=== PATIENT | female | born 1965 | race Caucasian/White ===

== ENCOUNTER 2024-09-03 14:51 | Outpatient (CLI) | payer MEDICARE, SELFPAY ==
[2024-09-03 15:22] LABS: Alanine Aminotransferase 101 U/L (6-35); Albumin Level 4.3 g/dL (3.5-5.1); Alkaline Phosphatase 87 U/L (38-126); Anion Gap 9 mmol/L (4-12); Aspartate Amino Transferase 68 U/L (14-36); Bilirubin,Total 0.4 mg/dL (0.2-1.3); Blood Urea Nitrogen 15 mg/dL (7-17); Calcium 9.6 mg/dL (8.4-10.2); Carbon Dioxide 24 mmol/L (22-30); Chloride 107 mmol/L (98-107); Estimated Glomerular Filt Rate > 60; Glucose 100 mg/dL (65-110); Sodium 140 mmol/L (137-145)
== END 2024-09-03 14:52 | disposition home or self-care (01) ==
LOC: ANHLAB 14:57
PROVIDERS: PCP Family Medicine; Visit Provider Family Medicine
DX: R79.89 Other specified abnormal findings of blood chemistry (principal)
CPT/HCPCS: 36415; 80053

== ENCOUNTER 2024-11-09 10:37 | Outpatient (CLI) | payer MEDICARE, SELFPAY ==
[2024-11-09 11:19] LABS: Alanine Aminotransferase 33 U/L (6-35); Albumin Level 4.3 g/dL (3.5-5.1); Alkaline Phosphatase 75 U/L (38-126); Anion Gap 4 mmol/L (4-12); Aspartate Amino Transferase 26 U/L (14-36); Bilirubin,Total 0.5 mg/dL (0.2-1.3); Blood Urea Nitrogen 16 mg/dL (7-17); Calcium 9.3 mg/dL (8.4-10.2); Carbon Dioxide 29 mmol/L (22-30); Chloride 106 mmol/L (98-107); Estimated Glomerular Filt Rate > 60; Glucose 89 mg/dL (65-110); Sodium 139 mmol/L (137-145)
== END 2024-11-09 10:38 | disposition home or self-care (01) ==
PROVIDERS: PCP Family Medicine; Visit Provider Family Medicine
DX: R79.89 Other specified abnormal findings of blood chemistry (principal)
CPT/HCPCS: 36415; 80053

== ENCOUNTER 2024-12-23 14:25 | Outpatient (CLI) | payer MEDICARE, SELFPAY ==
--- NOTE | ~2024-12-23 | XR_ITS ---
EXAMINATION: XR knee LT min 4V DATE: 12/23/2024 14:57 INDICATION: Left knee pain. TECHNIQUE: 5 views of left knee including standing views were obtained. COMPARISON: None. FINDINGS: There is varus angulation at the knee. No fracture. There is moderate osteoarthritis of med ial compartment and mild osteoarthritis of the lateral and patellofemoral compartments. There is a sm all knee joint effusion. IMPRESSION: 1. Moderate left knee osteoarthritis. 2. Small left knee joint effusion. Reviewed, dictated and finalized at location B. [employer] MECH[employer]IC
[2024-12-23 16:23] LABS: Vitamin D 25 Hydroxy 36.3 ng/mL
[2024-12-23 17:13] LABS: Free T4 Free Thyroxine Reflex 0.95 ng/dL (0.78-2.19)
[2024-12-23 18:57] LABS: Total Triiodothyronine (T3) 1.29 NG/ML (0.97-1.69)
== END 2024-12-23 14:26 | disposition home or self-care (01) ==
PROVIDERS: PCP Family Medicine; Visit Provider Family Medicine
DX: E03.9 Hypothyroidism, unspecified (principal); F31.9 Bipolar disorder, unspecified; M17.12 Unilateral primary osteoarthritis, left knee; M25.462 Effusion, left knee; Z79.899 Other long term (current) drug therapy
CPT/HCPCS: 36415; 73564; 82306; 84439; 84443; 84480

== ENCOUNTER 2024-12-29 07:48 | Outpatient (CLI) | payer MEDICARE, SELFPAY ==
--- NOTE | ~2024-12-29 | MR_ITS ---
EXAMINATION: MR knee LT wo con DATE: 12/29/2024 08:23 INDICATION: Left knee pain TECHNIQUE: Magnetic resonance imaging (MRI) of the left knee was performed without intravenous contra st. Sequences included coronal PD-weighted FSE, coronal PD-weighted FS FSE, sagittal T2-weighted FSE , sagittal PD-weighted FS FSE and axial PD weighted fat saturated FSE. COMPARISON: None. FINDINGS: Medial compartment: Complex medial meniscal tear which includes a longitudinal vertical tear extending to the superior ar ticular surface of the posterior horn and a meniscal flap arising from the anterior horn and body whi ch is displaced cephalad along the medial side of the anterior weightbearing medial femoral condyle. There is mild partial-thickness cartilage loss with subtle scattered chondral surface regularity angelia g the medial tibial plateau and weightbearing medial femoral condyle. There is deep or chondral ulcer ation with mild subarticular cystlike changes along the medial rim of the medial femoral condyle both at the anterior and posterior weightbearing portions. Lateral compartment: Lateral meniscus is normal. Articular cartilage is normal. Patellofemoral compartment: Deep chondral ulceration and fissuring extending in a band across the patella from the medial margin of the medial patellar facet across the apical ridge the central aspect of the lateral facet. There i s underlying mild subarticular edema-like signal change centered at the apical ridge. Shallow chondra l surface irregularity at the medial trochlea. Ligaments and tendons: Anterior and posterior cruciate ligaments are normal. The medial collateral ligament and fibular juan ateral ligament complex are normal. There are enthesophytes at the osseous insertions of the otherwis e normal quadriceps and patellar tendons. The visualized medial and lateral hamstring tendons as well as the iliotibial band are normal. Fluid: Moderate-sized left knee joint effusion with suprapatellar plical band and mild synovitis. There is a 14 x 6 x 6 mm loose osteochondral body in the posterior recess along the lateral margin of the poste rior cruciate ligament. Osseous/other: Bone alignment is normal. No fracture or pathologic marrow replacing process. IMPRESSION: 1. Complex medial meniscal tear with displaced flap. 2. 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 Reviewed, dictated and finalized at location B. ENT SERVICES CLERK IMPRESSION: 1. Complex medial meniscal tear with displaced flap. 2. Mild osteoarthritis with regions of moderate and high-grade chondromalacia i n the medial and patellofemoral compartments.
--- OUTSIDE RECORDS SUMMARY | 2024-12-29 07:54 | XMS_ITS ---
Author Organization [facility] Address [address] [place] [address] Care Team Providers Care Trucker Hand Name Role Phone Sonya Billings Primary Care Provider REASON FOR VISIT labs Social History Sex Assigned At : Social History Observation Description Sex Assigned At Female Encounters Encounter Location Date Provider [facility] [address] [place] [id number] 12/27/2024 Sonya Billings Plan Of Treatment Next Appt Details Provider Name:Sonya lamar, 01/05/2025 09:00:00 AM, [address], [address], Progress Notes * Allen HEDRICKDOB:1965 ([age] yo F)Acc No.[id number]:12/27/2024 Patient:?Allen HEDRICK :1965???Age:59 Y???Sex:Female Address:[address] [place], [address] * true * Date:? 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
--- OUTSIDE RECORDS SUMMARY | 2024-12-29 07:55 | XMS_ITS | Encounter Summary ---
Author Organization [facility] Address 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 Gender Identity Not on file Sexual Orientation Not on file documented as of this encounter Plan of Treatment Not on file documented as of this encounter Visit Diagnoses Not on filedocumented in this encounter Additional Health Concerns Infection Onset Date Last Indicated Resolved Time R/O COVID-19 06/27/2024 06/27/2024 06/27/2024 12:2 2 PM CDT R/O COVID-19 07/06/2024 07/06/2024 07/06/2024 8:14 AM CDT documented as of this encounter Care Teams Assortment Planner Relationship Specialty Start Date End Date Evan Arroyo DO [address] [place] [address] PCP - General Family Practice 06/27/21 documented as of this encounter
--- OUTSIDE RECORDS SUMMARY | 2024-12-29 07:55 | XMS_ITS ---
Author Organization [facility] Address [address] [place] [address] Care Team Providers Care Artificial Flowers Dyer Name Role Phone Sonya Billings Primary Care Provider [phone] Results Component Value Reference Range Notes [place] (Eskalith(R)), Serum Reviewed date:12/28/2024 01:47:34 PM Interpretation: Performing Lab:[facility] [place], [address] [facility], [place], Phone - [phone], Director - Juanjo Notes/Report: [place] (Eskalith(R)), Serum 0.8 0.5-1.2 mmol /L A concentration of 0.5-0.8 mmol/L is advised for long-term use; concentrations of up to 1.2 mmol/L may be necessary during acute treatment. Detection Limit = 0.1 <0.1 indicates None Detected REASON FOR VISIT labs Medications Medication SIG (Take, Route, Frequency, Duration) Notes Start Date End Date Status traZODone HCl 50 MG 1 tablet at bedtime Orally Once a day for 30 days Active Prazosin HCl 2 MG 1 capsule at bedtime Orally Once a day for 30 days Active [place] Carbonate ER 300 MG 1 tablet wit h 450 mg (for 750 mg total) at bedtime Orally Once a day for 30 days 12/08/2024 Active OLANZapine 15 MG 1 tablet Orally in the evening for 30 days Active OLANZapine 5 MG 1 tablet Orally in the morning for 30 days Active lamoTRIgine 100 MG after completing 50 mg, take 1 tablet Orally Once a day for 30 days 09/06/2024 Not-Taking Synthroid 50 MCG 1 tablet in the morning on an empty stomach Orally Once a day Not-Taking [place] Carbonate ER 450 MG 1 tablet at bedtime Orally Once a day for 30 days Active B12 Not-Taking LORazepam 0.5 MG 1 tablet at bedtime as needed Orally Once a day Not-Taking hydroCHLOROthiazide 12.5 MG 1 capsule in the morning Orally Once a day Active Atorvastatin Calcium 40 MG 1 tablet Oral ly Once a day Active Colace 100 MG 1 capsule as needed Orally Once a day Active Meclizine HCl 25 MG 1 tablet as needed Orally every 12 hrs Active Zofran Active Biotin 800 MCG 1 tablet Orally Once a day Active Vitamin D3 Active Womens 50+ Multi Vitamin Active Vitamin B12 Active Vitamin C 500 MG 1 tablet Orally Once a day Active Tolterodine Tartrate 2 MG 1 tablet Orall y Twice a day Active Levothyroxine Sodium 50 MCG 1 capsule in the morning on an empty stomach Orally Once a day Active lamoTRIgine 25 MG 1 tablet x 14 days then 2 tablets for 50 mg x 14 days Orally every day for 28 days Active Flonase Active Allergy Relief Activ e Social History Sex Assigned At : Social History Observation Description Sex Assigned At Female Encounters Encounter Location Date Provider Diagnosis [facility] [address] [address] 12/27/2024 Sonya Billings Bipolar 1 disorder F31.9 Assessments Encounter Date Diagnosis (ICD Code) Assessment Notes Treatment Notes Treatment Clinical Notes Section Notes 12/27/2024 Bipolar 1 disorder (ICD-10 - F31.9) Plan Of Treatment Next Appt Details Provider Name:Sonya lamar, 01/05/2025 09:00:00 AM, [address] [place] [address], [id number], Progress Notes * Allen HEDRICKDOB:1965 ([age] yo F)Acc No.[id number]:12/27/2024 UNLOCKED PROGRESS NOTE Patient:?BERTAllen Provider:?JAY ChiuHNP :1965???Age:59 Y???Sex:Female D ate:12/27/2024 Address[address] [facility] Subjective: * Chief Complaints: * ???1. Labs. * Medical History:? * Medications:?Taking lamoTRIg ine 25 MG Tablet 1 tablet x 14 days then 2 tablets for 50 mg x 14 days Orally every day , Taking Tolterodine Tartrate 2 MG Tablet 1 tablet Orally Twice a day , Taking Levothyroxine Sodium 50 MCG Capsule 1 capsule in the morning on an empty stomach Orally Once a day , Taking Flonase , Taking Allergy Relief , Taking Biotin 800 MCG Tablet 1 tablet Orally Once a day , Taking Vitamin B12 , Taking Vitamin C 500 MG Tablet 1 tablet Orally Once a day , Taking Vitamin D3 , Taking Womens 50+ Multi Vitamin , Taking Colace 100 MG Capsule 1 capsule as needed Orally Once a day , Taking Meclizine HCl 25 MG Tablet 1 tablet as needed Orally every 12 hrs , Taking hydroCHLOROthiazide 12.5 MG Capsule 1 capsule in the morning Orally Once a day , Taking Atorvastatin Calcium 40 MG Tablet 1 tablet Orally Once a day , Taking Zofran , Taking [place] Carbonate ER 450 MG Tablet Extended Release 1 tablet at bedtime Orally Once a day , Taking traZODone HCl 50 MG Tablet 1 tablet at bedtime Orally Once a day , Taking OLANZapine 15 MG Tablet 1 tablet Orally in the evening , Taking OLANZapine 5 MG Tablet 1 tablet Orally in the morning , Taking Prazosin HCl 2 MG Capsule 1 capsule at bedtime Orally Once a day , Taking [place] Carbonate ER 300 MG Tablet Extended Release 1 tablet with 450 mg (for 750 mg total) at bedtime Orally Once a day , Not-Taking lamoTRIgine 100 MG Tablet after completing 50 mg, take 1 tablet Orally Once a day , Not-Taking Synthroid 50 MCG Tablet 1 tablet in the morning on an empty stomach Orally Once a day , Not-Taking B12 , Not-Taking LORazepam 0.5 MG Tablet 1 tablet at bedtime as needed Orally Once a day Objective: * Vitals:? Assessment: * Assessment: 1.?Bipolar 1 disorder - F31. 9??? Plan: * Treatment: * * Electronic signature of Mary Billings on 12/29/2024 at 07:54 AM [employer] Sign off status: Pending * Provider:?SILVINO Chiu Date:? 12/27/2024 Generated for Shantelle conrad/Chantel/Deanitting on:?12/29/2024 07:54 AM [employer]
--- OUTSIDE RECORDS SUMMARY | 2024-12-29 07:55 | XMS_ITS | Patient Health Record ---
Author Organization [facility] Address [address] [place] [address] Care Team Providers Care Cinema Or Theatre Manager Name Role Phone Sonya Billings Primary Care Provider Yahaira Prince Unavailable [phone] Jass Valdez Unavailable [phone] Allergies Allergen (clinical drug ingredient) Drug/Non Drug Allergy documented on EMR Reaction Allergy Type Onset Date Status lithium Y-O Ranch hives Drug Allergy Active Results Component Value Reference Range Notes Y-O Ranch (Eskalith(R)), Serum Reviewed date:12/28/2024 01:47:34 PM Interpretation: Performing Lab:[employer] [place], [address] [facility], Phone - [phone], Director - PhDVibra Hospital Of Southeastern Massachusettsjose Notes/Report: Y-O Ranch (Eskalith(R)), Serum 0.8 0.5-1.2 mmol /L A concentration of 0.5-0.8 mmol/L is advised for long-term use; concentrations of up to 1.2 mmol/L may be necessary during acute treatment. Detection Limit = 0.1 <0.1 indicates None Detected Thyroid Panel With TSH Reviewed date:07/29/2024 08:25:23 AM Interpretation: Performing Lab:[facility] [place], [address] [facility], Phone - [phone], Director - PhDVibra Hospital Of Southeastern Massachusettsjose Notes/Report: TSH 3.840 0.450-4.500 uIU/mL Thyroxine (T4) 7.8 4.5-12.0 ug/dL T3 Uptake 21 24-39 % Free Thyroxine Index 1.6 1.2-4.9 Y-O Ranch (Eskalith(R)), Serum Reviewed date:07/29/2024 08:25:23 AM Interpretation: Performing Lab:[place] [employer] [place], [address] [place] [address], Phone - [phone], Director - Juanjo Notes/Report: Y-O Ranch (Eskalith(R)), Serum 1.4 0.5-1.2 mmol /L A concentration of 0.5-0.8 mmol/L is advised for long-term use; concentrations of up to 1.2 mmol/L may be necessary during acute treatment. Detection Limit = 0.1 <0.1 indicates None Detected Patient drug level exceeds published reference range. Evaluate clinically for signs of potential toxicity. Lipid Panel w/ Chol/HDL Rati o Reviewed date:07/29/2024 08:25:23 AM Interpretation: Performing Lab:[place] [employer] [place], [address] [facility], Phone - [phone], Director - Peter[facility] horizons medical centerviktoriya Notes/Report: Cholesterol, Total 190 100-199 mg/dL Triglycerides 121 0-149 mg/dL HDL Cholesterol 78 >39 mg/dL VLDL Cholesterol [place] 21 5-40 mg/dL LDL Chol Calc ([facility]) 91 0-99 mg/dL T. Chol/HDL Ratio 2.4 0.0-4.4 ratio T. Chol/HDL Ratio Men Women 1/2 Avg.Risk 3.4 3.3 Avg.Risk 5.0 4.4 2X Avg.Risk 9.6 7.1 3X Avg.Risk 23.4 11.0 CMP 14 Comprehensive Metabol ic Panel* Reviewed date:07/29/2024 08:25:23 AM Interpretation: Performing Lab:[place] [employer] [place], [address] [facility], Phone - [phone], Director - Juanjo Notes/Report: Glucose 84 70-99 mg/dL BUN 24 8-27 mg/dL Creatinine 1.16 0.57-1.00 mg/dL eGFR 54 >59 mL/min/1.73 BUN/Creatinine Ratio 21 12-28 Sodium 142 134-144 mmol/L Potassium 4.3 3.5-5.2 mmol/L Chloride 104 96-106 mmol/L Carbon Dioxide, Total 23 20-29 mmol/L Calcium 9.8 8.7-10.3 mg/dL Protein, Total 6.6 6.0-8.5 g/dL Albumin 4.7 3.8-4.9 g/dL Globulin, Total 1.9 1.5-4.5 g/dL Bilirubin, Total 0.4 0.0-1.2 mg/dL Alkaline Phosphatase 116 44-121 IU/L AST (SGOT) 68 0-40 IU/L ALT (SGPT) 101 0-32 IU/L Hemoglobin A1c Reviewed date:07/29/2024 08:25:23 AM Interpretation: Performing Lab:[place] [employer], Phone - [phone], Director - [facility] Notes/Report: Hemoglobin A1c 5.1 Reference Range: [place] Diabetes Association (ADA) Guidelines: <5.7: Decreased risk for diabetes 5.7 - 6.4: Increased risk for diabetes >6.4: Ongoing Hyperglycemia of any cause <7.0: Glycemic control for adults with diabetes Estimated Average Glucose 100 Y-O Ranch (Eskalith(R)), Serum Reviewed date:11/16/2024 08:25:38 AM Interpretation: Performing Lab:[place] [employer] [facility], Phone - [phone], Director - [facility] Notes/Report: Y-O [place] (Eskalith(R)), Serum 0.6 0.5-1.2 mmol /L A concentration of 0.5-0.8 mmol/L is advised for long-term use; concentrations of up to 1.2 mmol/L may be necessary during acute treatment. Detection Limit = 0.1 <0.1 indicates None Detected Y-O Ranch (Eskalith(R)), Serum Reviewed date:08/10/2024 12:19:13 PM Interpretation: Performing Lab:[place] [employer] [employer] [facility] [employer], [place], Phone - [phone], Director - [facility] Notes/Report: Y-O [place] (Eskalith(R)), Serum 1.1 0.5-1.2 mmol /L A concentration of 0.5-0.8 mmol/L is advised for long-term use; concentrations of up to 1.2 mmol/L may be necessary during acute treatment. Detection Limit = 0.1 <0.1 indicates None Detected CBC With Differential/Platel et* Reviewed date:08/10/2024 12:19:13 PM Interpretation: Performing Lab:[facility] [place], [address] [facility], Phone - [phone], Director - Juanjo Notes/Report: WBC 8.8 3.4-10.8 x10E3/uL RBC 4.96 3.77-5.28 x10E6/uL Hemoglobin 14.8 11.1-15.9 g/dL Hematocrit 45.2 34.0-46.6 % MCV 91 79-97 fL MCH 29.8 26.6-33.0 pg MCHC 32.7 31.5-35.7 g/dL RDW 13.1 11.7-15.4 % Platelets 194 150-450 x10E3/uL Neutrophils 79 Not Estab. % Lymphs 13 Not Estab. % Monocytes 5 Not Estab. % Eos 2 Not Estab. % Basos 1 Not Estab. % Neutrophils (Absolute) 6.9 1.4-7.0 x10E3/uL Lymphs (Absolute) 1.1 0.7-3.1 x10E3/uL Monocytes(Absolute) 0.5 0.1-0.9 x10E3/uL Eos (Absolute) 0.2 0.0-0.4 x10E3/uL Baso (Absolute) 0.1 0.0-0.2 x10E3/uL Immature Granulocytes 0 Not Estab. % Immature Grans (Abs) 0.0 0.0-0.1 x10E3/uL Written Authorization Reviewed date:08/10/2024 12:19:13 PM Interpretation: Performing Lab:[facility] [place], [address] [facility], [place], Phone - [phone], Director - PhDRicnew horizons medical centerjosei Notes/Report: Written Authorization Written Authorization Received. Authorization received from PER ORIGINAL ORDER 08-06-2024 Logged by Aliya Lundberg Reason For Referral Reason referral for PCP [facility] Diagnosis 1 Bipolar 1 disorder ( F31.9) Referral Organization [facility] Referring Provider First Name Yahaira Referring Provider Last Name Niki Referring Provider Speciality Behavioral Health Referred Provider Specialty Behavioral H lt Clinical Notes Irlanda Burch Rosa 07/14 12:53:20 PM >HN reached out to client and gave her information on getting set up with a PCP. Client confirmed she already had the number for central access and that she would be giving them a call. Referral Priority Routine Reason Start individual the rapy Diagnosis 1 Bipolar 1 disorder ( F31.9) Referral Organization [facility] Referring Provider First Name Sonya Referring Provider Last Name Awa Referring Provider Speciality Psychiatry Referred Provider Specialty Behavioral [place] General Notes Medicare: OP option Clinical Notes Elizabeth Singh 11/12/2024 10:41:26 AM > Called and spoke with Allen, client is interested in therapy but was trying to go outside of [facility] to a specific place in [place] though was told that she would need something sent over from [facility], but client is unsure at the moment. Client is awaiting a call at the moment from another individual at [facility] so client asked to call back at a later time, administrative underwriter provided direct line to reach her back on., Akash Singh 12/06/2024 11:53:41 AM > Called and left voicemail message., Akash Singh 12/14/2024 09:12:43 AM > Called and left voicemail. Pharmacy Sales Representative sending letter in mail for client regarding referral, if client does not hear back by 12/28 administrative underwriter will gale this as addressed. Referral Priority Routine Medications Medication SIG (Take, Route, Frequency, Duration) Notes Start Date End Date Status Biotin 800 MCG 1 tablet Orally Once a day Active Vitamin D3 Active Womens 50+ Multi Vitamin Active Vitamin B12 Active Vitamin C 500 MG 1 tablet Orally Once a day Active Tolterodine Tartrate 2 MG 1 tablet Orall y Twice a day Active Prazosin HCl 2 MG 1 capsule at bedtime Orally Once a day for 30 days Active Levothyroxine Sodium 50 MCG 1 capsule in the morning on an empty stomach Orally Once a day Active Y-O Ranch Carbonate ER 300 MG 1 tablet wit h 450 mg (for 750 mg total) at bedtime Orally Once a day for 30 days 12/08/2024 Active OLANZapine 15 MG 1 tablet Orally in the evening for 30 days Active lamoTRIgine 25 MG 1 tablet x 14 days then 2 tablets for 50 mg x 14 days Orally every day for 28 days Active OLANZapine 5 MG 1 tablet Orally in the morning for 30 days Active Flonase Active Allergy Relief Activ e lamoTRIgine 100 MG after completing 50 mg, take 1 tablet Orally Once a day for 30 days 09/06/2024 Not-Taking Synthroid 50 MCG 1 tablet in the morning on an empty stomach Orally Once a day Not-Taking Y-O Ranch Carbonate ER 450 MG 1 tablet at bedtime Orally Once a day for 30 days Active traZODone HCl 50 MG 1 tablet at [...] Orally every 12 hrs Active Zofran Active Social History Tobacco Use: Social History Observation Description Date Details (start date - stop date) Never Smoker NA - NA Sex Assigned At : Social History Observation Description Sex Assigned At Female PRAPARE Question Answer Notes Date Completed/Updated: 08/18/2024 What is your current housing situation? I have housing Are you worried about losing your housing? No What is your current work situation? 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 Check all that apply Medicine or any health care (medical, dental, mental health or vision) Struggling with the decreased dose of her medications. Client is stating that she is feeling more stressed, depressed, her sleep is affected, and that she is not adjusting well to the decrease in her medication. Has lack of transportation k ept you from medical appointments, meetings, work or from getting things needed for daily living? No How often do you see or talk to people that you care about and feel close to? (For example: talking to friends on the phone, visiting friends or family, going to congregational or club meetings) 1 or 2 times a week client and her daughter state that Allen has been much more withdrawn. Prasanna spends a lot of time in her room alone. Concerns are being expressed by the client and the client's daughter. How stressed are you? Stress is when someone feels tense, nervous, anxious, or can\t sleep at night because their mind is troubled A little bit In the past year have you sp ent more than 2 nights in a row in a nursing home, mcfp, snf center, or juvenile correctional facility? No Are you a refugee? No What country are you from? [place] Do you feel physically and emotionally safe where you currently live? Yes In the past year, have you b een afraid of your partner or ex-partner? No PRAPARE Score: 5 Tobacco Control (Standard) Question Answer Notes Tobacco use: Nonsmoker Problems Problem Type SNOMED Code ICD Code Onset Dates Problem Status W/U Status Risk Notes Problem Bipolar 1 disorder (130859708) Bipolar 1 disorder (F31.9) 07/14/2024 Active confirmed Problem Nightmares (679833710) Nightmares (F51.5) Active confirmed Vital Signs Heart Rate 81 /min 09/22/2024 Respiratory Rate 16 /min 09/22/2024 Blood pressure diastolic 84 mm Hg 09/22/2024 Oximetry 97 % 09/22/2024 Height 67 in 09/22/2024 Blood pressure systolic 124 mm Hg 09/22/2024 Weight 183 lbs 09/22/2024 BMI 28.66 kg/m2 09/22/2024 Encounters Encounter Location Date Provider Diagnosis [facility] [address] [place] [address] 07/15/2024 [place] [address] [place] [address] 08/04/2024 [facility] [address] [place] [address] 08/10/2024 [facility] [address] [place] [address] 08/18/[address] [place] [address] 09/06/2024 [facility] [address] [place] [address] 09/15/2024 Kyria Billings [facility] [address] [place] [address] 10/19/2024 Kyria Billings [facility] [address] [place] [address] 11/12/2024 Kyria Billings [facility] [address] [place] [address] 12/08/2024 Kyria Billings [facility] [address] [place] [address] 12/27/2024 Kyria Billings [facility] [address] [place] [address] 07/14/2024 Kyriminesh Lindan Nutritional counseling Z71.3 ; Bipolar 1 disorder F31.9 and Nightmares F51.5 [facility] [address] [place] [address] 07/28/2024 Nomiriminesh Lindan Bipolar 1 disorder F31.9 ; Nutritional counseling Z71.3 ; Nightmares F51.5 and Non-tobacco user Z78.9 [facility] [address] [place] [address] 08/18/2024 Nomiriminesh Lindan Nutritional counseling Z71.3 ; Bipolar 1 disorder F31.9 ; Nightmares F51.5 and Non-tobacco user Z78.9 [facility] [address] [place] [address] 09/22/2024 Kyriminesh Lindan Bipolar 1 disorder F31.9 ; Nutritional counseling Z71.3 ; Nightmares F51.5 and Non-tobacco user Z78.9 [facility] [address] [place] [address] 07/26/2024 Kyriminesh Lindan Bipolar 1 disorder F31.9 [facility] [address] [place] [address] 08/05/2024 Nomiria Billings Bipolar 1 disorder F31.9 [facility] [address] [place] [address] 11/10/2024 Kygustavoa Billings Bipolar 1 disorder F31.9 [facility] [address] [place] [address] 12/27/2024 Kyria Billings Bipolar 1 disorder F31.9 [facility] [address] [place] [address] 08/18/2024 Yahaira Prince [facility] [address] [place] [address] 10/22/2024 Kyria Billings Bipolar 1 disorder F31.9 ; Nightmares F51.5 and Non-tobacco user Z78.9 [facility] [address] [place] [address] 07/15/2024 Kyria Billings Bipolar 1 disorder F31.9 ; Nutritional counseling Z71.3 and Nightmares F51.5 [facility] [address] [place] [address] 11/16/2024 Kyria Billings Bipolar 1 disorder F31.9 ; Nightmares F51.5 and Non-tobacco user Z78.9 [facility] [address] [place] [address] 12/08/2024 Kyria Billings Bipolar 1 disorder F31.9 ; Nightmares F51.5 and Non-tobacco user Z78.9 [facility] [address] [place] [address] 09/10/2024 Kyria Billings Bipolar 1 disorder F31.9 ; Nutritional counseling Z71.3 ; Nightmares F51.5 and Non-tobacco user Z78.9 Assessments Encounter Date Diagnosis (ICD Code) Assessment Notes Treatment Notes Treatment Clinical Notes Section Notes 11/10/2024 Bipolar 1 disorder (ICD-10 - F31.9) 11/16/2024 Bipolar 1 disorder (ICD-10 - F31.9) 12/27/2024 Bipolar 1 disorder (ICD-10 - F31.9) 12/08/2024 Bipolar 1 disorder (ICD-10 - F31.9) 09/10/2024 Bipolar 1 disorder (ICD-10 - F31.9) 10/22/2024 Bipolar 1 disorder (ICD-10 - F31.9) 09/22/2024 Bipolar 1 disorder (ICD-10 - F31.9) 08/05/2024 Bipolar 1 disorder (ICD-10 - F31.9) 07/26/2024 Bipolar 1 disorder (ICD-10 - F31.9) 07/15/2024 Bipolar 1 disorder (ICD-10 - F31.9) 07/15/2024 Nutritional counseling (ICD-10 - Z71.3) 08/18/2024 Bipolar 1 disorder (ICD-10 - F31.9) 08/18/2024 Nutritional counseling (ICD-10 - Z71.3) 07/28/2024 Bipolar 1 disorder (ICD-10 - F31.9) 07/28/2024 Nutritional counseling (ICD-10 - Z71.3) 07/14/2024 Bipolar 1 disorder (ICD-10 - F31.9) 07/14/2024 Nutritional counseling (ICD-10 - Z71.3) 07/14/2024 Nightmares (ICD-10 - F51.5) Background: History of bipolar 1 disorder diagnosed in 2010 after having a hysterectomy, with prior history of depression for 10 years following the loss of her daughter in 2000. Lives with Con Koroma. Today's visit: Patient is a 58-year-old female who presents for a psychiatric evaluation in office and is accompanied by her daughter Franci post psychiatric hospitalization 30 day, discharged Friday07/09/24. PHQ-9 score of 13, LEE-7 score of 20, MDQ with 11 yes. She reports symptoms that present as bipolar disorder with distinct periods of gerri characterized by decreased need for sleep, excessive spending, hypersexuality, and irritability, followed by severe depressive episodes during which she becomes nonverbal for weeks to months at a time. During these manic episodes she may also have delusional thoughts about her daughter and periods of poor recollection of events that transpired during a manic episode. Y-O Ranch is an appropriate choice as it is considered first line treatment for bipolar disorder, she does report experiencing hives from lithium before does not have any presently and daughter reports not witnessing the hives at any period. Will continue olanzapine for further mood stability as she is currently prescribed. Recommended pt to discontinue lorazepam as it is contraindicated with Olanzapine with risk for respiratory depression. Discussed trialing 2 mg of Prazosin for nightmares and continuing trazodone as needed for sleep. Pt is agreeable to lab draws including lithium level which will help guide treatment. She is encouraged to take her medications daily as prescribed. Treatment goals include building therapeutic rapport as well as educating pt about her diagnosis for improved insight. AIMS is unremarkable. No acute safety concerns the time of this appt, he is agreeable to treatment plan and was provided an opportunity to ask questions. May self-administer medications or be administered own oral medications per [facility] protocols. Provided informed consent with understanding of side effects, adverse effects, risks and benefits as well as alternative treatments as previously discussed and with the above recommended medications & other aspects of the treatment program. Agrees to return sooner if symptoms worsen or suicidal or homicidal ideations occur. 07/28/2024 Nightmares (ICD-10 - F51.5) Today's visit: Patient is a 58-year-old female who presents for a psychiatric follow up in office and is, accompanied by daughter, Franci. Previously seen on 07/15/2024 and during this appt was continued on her current psychotropic medications and encouraged to obtain lab work. Previous PHQ-9 score of 13, today is 6. Y-O Ranch level is over the therapeutic range and is 1.4, likely contributing to report of tremors. Her labs indicate lowered eGFR and increased creatinine, will continue to monitor during upcoming appts (she reports seeing a specialist before for kidneys) - may need to consider an alternative mood stabilizer however currently is reporting improved stability in her recent manic episode and mood. Will decrease Y-O Ranch to 600mg qhs and recheck the level in 1 week. Continuing current dose of Zyprexa, Trazodone and increased dose of Prazosin which has been effective. Discussed letter for [employer] to release funds, will await further instruction before writing recommendation. She is encouraged to make PCP appt as well to follow up on lab results (lowered T3, elevated AST/ALT, elevated creatinine and lowered eGFR). No acute safety concerns at the time of this appt, she is agreeable to treatment plan and was provided an opportunity to ask questions. May self-administer medications or be administered own oral medications per [facility] protocols. Provided informed consent with understanding of side effects, adverse effects, risks and benefits as well as alternative treatments as previously discussed and with the above recommended medications & other aspects of the treatment program. Agrees to return sooner if symptoms worsen or suicidal or homicidal ideations occur. 08/18/2024 Nightmares (ICD-10 - F51.5) Today's visit: Patient is a 58-year-old female who presents for a psychiatric follow-up in office and is, accompanied by daughter, Franci. Previously seen on 07/28/2024 and during this appt was decreased on Y-O Ranch to 600 mg daily with lithium level ordered. Previous PHQ-9 score of 6, today is 17. Pt reports currently in a depressive episode. Given history of bipolar 1, antidepressants are not recommended as they can induce gerri. Instead, will start lamotrigine (Lamictal) 25mg daily for 2 weeks, then increase to 50mg daily for 2 weeks, then 100mg daily. Lamotrigine is FDA-approved for bipolar depression and was discussed with patient. Patient is aware of need to take medication daily and potential for serious rash, asked to discontinue should this occur and the need to restart this medication if missing more than 3 doses in a row. Will continue current dose of lithium, olanzapine, and prazosin (lithium within normal limits after last decrease). Will follow up in 4 weeks to assess response to lamotrigine. Consider decreasing/disconti nuing or switching off olanzapine in future if mood remains stable. Discussed possibility of genetic testing in future to help guide medication management. Provided letter to patient to present for [facility] to release hold on her account, they called to state they need a physician's signature - LAKEISHA Ricardo has reached out to Dr. Solo to see if he would be able to. No acute safety concerns at the time of this appt, she is agreeable to treatment plan and was provided an opportunity to ask questions. Begin Lamotrigine as prescribed. Reviewed purpose (mood stability, reduce depression, and help with irritability), benefits, and risks - including sedation, nausea, rash - benign or serious. A serious rash could cause shedding of all skin and even become fatal. Stop taking medication immediately if a rash occurs and seek emergency care. Notify our office as well. If you ever miss 4 or more consecutive days of taking this medication, please let the office know. The prescriber may need to restart this medication at 25 mg daily and titrate up as tolerated. May self-administer medications or be administered own oral medications per [facility] protocols. Provided informed consent with understanding of side effects, adverse effects, risks and benefits as well as alternative treatments as previously discussed and with the above recommended medications & other aspects of the treatment program. Agrees to return sooner if symptoms worsen or suicidal or homicidal ideations occur. 07/15/2024 Nightmares (ICD-10 - F51.5) Today's visit: Patient is a 58-year-old female who presents for a psychiatric evaluation over phone and is located in [place], accompanied by daughter, Franci. Previously seen on 07/14/2024 (yesterday) for an evaluation and during this appt was continued on her psychotropic medications post psychiatric hospitalization. Previous PHQ-9 score of 13, today is 13. Patient with history of bipolar 1 disorder, recently discharged from the hospital, presenting with concerns of hypomania and impulsive financial decision-making from daughter. Patient has insight that spending money while manic has been problematic in the past but denies spending any money on real estate ventures yet. Discussed with patient the importance of maintaining stability and avoiding major life decisions, such as buying a house, in the early stages of recovery and medication adjustments. Encouraged continued open communication with daughter and consideration of family therapy to address evolving relationship dynamics and establish healthy boundaries. Reviewed medication list and no major interactions noted with OTC meclizine for vertigo symptoms. Patient agreeable to continuing current medication regimen and monitoring for side effects or need for adjustments. Follow-up scheduled for 2 weeks. No acute safety concerns the time of this appt, he is agreeable to treatment plan and was provided an opportunity to ask questions. May self-administer medications or be administered own oral medications per [facility] protocols. Provided informed consent with understanding of side effects, adverse effects, risks and benefits as well as alternative treatments as previously discussed and with the above recommended medications & other aspects of the treatment program. Agrees to return sooner if symptoms worsen or suicidal or homicidal ideations occur. 09/10/2024 Nutritional counseling (ICD-10 - Z71.3) 09/22/2024 Nutritional counseling (ICD-10 - Z71.3) 10/22/2024 Nightmares (ICD-10 - F51.5) Today's visit: Patient is a 58-year-old female who presents for a psychiatric follow-up over phone and is located in [place]. Accompanied by daughter, Franci. Previously seen on 09/22/2024 and during this appt was continued on her current psychotropic medications and held on Lamotrigine Previous PHQ-9 score of 7, today is 6. Reports some cyclical depression lasting 3 weeks recently and this week feeling even . She does not wish to make any medication adjustments this appointment and wait and see . She denies any side effects, she is encouraged to write in her journal to help notice patterns, which is something she mentioned. Will continue medications as presently prescribed, no need for refills at this time.Will order lithium level for October. Will refer to therapy for patient request. No acute safety concerns at the time of this appt, she is agreeable to treatment plan and was provided an opportunity to ask questions. May self-administer medications or be administered own oral medications per [facility] protocols. Provided informed consent with understanding of side effects, adverse effects, risks and benefits as well as alternative treatments as previously discussed and with the above recommended medications & other aspects of the treatment program. Agrees to return sooner if symptoms worsen or suicidal or homicidal ideations occur. 12/08/2024 Nightmares (ICD-10 - F51.5) Today's visit: Patient is a 59-year-old female who presents for a psychiatric follow-up over Zoom and is located in [place], accompanied by her daughter Franci. Previously seen on 11/16/2024 and during this appt was continued on current psychotropic medications. PHQ-9 score today of 22. Patient reports feeling ongoing depression that has not lifted on current medications, even when restarting Zyprexa. Is feeling very sedated during the day and low energy. Discussed holding/discontinui ng AM dose of Zyprexa 5 mg, continuing 15 mg QHS and increasing lithium by 150 mg ER to 750 mg total at bedtime, based on last lithium level in October of 0.6. Patient is agreeable to these changes. Denies any other noticeable side effects. Encouraged lithium level 1-2 weeks after increasing. No acute safety concerns at the time of this appt, she is agreeable to treatment plan and was provided an opportunity to ask questions. May self-administer medications or be administered own oral medications per [facility] protocols. Provided informed consent with understanding of side effects, adverse effects, risks and benefits as well as alternative treatments as previously discussed and with the above recommended medications & other aspects of the treatment program. Agrees to return sooner if symptoms worsen or suicidal or homicidal ideations occur. 11/16/2024 Nightmares (ICD-10 - F51.5) Today's visit: Patient is a 59-year-old female who presents for a psychiatric follow-up over phone and is located in [place]. Previously seen on 10/22/2024 and during this appt was continued on her current psychotropic medications with no changes. Previous PHQ-9 score of 6, refused today's PHQ-9. Most recent lithium level 0.6 mg 11/10/24. Forgot olanzapine when out of town for a week and had not been taking, noticed a decrease in her mood sx (depression) since then and waiting for refill today from pharmacy. She would like to see how she feels after taking all medications consistently with a follow-up in a month. She declines to make any adjustments to her lithium today. No acute safety concerns at the time of this appt, she is agreeable to treatment plan and was provided an opportunity to ask questions. May self-administer medications or be administered own oral medications per [facility] protocols. Provided informed consent with understanding of side effects, adverse effects, risks and benefits as well as alternative treatments as previously discussed and with the above recommended medications & other aspects of the treatment program. Agrees to return sooner if symptoms worsen or suicidal or homicidal ideations occur. 11/16/2024 Non-tobacco user (ICD-10 - Z78.9) 12/08/2024 Non-tobacco user (ICD-10 - Z78.9) 10/22/2024 Non-tobacco user (ICD-10 - Z78.9) 09/10/2024 Nightmares (ICD-10 - F51.5) Today's visit: Patient is a 58-year-old female who presents for a psychiatric follow-up over Zoom nd is, accompanied by daughter, Franci - in the state of [place]. Previously seen on 08/18/2024 and during this appt was continued on [place] ER 600 mg, trazodone 100 mg QHS, Olanzapine 5 mg QAM and 10 mg QHS, started on Lamictal titration (only taking 25 mg presently), Prazosin 2 mg. Previous PHQ-9 score of 17, today is 11. Currently, reporting symptoms of hypomania to include irritability, decreased sleep, goal directed activity, impulsivity whereas previous appt she was reporting a significatn depressive episode. Contributing factors include recent decrease in lithium dose due to high blood levels. Recommend increasing olanzapine from 10mg to 15mg nightly to target hypomanic symptoms. Further recommend decreasing and potentially discontinuing trazodone given serotonergic activity which may be exacerbating/induci ng hypomanic episode in patient with sensitivity. Will continue lithium at current dose given most recent level was in therapeutic range. Advised holding lamotrigine at this time. Patient agreeable to medication changes. Encourage pt to engage in therapy. No acute safety concerns at the time of this appt, she is agreeable to treatment plan and was provided an opportunity to ask questions. May self-administer medications or be administered own oral medications per [facility] protocols. Provided informed consent with understanding of side effects, adverse effects, risks and benefits as well as alternative treatments as previously discussed and with the above recommended medications & other aspects of the treatment program. Agrees to return sooner if symptoms worsen or suicidal or homicidal ideations occur. 09/22/2024 Nightmares (ICD-10 - F51.5) Today's visit: Patient is a 58-year-old female who presents for a psychiatric follow-up in office, accompanied by daughter, Franci - in the [facility] [place]. Previously seen on 09/10/2024 and during this appt was increased on olanzapine to 20 mg total, decreased on trazodone, held on Lamictal (was barely taking 25 mg at the time), and continued on [place] 600 mg and Prazosin 2 mg QHS. Previous PHQ-9 score of 11, today is 7. Recent medication adjustments seem to be having a positive effect per daughter's observations, though she has had low mood the past couple days which may be situational after work attempt. Will continue current medication regimen and follow up in one month to allow time to assess response. No acute safety concerns at the time of this appt, she is agreeable to treatment plan and was provided an opportunity to ask questions. May self-administer medications or be administered own oral medications per [facility] protocols. Provided informed consent with understanding of side effects, adverse effects, risks and benefits as well as alternative treatments as previously discussed and with the above recommended medications & other aspects of the treatment program. Agrees to return sooner if symptoms worsen or suicidal or homicidal ideations occur. 08/18/2024 Non-tobacco user (ICD-10 - Z78.9) 07/28/2024 Non-tobacco user (ICD-10 - Z78.9) 09/22/2024 Non-tobacco user (ICD-10 - Z78.9) 09/10/2024 Non-tobacco user (ICD-10 - Z78.9) 08/18/2024 Other Provided case management services to address social determinants of health needs and reduce barriers to health care services. Plan Of Treatment Next Appt Details Provider Name:Sonya lamar, 01/05/2025 09:00:00 AM, [address], [id number], Insurance Providers Payer Name Payer Address Payer Phone Subscriber Number Group Number Insured Name Patient Relationship to Insured Coverage Start Date Coverage End Date [employer] ADV [address] [place] [address] [id number] Allen Hedrick Self - patient is the insured 4 Medical (General) History Medical History History ICD Code carpal tunnel Surgical History Surgery Date(Month/Year) detached retina 1978 several ovary cyst removals 1984 Hysterectomy 2010 carpal tunnel 2014 torn meniscus 2019 Hospitalization History Reason Date(Month/Year) [facility] 2022 weaning off medications-30 day stay 2023 mental health 2016
--- OUTSIDE RECORDS SUMMARY | 2024-12-29 07:55 | XMS_ITS ---
Author Organization [facility] Address [address] [place] [address] Care Team Providers Care Director Of Labor And Delivery Name Role Phone Sonya Billings Primary Care Provider Allergies Allergen (clinical drug ingredient) Drug/Non Drug Allergy documented on EMR Reaction Allergy Type Onset Date Status lithium Mcmullin hives Drug Allergy Active REASON FOR VISIT 4 week F/U Medications Medication SIG (Take, Route, Frequency, Duration) Notes Start Date End Date Status traZODone HCl 50 MG 1 tablet at bedtime Orally Once a day for 30 days Active OLANZapine 15 MG 1 tablet Orally in the evening for 30 days Active LORazepam 0.5 MG 1 tablet at bedtime as needed Orally Once a day Not-Taking Mcmullin Carbonate ER 450 MG 1 tablet at bedtime Orally Once a day for 30 days Active B12 Not-Taking Atorvastatin Calcium 40 MG 1 tablet Oral ly Once a day Active Zofran Active hydroCHLOROthiazide 12.5 MG 1 capsule in the morning Orally Once a day Active Synthroid 50 MCG 1 tablet in the morning on an empty stomach Orally Once a day Not-Taking lamoTRIgine 100 MG after completing 50 mg, take 1 tablet Orally Once a day for 30 days 09/06/2024 Not-Taking Meclizine HCl 25 MG 1 tablet as needed Orally every 12 hrs Active Womens 50+ Multi Vitamin Active Colace 100 MG 1 capsule as needed Orally Once a day Active Vitamin C 500 MG 1 tablet Orally Once a day Active Vitamin D3 Active Allergy Relief Activ e Levothyroxine Sodium 50 MCG 1 capsule in the morning on an empty stomach Orally Once a day Active Flonase Active Biotin 800 MCG 1 tablet Orally Once a day Active Vitamin B12 Active Mcmullin Carbonate ER 300 MG 1 tablet wit h 450 mg (for 750 mg total) at bedtime Orally Once a day for 30 days 12/08/2024 Active OLANZapine 5 MG 1 tablet Orally in the morning for 30 days Active lamoTRIgine 25 MG 1 tablet x 14 days then 2 tablets for 50 mg x 14 days Orally every day for 28 days Active Prazosin HCl 2 MG 1 capsule at bedtime Orally Once a day for 30 days Active Tolterodine Tartrate 2 MG 1 tablet Orall y Twice a day Active Social History Sex Assigned At : Social History Observation Description Sex Assigned At Female Encounters Encounter Location Date Provider Diagnosis [address] [address] 12/08/2024 Nomizaria Lindquistanan Bipolar 1 disorder F31.9 ; Nightmares F51.5 and Non-tobacco user Z78.9 Assessments Encounter Date Diagnosis (ICD Code) Assessment Notes Treatment Notes Treatment Clinical Notes Section Notes 12/08/2024 Bipolar 1 disorder (ICD-10 - F31.9) 12/08/2024 Nightmares (ICD-10 - F51.5) Today's visit: Patient is a 59-year-old female who presents for a psychiatric follow-up over [facility] and is located in [place], accompanied by her daughter Franci. Previously seen on 11/16/2024 and during this appt was continued on current psychotropic medications. PHQ-9 score today of 22. Patient reports feeling ongoing depression that has not lifted on current medications, even when restarting Zyprexa. Is feeling very sedated during the day and low energy. Discussed holding/discontin uing AM dose of Zyprexa 5 mg, continuing [...] or be administered own oral medications per [facility] protocols. Provided informed consent with understanding of side effects, adverse effects, risks and benefits as well as alternative treatments as previously discussed and with the above recommended medications & other aspects of the treatment program. Agrees to return sooner if symptoms worsen or suicidal or homicidal ideations occur. 12/08/2024 Non-tobacco user (ICD-10 - Z78.9) Plan Of Treatment Medication Medication Name Sig Start Date Stop Date Notes traZODone HCl 50 MG 1 tablet at bedtime Orally Once a day for 30 days OLANZapine 15 MG 1 tablet Orally in t he evening for 30 days Mcmullin Carbonate ER 450 MG 1 tablet at bedtime Orally Once a day for 30 days Mcmullin Carbonate ER 300 MG 1 tablet wit h 450 mg (for 750 mg total) at bedtime Orally Once a day for 30 days 12/08/2024 OLANZapine 5 MG 1 tablet Orally in t he morning for 30 days Prazosin HCl 2 MG 1 capsule at bedtime Orally Once a day for 30 days Treatment Notes Assessment Notes Nightmares Today's visit: Patient is a 59-year-old female who presents for a psychiatric follow-up over [facility] and is located in [place], accompanied by her daughter Franci. Previously seen on 11/16/2024 and during this appt was continued on current psychotropic medications. PHQ-9 score today of 22. Patient reports feeling ongoing depression that has not lifted on current medications, even when restarting Zyprexa. Is feeling very sedated during the day and low energy. Discussed holding/discontinuing AM dose of Zyprexa 5 mg, continuing [...] or be administered own oral medications per [facility] protocols. Provided informed consent with understanding of side effects, adverse effects, risks and benefits as well as alternative treatments as previously discussed and with the above recommended medications & other aspects of the treatment program. Agrees to return sooner if symptoms worsen or suicidal or homicidal ideations occur. Next Appt Details Follow Up: 2-4 weeks, Reason : med f/u Provider Name:Sonya lamar, 01/05/2025 09:00:00 AM, [address] , [place], [address], Progress Notes * Allen HEDRICKDOB:1965 ([age] yo F)Acc No.[id number]:12/08/2024 Patient:?Allen HEDRICK Provider:?SILVINO Chiu :1965???Age:59 Y???Sex:Female D ate:12/08/2024 Address[address] [facility] Subjective: * Chief Complaints: * ???4 week F/U * HPI: ???Interim History:?Emergency room visit?No.?Was hospitalized?No.?Psych F/U:?Changes since last visit?:?States I'm doing fine . Trying to stay out of the cold. States not much different since last appointment, states finally got olanzapine 15 mg at night and sleeping more compared to previous appointment. States would lay awake but now sleeping better. Mood has been distant states pretty shut down during the Indra holidays, didn't want to participate in the holiday activites. States still staying in bed, bed is my safe place . Because not feeling good and overall feeling more depressed, would rate depression an 8/10 with 10 being the worst. Energy level has been pretty low. Denies any feelings of SI/HI. Out of bed 1-2 hours a day per daughter Franci. Hasn't been eating very well, has had little appetite and daughter has to encourage her to come out for food. States feeling more distant and not herself . Not taking care of her hygiene as well either.?.?Depression Screening:?PHQ-9?Little interest or pleasure in doing things?Nearly every day ?Feeling down, depressed, or hopeless?Nearly every day ?Trouble falling or staying asleep, or sleeping too much?Nearly every day ?Feeling tired or having little energy?Nearly every day ?Poor appetite or overeating?Nearly every day ?Feeling bad about yourself or that you are a failure, or have let yourself or your family down?More than half the days ?Trouble concentrating on things, such as reading the newspaper or watching television?More than half the days ?Moving or speaking so slowly that other people could have noticed; or the opposite, being so fidgety or restless that you have been moving around a lot more than usual?Nearly every day ?Thoughts that you would be better off or of hurting yourself in some way?Not at all ?Total Score?22 ?Interpretation?Severe Depression ?Intervention?Depression Screening Findings?Positive ???Screening:?[place] Suicide Severity Rating Scale (LF)?Do you want to initiate with?Screener form ?1. Wish to be : Have you wished you were or wished you could go to sleep and not wake up??No ?2. Suicidal Thoughts: Have you actually had any thoughts of killing yourself??No ?6. Suicide Behaviour: Have you ever done anything,started to do anything, or prepared to end your life??No ?Interpretation:?Low Risk ???CSSRS Interpretation and Follow Up Plan:?CSSRS Interpretation and Follow Up Plan?CSSRS Screen documented using SF?Yes ?Risk Disposition from SF?Low - No Follow Up Plan Required ?Follow Up Plan?No Follow Up Plan required at this time. * ROS:?Psych ROS:?Constitutional?All systems negative or controlled on medication unless indicated otherwise., All systems negative or controlled on medication unless indicated otherwise..? * Medical History:? * Surgical History:?detached edwige brooke 1979several ovary cyst removals 1984Hysterectomy 2011carpal tunnel 2014torn meniscus 2019 * Hospitalization/Major Diagno stic Procedure:?mental health 2017weaning off medications-30 day stay 2023[facility] 2022 * Family History:?Father: srinivasa romero, healthy.?Mother: alive, healthy.?4 daughter(s) - healthy. .? 3?of her children have . One daughter is alive and healthy Grandchildren are healthy. * Social History:?Primary Social History:?Living Arrangement?Living Arrangement:?Independent Living ?Is this a supportive environment??Yes ?Alcohol Use?Alcohol Use Frequency:?Never ?Illicit Substance Usage?Illicit Substance Usage:?No ?Employment Status?Employment Status:?Unemployed * Medications:?TakingLithium C arbonate ER 300 MG Tablet Extended Release 2 tablets Orally Once a day traZODone HCl 50 MG Tablet 1 tablet at bedtime Orally Once a day OLANZapine 15 MG Tablet 1 tablet Orally in the evening OLANZapine 5 MG Tablet 1 tablet Orally in the morning Prazosin HCl 2 MG Capsule 1 capsule at bedtime Orally Once a day lamoTRIgine 25 MG Tablet 1 tablet x 14 days then 2 tablets for 50 mg x 14 days Orally every day Tolterodine Tartrate 2 MG Tablet 1 tablet Orally Twice a day Levothyroxine Sodium 50 MCG Capsule 1 capsule in the morning on an empty stomach Orally Once a day Flonase Allergy Relief Biotin 800 MCG Tablet 1 tablet Orally Once a day Vitamin B12 Vitamin C 500 MG Tablet 1 tablet Orally Once a day Vitamin D3 Womens 50+ Multi Vitamin Colace 100 MG Capsule 1 capsule as needed Orally Once a day Meclizine HCl 25 MG Tablet 1 tablet as needed Orally every 12 hrs hydroCHLOROthiazide 12.5 MG Capsule 1 capsule in the morning Orally Once a day Atorvastatin Calcium 40 MG Tablet 1 tablet Orally Once a day Zofran Taking Mcmullin Carbonate ER 300 MG Tablet Extended Release 2 tablets Orally Once a day Taking traZODone HCl 50 MG Tablet 1 tablet at bedtime Orally Once a day Taking OLANZapine 15 MG Tablet 1 tablet Orally in the evening Taking OLANZapine 5 MG Tablet 1 tablet Orally in the morning Taking Prazosin HCl 2 MG Capsule 1 capsule at bedtime Orally Once a day Taking lamoTRIgine 25 MG Tablet 1 tablet x 14 days then 2 tablets for 50 mg x 14 days Orally every day Taking Tolterodine Tartrate 2 MG Tablet 1 tablet Orally Twice a day Taking Levothyroxine Sodium 50 MCG Capsule 1 capsule in the morning on an empty stomach Orally Once a day Taking Flonase Taking Allergy Relief Taking Biotin 800 MCG Tablet 1 tablet Orally Once a day Taking Vitamin B12 Taking Vitamin C 500 MG Tablet 1 tablet Orally Once a day Taking Vitamin D3 Taking Womens 50+ Multi Vitamin Taking Colace 100 MG Capsule 1 capsule as needed Orally Once a day Taking Meclizine HCl 25 MG Tablet 1 tablet as needed Orally every 12 hrs Taking hydroCHLOROthiazide 12.5 MG Capsule 1 capsule in the morning Orally Once a day Taking Atorvastatin Calcium 40 MG Tablet 1 tablet Orally Once a day Taking Zofran Not-TakinglamoTRIgine 100 MG Tablet after completing 50 mg, take 1 tablet Orally Once a day Synthroid 50 MCG Tablet 1 tablet in the morning on an empty stomach Orally Once a day B12 LORazepam 0.5 MG Tablet 1 tablet at bedtime as needed Orally Once a day Medication List reviewed and reconciled with the patientNot-Taking lamoTRIgine 100 MG Tablet after completing 50 mg, take 1 tablet Orally Once a day Not-Taking Synthroid 50 MCG Tablet 1 tablet in the morning on an empty stomach Orally Once a day Not-Taking B12 Not-Taking LORazepam 0.5 MG Tablet 1 tablet at bedtime as needed Orally Once a day Medication List reviewed and reconciled with the patient * Allergies:?Mcmullin: hivesno[ Allergies Verified] Objective: * Vitals:? * Examination: ???Mental Status Exam: ?SENSORIUM AND COGNITION?A&OX4.?ATTENTION AND CONCENTRATION?Impaired attention/concentration.?APPEARANCE?Appropriate.?ATTITUDE AND BEHAVIOR?Cooperative, evasive.?MEMORY?Adequate.?EYE CONTACT?Fair.?AFFECT?Dysthymic, restricted affect.?MOOD?Dysthymic.?SPEECH QUANTITY?Sparse.?SPEECH QUALITY?Spontaneous , Low/soft?volume.?THOUGHT PROCESS?Coherent and goal directed.?THOUGHT CONTENT?No evidence of delusional content , No reports of paranoia.?LANGUAGE?Appropriate- WNL.?MOTOR ACTIVITY?Relaxed.?SUICIDAL IDEATION?Denies SI or thoughts of self harm.?HOMICIDAL IDEATION?Does not display aggressive behavior, threats or posturing.?HALLUCINATIONS?Does not appear to be responding to internal stimuli or seeing hallucinations in the room.?INSIGHT?Fair to Adequate.?JUDGMENT?Fair to Adequate.?FUND OF KNOWLEDGE?Adequate.?ABILITY TO PARTICIPATE IN TREATMENT?Moderate.?WILLINGNESS TO PARTICIPATE IN TREATMENT?Moderate.? Assessment: * Assessment: 1.?Bipolar 1 disorder - F31. 9 (Primary)???2.?Nightmares - F51.5???3.?Non-tobacco user - Z78.9??? Plan: * Treatment: 2.?Nightmares? Refill Prazosin HCl Capsule, 2 MG, 1 capsule at bedtime, Orally, Once a day, 30 days, 30, Refills 1.?? Notes:Today's visit: Patient is a [id number] who presents for a psychiatric follow-up over [facility] and is located in [place], accompanied by her daughter Franci.Previously seenon 11/16/2024nd during this appt was continued on current psychotropic medications. PHQ-9 score today of 22. Patient reports feeling ongoing depression that has not lifted on current medications, even when restarting Zyprexa. Is feeling very sedated during the day and low energy. Discussed holding/discontinuing AM dose of Zyprexa 5 mg, continuing 15 mg QHS and increasing lithium by 150 mg ER to 750 mg total at bedtime, based on last lithium level in October of 0.6. Patient is agreeable to these changes. Denies any other noticeable side effects. Encouraged lithium level 1-2 weeks after increasing.No acute safety concerns atthe time of this appt, she is agreeable to treatment plan and was provided anopportunity to ask questions. May self-administer medications or be administered own oralmedications per [facility] protocols. Provided informed consent withunderstanding of side effects, adverse effects, risks and benefits as well asalternative treatments as previously discussed and with the above recommendedmedications & other aspects of the treatment program. Agrees to returnsooner if symptoms worsen or suicidal or homicidal ideations occur.?? * Procedure Codes:? * Follow Up:?2-4 weeks (Reason : med f/u) * * NT CARE REPRESENTATIVE Sign off status: Completed true * [facility] Date:? 12/08/2024 Generated for Shatnelle conrad/Chantel/Sagarransmitting on:?12/29/2024 07:54 AM CLIENT CARE REPRESENTATIVE History and Physical Notes * HPI (History of Present Illness) Category Sub-Category Detail Notes Category Not es Interim History Was hospitalized No Emergency room visit No Depression Screening PHQ-9 Little inte rest or pleasure in doing things: Nearly every day Feeling down, depressed, or hopeless: Ne zonia every day Trouble falling or staying asleep, or sl eeping too much: Nearly every day Feeling tired or having little energy: N early every day Poor appetite or overeating: Nearly ever y day Feeling bad about yourself o r that you are a failure, or have let yourself or your family down: More than half the days Trouble concentrating on thi ngs, such as reading the newspaper or watching television: More than half the days Moving or speaking so slowly that other people could have noticed; or the opposite, being so fidgety or restless that you have been moving around a lot more than usual: Nearly every day Thoughts that you would be b jarod off or of hurting yourself in some way: Not at all Total Score: 22 Interpretation: Severe Depression Intervention Depression Screening Findings: P ositive Psych F/U Changes since last visit?: State s I'm doing fine . Trying to stay out of the cold. States not much different since last appointment, states finally got olanzapine 15 mg at night and sleeping more compared to previous appointment. States would lay awake but now sleeping better. Mood has been distant states pretty shut down during the Indra holidays, didn't want to participate in the holiday activites. States still staying in bed, bed is my safe place . Because not feeling good and overall feeling more depressed, would rate depression an 8/10 with 10 being the worst. Energy level has been pretty low. Denies any feelings of SI/HI. Out of bed 1-2 hours a day per daughter Franci. Hasn't been eating very well, has had little appetite and daughter has to encourage her to come out for food. States feeling more distant and not herself . Not taking care of her hygiene as well either. Screening [place] Suicide Sev erity Rating Scale (LF) Do you want to initiate with: Screener form ?1. Wish to be : Have yo u wished you were or wished you could go to sleep and not wake up?: No ?2. Suicidal Thoughts: Have you actually had any thoughts of killing yourself?: No ?6. Suicide Behaviour: Have you ever done anything,started to do anything, or prepared to end your life?: No ?Interpretation:: Low Risk CSSRS Interpretation and Follow Up Plan CSSRS Interpretation and Follow Up Plan CSSRS Screen documented using SF: Yes Risk Disposition from SF: Low - No Follo w Up Plan Required Follow Up Plan: No Follow Up Plan requir ed at this time. Examination Category Sub-Category Detail Notes Category Not es Mental Status Exam SENSORIUM AND COGNITION A&OX4 ATTENTION AND CONCENTRATION Impaired att ention/concentration APPEARANCE Appropriate ATTITUDE AND BEHAVIOR Cooperative, evasi ve MEMORY Adequate EYE CONTACT Fair AFFECT Dysthymic, restricte d affect MOOD Dysthymic SPEECH QUANTITY Sparse SPEECH QUALITY Spontaneous , Low/so ft volume THOUGHT PROCESS Coherent and goal di rected THOUGHT CONTENT No evidence of delus ional content , No reports of paranoia MOTOR ACTIVITY Relaxed SUICIDAL IDEATION Denies SI or thought s of self harm HOMICIDAL IDEATION Does not display agg ressive behavior, threats or posturing HALLUCINATIONS Does not appear to b e responding to internal stimuli or seeing hallucinations in the room INSIGHT Fair to Adequate JUDGMENT Fair to Adequate FUND OF KNOWLEDGE Adequate ABILITY TO PARTICIPATE IN TREATMENT Mode rate WILLINGNESS TO PARTICIPATE I N TREATMENT Moderate LANGUAGE Appropriate- WNL
--- OUTSIDE RECORDS SUMMARY | 2024-12-29 07:55 | XMS_ITS | Clinical Summary ---
Author Organization [facility] Address [address] [place] [address] Care Team Providers Care Dog Trainer Name Role Phone AmayaEvan edge Ayo ROB Primary Care Provider [phone] Allergies Active Allergy Reactions Criticality Noted Date Comments Iodine Hives High 04/21/2020 Latex Unknown 11/13/2017 States she is not allergic Penicillins Hives High 04/21/2020 Shellfish Containing Products Anaphylaxis,Swelling High 05/02/2016 Sulfa (Sulfonamide Antibiotics) Hives High 04/21/2020 Medications meloxicam (MOBIC) 15 mg tablet Take 15 mg by mouth daily. Active hydrOXYzine HCL (ATARAX) 50 mg tablet Take 50 mg by mouth every 6 hours as needed for Anxiety. Active levothyroxine 50 mcg tablet Take 1 Tablet (50 mcg) by mouth daily in the morning. 30 Tablet 1 07/09/2024 10:37 AM CDT 4 Active atorvastatin (LIPITOR) 10 mg tablet Starting 07/10/24, Take 1 Tablet (10 mg) by mouth daily. 30 Tablet 1 07/09/2024 10:37 AM CDT 4 Active hydroCHLOROthiazi de 12.5 mg tablet Starting 07/10/24, Take 1 Tablet (12.5 mg) by mouth daily. 30 Tablet 1 07/09/2024 10:37 AM CDT 4 Active lithium carbonate 450 mg Controlled Release tablet Take 2 Tablets (900 mg) by mouth daily at bedtime. 60 Tablet 1 07/09/2024 10:37 AM CDT 4 Active LORazepam (ATIVAN) 0.5 mg tabletIndications :Bipolar affective disorder, currently manic, moderate (CMS/HCC) Take 1 Tablet (0.5 mg) by mouth 2 times daily. 60 Tablet 1 07/09/2024 10:37 AM CDT 4 Active OLANZapine (ZyPREXA ZYDIS) 10 mg Tablet, Rapid Dissolve Take 1 Tablet (10 mg) by mouth daily at bedtime. 30 Tablet 1 07/09/2024 10:37 AM CDT 4 Active OLANZapine (ZyPREXA ZYDIS) 5 mg Tablet, Rapid Dissolve Starting 07/10/24, Take 1 Tablet (5 mg) by mouth daily. 30 Tablet 1 07/09/2024 10:37 AM CDT 4 Active ondansetron (ZOFRAN ODT) 4 mg Tablet, Rapid Dissolve Dissolve 1 Tablet (4 mg) tablet on top of tongue, then swallow with saliva every 8 hours as needed for Nausea/Vomiti ng. 60 Tablet 1 07/09/2024 10:37 AM CDT 4 Active prazosin (MINIPRESS) 1 mg capsule Take 1 Capsule (1 mg) by mouth daily at bedtime. 30 Capsule 1 07/09/2024 10:37 AM CDT 4 Active tolterodine (DETROL LA) 4 mg Extended Release 24 hour capsuleIndication s:Mixed incontinence urge and stress Take 1 Capsule (4 mg) by mouth daily. 30 Capsule 11 4 Active estradioL (CLIMARA) 0.025 mg/24 hr patchIndications: Hot flashes due to menopause Apply 1 Patch to skin as directed every 7 days. 4 Patch 11 4 Active traZODone (DESYREL) 100 mg tablet Take 1 Tablet (100 mg) by mouth daily at bedtime. 30 Tablet 1 4 Active Active Problems Problem Noted Date Diagnosed Date Hot flashes due to menopause 09/10/2024 Mixed incontinence urge and stress 09/10/2024 Screening for colon cancer 09/10/2024 Chronic diarrhea 09/10/2024 Midline cystocele 09/10/2024 Bilateral lower extremity edema 06/28/2024 Hypothyroidism 06/28/2024 Bipolar affective disorder, currently manic, mod erate 06/18/2024 Hyperlipidemia 06/18/2024 Affective psychosis, bipolar 06/18/2024 Essential hypertension 11/13/2017 Overview (06/16/2021): Discovered during most recent hypomanic bipolar episode Summer 2016 Last Assessment & Plan: Controlled. Continue meds, Encourage exercise for weight loss. Stress incontinence 01/22/2017 Resolved Problems Problem Noted Date Diagnosed Date Resolved Date Bipolar disorder, in full re mission, most recent episode hypomanic 11/13/2017 06/18/2024 Overview (06/16/2021): Original decomp ~ 2010. Most recent Aug 2017 w/ med changes. Psych in [facility]. Last Assessment & Plan: Controlled. Continue meds and Psych follow-ups. Encounters Date Type Department Care Team Description 12/22/2024 External Device Data ST[facility] ABSTRACTION Provider, Abstract 12/22/2024 External Device Data ST[facility] ABSTRACTION Provider, Abstract 12/14/2024 External Device Data ST[facility] ABSTRACTION Provider, Abstract 11/30/2024 External Device Data [facility] ABSTRACTION Provider, Abstract 11/02/2024 External Device Data [facility] ABSTRACTION Provider, Abstract 10/19/2024 External Device Data ST[facility] ABSTRACTION Provider, Abstract 09/29/2024 External Device Data ST[facility] ABSTRACTION Provider, Abstract from Last 3 Months Immunizations Immunization Administration Dates Next Due (SHINGRIX)(50 YRS UP) ZOSTER VACCINE RECOMBINANT, 0.5 ML, IM 09/10/2019 INFLUENZA VACCINE QUADRIVALENT 6 MOS UP PF IM Influenza Vaccine Tri Split 4+ Im 10/11/2017 Family History Medical History Relation Name Comments Heart Disease Father age 73. four M I - stents. Hypertension Father Other Father alcoholism Diabetes Mother age 73. pills. High Cholesterol Mother Hypertension Mother Breast Cancer Neg Hx Colon Cancer Neg Hx Ovarian Cancer Neg Hx Relation Name Status Comments Father Alive Mother Alive Social History Tobacco Use Types Packs/Day Years Used Date Smoking Tobacco: Never Smokeless Tobacco: Never Alcohol Use Standard Drinks/Week Comments No 0 (1 standard drink = 0.6 oz pur e alcohol) Utility Needs Answer Date Recorded In the past 12 months has livier e 4Cable TV, gas, oil, or water [employer] threatened to shut off services in your home? Patient unable to answer 06/17/2024 Feeling Safe Answer Date Recorded Within the last year, have y ou been afraid of your partner or ex-partner? Patient unable to answer 06/17/2024 Within the last year, have y ou been humiliated or emotionally abused in other ways by your partner or ex-partner? Patient unable to answer 06/17/2024 Within the last year, have y ou been kicked, hit, slapped, or otherwise physically hurt by your partner or ex-partner? Patient unable to answer 06/17/2024 Within the last year, have y ou been raped or forced to have any kind of sexual activity by your partner or ex-partner? Patient unable to answer 06/17/2024 Social Connections Answer Date Recorded In a typical week, how many times do you talk on the telephone with family, friends, or neighbors? Patient unable to answer 06/17/2024 How often do you get togethe r with friends or relatives? Patient unable to answer 06/17/2024 How often do you attend [facility] or nondenominational services? Patient unable to answer 06/17/2024 Do you belong to any clubs o r organizations such as yazidi groups, unions, fraternal or athletic groups, or school groups? Patient unable to answer 06/17/2024 How often do you attend meet ings of the clubs or organizations you belong to? Patient unable to answer 06/17/2024 Are you , , di vorced, , never , or living with a partner? Patient unable to answer 06/17/2024 Financial Resource Strain Answer Date R ecorded How hard is it for you to pa y for the very basics like food, housing, medical care, and heating? Patient unable to answer 06/17/2024 Food Insecurity Answer Date Recorded In the past 12 months, have you worried that your food would run out before you had money to buy more? Patient unable to answer 06/17/2024 In the past 12 months, did y ou run out of food and didn't have money to buy more? Patient unable to answer 06/17/2024 Transportation Needs Answer Date Record ed In the past 12 months, has l ack of transportation kept you from medical appointments or from getting medications? Patient unable to answer 06/17/2024 In the past 12 months, has l ack of transportation kept you from meetings, work, or from getting things needed for daily living? Patient unable to answer 06/17/2024 Housing Stability Answer Date Recorded In the last 12 months, was t here a time when you were not able to pay the mortgage or rent on time? Patient unable to answer 06/17/2024 Number of Times Moved in the Last Year Not on fi le 06/17/2024 At any time in the past 12 m [facility], were you homeless or living in a [place] (including now)? Patient unable to answer 06/17/2024 Feeling Safe Answer Date Recorded Are you in a relationship wi th someone who hurts you emotionally and/or physically? 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 Gender Identity Not on file Sexual Orientation Not on file Last Filed Vital Signs Vital Sign Reading Time Taken Comments Blood Pressure 112/72 09/10/2024 9:49 AM CDT Pulse 78 07/09/2024 7:25 AM CDT Temperature 36 ??C (96.8 ??F) 07/09/2024 7:25 AM CDT Respiratory Rate 18 07/09/2024 7:25 AM CDT Oxygen Saturation 100% 07/09/2024 7:25 AM CDT Inhaled Oxygen Concentration - - Weight 81.8 kg (180 lb 6.4 oz) 09/10/2024 9:49 A M CDT Height 170.2 cm (5' 7 ) 06/17/2024 10:34 AM CDT Body Mass Index 28.25 06/17/2024 10:34 AM CDT Plan of Treatment Health Maintenance Due Date Last Done Comments PNEUMOCOCCAL VACCINE 0-64 YE ARS (1 of 2 - PCV) 1969 DIABETES ANNUAL FOOT EXAM 1981 DIABETES ANNUAL RETINAL EXAM 1981 DIABETES MICROALBUMIN ANNUAL SCREEN 1981 DTAP/TDAP/TD VACCINES (1 - Tdap) 1982 COLORECTAL SCREENING 2008 Colorectal Cancer Screening 2008 FIT-DNA Q 3 years 2008 FIT/FOBT Q 1 year 2008 Flex Sig/CT Colonography Q 5 years 2008 ZOSTER VACCINE (2 of 2) 11/05/2019 09/10/2019 INFLUENZA VACCINE (#1) 2024 09/10/2019, 2016 DIABETES HBA1C Q 6 MONTHS 12/18/2024 06/17/2024 LDL CHOLESTEROL ANNUAL 06/17/2025 4, 06/05/2017, 04/03/2017 BREAST CANCER SCREENING 09/10/2025 09/10/20 24, 06/29/2022, 06/27/2021, Additional history exists CERVICAL CANCER SCREENING 09/10/20272023, 10/13/2020, 10/13/2020 RSV VACCINE (60+ or ) (1 - 1-dose 75+ series) 2038 Procedures Procedure Name Priority Date/Time Associated Diagnosis Comments CERV/VAG CYTO AGE BASED SCREEN PAP Routine 09/10/2024 11:58 AM CDT Encounter for gynecological examination with abnormal finding MAMMO 3D JIMENA SCREEN BILAT W OR WO CAD Routine 09/10/2024 8:11 AM CDT Visit for screening mammogram LIPID PANEL Routine 06/17/2024 8:46 PM CDT HEMOGLOBIN A1C Routine 06/17/2024 8:46 PM CDT from Last 3 Months or Most Recently Relevant to Health Maintenance Results * CERV/VAG CYTO AGE BASED SCREEN PAP (09/10/2024 11:58 AM CDT) COMMENT (PAP): [facility] Comment: This order for age-based cervical cancer and STI screening follows ACOG guidelines(PB 168, 140, XTH627). See individual assays for performing site location. CLINICAL INFORMATION [facility] Comment:None given LAST MENSTRUAL PERIOD [facility] Comment:NONE GIVEN PREV PAP: [facility] Comment:NONE GIVEN PREV BX: [facility] Comment:NONE GIVEN SOURCE [facility] Comment:Vaginal cuff ADEQUACY: [facility] Comment:SATISFACTORY FOR MARRY LUATION PAP INTERP [facility] Comment: Cytology Results: Negative for intraepithelial lesion or malignancy. COMMENT (PAP TEST) [facility] Comment: This Pap test has been evaluated with computer assisted technology. ANIMAL ANATOMIST: [facility] Comment: [place], CT(ASCP) CT Screening location: [facility] [address] [place] [address] REVIEW ANIMAL ANATOMIST: Manju Gayle Comment: LMT, CT(ASCP) CT screening location: [place] [address] [facility] EXPLANATORY NOTE [facility] Comment: EXPLANATORY NOTE: The Pap is a screening test for cervical cancer. It is not a diagnostic test and is subject to false negative and false positive results. It is most reliable when a satisfactory sample, regularly obtained, is submitted with relevant clinical findings and history, and when the Pap result is evaluated along with historic and current clinical information. HPV E6/E7 Not Detected Not Detected [facility] Comment: Methodology: [employer] Superintendent-Mediated Amplification This assay detects E6/E7 viral messenger RNA (mRNA) from 14 high-risk HPV types (16,18,31,33,35,39,45,51,52,56,58,59,66,68). Cervical sources are required for HPV testing. If a vaginal source from a patient who has had a total hysterectomy with removal of cervix was submitted, please contact the testing laboratory for alternative testing options. For additional information, please refer to http://education.Medisas/faq/XDC014r9 (This link if provided for information/ educational purposes only.) Test Performed at: [facility] [address] ??[id number] Felicia HERNÁNDEZ Genital (Vaginal cuff) 09/10/2024 11:58 AM CDT 09/11/2024 3:39 AM CDT Sudhir Henderson MD PATHOLOGY/CYTOLOGY ORDERABLES Final Result [facility] [phone] [facility] [address] [place] [address] * MAMMO 3D JIMENA SCREEN BILAT W OR WO CAD (09/10/2024 8:11 AM CDT) Anatomical Region Laterality Modality Breast Bilateral Mammography 09/10/2024 8:11 AM CDT Impressions 09/10/2024 9:36 AM CDT IMPRESSION: No mammographic evidence of malignancy. RECOMMENDATIONS: Routine screening mammogram in one year. DICTATION LOCATION: [facility] Narrative 09/10/2024 9:36 AM CDT MAMMO 3D JIMENA SCREEN BILAT W OR WO CAD DATE: 09/10/2024 8:11 AM HISTORY: Routine screening. TECHNIQUE: Full-field digital craniocaudal and mediolateral oblique projections of both breasts were obtained. Low-dose full-field digital breast tomosynthesis examination was performed with 3D acquisitions. Examination is read in conjunction with computer aided detection. COMPARISON: Mammograms dating back to 2018 BREAST COMPOSITION: There are scattered areas of fibroglandular density. FINDINGS: No suspicious mass, suspicious microcalcifications, or architectural distortion in either breast is identified. Since the prior study, there has been no significant interval change. The computer aided diagnosis detects no significant abnormality. OVERALL FINAL ASSESSMENT: ??BI-RADS CATEGORY 1 : Negative. Procedure Note Jamilah Velazquez MD - 09/10/2024 MAMMO 3D JIMENA SCREEN BILAT W OR WO CAD DATE: 09/10/2024 8:11 AM HISTORY: Routine screening. TECHNIQUE: Full-field digital craniocaudal and mediolateral oblique projections of both breasts were obtained. Low-dose full-field digital breast tomosynthesis examination was performed with 3D acquisitions. Examination is read in conjunction with computer aided detection. COMPARISON: Mammograms dating back to 2018 BREAST COMPOSITION: There are scattered areas of fibroglandular density. FINDINGS: No suspicious mass, suspicious microcalcifications, or architectural distortion in either breast is identified. Since the prior study, there has been no significant interval change. The computer aided diagnosis detects no significant abnormality. OVERALL FINAL ASSESSMENT: BI-RADS CATEGORY 1 : Negative. IMPRESSION: No mammographic evidence of malignancy. RECOMMENDATIONS: Routine screening mammogram in one year. DICTATION LOCATION: [facility] Sudhir Henderson MD MAMMO ORDERABLES Final Result * HEMOGLOBIN A1C (06/17/2024 8:46 PM CDT) HEMOGLOBIN A1C 5.2 <=5.6 % 06/17/2024 9:[address] [facility] EST. AVG GLUCOSE, A1C 103 mg/dL 06/17/2024 9:[address] [facility] Blood Venipuncture / Unknown 06/17/2024 8:46 PM CDT 06/17/2024 9:[address] [facility] - 06/17/2024 9:55 PM CDT HGB A1C INTERPRETATION NORMAL: ? <5.7% PRE-DIABETES: 5.7 - 6.4% DIABETES: ? 6.5% OR GREATER Monika Meng MD CHEMISTRY ORDERABLES Final Resul t [facility] CLIA# [id number] [place] [address] * (ABNORMAL) LIPID PANEL (06/17/2024 8:46 PM CDT) CHOLESTEROL 186 <200 mg/dL 06/17/2024 9:[address] [facility] TRIGLYCERIDE 252(H) <150 mg/dL 06/17/2024 9:[address] [facility] HDL 48 40 - 59 mg/dL 06/17/2024 9:[address] [facility] LDL CALCULATED 88 <100 mg/dL 06/17/2024 9:[address] [facility] NON-HDL CHOLESTEROL 138(H) <130 mg/dL 06/17/2024 9:[address] [facility] Blood Venipuncture / Unknown 06/17/2024 8:46 PM CDT 06/17/2024 9:20 PM CD[address]ative [facility] - 06/17/2024 9:57 PM CDT TOTAL CHOLESTEROL ??mg/dL ??Desirable <200 ??Borderline high 200-239 ??High >=240 TRIGLYCERIDES ??mg/dL ??Normal <150 ??Borderline high 150-199 ??High 200-499 ??Very high >=500 HDL CHOLESTEROL ??mg/dL ??Low <40 ??Normal 40-59 ??Desirable >=60 NON HDL CHOLESTEROL mg/dL ??Optimal <130 ??Near Optimal 130-159 ??Borderline High 160-189 ??Very High >=190 CALCULATED LDL mg/dL ??LDL <70, OPTIMAL if have Atherosclerotic cardiovascular disease (ASCVD) ??or intermediate or higher (>7.5%) 10 year risk of ASCVD including most adults ??with diabetes. ??LDL <100, Optimal in adult patients with low (<7.5%) 10 year ASCVD risk ??LDL 100-160, Suboptimal ??LDL >160, High ??LDL >190, Very high ATPIII Guidelines Reference Ranges for Lipid Panels (NCEP/AMA) . us Monika Meng MD CHEMISTRY ORDERABLES Final Resul t [facility] [employer] [facility] CLIA# [id number] [place] [address] from Last 3 Months or Most Recently Relevant to Health Maintenance Insurance [employer] GOLD PLUS [id number] HMO RX idemama Medicare Part D [employer] G[employer]US [id number] HMO Advance Directives For more information, please contact: [phone] * Full Code (Latest Code Status on File) Date Activated Date Inactivated Comments 06/17/2024 10:34 AM 07/09/2024 4:56 PM Care Teams Dog Trainer Relationship Specialty Start Date End Date Evan Arroyo DO [address] [place] [address] PCP - General Family Practice 06/27/21
== END 2024-12-29 07:49 | disposition home or self-care (01) ==
PROVIDERS: PCP Family Medicine; Visit Provider Family Medicine
DX: S83.232A Complex tear of medial meniscus, current injury, left knee, initial encounter (principal); M17.12 Unilateral primary osteoarthritis, left knee; M94.262 Chondromalacia, left knee; X58.XXXA Exposure to other specified factors, initial encounter
CPT/HCPCS: 73721

== ENCOUNTER 2025-03-08 10:13 | Outpatient (CLI) | payer MEDICARE, SELFPAY ==
[2025-03-08 11:18] LABS: Cholesterol 137 mg/dL (0-200); HDL Direct 53 mg/dL; Triglycerides 177 mg/dL (<150)
--- OUTSIDE RECORDS SUMMARY | 2025-03-08 11:23 | XMS_ITS | Encounter Summary ---
Author Organization [employer] Address 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
--- OUTSIDE RECORDS SUMMARY | 2025-03-08 11:23 | XMS_ITS | Clinical Summary ---
Author Organization [facility] Address [address] [place] [address] Care Team Providers Care Free Lance Model Name Role Phone AmayaEvan edge Ayo ROB Primary Care Provider [phone] Allergies Active Allergy Reactions Criticality Noted Date [...] Aug 2017 w/ med changes. Psych in [facility]. Last Assessment & Plan: Controlled. Continue meds and Psych follow-ups. Encounters Date Type Department Care Team Description 02/22/2025 External Device Data [facility]STRACTION Provider, Abstract 01/25/2025 External Device Data [facility] Provider, Abstract 01/11/2025 External Device Data [facility] Provider, Abstract 01/11/2025 External Device Data [facility] Provider, Abstract 01/11/2025 External Device Data [facility] Provider, Abstract 01/04/2025 External Device Data [facility] Provider, Abstract 12/28/2024 External Device Data [facility] Provider, Abstract [...] Recorded In the past 12 months has e [employer], [employer], oil, or water [employer] threatened to shut off services in your [...] answer 06/17/2024 How often do you attend [facility] or synagogue services? Patient unable to answer 06/17/2024 Do you belong to any clubs o r organizations such as judaism groups, unions, fraternal or athletic groups, or [...] any time in the past 12 m [facility], were you homeless or living in a senior care (including now)? 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 Gender Identity Not on file Sexual Orientation Not on file Last Filed Vital Signs Vital Sign Reading Time Taken Comments Blood Pressure 112/72 09/10/2024 9:49 AM CDT Pulse 78 07/09/2024 7:25 AM CDT Temperature 36 C (96.8 F) 07/09/2024 7:25 AM CDT Respiratory Rate 18 07/09/2024 7:25 AM CDT Oxygen Saturation 100% 07/09/2024 7:25 AM CDT Inhaled Oxygen Concentration - - Weight 81.8 kg (180 lb 6.4 oz) 09/10/2024 9:49 A M CDT Height 170.2 cm (5' 7 ) 06/17/2024 10:34 AM CDT Body Mass Index 28.25 06/17/2024 10:34 AM CDT Plan of Treatment Health Maintenance Due Date Last Done Comments DIABETES ANNUAL FOOT EXAM 1981 DIABETES ANNUAL RETINAL EXAM 1981 DIABETES MICROALBUMIN ANNUAL SCREEN 1981 DTAP/TDAP/TD VACCINES (1 - Tdap) 1982 COLORECTAL SCREENING 2008 Colorectal Cancer Screening 2008 FIT-DNA Q 3 years 2008 FIT/FOBT Q 1 year 2008 Flex Sig/CT Colonography Q 5 years 2008 ZOSTER VACCINE (2 of 2) 11/05/2019 09/10/2019 INFLUENZA VACCINE (#1) 2024 09/10/2019, 2016 [place] Preventative Visit/Annual Wellness Visit 12/01/2024 09/10/2024, 10/13/2020, 04/06/1999 DIABETES HBA1C Q 6 MONTHS 12/18/2024 06/17/2024 LDL CHOLESTEROL ANNUAL 06/17/2025 4, 06/05/2017, 04/03/2017 BREAST CANCER SCREENING 09/10/2025 09/10/20 24, 06/29/2022, 06/29/2022, Additional history exists RSV VACCINE (60+ or ) (1 - 1-dose 75+ series) 2038 Procedures Procedure Name Priority Date/Time Associated Diagnosis Comments MAMMO 3D JIMENA SCREEN BILAT W OR WO CAD Routine 09/10/2024 8:11 AM CDT Visit for screening mammogram LIPID PANEL Routine 06/17/2024 8:46 PM CDT HEMOGLOBIN A1C Routine 06/17/2024 8:46 PM CDT from Last 3 Months or Most Recently Relevant to Health Maintenance Results * MAMMO 3D JIMENA SCREEN BILAT W OR WO CAD (09/10/2024 8:11 AM CDT) Anatomical Region Laterality Modality Breast Bilateral Mammography 09/10/2024 8:11 AM CDT Impressions 09/10/2024 9:36 AM CDT IMPRESSION: No mammographic evidence of malignancy. RECOMMENDATIONS: Routine screening mammogram in one year. DICTATION LOCATION: [facility] Narrative 09/10/2024 9:36 AM CDT MAMMO 3D [...] FINAL ASSESSMENT: BI-RADS CATEGORY 1 : Negative. Procedure Note Jamilah [...] screening mammogram in one year. DICTATION LOCATION: [facility] us Sudhir Henderson MD MAMMO ORDERABLES Final Result * HEMOGLOBIN A1C (06/17/2024 8:46 PM CDT) HEMOGLOBIN A1C 5.2 <=5.6 % 06/17/2024 9:55 PM CDT [facility] EST. AVG GLUCOSE, A1C 103 mg/dL 06/17/2024 9:55 PM CDT [facility] Blood Venipuncture / Unknown 06/17/2024 8:46 PM CDT 06/17/2024 9:11 PM CDT [facility] - 06/17/2024 9:55 PM CDT HGB A1C INTERPRETATION NORMAL: <5.7% PRE-DIABETES: 5.7 - 6.4% DIABETES: 6.5% OR GREATER us Monika Meng MD CHEMISTRY ORDERABLES Final Resul t [facility] CLIA# [id number] [place] [address] * (ABNORMAL) LIPID PANEL (06/17/2024 8:46 PM CDT) CHOLESTEROL 186 <200 mg/dL 06/17/2024 9:57 PM CDT [facility] TRIGLYCERIDE 252(H) <150 mg/dL 06/17/2024 9:57 PM CDT [facility] HDL 48 40 - 59 mg/dL 06/17/2024 9:57 PM CDT [facility] LDL CALCULATED 88 <100 mg/dL 06/17/2024 9:57 PM CDT [facility] NON-HDL CHOLESTEROL 138(H) <130 mg/dL 06/17/2024 9:57 PM CDT [facility] Blood Venipuncture / Unknown 06/17/2024 8:46 PM CDT 06/17/2024 9:20 PM CDT [facility] - 06/17/2024 9:57 PM CDT TOTAL CHOLESTEROL mg/dL Desirable <200 Borderline high 200-239 High >=240 TRIGLYCERIDES mg/dL Normal <150 Borderline high 150-199 High 200-499 Very high >=500 HDL CHOLESTEROL mg/dL Low <40 Normal 40-59 Desirable >=60 NON HDL CHOLESTEROL mg/dL Optimal <130 Near Optimal 130-159 Borderline High 160-189 Very High >=190 CALCULATED LDL mg/dL LDL <70, OPTIMAL if have Atherosclerotic cardiovascular disease (ASCVD) or intermediate or higher (>7.5%) 10 year risk of ASCVD including most adults with diabetes. LDL <100, Optimal in adult patients with low (<7.5%) 10 year ASCVD risk LDL 100-160, Suboptimal LDL >160, High LDL >190, Very high ATPIII Guidelines Reference Ranges for Lipid Panels (NCEP/AMA) . us Monika Meng MD CHEMISTRY ORDERABLES Final Resul t [facility] CLIA# [id number] [place] [address] from Last 3 Months or Most Recently Relevant to Health Maintenance Insurance [employer] [facility] [employer] Medicare Part D [facility] [employer] [facility] MCR Advance Directives For more information, please contact: [phone] * Full Code (Latest Code Status on File) Date Activated Date Inactivated Comments 06/17/2024 10:34 AM 07/09/2024 4:56 PM Care Teams Free Lance Model Relationship Specialty Start Date End Date Evan Arroyo DO [address] [place] [address] PCP - General Family Practice 06/27/21
--- OUTSIDE RECORDS SUMMARY | 2025-03-08 11:23 | XMS_ITS ---
Author Organization [facility] Address [address] [place] [address] Care Team Providers Care Sports Anchor Name Role Phone Sonya Billings Primary Care Provider Allergies Allergen (clinical drug ingredient) Drug/Non Drug Allergy documented on EMR Reaction Allergy Type Onset Date Status lithium Osterdock hives Drug Allergy Active REASON FOR VISIT 2-4 WK FU Medications Medication SIG (Take, Route, Frequency, Duration) Notes Start Date End Date Status Osterdock Carbonate ER 450 MG 1 tablet at bedtime Orally Once a day for 30 days Active Synthroid 50 MCG 1 tablet in the morning on an empty stomach Orally Once a day Not-Taking B12 Not-Taking LORazepam 0.5 MG 1 tablet at bedtime as needed Orally Once a day Not-Taking traZODone HCl 50 MG 1 tablet at bedtime Orally Once a day for 30 days Active lamoTRIgine 100 MG after completing 50 mg, take 1 tablet Orally Once a day for 30 days 09/06/2024 Not-Taking Meclizine HCl 25 MG 1 tablet as needed Orally every 12 hrs Active hydroCHLOROthiazide 12.5 MG 1 capsule in the morning Orally Once a day Active Atorvastatin Calcium 40 MG 1 tablet Oral ly Once a day Active Zofran Active Vitamin B12 Active Vitamin C 500 MG 1 tablet Orally Once a day Active Vitamin D3 Active Womens 50+ Multi Vitamin Active Colace 100 MG 1 capsule as needed Orally Once a day Active Allergy Relief Activ e Biotin 800 MCG 1 tablet Orally Once a day Active Tolterodine Tartrate 2 MG 1 tablet Orall y Twice a day Active Levothyroxine Sodium 50 MCG 1 capsule in the morning on an empty stomach Orally Once a day Active Flonase Active Osterdock Carbonate ER 300 MG 1 tablet wit h 450 mg (for 750 mg total) at bedtime Orally Once a day for 30 days Active Prazosin HCl 2 MG 1 capsule at bedtime Orally Once a day for 30 days Active OLANZapine 5 MG 1 tablet Orally in the morning for 30 days Active OLANZapine 15 MG 1 tablet Orally in the evening for 30 days Active Social History Tobacco Use: Social History Observation Description Date Details (start date - stop date) Never Smoker NA - NA Sex Assigned At : Social History Observation Description Sex Assigned At Female Tobacco Control (Standard) Question Answer Notes Tobacco use: Nonsmoker Vital Signs Weight 203.4 lbs 01/05/2025 Height 67 in 01/05/2025 BMI 31.85 kg/m2 01/05/2025 Blood pressure systolic 136 mm Hg 01/05/20 25 Blood pressure diastolic 84 mm Hg 025 Heart Rate 86 /min 01/05/2025 Oximetry 99 % 01/05/2025 Respiratory Rate 16 /min 01/05/2025 Encounters Encounter Location Date Provider Diagnosis [address] [address] 01/05/2025 Sonya Billings Nutritional counseling Z71.3 ; Bipolar 1 disorder F31.9 ; Nightmares F51.5 and Non-tobacco user Z78.9 Assessments Encounter Date Diagnosis (ICD Code) Assessment Notes Treatment Notes Treatment Clinical Notes Section Notes 01/05/2025 Nutritional counseling (ICD-10 - Z71.3) 01/05/2025 Bipolar 1 disorder (ICD-10 - F31.9) 01/05/2025 Nightmares (ICD-10 - F51.5) Today's visit: Patient is a 59-year-old female who presents for a psychiatric follow-up in office and is accompanied by her daughter Franci. Previously seen on 12/08/23 and during this appt was increased on Osterdock with lab work ordered for monitoring. Previous PHQ-9 score of 22, today is a 5. Pt reports feeling improved in mood, they do not concern for possible hypomania but would like to see if sx improve. Pt does not wish to make any medication adjustments; discussed possibly trialing Caplyta over olanzapine if warranted. Reviewed lithium level, lab within range. Nightmares continue to be improved on prazosin and wish to continue taking. Trazodone mostly effective for sleep. Denies any side effects. No acute safety concerns at the time of this appt, she is agreeable to treatment plan and was provided an opportunity to ask questions. May self-administer medications or be administered own oral medications per [facility] protocols. Provided informed consent with understanding of side effects, adverse effects, risks and benefits as well as alternative treatments as previously discussed and with the above recommended medications & other aspects of the treatment program. Agrees to return sooner if symptoms worsen or suicidal or homicidal ideations occur. 01/05/2025 Non-tobacco user (ICD-10 - Z78.9) Plan Of Treatment Medication Medication Name Sig Start Date Stop Date Notes Osterdock Carbonate ER 450 MG 1 tablet at bedtime Orally Once a day for 30 days traZODone HCl 50 MG 1 tablet at bedtime Orally Once a day for 30 days Osterdock Carbonate ER 300 MG 1 tablet wit h 450 mg (for 750 mg total) at bedtime Orally Once a day for 30 days Prazosin HCl 2 MG 1 capsule at bedtime Orally Once a day for 30 days OLANZapine 5 MG 1 tablet Orally in t he morning for 30 days OLANZapine 15 MG 1 tablet Orally in t he evening for 30 days Treatment Notes Assessment Notes Nightmares Today's visit: Patient is a 59-year-old female who presents for a psychiatric follow-up in office and is accompanied by her daughter Franci. Previously seen on 12/08/23 and during this appt was increased on Osterdock with lab work ordered for monitoring. Previous PHQ-9 score of 22, today is a 5. Pt reports feeling improved in mood, they do not concern for possible hypomania but would like to see if sx improve. Pt does not wish to make any medication adjustments; discussed possibly trialing Caplyta over olanzapine if warranted. Reviewed lithium level, lab within range. Nightmares continue to be improved on prazosin and wish to continue taking. Trazodone mostly effective for sleep. Denies any side effects. No acute safety concerns at the time of this appt, she is agreeable to treatment plan and was provided an opportunity to ask questions. May self-administer medications or be administered own oral medications per [facility] protocols. Provided informed consent with understanding of side effects, adverse effects, risks and benefits as well as alternative treatments as previously discussed and with the above recommended medications & other aspects of the treatment program. Agrees to return sooner if symptoms worsen or suicidal or homicidal ideations occur. 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 Was hospitalized N o. P sych F/U: Changes since last visit?: H as been very clumsy and falling more recently. Weight has increased, has had increase in appetite. Going to the bakery and eating more pasta. Has been feeling really great . Rejoined grief counseling group, with Aury being gone . [facility] and exercising more which she feels has improved her mood. Having a harder time going to sleep, once she falls asleep, I sleep all night . Daughter can hear she gets up a couple of times a night but briefly to use the restroom. Feeling a little elevated. Talks about TMS and asks about it, they said she was a candidate but with insurance 2k. Wants to go back home and visit and is frustrated she can't go alone as her daughter is concerned about her travelling by herself. Went a little heavier on spending this month, but did not buy anything very expensive. Started therapy recently as well, last - [facility] in [place]. Really liked her therapist. Nightmares continue to be better. Does not wish to make any adjustments to medications this appointment would consider a new medication as warranted. Denies any feelings of SI/HI.. D epression Screening: PHQ-9 L ittle interest or pleasure in doing things?Not at all F eeling down, depressed, or hopeless N ot at all T rouble falling or staying asleep, or sleeping too much S everal days F eeling tired or having little energy S everal days P oor appetite or overeating N early every day F eeling bad about yourself or that you are a failure, or have let yourself or your family down N ot at all T rouble concentrating on things, such as reading the newspaper or watching television N ot at all M oving or speaking so slowly that other people could have noticed; or the opposite, being so fidgety or restless that you have been moving around a lot more than usual N ot at all T houghts that you would be better off or of hurting yourself in some way N ot at all T otal Score 5 I nterpretation M ild Depression S creening: Rohwer Suicide Severity Rating Scale (LF) 1 . Wish to be : Have you wished you were or wished you could go to sleep and not wake up? N o 2 . Suicidal Thoughts: Have you actually had any thoughts of killing yourself? N o 6 . Suicide Behaviour: Have you ever done anything,started to do anything, or prepared to end your life? N o I nterpretation: L ow Risk C SSRS Interpretation and Follow Up Plan: CSSRS Interpretation and Follow Up Plan C SSRS Screen documented using SF Y es R isk Disposition from SF L ow - No Follow Up Plan Required F ollow Up Plan N o Follow Up Plan required at this time. * ROS: P sych ROS: Constitutional A ll systems negative or controlled on medication unless indicated otherwise., All systems negative or controlled on medication unless indicated otherwise.. * Medical History: * Surgical History: d etached retina 1979several ovary cyst removals 1984Hysterectomy 2011carpal tunnel 2014torn meniscus 2019 * Hospitalization/Major Diagno stic Procedure: m [facility] 2017weaning off medications-[facility] * Family History: F ather: alive, healthy. M other: alive, healthy. 4 daughter(s) - healthy. . 3 o f her children have . One daughter is alive and healthy Grandchildren are healthy. * Social History: P rimary Social History: L iving Arrangement L iving Arrangement: I ndependent Living I s this a supportive environment? Y es Alcohol Use A lcohol Use Frequency: N ever Illicit Substance Usage I llicit Substance Usage: N o Employment Status E mployment Status: U nemployed T obacco Use: T obacco Control (Standard) T obacco use: N onsmoker M iscellaneous: M ethod of learning P referred method of learning: D iscussion * Medications: T akingTolterodine Tartrate 2 MG Tablet 1 tablet Orally [...] 1 tablet Orally Once a day Zofran Osterdock Carbonate ER 450 MG Tablet Extended Release 1 tablet at bedtime Orally Once a day traZODone HCl 50 MG Tablet 1 tablet at bedtime Orally Once a day OLANZapine 15 MG Tablet 1 tablet Orally in the evening Prazosin HCl 2 MG Capsule 1 capsule at bedtime Orally Once a day Osterdock Carbonate ER 300 MG Tablet Extended Release 1 tablet with 450 mg (for 750 mg total) at bedtime Orally Once a day Taking Tolterodine Tartrate 2 MG Tablet [...] tablet Orally Once a day Taking Zofran Taking Osterdock Carbonate ER 450 MG Tablet Extended Release 1 tablet at bedtime Orally Once a day Taking traZODone HCl 50 MG Tablet 1 tablet at bedtime Orally Once a day Taking OLANZapine 15 MG Tablet 1 tablet Orally in the evening Taking Prazosin HCl 2 MG Capsule 1 capsule at bedtime Orally Once a day Taking Osterdock Carbonate ER 300 MG Tablet Extended Release 1 tablet with 450 mg (for 750 mg total) at bedtime Orally Once a day Not-TakingOLANZapine 5 MG Tablet 1 tablet Orally in the morning lamoTRIgine 100 MG Tablet after completing 50 mg, take 1 tablet Orally Once a day Synthroid 50 MCG Tablet 1 tablet in the morning on an empty stomach Orally Once a day B12 LORazepam 0.5 MG Tablet 1 tablet at bedtime as needed Orally Once a day Medication List reviewed and reconciled with the patientNot-Taking OLANZapine 5 MG Tablet 1 tablet Orally in the morning Not- Taking lamoTRIgine 100 MG Tablet after completing 50 mg, take 1 tablet Orally Once a day Not-Taking Synthroid 50 MCG Tablet 1 tablet in the morning on an empty stomach Orally Once a day Not-Taking B12 Not-Taking LORazepam 0.5 MG Tablet 1 tablet at bedtime as needed Orally Once a day Medication List reviewed and reconciled with the patient * Allergies: L ithium: hivesno[Allergies Verified] Objective: * Vitals: I nitials: ma, Wt:203.4, Ht: 67, BMI:31.85, BP:136/84, HR:86, Oxygen sat %:99, RR:16, LMP: hysto, Pain scale:8, PHQ9:5. * Examination: C QM Exceptions: Cervical Cancer Screening not performed R keaton H istory of Hysterectomy - No Residual Cervix M ental Status Exam: SENSORIUM AND COGNITION A lert, A&OX4. ATTENTION AND CONCENTRATION N o deficits. APPEARANCE A ppropriate. ATTITUDE AND BEHAVIOR C ooperative , Pleasant. MEMORY A dequate. EYE CONTACT G ood. AFFECT B road/Full, Euthymic. MOOD E uthymic. SPEECH QUANTITY A ppropriate. SPEECH QUALITY S pontaneous , Appropriate volume. THOUGHT PROCESS C oherent and goal directed. THOUGHT CONTENT N o evidence of delusional content , No reports of paranoia. LANGUAGE A ppropriate- WNL. MOTOR ACTIVITY R elaxed. SUICIDAL IDEATION D enies SI or thoughts of self harm. HOMICIDAL IDEATION D enies homicidal ideation or thoughts of aggression. HALLUCINATIONS D oes not appear to be responding to internal stimuli or seeing hallucinations in the room. INSIGHT F air to Adequate. JUDGMENT F air to Adequate. FUND OF KNOWLEDGE A dequate. ABILITY TO PARTICIPATE IN TREATMENT A dequate. WILLINGNESS TO PARTICIPATE IN TREATMENT A dequate. ? Assessment: * Assessment: 1. N utritional counseling - Z71.3 (Primary) 2 . B ipolar 1 disorder - F31.9 3 . N ightmares - F51.5 4 . N on-tobacco user - Z78.9 Plan: * Treatment: 2. N ightmares Continue Prazosin HCl Capsule, 2 MG, 1 capsule at bedtime, Orally, Once a day, 30 days, 30, Refills 1. Notes:Today's visit: Patient is a [id number] who presents for a psychiatric follow-up in office and is accompanied by her daughter Franci.Previously seenon 12/08/23 and during this appt was increased on Osterdock with lab work ordered for monitoring. Previous PHQ-9 score of 22, today is a 5. Pt reports feeling improved in mood, they do not concern for possible hypomania but would like to see if sx improve. Pt does not wish to make any medication adjustments; discussed possibly trialing Caplyta over olanzapine if warranted. Reviewed lithium level, lab within range. Nightmares continue to be improved on prazosin and wish to continue taking. Trazodone mostly effective for sleep. Denies any side effects. No acute safety concerns atthe time of this appt, she is agreeable to treatment plan and was provided anopportunity to ask questions. May self-administer medications or be administered own oralmedications per [facility] protocols. Provided informed consent withunderstanding of side effects, adverse effects, risks and benefits as well asalternative treatments as previously discussed and with the above recommendedmedications & other aspects of the treatment program. Agrees to returnsooner if symptoms worsen or suicidal or homicidal ideations occur. * Recommended Wellness and Pre vention Guidelines: * S tatus A priya L ast Done N ext Due A ction Taken N ONCOMPLIANT B reast cancer screening - 0 01/05/2025 - N ONCOMPLIANT C ervical cancer screening - 0 01/05/2025 - N ONCOMPLIANT H IV screening - 0 01/05/2025 - * Procedure Codes: 3 008F BODY MASS INDEX [id number] MEDICAL NUTRITION, INDIV, [id number] TOBACCO NON-USER * Preventive Medicine: Counseling: C are goal follow-up plan: BMI management provided Y es Above Normal BMI Follow-up L ifestyle education regarding diet * Follow Up: 4 weeks (Reason: med f/u) * * ESS SERVER Sign off status: Completed true * Provider: Cindy Billings, PMHNP Date: 01/05/2025 Generated for Shantelle conrad/Chantel/Sagarransmitting on: 0 03/08/2025 11:23 AM CDT History and Physical Notes * HPI (History of Present Illness) Category Sub-Category Detail Notes Category Not es Interim History Was hospitalized No Emergency room visit No Depression Screening PHQ-9 Little inte rest or pleasure in doing things: Not at all Feeling down, depressed, or hopeless: No t at all Trouble falling or staying asleep, or sl eeping too much: Several days Feeling tired or having little energy: S everal days Poor appetite or overeating: Nearly ever y day Feeling bad about yourself o r that you are a failure, or have let yourself or your family down: Not at all Trouble concentrating on thi ngs, such as reading the newspaper or watching television: Not at all Moving or speaking so slowly that other people could have noticed; or the opposite, being so fidgety or restless that you have been moving around a lot more than usual: Not at all Thoughts that you would be b jarod off or of hurting yourself in some way: Not at all Total Score: 5 Interpretation: Mild Depression Psych F/U Changes since last visit?: Has b een very clumsy and falling more recently. Weight has increased, has had increase in appetite. Going to the bakery and eating more pasta. Has been feeling really great . Rejoined grief counseling group, with Aury being gone . [facility] and exercising more which she feels has improved her mood. Having a harder time going to sleep, once she falls asleep, I sleep all night . Daughter can hear she gets up a couple of times a night but briefly to use the restroom. Feeling a little elevated. Talks about TMS and asks about it, they said she was a candidate but with insurance 2k. Wants to go back home and visit and is frustrated she can't go alone as her daughter is concerned about her travelling by herself. Went a little heavier on spending this month, but did not buy anything very expensive. Started therapy recently as well, last - [facility] in [place]. Really liked her therapist. Nightmares continue to be better. Does not wish to make any adjustments to medications this appointment would consider a new medication as warranted. Denies any feelings of SI/HI. Screening Rohwer Suicide Sev erity Rating Scale (LF) 1. Wish to be : Have you wished you were or wished you could go to sleep and not wake up?: No 2. Suicidal Thoughts: Have you actually had any thoughts of killing yourself?: No 6. Suicide Behavior Question: Have you ever done anything,started to do anything, or prepared to end your life?: No Interpretation:: Low Risk CSSRS Interpretation and Follow Up Plan CSSRS Interpretation and Follow Up Plan CSSRS Screen documented using SF: Yes Risk Disposition from SF: Low - No Follo w Up Plan Required Follow Up Plan: No Follow Up Plan requir ed at this time. Examination Category Sub-Category Detail Notes Category Not es CQM Exceptions Cervical Cancer Screening not performed Reason: History of Hysterectomy - No Residual Cervix Mental Status Exam SENSORIUM AND COGNITION Alert, A&OX 4 ATTENTION AND CONCENTRATION No deficits APPEARANCE Appropriate ATTITUDE AND BEHAVIOR Cooperative , Plea melina MEMORY Adequate EYE CONTACT Good AFFECT Broad/Full, Euthymic MOOD Euthymic SPEECH QUANTITY Appropriate SPEECH QUALITY Spontaneous , Approp riate volume THOUGHT PROCESS Coherent and goal di rected THOUGHT CONTENT No evidence of delus ional content , No reports of paranoia MOTOR ACTIVITY Relaxed SUICIDAL IDEATION Denies SI or thought s of self harm HOMICIDAL IDEATION Denies homicidal genoveva ation or thoughts of aggression HALLUCINATIONS Does not appear to b e responding to internal stimuli or seeing hallucinations in the room INSIGHT Fair to Adequate JUDGMENT Fair to Adequate FUND OF KNOWLEDGE Adequate ABILITY TO PARTICIPATE IN TREATMENT Adeq uate WILLINGNESS TO PARTICIPATE IN TREATMENT Adequate LANGUAGE Appropriate- WNL
--- OUTSIDE RECORDS SUMMARY | 2025-03-08 11:24 | XMS_ITS | Patient Health Record ---
Author Organization [facility] Address [address] [place] [address] Care Team Providers Care Saw Grinder Name Role Phone BillingsSonya Primary Care Provider Yahaira Prince Unavailable [phone] Jass Valdez Unavailable [phone] Allergies Allergen (clinical drug ingredient) Drug/Non Drug Allergy documented on EMR Reaction Allergy Type Onset Date Status lithium Balta hives Drug Allergy Active Results Component Value Reference Range Notes CBC With Differential/Platel et* Reviewed date:08/10/2024 12:19:13 PM Interpretation: Performing Lab:[facility], [address] [facility], Phone - [phone], Director - PhDRicchiuti Notes/Report: WBC 8.8 3.4-10.8 x10E3/uL RBC 4.96 [...] Authorization Reviewed date:08/10/2024 12:19:13 PM Interpretation: Performing Lab:[facility] [address] [place], [place] [address], Phone - [phone], Director - [facility] Notes/Report: Written Authorization Written Authorization Received. Authorization received from PER ORIGINAL ORDER 08-06-2024 Logged by Aliya Lundberg Thyroid Panel With TSH Reviewed date:07/29/2024 08:25:23 AM Interpretation: Performing Lab:[facility], Phone - [phone], Director - [facility] Notes/Report: TSH 3.840 0.450-4.500 uIU/mL Thyroxine (T4) 7.8 4.5-12.0 ug/dL T3 Uptake 21 24-39 % Free Thyroxine Index 1.6 1.2-4.9 Balta (Eskalith(R)), Serum Reviewed date:07/29/2024 08:25:23 AM Interpretation: Performing Lab:[email or web address] [place] [facility], Phone - [phone], Director - [facility] Notes/Report: Balta (Eskalith(R)), Serum 1.4 0.5-1.2 mmol /L A concentration of 0.5-0.8 mmol/L is advised for long-term use; concentrations of up to 1.2 mmol/L may be necessary during acute treatment. Detection Limit = 0.1 <0.1 indicates None Detected Patient drug level exceeds published reference range. Evaluate clinically for signs of potential toxicity. Lipid Panel w/ Chol/HDL Rati o Reviewed date:07/29/2024 08:25:23 AM Interpretation: Performing Lab:[facility] [place], [address] [facility], Phone - [phone], [facility] Notes/Report: Cholesterol, Total 190 100-199 mg/dL Triglycerides 121 0-149 mg/dL HDL Cholesterol 78 >39 mg/dL VLDL Cholesterol [place] 21 5-40 mg/dL LDL Chol Calc (NIH) 91 0-99 mg/dL T. Chol/HDL Ratio 2.4 0.0-4.4 ratio T. Chol/HDL Ratio Men Women 1/2 Avg.Risk 3.4 3.3 Avg.Risk 5.0 4.4 2X Avg.Risk 9.6 7.1 3X Avg.Risk 23.4 11.0 CMP 14 Comprehensive Metabol ic Panel* Reviewed date:07/29/2024 08:25:23 AM Interpretation: Performing Lab:[facility] [address] [facility], Phone - [phone], [facility] Notes/Report: Glucose 84 70-99 mg/dL BUN 24 [...] A1c Reviewed date:07/29/2024 08:25:23 AM Interpretation: Performing Lab:[facility] [place], [address] [facility], Phone - [phone], Director - [facility] Notes/Report: Hemoglobin A1c 5.1 Reference Range: [place] Diabetes Association (ADA) Guidelines: <5.7: Decreased risk for diabetes 5.7 - 6.4: Increased risk for diabetes >6.4: Ongoing Hyperglycemia of any cause <7.0: Glycemic control for adults with diabetes Estimated Average Glucose 100 Balta (Eskalith(R)), Serum Reviewed date:11/16/2024 08:25:38 AM Interpretation: Performing Lab:[facility], Phone - [phone], Director - [facility] Notes/Report: Balta (Eskalith(R)), Serum 0.6 0.5-1.2 mmol /L A concentration of 0.5-0.8 mmol/L is advised for long-term use; concentrations of up to 1.2 mmol/L may be necessary during acute treatment. Detection Limit = 0.1 <0.1 indicates None Detected Balta (Eskalith(R)), Serum Reviewed date:08/10/2024 12:19:13 PM Interpretation: Performing Lab:[facility] [address], Phone - [phone], [facility] - [facility] Notes/Report: Balta (Eskalith(R)), Serum 1.1 0.5-1.2 mmol /L A concentration of 0.5-0.8 mmol/L is advised for long-term use; concentrations of up to 1.2 mmol/L may be necessary during acute treatment. Detection Limit = 0.1 <0.1 indicates None Detected Balta (Eskalith(R)), Serum Reviewed date:12/28/2024 01:47:34 PM Interpretation: Performing Lab:[facility], Phone - [phone], Director - [facility] Notes/Report: Balta (Eskalith(R)), Serum 0.8 0.5-1.2 mmol /L A concentration of 0.5-0.8 mmol/L is advised for long-term use; concentrations of up to 1.2 mmol/L may be necessary during acute treatment. Detection Limit = 0.1 <0.1 indicates None Detected Reason For Referral Reason referral for PCP jimmy stnut Diagnosis 1 Bipolar 1 disorder ( F31.9) Referral Organization [facility] Referring Provider First Name Yahaira Referring Provider Last Name Niki Referring Provider Speciality Behavioral Health Referred Provider Specialty Behavioral [facility] Clinical Notes MarcinIrlanda arreola Rosa 07/14 12:53:20 PM >HN reached out to client and gave her information on getting set up with a PCP. Client confirmed she already had the number for central access and that she would be giving them a call. Referral Priority Routine Reason Start individual the rapy Diagnosis 1 Bipolar 1 disorder ( F31.9) Referral Organization [facility] Referring Provider First Name Sonya Referring Provider Last Name Awa Referring Provider Speciality Psychiatry Referred Provider Specialty Behavioral [facility] General Notes Medicare: OP option Clinical Notes Elizabeth Singh 11/12/2024 10:41:26 AM > Called and spoke with Allen, client is interested in therapy but was trying to go outside of [facility] to a specific place in [place] though was told that she would need something sent over from [facility], but client is unsure at the moment. Client is awaiting a call at the moment from another individual at [facility] so client asked to call back at a later time, chief writer provided direct line to reach her back on., Akash Singh 12/06/2024 11:53:41 AM > Called and left voicemail message., Akash Singh 12/14/2024 09:12:43 AM > Called and left voicemail. [employer] sending letter in mail for client regarding referral, if client does not hear back by 12/28 chief writer will agle this as addressed. Referral Priority Routine Medications Medication SIG (Take, Route, Frequency, Duration) Notes Start Date End Date Status Flonase Active Levothyroxine Sodium 50 MCG 1 capsule in the morning on an empty stomach Orally Once a day Active Atorvastatin Calcium 40 MG 1 tablet Oral ly Once a day Active OLANZapine 15 MG 1 tablet Orally in the evening for 30 days Active LORazepam 0.5 MG 1 tablet at bedtime as needed Orally Once a day Not-Taking OLANZapine 5 MG 1 tablet Orally once a day as needed for 30 days Active Allergy Relief Activ e Prazosin HCl 2 MG 1 capsule at bedtime Orally Once a day for 30 days Active Zofran Active Colace 100 MG 1 capsule as needed Orally Once a day Active Balta Carbonate ER 450 MG 1 tablet at bedtime Orally Once a day for 30 days Active Womens 50+ Multi Vitamin Active traZODone HCl 50 MG 1 tablet at bedtime Orally Once a day for 30 days Active Tolterodine Tartrate 2 MG 1 tablet Orall y Twice a day Active hydroCHLOROthiazide 12.5 MG 1 capsule in the morning Orally Once a day Active B12 Not-Taking Meclizine HCl 25 MG 1 tablet as needed Orally every 12 hrs Active Synthroid 50 MCG 1 tablet in the morning on an empty stomach Orally Once a day Not-Taking Balta Carbonate ER 300 MG 1 tablet wit h 450 mg (for 750 mg total) at bedtime Orally Once a day for 30 days Active Vitamin B12 Active Biotin 800 MCG 1 tablet Orally Once a day Active lamoTRIgine 100 MG 1 tablet x 14 days, then 1.5 tablets for 150 mg Orally Once a day for 30 days Active Vitamin D3 Active Vitamin C 500 MG 1 tablet Orally Once a day Active Social History Tobacco Use: Social History [...] 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 No Are [...] Status Risk Notes Problem Bipolar 1 disorder (243958945) Bipolar 1 disorder (F31.9) 07/14/2024 Active confirmed Problem Nightmares (097458597) Nightmares (F51.5) Active confirmed Vital Signs Heart Rate 86 /min 01/05/2025 Respiratory Rate 16 /min 01/05/2025 Blood pressure diastolic 84 mm Hg 01/05/2025 Oximetry 99 % 01/05/2025 Height 67 in 01/05/2025 Blood pressure systolic 136 mm Hg 01/05/2025 Weight 203.4 lbs 01/05/2025 BMI 31.85 kg/m2 01/05/2025 Encounters Encounter Location Date Provider Diagnosis [address] [address] 07/26/2024 Sonya Billings Bipolar 1 disorder F31.[address] [address] 08/05/2024 Sonya Billings Bipolar 1 disorder F31.[address] [address] 11/10/2024 Sonya Billings Bipolar 1 disorder F31.[address] [address] 12/27/2024 Sonya Billings Bipolar 1 disorder F31.[address] [address] 07/14/2024 Sonya Billings Nutritional counseling Z71.3 ; Bipolar 1 disorder F31.9 and Nightmares F51.5 [facility] [address] [place] [address] 07/15/2024 Sonya Billings Bipolar 1 disorder F31.9 ; Nutritional counseling Z71.3 and Nightmares F51.5 [facility] [address] [address] 07/28/2024 Kyriminesh Lindan Bipolar 1 disorder F31.9 ; Nutritional counseling Z71.3 ; Nightmares F51.5 and Non-tobacco user Z78.9 [facility] [address] [address] 08/18/2024 Sonya Billings Nutritional counseling Z71.3 ; Bipolar 1 disorder F31.9 ; Nightmares F51.5 and Non-tobacco user Z78.9 [facility] [address] [address] 08/18/2024 Yahaira Prince [facility] [address] [address] 09/10/2024 Sonya Billings Bipolar 1 disorder F31.9 ; Nutritional counseling Z71.3 ; Nightmares F51.5 and Non-tobacco user Z78.9 [facility] [address] [address] 09/22/2024 Sonya Billings Bipolar 1 disorder F31.9 ; Nutritional counseling Z71.3 ; Nightmares F51.5 and Non-tobacco user Z78.9 [facility] [address] [address] 10/22/2024 Nomiriminesh Billings Bipolar 1 disorder F31.9 ; Nightmares F51.5 and Non-tobacco user Z78.9 [facility] [address] [address] 11/16/2024 Nomiriminesh Lindan Bipolar 1 disorder F31.9 ; Nightmares F51.5 and Non-tobacco user Z78.9 [facility] [address] [address] 12/08/2024 Sonya Billings Bipolar 1 disorder F31.9 ; Nightmares F51.5 and Non-tobacco user Z78.9 [facility] [address] [address] 01/05/2025 Sonya Billings Nutritional counseling Z71.3 ; Bipolar 1 disorder F31.9 ; Nightmares F51.5 and Non-tobacco user Z78.9 [facility] [address] [address] 02/01/2025 Sonya Billings Bipolar 1 disorder F31.9 ; Nightmares F51.5 and Non-tobacco user Z78.9 [facility] [address] [address] 03/03/2025 Sonya Billings Bipolar 1 disorder F31.9 ; Nightmares F51.5 and Non-tobacco user Z78.9 [facility] [address] [address] 07/15/2024 Sonya Billings [address] [place] [address] 08/04/2024 Sonya Billings [facility] [address] [address] 08/10/2024 Sonya Billings [facility] [address] [place] [address] 08/18/2024 Sonya Billings [address] [place] [address] 09/06/2024 Sonya Billings [facility] [address] [address] 09/15/2024 Sonya Billings [facility] [address] [address] 10/19/2024 Sonya Billings [facility] [address] [address] 11/12/2024 [facility] [address] [place] [address] [place] [address] 12/08/2024 [facility] [address] [place] [address] 12/27/2024 Sonya Lindquistanan Assessments Encounter Date Diagnosis (ICD Code) Assessment Notes Treatment Notes Treatment Clinical Notes Section Notes 07/15/2024 Nutritional counseling (ICD-10 - Z71.3) 07/28/2024 Bipolar 1 disorder (ICD-10 - F31.9) 07/28/2024 Nutritional counseling (ICD-10 - Z71.3) 11/10/2024 Bipolar 1 disorder (ICD-10 - F31.9) 11/16/2024 Bipolar 1 disorder (ICD-10 - F31.9) 07/15/2024 Bipolar 1 disorder (ICD-10 - F31.9) 03/03/2025 Bipolar 1 disorder (ICD-10 - F31.9) 02/01/2025 Bipolar 1 disorder (ICD-10 - F31.9) 01/05/2025 Nutritional counseling (ICD-10 - Z71.3) 12/27/2024 Bipolar 1 disorder (ICD-10 - F31.9) 12/08/2024 Bipolar 1 disorder (ICD-10 - F31.9) 10/22/2024 Bipolar 1 disorder (ICD-10 - F31.9) 09/22/2024 Bipolar 1 disorder (ICD-10 - F31.9) 09/10/2024 Bipolar 1 disorder (ICD-10 - F31.9) 08/05/2024 Bipolar 1 disorder (ICD-10 - F31.9) 07/26/2024 Bipolar 1 disorder (ICD-10 - F31.9) 07/14/2024 Bipolar 1 disorder (ICD-10 - F31.9) 07/14/2024 Nutritional counseling (ICD-10 - Z71.3) 08/18/2024 Bipolar 1 disorder (ICD-10 - F31.9) 08/18/2024 Nutritional counseling (ICD-10 - Z71.3) 08/18/2024 Nightmares (ICD-10 - F51.5) Today's visit: Patient is a 58-year-old female who presents for a psychiatric follow-up in office and is, accompanied by daughter, Franci. Previously seen on 07/28/2024 and during this appt was decreased on Balta to 600 mg daily with lithium level [...] Provided letter to patient to present for Reynaldo Saenz to release hold on her account, they [...] or be administered own oral medications per [facility] protocols. Provided informed consent with understanding of side effects, adverse effects, risks and benefits as well as alternative treatments as previously discussed and with the above recommended medications & other aspects of the treatment program. Agrees to return sooner if symptoms worsen or suicidal or homicidal ideations occur. 07/14/2024 Nightmares (ICD-10 - F51.5) Background: History of bipolar 1 disorder diagnosed in 2010 after having a hysterectomy, with prior history of depression for 10 years following the loss of her daughter in 2000. Lives with Daughter Franci. Today's visit: Patient is a 58-year-old female [...] events that transpired during a manic episode. Balta is an appropriate choice as it is [...] or be administered own oral medications per [facility] protocols. Provided informed consent with understanding of side effects, adverse effects, risks and benefits as well as alternative treatments as previously discussed and with the above recommended medications & other aspects of the treatment program. Agrees to return sooner if symptoms worsen or suicidal or homicidal ideations occur. 09/22/2024 Nutritional counseling (ICD-10 - Z71.3) 09/10/2024 Nutritional counseling (ICD-10 - Z71.3) 10/22/2024 Nightmares (ICD-10 - F51.5) Today's visit: Patient is a 58-year-old female who presents for a psychiatric follow-up over phone and is located in [place]. Accompanied by daughter, Franci. Previously seen on [...] or be administered own oral medications per [facility] protocols. Provided informed consent with understanding of [...] follow-up over Zoom and is located in [place], accompanied by her daughter Franci. Previously seen [...] or be administered own oral medications per [facility] protocols. Provided informed consent with understanding of side effects, adverse effects, risks and benefits as well as alternative treatments as previously discussed and with the above recommended medications & other aspects of the treatment program. Agrees to return sooner if symptoms worsen or suicidal or homicidal ideations occur. 02/01/2025 Nightmares (ICD-10 - F51.5) Today's visit: Patient is a 59-year-old female who presents for a psychiatric follow-up over zoom and is accompanied by her daughter Franci. Pt and daughter report recent depressive episode. Pt is agreeable to adjuncting with Lamotrigine for additional mood stabilization which may also help with depression and bipolar sx maintenance. May further consider switching to Caplyta over Zyprexa during upcoming appts. Will order olanzapine 5 mg as needed for any manic type sx that occur between appts and pt is agreeable. Pt has concerns for weight gain but feels her mood stabilization is more important. Unable to complete AIMS due to nature of appt, denies any irregular muscle movements; would benefit from an in person appointment. No acute safety concerns at the time of this appt, she is agreeable to treatment plan and was provided an opportunity to ask questions. May self-administer medications or be administered own oral medications per [facility] protocols. Provided informed consent with understanding of side effects, adverse effects, risks and benefits as well as alternative treatments as previously discussed and with the above recommended medications & other aspects of the treatment program. Agrees to return sooner if symptoms worsen or suicidal or homicidal ideations occur. 01/05/2025 Bipolar 1 disorder (ICD-10 - F31.9) 03/03/2025 Nightmares (ICD-10 - F51.5) Today's visit: Patient is a 59-year-old female who presents for a psychiatric follow-up over zoom and is accompanied by her daughter Franci. Reports depressive episode occurring the past week. Has been taking lamotrigine up to 50 mg, starting 100 mg today. Discussed goal to titrate to 150-200 mg for efficacy of medication. Denies any rashes/side effects. May further consider switching to Caplyta over Zyprexa during upcoming appts. Discussed to only take olanzapine 5 mg as needed for any manic type sx if they present. Pt has concerns for weight gain but feels her mood stabilization is more important; may be a good candidate for Lybalvi if mood remains stable on olanzapine treatment. Unable to complete AIMS due to nature of appt, denies any irregular muscle movements; would benefit from an in person appointment. No acute safety concerns at the time of this appt, she is agreeable to treatment plan and was provided an opportunity to ask questions. May self-administer medications or be administered own oral medications per [facility] protocols. Provided informed consent with understanding of [...] evaluation over phone and is located in [place], accompanied by daughter, Franci. Previously seen on [...] or be administered own oral medications per [facility] protocols. Provided informed consent with understanding of [...] follow-up over phone and is located in [place]. Previously seen on 10/22/2024 and during this [...] or be administered own oral medications per [facility] protocols. Provided informed consent with understanding of [...] PHQ-9 score of 13, today is 6. Balta level is over the therapeutic range and is 1.4, likely contributing to report of tremors. Her labs indicate lowered eGFR and increased creatinine, will continue to monitor during upcoming appts (she reports seeing a specialist before for kidneys) - may need to consider an alternative mood stabilizer however currently is reporting improved stability in her recent manic episode and mood. Will decrease Balta to 600mg qhs and recheck the level [...] or be administered own oral medications per [facility] protocols. Provided informed consent with understanding of side effects, adverse effects, risks and benefits as well as alternative treatments as previously discussed and with the above recommended medications & other aspects of the treatment program. Agrees to return sooner if symptoms worsen or suicidal or homicidal ideations occur. 07/28/2024 Non-tobacco user (ICD-10 - Z78.9) 11/16/2024 Non-tobacco user (ICD-10 - Z78.9) 03/03/2025 Non-tobacco user (ICD-10 - Z78.9) 01/05/2025 Nightmares (ICD-10 - F51.5) Today's visit: Patient is a 59-year-old female who presents for a psychiatric follow-up in office and is accompanied by her daughter Franci. Previously seen on 12/08/23 and during this appt was increased on Balta with lab work ordered for monitoring. Previous [...] or be administered own oral medications per [facility] protocols. Provided informed consent with understanding of side effects, adverse effects, risks and benefits as well as alternative treatments as previously discussed and with the above recommended medications & other aspects of the treatment program. Agrees to return sooner if symptoms worsen or suicidal or homicidal ideations occur. 02/01/2025 Non-tobacco user (ICD-10 - Z78.9) 12/08/2024 Non-tobacco user (ICD-10 - Z78.9) 10/22/2024 Non-tobacco user (ICD-10 - Z78.9) 09/22/2024 Nightmares (ICD-10 - F51.5) Today's visit: Patient is a 58-year-old female who presents for a psychiatric follow-up in office, accompanied by daughterFranci - in the [facility]. Previously seen on 09/10/2024 and during this appt was increased on olanzapine to 20 mg total, decreased on trazodone, held on Lamictal (was barely taking 25 mg at the time), and continued on Balta 600 mg and Prazosin 2 mg QHS. [...] or be administered own oral medications per [facility] protocols. Provided informed consent with understanding of side effects, adverse effects, risks and benefits as well as alternative treatments as previously discussed and with the above recommended medications & other aspects of the treatment program. Agrees to return sooner if symptoms worsen or suicidal or homicidal ideations occur. 09/10/2024 Nightmares (ICD-10 - F51.5) Today's visit: Patient is a 58-year-old female who presents for a psychiatric follow-up over Zoom nd is, accompanied by daughterFranci - in the [facility]. Previously seen on 08/18/2024 and during this appt was continued on Balta ER 600 mg, trazodone 100 mg QHS, [...] or be administered own oral medications per [facility] protocols. Provided informed consent with understanding of side effects, adverse effects, risks and benefits as well as alternative treatments as previously discussed and with the above recommended medications & other aspects of the treatment program. Agrees to return sooner if symptoms worsen or suicidal or homicidal ideations occur. 08/18/2024 Non-tobacco user (ICD-10 - Z78.9) 09/10/2024 Non-tobacco user (ICD-10 - Z78.9) 09/22/2024 Non-tobacco user (ICD-10 - Z78.9) 01/05/2025 Non-tobacco user (ICD-10 - Z78.9) 08/18/2024 Other Provided case management services to address social determinants of health needs and reduce barriers to health care services. Plan Of Treatment No Information Insurance Providers Payer Name Payer Address Payer Phone Subscriber Number Group Number Insured Name Patient Relationship to Insured Coverage Start Date Coverage End Date [employer] MED[employer] ADV [address] [address] [place] [address] [id number] Allen Hedrick Self - patient is the insured 4 Medical (General) History Medical History History ICD Code carpal tunnel Surgical History Surgery Date(Month/Year) detached retina 1979 several ovary cyst removals 1984 Hysterectomy 2011 carpal tunnel 2014 torn meniscus 2019 Hospitalization History Reason Date(Month/Year) [facility] 2022 weaning off medications-30 day stay 2023 mental health 2016
--- OUTSIDE RECORDS SUMMARY | 2025-03-08 11:24 | XMS_ITS ---
Author Organization [facility] Address [address] [place] [address] Care Team Providers Care Shirt Presser Name Role Phone Sonya Billings Primary Care Provider Allergies Allergen (clinical drug ingredient) Drug/Non Drug Allergy documented on EMR Reaction Allergy Type Onset Date Status lithium [place] hives Drug Allergy Active REASON FOR VISIT 4 week F/U Medications Medication SIG (Take, Route, Frequency, Duration) Notes Start Date End Date Status LORazepam 0.5 MG 1 tablet at bedtime as needed Orally Once a day Not-Taking Zofran Active Atorvastatin Calcium 40 MG 1 tablet Oral ly Once a day Active B12 Not-Taking Synthroid 50 MCG 1 tablet in the morning on an empty stomach Orally Once a day Not-Taking Colace 100 MG 1 capsule as needed Orally Once a day Active Womens 50+ Multi Vitamin Active hydroCHLOROthiazide 12.5 MG 1 capsule in the morning Orally Once a day Active Meclizine HCl 25 MG 1 tablet as needed Orally every 12 hrs Active Vitamin D3 Active Allergy Relief Activ e Flonase Active Vitamin B12 Active Biotin 800 MCG 1 tablet Orally Once a day Active Vitamin C 500 MG 1 tablet Orally Once a day Active Prazosin HCl 2 MG 1 capsule at bedtime Orally Once a day for 30 days Active Levothyroxine Sodium 50 MCG 1 capsule in the morning on an empty stomach Orally Once a day Active Tolterodine Tartrate 2 MG 1 tablet Orall y Twice a day Active [place] Carbonate ER 300 MG 1 tablet wit h 450 mg (for 750 mg total) at bedtime Orally Once a day for 30 days Active lamoTRIgine 100 MG 1 tablet x 14 days, then 1.5 tablets for 150 mg Orally Once a day for 30 days Active OLANZapine 15 MG 1 tablet Orally in the evening for 30 days Active OLANZapine 5 MG 1 tablet Orally once a day as needed for 30 days Active [place] Carbonate ER 450 MG 1 tablet at bedtime Orally Once a day for 30 days Active traZODone HCl 50 MG 1 tablet at bedtime Orally Once a day for 30 days Active Social History Sex Assigned At : Social History Observation Description Sex Assigned At Female Encounters Encounter Location Date Provider Diagnosis [address], [place] [address] 03/03/2025 Nomizaria Awa Bipolar 1 disorder F31.9 ; Nightmares F51.5 and Non-tobacco user Z78.9 Assessments Encounter Date Diagnosis (ICD Code) Assessment Notes Treatment Notes Treatment Clinical Notes Section Notes 03/03/2025 Bipolar 1 disorder (ICD-10 - F31.9) 03/03/2025 Nightmares (ICD-10 - F51.5) Today's visit: Patient is a 59-year-old female who presents for a psychiatric follow-up over [facility] and is accompanied by her daughter Franci. [...] or be administered own oral medications per [facility] protocols. Provided informed consent with understanding of side effects, adverse effects, risks and benefits as well as alternative treatments as previously discussed and with the above recommended medications & other aspects of the treatment program. Agrees to return sooner if symptoms worsen or suicidal or homicidal ideations occur. 03/03/2025 Non-tobacco user (ICD-10 - Z78.9) Plan Of Treatment Medication Medication Name Sig Start Date Stop Date Notes Prazosin HCl 2 MG 1 capsule at bedtime Orally Once a day for 30 days [place] Carbonate ER 300 MG 1 tablet wit h 450 mg (for 750 mg total) at bedtime Orally Once a day for 30 days lamoTRIgine 100 MG 1 tablet x 14 days, then 1.5 tablets for 150 mg Orally Once a day for 30 days OLANZapine 15 MG 1 tablet Orally in t he evening for 30 days OLANZapine 5 MG 1 tablet Orally once a day as needed for 30 days [place] Carbonate ER 450 MG 1 tablet at bedtime Orally Once a day for 30 days traZODone HCl 50 MG 1 tablet at bedtime Orally Once a day for 30 days Treatment Notes Assessment Notes Nightmares Today's visit: Patient is a 59-year-old female who presents for a psychiatric follow-up over [facility] and is accompanied by her daughter Franci. [...] or be administered own oral medications per [facility] protocols. Provided informed consent with understanding of side effects, adverse effects, risks and benefits as well as alternative treatments as previously discussed and with the above recommended medications & other aspects of the treatment program. Agrees to return sooner if symptoms worsen or suicidal or homicidal ideations occur. Next Appt Details Follow Up: 4 Weeks, Reason: med f/u Progress Notes * Joce HEDRICK:1965 ([age] yo F)Acc No.[id number]:03/03/2025 Patient: Allen QUICK Provider: SILVINO Jauregui :1965 A ge:59 Y S ex:Female Date:03/03/2025 Address:[facility] Subjective: * Chief Complaints: * 4 week F/U * HPI: I nterim History: Emergency room visit N o. Was hospitalized N o. P sych F/U: Changes since last visit?: P resents with depressive symptoms for the past week, reporting being in bed for most of this time. Patient reports low energy, difficulty focusing, and difficulty finding words. Sleeping pretty good. Denies manic symptoms in the past 4 weeks, stating, all depression. Patient reports eating snacks, but is unclear about regular meals. Denies any SI/HI. Asks if they should be taking morning olanzapine. Patient is starting lamotrigine 100 mg daily today for 14 days, then increasing to 150 mg as previously discussed for mood stability/bipolar depression. Denies experiencing a rash with lamotrigine. Reports no side effects from medications.. D epression Screening: PHQ-9 L ittle interest or pleasure in doing things?More than half the days F eeling down, depressed, or hopeless M ore than half the days T rouble falling or staying asleep, or sleeping too much S everal days F eeling tired or having little energy M ore than half the days P oor appetite or overeating N early every day F eeling bad about yourself or that you are a failure, or have let yourself or your family down N ot at all T rouble concentrating on things, such as reading the newspaper or watching television M ore than half the days M oving or speaking so slowly that other people could have noticed; or the opposite, being so fidgety or restless that you have been moving around a lot more than usual M ore than half the days T houghts that you would be better off or of hurting yourself in some way N ot at all T otal Score 1 4 I nterpretation M oderate Depression Intervention D epression Screening Findings P ositive F ollow-Up for Depression P rescribed psychotropic medications S creening: [place] Suicide Severity Rating Scale (LF) 1 . Wish to be : Have you wished you were or wished you could go to sleep and not wake up? N o 2 . Suicidal Thoughts: Have you actually had any thoughts of killing yourself? N o 6 . Suicide Behavior Question: Have you ever done [...] 2019 * Hospitalization/Major Diagno stic Procedure: m [facility] 2016weaning off medications-30 day stay 2023[facility] 2022 * Family History: F ather: alive, [...] Employment Status E mployment Status: U nemployed * Medications: T akingTolterodine Tartrate 2 MG [...] 1 tablet Orally Once a day Zofran traZODone HCl 50 MG Tablet 1 tablet at bedtime Orally Once a day OLANZapine 15 MG Tablet 1 tablet Orally in the evening OLANZapine 5 MG Tablet 1 tablet Orally once a day as needed [place] Carbonate ER 450 MG Tablet Extended Release 1 tablet at bedtime Orally Once a day Prazosin HCl 2 MG Capsule 1 capsule at bedtime Orally Once a day [place] Carbonate ER 300 MG Tablet Extended Release 1 tablet with 450 mg (for 750 mg total) at bedtime Orally Once a day lamoTRIgine 100 MG Tablet 1 tablet x 14 days, then 1.5 tablets for 150 mg Orally Once a day Taking Tolterodine Tartrate [...] Orally Once a day Taking Zofran Taking traZODone HCl 50 MG Tablet 1 tablet at bedtime Orally Once a day Taking OLANZapine 15 MG Tablet 1 tablet Orally in the evening Taking OLANZapine 5 MG Tablet 1 tablet Orally once a day as needed Taking [place] Carbonate ER 450 MG Tablet Extended Release 1 tablet at bedtime Orally Once a day Taking Prazosin HCl 2 MG Capsule 1 capsule at bedtime Orally Once a day Taking [place] Carbonate ER 300 MG Tablet Extended Release 1 tablet with 450 mg (for 750 mg total) at bedtime Orally Once a day Taking lamoTRIgine 100 MG Tablet 1 tablet x 14 days, then 1.5 tablets for 150 mg Orally Once a day Not-TakingSynthroid 50 MCG Tablet 1 tablet in the morning on an empty stomach Orally Once a day B12 LORazepam 0.5 MG Tablet 1 tablet at bedtime as needed Orally Once a day Medication List reviewed and reconciled with the patientNot-Taking Synthroid 50 MCG Tablet 1 tablet in the morning on an empty stomach Orally Once a day Not-Taking B12 Not-Taking LORazepam 0.5 MG Tablet 1 tablet at bedtime as needed Orally Once a day Medication List reviewed and reconciled with the patient * Allergies: L ithium: hivesno[Allergies Verified] Objective: * Vitals: * Examination: M ental Status Exam: SENSORIUM AND COGNITION A lert, A&OX4. ATTENTION AND CONCENTRATION N o deficits. APPEARANCE A ppropriate. ATTITUDE AND BEHAVIOR C ooperative, f rustrated. MEMORY A dequate. EYE CONTACT G ood. AFFECT D ysthymic. MOOD D ysthymic. SPEECH QUANTITY S parse. SPEECH QUALITY S pontaneous , low volume. THOUGHT PROCESS C oherent and goal [...] A dequate. ? Assessment: * Assessment: 1. B ipolar 1 disorder - F31.9 2 . N ightmares - F51.5 3 .?Non-tobacco user - Z78.9 Plan: * Treatment: 2. N luda Continue Prazosin HCl Capsule, 2 MG, 1 capsule at bedtime, Orally, Once a day, 30 days, 30, Refills 1. Notes:Today's visit: Patient is a [id number] who presents for a psychiatric follow-up over [facility] and is accompanied by her daughter Franci. [...] Lybalvi if mood remains stable on olanzapine treatment.Unable to complete AIMS due to nature of appt, denies any irregular muscle movements; would benefit from an in person appointment. No acute safety concerns atthe time of this appt, she is agreeable to treatment plan and was provided anopportunity to ask questions. May self-administer medications or be administered own oralmedications per [facility] protocols. Provided informed consent withunderstanding of side effects, adverse effects, risks and benefits as well asalternative treatments as previously discussed and with the above recommendedmedications & other aspects of the treatment program. Agrees to returnsooner if symptoms worsen or suicidal or homicidal ideations occur. * Procedure Codes: G 9717 DOC PT HAS ACTIV DX DEPR/BIPOLR D/O * Follow Up: 4 Weeks (Reason: med f/u) * * Sign off status: Completed true * Provider: Cindy Billings, PMHNP Date: 0 03/03/2025 Generated for Shantelle conrad/Chantel/Nacho on: 0 03/08/2025 11:23 AM CDT History and Physical Notes * HPI (History of Present Illness) Category Sub-Category Detail Notes Category Not es Interim History Was hospitalized No Emergency room visit No Depression Screening PHQ-9 Little inte rest or pleasure in doing things: More than half the days Feeling down, depressed, or hopeless: Mo re than half the days Trouble falling or staying asleep, or sl eeping too much: Several days Feeling tired or having little energy: M ore than half the days Poor appetite or overeating: Nearly ever [...] moving around a lot more than usual: More than half the days Thoughts that you would be b jarod off or of hurting yourself in some way: Not at all Total Score: 14 Interpretation: Moderate Depression Intervention Depression Screening Findings: P ositive Follow-Up for Depression: Prescribed psy chotropic medications Psych F/U Changes since last visit?: Prese nts with depressive symptoms for the past week, reporting being in bed for most of this time. Patient reports low energy, difficulty focusing, and difficulty finding words. Sleeping pretty good. Denies manic symptoms in the past 4 weeks, stating, all depression. Patient reports eating snacks, but is unclear about regular meals. Denies any SI/HI. Asks if they should be taking morning olanzapine. Patient is starting lamotrigine 100 mg daily today for 14 days, then increasing to 150 mg as previously discussed for mood stability/bipolar depression. Denies experiencing a rash with lamotrigine. Reports no side effects from medications. Screening [place] Suicide Sev erity Rating Scale (LF) 1. [...] es Mental Status Exam SENSORIUM AND COGNITION Alert, A&OX 4 ATTENTION AND CONCENTRATION No deficits APPEARANCE Appropriate ATTITUDE AND BEHAVIOR Cooperative, frust rated MEMORY Adequate EYE CONTACT Good AFFECT Dysthymic MOOD Dysthymic SPEECH QUANTITY Sparse SPEECH QUALITY Spontaneous , low vo lume THOUGHT PROCESS Coherent and goal di rected [...]
[2025-03-08 11:30] LABS: LDL Cholesterol Direct 53 mg/dL
[2025-03-08 11:44] LABS: Vitamin D 25 Hydroxy 38.3 ng/mL
== END 2025-03-08 10:14 | disposition home or self-care (01) ==
PROVIDERS: PCP Family Medicine; Visit Provider Family Medicine
DX: E78.5 Hyperlipidemia, unspecified (principal); E03.9 Hypothyroidism, unspecified; F31.9 Bipolar disorder, unspecified; Z79.899 Other long term (current) drug therapy
CPT/HCPCS: 36415; 80061; 82306; 84443

== ENCOUNTER 2025-05-05 15:46 | Outpatient (CLI) | payer MEDICARE, SELFPAY ==
[2025-05-05 16:12] LABS: Basophils Absolute Auto 0.1 K/mm3 (0.0-0.1); Basophils Percent Auto 0.7 % (0.2-1.2); Eosinophils Absolute Auto 0.3 K/mm3 (0-0.3); Eosinophils Percent Auto 2.9 % (0-4.4); Hematocrit 41.4 % (37.0-47.0); Hemoglobin 13.3 g/dL (12.0-15.0); Immature Granulocyte Absolute 0.12 K/mm3 (0.00-0.031); Immature Granulocyte Percent A 1.2 % (0-0.5); Lymphocytes Percent Auto 18.3 % (18.3-44.2); Mean Corpuscular HGB Conc 32.1 g/dl (32-36); Mean Corpuscular Hemoglobin 29.7 pg (26-34); Mean Corpuscular Volume 92.4 fl (80-100); Mean Platelet Volume 8.9 fl (7.4-10.4); Monocytes Absolute Auto 0.7 K/mm3 (0.1-0.6); Monocytes Percent Auto 7.2 % (2.6-8.5); Neutrophils Absolute Auto 6.9 K/mm3 (1.3-6.7); Neutrophils Percent Auto 69.7 % (45.5-73.1); Platelet Count Result 220 k/mm3 (150-375); Red Blood Count 4.48 M/mm3 (4.2-5.4); Red Cell Distribution Width 12.7 % (11.5-14.5); White Blood Count 9.9 K/mm3 (4.5-10.0)
[2025-05-05 16:24] LABS: Hemoglobin A1C 4.9 % (<5.7)
[2025-05-05 18:41] LABS: Alanine Aminotransferase 33 U/L (6-35); Albumin Level 4.6 g/dL (3.5-5.1); Alkaline Phosphatase 70 U/L (38-126); Anion Gap 8 mmol/L (4-12); Aspartate Amino Transferase 29 U/L (14-36); Bilirubin,Total 0.4 mg/dL (0.2-1.3); Blood Urea Nitrogen 12 mg/dL (7-17); Calcium 9.9 mg/dL (8.4-10.2); Carbon Dioxide 27 mmol/L (22-30); Chloride 104 mmol/L (98-107); Estimated Glomerular Filt Rate 59; Glucose 89 mg/dL (65-110); Potassium 3.8 mmol/L (3.4-5.0); Sodium 139 mmol/L (137-145); Total Protein 7.2 g/dL (6.3-8.2)
== END 2025-05-05 15:47 | disposition home or self-care (01) ==
LOC: ANHLAB 15:48
PROVIDERS: PCP Family Medicine; Visit Provider Family Medicine
DX: E03.9 Hypothyroidism, unspecified (principal); F31.9 Bipolar disorder, unspecified; R79.89 Other specified abnormal findings of blood chemistry; Z13.1 Encounter for screening for diabetes mellitus
CPT/HCPCS: 36415; 80053; 83036; 84443; 85025

== ENCOUNTER 2025-11-10 16:51 | Emergency (ER) | payer MEDICARE, SELFPAY ==
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
[2025-11-10 17:12] VITALS: BP 145/115; PULSE 91; RESP 18; TEMP 36.7; O2SAT 98
[2025-11-10 17:29] LABS: EDCOVIDSCREEN Negative (Negative)
--- NOTE | 2025-11-10 17:40 | ED.URI ---
HPI - URI/Sore Throat General Chief Complaint: Upper Respiratory Infection Stated Complaint: body aches, congestion Time Seen by Provider: 11/10/25 16:52 Source: patient Mode of arrival: ambulatory Limitations: no limitations History of Present Illness HPI Narrative: patient is a 60-year-old female who presents with 4 days of body aches, congestion, cough. Patient got flu shot yesterday and states she feels like symptoms worsened today. Patient has been taking NyQuil. Denies any fever, chills, nausea, vomiting, diarrhea. Related Data Home Medications ?Medication ?Instructions ?Recorded ?Confirmed ?Last Taken ?Type trazodone 100 mg tablet 50 mg PO QHS 11/09/24 07/12/25 Unknown History tolterodine 4 mg capsule,extended 4 mg PO ONCE 12/23/24 07/12/25 Unknown History release 24 hr bupropion HCl 150 mg 24 hr tablet, 150 mg PO QAM 07/12/25 07/12/25 Unknown History extended release (Wellbutrin XL) olanzapine 5 mg tablet 5 mg PO DAILY 07/12/25 07/12/25 Unknown History Allergies Allergy/AdvReac Type Severity Reaction Status Date / Time iodine Allergy Mild Swelling Verified 11/10/25 17:42 Penicillins Allergy Mild Vomiting Verified 11/10/25 17:42 Sulfa (Sulfonamide Allergy Mild Rash Verified 11/10/25 17:42 Antibiotics) prednisone AdvReac Intermediate Rash Verified 11/10/25 17:42 shellfish derived AdvReac Swelling Verified 11/10/25 17:42 novacaine Allergy Mild Swelling Uncoded 07/12/25 07:33 Review of Systems Review of Systems: All systems reviewed & are unremarkable except as noted in HPI and below Constitutional: Constitutional: Denies chills, Reports fatigue, Denies fever(s), Denies headache(s), Denies malaise and Denies weakness Eyes: Eyes: Denies blurry vision, Denies itchy eyes and Denies loss of vision ENT: Denies otalgia, Denies headache(s), Reports nasal congestion, Denies sinus pain and Denies sore throat Cardiovascular: Cardiovascular: Denies chest pain, Denies irregular heart rhythm and Denies dyspnea Respiratory: Respiratory: Reports cough and Denies dyspnea Gastrointestinal: Gastrointestinal: Denies abdominal pain, Denies diarrhea, Denies nausea and Denies vomiting Musculoskeletal: Musculoskeletal: Denies back pain, Reports myalgias and Denies arthralgias Integumentary/Breasts: Skin/Breast: Denies pruritus and Denies rash Neurologic: Denies headache(s), Denies loss of vision and Denies weakness Psychiatric: Psychiatric: Reports no additional psychiatric complaints Endocrine: Endocrine: Denies fatigue Allergic/Immunologic: Allergic/Immunologic: Denies itchy eyes PMFSH Past Medical History Medical History 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 Anxiety Surgical History Surgical History History of tonsillectomy Detached retina 1979 History of hysterectomy 2011 Family History Family History Father Hypertension Heart problem Alcoholism Mother Diabetes mellitus Heart problem Grandparent Cancer Cerebrovascular accident Social History Social History Smoking status: Never smoker Alcohol intake: never Substance use: never Lack of Transportation: No Lack of Food: Never True Current Housing: I Have Housing Concerned About Future Housing: No Difficulty Paying Gas/Electric Bills: No Difficulty Paying for Meds: No Currently Unemployed: No Education: Trade/Vocational Certificate Difficulty w/ Childcare or Family Care: No Gender identity (if verbalized by the patient): Female Comments At time of signature, agree with nursing past medical, surgical, social and family history. There is no relevant family history pertinent to the presenting complaint. Exam Const: General: cooperative, healthy appearing, comfortable, no acute distress and well nourished Nutritional Appearance: well nourished Orientation/consciousness: patient oriented x3 Limitations: no limitations HENMT: Head: normal to inspection, normocephalic and atraumatic Ears: hearing grossly normal bilaterally, external ears normal, TM's normal bilaterally, EAC's normal and no periauricular adenopathy Face/Nose/Sinus: Normal external nose present, Abnormal mucous membranes and turbinates present erythematous bilateral and diffuse, normal facial exam, sinuses nontender and face symmetric Face and sinus: normal facial exam, sinuses nontender and face symmetric Mouth: Yes Normal oral and palatal mucosa present, Yes lip normal, Yes tongue normal, Yes Normal salivary glands and ducts present, Yes oropharynx normal and Yes moist mucous membranes Teeth and gingiva: dentition normal Throat: posterior oropharynx normal, tonsils normal and uvula midline Eyes: General: appearance normal, both eyes and all related structures Alignment and Position: alignment normal and position normal Periorbital: periorbital findings normal Eyelids: eyelids normal Pupils: Equal, round and reactive pupils present Neck: Neck: normal visual inspection, full ROM, no lymphadenopathy and supple Chest: Chest palpation & inspection: normal inspection of the chest and normal palpation of entire chest wall Resp: Effort & Inspection: normal respiratory effort and able to speak in complete sentences Auscultation: clear to auscultation bilaterally, no crackles, no rales, no rhonchi and no wheezes Cardio: Rate: regular rate Rhythm: regular rhythm Heart sounds: S1 normal heart sound present and S2 normal heart sound present GI: Inspection: normal to inspection Skin: General skin exam: normal color and no rashes or lesions noted Neuro: General: patient oriented x3 and moves all extremities Cranial nerves: Yes Equal, round and reactive pupils present Speech: normal speech Gait exam (Neuro): Normal gait present Extrem: General: normal to inspection, full ROM and no edema Psych: Appearance: grossly normal and well kempt Mental Status: mental status grossly normal Speech and movement: Normal speech and movement present Affect: normal affect Attitude: cooperative Thought process: Normal thought process present Course Course Emergency Course: Patient is aware of diagnosis, understands and agrees to treatment plan. Anticipatory guidance given. Patient agrees to follow-up as directed and is aware of reasons to seek care at the emergency department. Portions of this record may have been created with voice recognition software Level of Care: Express Care Visit Vital Signs Vital signs: Vital Signs Temperature 36.7 C 11/10/25 17:12 Pulse Rate 91 11/10/25 17:12 Respiratory Rate 18 11/10/25 17:12 Blood Pressure 145/115 H 11/10/25 17:12 Pulse Oximetry 98 11/10/25 17:12 Oxygen Delivery Room Air 11/10/25 17:12 Temperature 36.7 C 11/10/25 17:12 Pulse Rate 91 11/10/25 17:12 Respiratory Rate 18 11/10/25 17:12 Blood Pressure 162/98 H 11/10/25 18:03 Pulse Oximetry 98 11/10/25 17:12 Oxygen Delivery Room Air 11/10/25 17:12 MDM MDM Narrative Medical decision making narrative: Rapid COVID negative. Symptoms likely viral in etiology. Hypertension noted. Patient states she was told she is in a manic state causing higher blood pressure than normal by her PCP. Pt well hydrated appearing, in no respiratory distress, hemodynamically stable. Recommend supportive care. The patient is stable at time of discharge the clinical impression was discussed and the patient was given the opportunity to ask questions, which were addressed as completely as possible given the information available at present. Anticipatory guidance and return to care precautions were discussed and the importance of primary care follow-up was stressed and encouraged. The patient voiced understanding of the plan, indications to return, and the need for follow-up. Exam findings show no acute concerns or changes Patient is appropriate for outpatient treatment and follow-up. Differential Diagnosis Differential Diagnosis: Differential diagnosis considered: [place] virus, strep pharyngitis, allergic rhinitis, upper respiratory tract infection, sinusitis, rhinosinusitis, nasopharyngitis. viral pharyngitis, otitis media, otitis externa, otitis effusion, foreign body, cerumen impaction, viral syndrome, and influenza. Medical Records I have reviewed the following patient records and this information was taken into consideration when formulating the assessment and plan.: previous clinic visits Lab Data Labs: Lab Results 11/10/25 Range/Units 17:27 POC SARS CoV-2 Ag Negative (Negative) Discharge Plan Discharge Clinical Impression: Upper respiratory infection Qualifiers: URI type: unspecified viral URI Qualified Code(s): J06.9 - Acute upper respiratory infection, unspecified Patient Disposition: Home Condition: Stable Instructions: Upper Respiratory Infection (ED) Additional Instructions: Your Covid is negative Your symptoms are likely due to a viral illness, which is not treated with antibiotics. Viral symptoms can be present for up to a few weeks. -For pain/fever, you may take: Tylenol 650-1000mg by mouth every 4-6 hours. Do not exceed 4000mg in 24 hours. Advil (Ibuprofen) 600 mg by mouth every 6 hours. Do not exceed 2400mg in 24 hours. 8 AM: Tylenol 11 AM: Ibuprofen 2 PM: Tylenol 5 PM: Ibuprofen 8 PM: Tylenol 11 PM: Ibuprofen 2 AM: Tylenol 5 AM: Ibuprofen -Antihistamine medication such as Benadryl/Zyrtec at night and Claritin/Teodora during the day can help improve symptoms. -Use Flonase twice a day for 5 days then daily to help reduce the inflammation and dry up your sinuses. -You can also use Sudafed behind the pharmacy counter(12 or 24 hour). Be sure to drink plenty of water with these medications at least 8 ounces with every dose and it is important to drink 8 to 10 glasses of water per day. Water is a natural decongestant -Eat and drink things that are easy to swallow, like tea or soup, or popsicles. -Oral rinses such as: Salt water gargles and/or may use topical anesthetic (eg. Chloraseptic spray) or lozenges to relieve dryness or throat pain). -Frequent hand washing or hand power ballast machine operator is one of the best ways to prevent spread of infection. -Using a vaporizer or humidifier at night will also help thin secretions and help with coughing up phlegm. Call your Primary Care Doctor and make a follow-up appointment in 3 days. If your cough worsens, you develop a fever greater than 103, you develop shaking chills, a fast heartbeat, trouble breathing and/or feel you are are breathing much faster than usual, call your Primary Care Doctor or go to the ER. Patient Language: Citizen Of [place] Prescriptions: New promethazine-DM 6.25-15 mg/5 mL syrup 5 ml PO Q4-6H PRN (Reason: cough) Qty: 118 0RF No Action trazodone 100 mg tablet 50 mg PO QHS tolterodine 4 mg capsule,extended release 24hr 4 mg PO ONCE bupropion HCl [Wellbutrin XL] 150 mg tablet extended release 24 hr 150 mg PO QAM olanzapine 5 mg tablet 5 mg PO DAILY levothyroxine 50 mcg tablet 50 mcg PO DAILY Qty: 90 2RF atorvastatin 10 mg tablet 10 mg PO DAILY Qty: 90 1RF Follow-up/Referrals: Terrance Martínez DO [Primary Care Provider, [facility]] - 3 Days Time of Disposition: 17:43
[2025-11-10 18:03] VITALS: BP 162/98
== END 2025-11-10 18:03 | disposition home or self-care (01) ==
PROVIDERS: Emergency Provider Nurse Practitioner Family; PCP Family Medicine
DX: J06.9 Acute upper respiratory infection, unspecified (principal); Z20.822 Contact with and (suspected) exposure to COVID-19; F41.9 Anxiety disorder, unspecified
CPT/HCPCS: 87426; 99213; G0463

== ENCOUNTER 2025-11-12 10:40 | Emergency (ER) | payer MEDICARE, SELFPAY ==
--- NOTE | 2025-11-12 10:45 | ED_ITS ---
HPI - General Adult General Chief complaint: Dizziness Stated complaint: dizziness/fatigue Time Seen by Provider: 11/12/25 10:49 Source: patient, RN notes reviewed and old records reviewed Mode of arrival: ambulatory Limitations: no limitations History of Present Illness HPI narrative: 60-year-old female presents to the [facility] with complaints of dizziness and fatigue that started this morning after drinking coffee. Patient states I am having a panic attack at. Patient states that she for got her medications last night which include Zyprexa. Patient has complained sitting in of nausea. States whenever she has a panic attack this is her typical symptoms. was seen 2 days ago on November 10, 4 days of body aches, cough and congestion. Has a follow-up appointment on November 16 with her primary care provider patient with a history of bipolar, sees [facility], an appointment last Friday. Has an appointment this coming Friday at 11:40 a.m.. Onset (ago): hour(s) Related Data Home Medications ?Medication ?Instructions ?Recorded ?Confirmed ?Last Taken ?Type trazodone 100 mg tablet 50 mg PO QHS 11/09/24 Unknown History tolterodine 4 mg capsule,extended 4 mg PO ONCE 5 07/12/25 Unknown History release 24 hr bupropion HCl 150 mg 24 hr tablet, 150 mg PO QAM 07/1207/12/25 Unknown History extended release (Wellbutrin XL) olanzapine 5 mg tablet 5 mg PO DAILY 07/12/2507/12 Unknown History Allergies Allergy/AdvReac Type Severity Reaction Status Date / Time iodine Allergy Mild Swelling Verified 11/12/25 10:45 Penicillins Allergy Mild Vomiting Verified 11/12/25 10:45 Sulfa (Sulfonamide Allergy Mild Rash Verified 11/12/25 10:45 Antibiotics) prednisone AdvReac Intermediate Rash Verified 11/12/25 10:45 shellfish derived AdvReac Swelling Verified 11/12/25 10:45 novacaine Allergy Mild Swelling Uncoded 07/12/25 07:33 Review of Systems Review of Systems: All systems reviewed & are unremarkable except as noted in HPI and below Constitutional: Constitutional: Reports as per HPI and Reports fatigue ENT: Reports system reviewed and no additional complaints, except as documented Cardiovascular: Cardiovascular: Reports no additional cardiovascular complaints, Denies chest pain and Denies dyspnea Respiratory: Respiratory: Reports no additional respiratory complaints, Denies chest congestion, Denies cough and Denies dyspnea Musculoskeletal: Musculoskeletal: Reports no additional musculoskeletal complaints Integumentary/Breasts: Skin/Breast: Reports system reviewed and no additional complaints, except as docu Neurologic: Reports as per HPI and Reports dizziness PMFSH Past Medical History Medical History Bipolar disorder 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 Anxiety Surgical History Surgical History History of tonsillectomy Detached retina 1979 History of hysterectomy 2011 Family History Family History Father Hypertension Heart problem Alcoholism Mother Diabetes mellitus Heart problem Grandparent Cancer Cerebrovascular accident Social History Social History Smoking status: Never smoker Alcohol intake: never Substance use: never Lack of Transportation: No Lack of Food: Never True Current Housing: I Have Housing Concerned About Future Housing: No Difficulty Paying Gas/Electric Bills: No Difficulty Paying for Meds: No Currently Unemployed: No Education: Trade/Vocational Certificate Difficulty w/ Childcare or Family Care: No Gender identity (if verbalized by the patient): Female Comments At the time of my signature, I reviewed and agree with the nursing past medical, surgical, social, and family history. There is no relevant family history pertinent to the patient complaint. Exam Const: General: cooperative, healthy appearing, comfortable, no acute distress, well developed, alert and well nourished Nutritional Appearance: well nourished Orientation/consciousness: patient oriented x3 Limitations: no limitations HENMT: Head: normal to inspection Ears: hearing grossly normal bilaterally, external ears normal, TM's normal bilaterally, EAC's normal, mastoids normal and no periauricular adenopathy Mouth: Yes Normal oral and palatal mucosa present, Yes lip normal, Yes tongue normal and Yes moist mucous membranes Throat: posterior oropharynx normal, uvula midline and no uvular edema Eyes: General: appearance normal, both eyes and all related structures Alignment and Position: alignment normal Neck: Neck: normal visual inspection, full ROM, no lymphadenopathy and no meningeal signs Chest: Chest palpation & inspection: normal inspection of the chest Resp: Effort & Inspection: normal respiratory effort and able to speak in complete sentences Auscultation: clear to auscultation bilaterally, no crackles, no rales, no rhonchi and no wheezes Cardio: Rate: regular rate Skin: General skin exam: normal color and no rashes or lesions noted Neuro: General: patient oriented x3, gait normal, tone normal, moves all extremities, no meningeal signs and no focal motor deficits Cognition (Neuro): normal cognition Speech: normal speech Gait exam (Neuro): Normal gait present Motor exam (neuro): 5/5 motor strength present throughout, Pronator motor function not present and No tremor noted Sensory Exam: normal sensation Extrem: General: normal to inspection, full ROM, capillary refill normal and normal gait Psych: Appearance: grossly normal and well kempt Mental Status: mental status grossly normal Speech and movement: Normal speech and movement present and Clear speech present Affect: normal affect Attitude: cooperative Course Course Level of Care: Express Care Visit Vital Signs Vital signs: Vital Signs Temperature 98.4 F 11/12/25 10:49 Pulse Rate 83 11/12/25 10:49 Respiratory Rate 18 11/12/25 10:49 Blood Pressure 138/83 11/12/25 10:49 Pulse Oximetry 99 11/12/25 10:49 Oxygen Delivery Room Air 11/12/25 10:49 Temperature 98.4 F 11/12/25 10:49 Pulse Rate 83 11/12/25 10:49 Respiratory Rate 18 11/12/25 10:49 Blood Pressure 138/83 11/12/25 10:49 Pulse Oximetry 99 11/12/25 10:49 Oxygen Delivery Room Air 11/12/25 10:49 reviewed MDM MDM Narrative Medical decision making narrative: Patient sitting in exam room. Patient is nontoxic and vitals are stable. Patient presents with symptoms possibly of missing her dose of Zyprexa versus panic attack versus anxiety. Patient states that when she has a panic attack these symptoms are her normal. Has the same symptoms in the past. Patient has an appointment both with her mental health provider in her primary care provider this week discussed transferring to the ER which she is declining at this time after talking with the patient for a good amount of time patient states symptoms are resolving. Discussed that if symptoms return or get worse that she should be followed up in the ER for further evaluation which she verbalized understanding and agreed 2. Discharge instructions reviewed with patient, as well as provided in writing per nursing staff. The instructions also include specific and strict return/GO TO THE ER as well as f/u information. All questions have been answered, and the patient deny any further questions with discharge and discharge plan. Some parts of this dictation were generated by voice recognition software and may contain typographical and/or grammatical inaccuracies. Differential Diagnosis Differential Diagnosis: Differential diagnostic considerations for anxiety include acute anxiety, hyperventilation, panic disorder, arrhythmia, substance abuse. Medical Records I have reviewed the following patient records and this information was taken into consideration when formulating the assessment and plan.: previous ER visits and previous clinic visits Discharge Plan Discharge Clinical Impression: Anxiety, Dizziness Patient Disposition: Home Condition: Stable Instructions: Anxiety (ED) Additional Instructions: take medications as prescribed follow-up with primary care provider as already scheduled follow-up with [facility] as already scheduled for any new worsening symptoms please go to the nearest emergency room. Patient Language: Kazakh Prescriptions: New ondansetron HCl 4 mg tablet 4 mg PO Q8H PRN (Reason: nausea and vomiting) Qty: 7 0RF No Action promethazine-DM 6.25-15 mg/5 mL syrup 5 ml PO Q4-6H PRN (Reason: cough) Qty: 118 0RF trazodone 100 mg tablet 50 mg PO QHS tolterodine 4 mg capsule,extended release 24hr 4 mg PO ONCE bupropion HCl [Wellbutrin XL] 150 mg tablet extended release 24 hr 150 mg PO QAM olanzapine 5 mg tablet 5 mg PO DAILY levothyroxine 50 mcg tablet 50 mcg PO DAILY Qty: 90 2RF atorvastatin 10 mg tablet 10 mg PO DAILY Qty: 90 1RF Follow-up/Referrals: Terrance Martínez DO [Primary Care Provider, Family Practice] - 3 Days Clinical Impression: Dizziness; Anxiety Time of Disposition: 11:11
[2025-11-12 10:49] VITALS: BP 138/83; PULSE 83; RESP 18; TEMP 36.9; O2SAT 99
== END 2025-11-12 11:20 | disposition home or self-care (01) ==
PROVIDERS: Emergency Provider Nurse Practitioner; PCP Family Medicine
DX: F41.9 Anxiety disorder, unspecified (principal); R42 Dizziness and giddiness; F31.9 Bipolar disorder, unspecified
CPT/HCPCS: 99213; G0463

== ENCOUNTER 2025-11-14 15:29 | Emergency (ER) | payer MEDICARE, SELFPAY ==
[2025-11-14 15:35] VITALS: BP 175/89; PULSE 86; RESP 20; TEMP 36.8; O2SAT 99
--- NOTE | 2025-11-14 16:30 | ED.RECABL ---
HPI - Recheck/Abnormal Lab/Rx General Chief Complaint: Recheck/Abnormal Lab/Rx Stated Complaint: ELEVATED BLOOD PRESSURE Time Seen by Provider: 11/14/25 16:10 Source: patient and RN notes reviewed Mode of arrival: ambulatory Limitations: no limitations History of Present Illness HPI narrative: 60-year-old female presents Express Care complaining of elevated blood pressure a possible sinus infection. Patient says she has had congestion, cough, mucopurulent nasal drainage for 8 days now. Patient has a history of hypertension but was taken off her medication with her blood pressure was better by her primary care provider. Patient has a follow-up with her PCP tomorrow. Patient denies any headaches, vision changes, chest pain, difficulty breathing, vomiting, slurred speech, or any other symptoms. She has a history of bipolar disorder, she says she has been feeling manic under lot of stress this month. Patient denies any suicidal thoughts or homicidal thoughts. Related Data Home Medications ?Medication ?Instructions ?Recorded ?Confirmed ?Last Taken ?Type trazodone 100 mg tablet 50 mg PO QHS 11/09/24 07/12/25 Unknown History tolterodine 4 mg capsule,extended 4 mg PO ONCE 12/23/24 07/12/25 Unknown History release 24 hr bupropion HCl 150 mg 24 hr tablet, 150 mg PO QAM 07/12/25 07/12/25 Unknown History extended release (Wellbutrin XL) olanzapine 5 mg tablet 5 mg PO DAILY 07/12/25 07/12/25 Unknown History Allergies Allergy/AdvReac Type Severity Reaction Status Date / Time iodine Allergy Mild Swelling Verified 11/14/25 15:42 Penicillins Allergy Mild Vomiting Verified 11/14/25 15:42 Sulfa (Sulfonamide Allergy Mild Rash Verified 11/14/25 15:42 Antibiotics) prednisone AdvReac Intermediate Rash Verified 11/14/25 15:42 shellfish derived AdvReac Swelling Verified 11/14/25 15:42 novacaine Allergy Mild Swelling Uncoded 07/12/25 07:33 Review of Systems Review of Systems: CONSTITUTIONAL: Denies fever, chills, or sweats. EYES: Denies visual changes, redness, or discharge. ENT: Denies rhinorrhea, sore throat, or otalgia. Positive for congestion CARDIOVASCULAR: Denies chest pain, palpitations, or edema. RESPIRATORY: Positive for cough. Negative for wheezing or dyspnea. GASTROINTESTINAL: Denies abdominal pain, nausea, vomiting, or diarrhea. GENITOURINARY: Denies dysuria or hematuria. SKIN: Denies rash or itching. MUSCULOSKELETAL: Denies back pain, joint pain, or myalgia. NEUROLOGIC: Denies headache, numbness, or weakness. PSYCHIATRIC: Denies anxiety suicidal or homicidal ideations Or depression. All other systems reviewed are negative, except as documented in HPI. 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 Anxiety Surgical History Surgical History History of tonsillectomy Detached retina 1979 History of hysterectomy 2011 Family History Family History Father Hypertension Heart problem Alcoholism Mother Diabetes mellitus Heart problem Grandparent Cancer Cerebrovascular accident Social History Social History Smoking status: Never smoker Alcohol intake: never Substance use: never Lack of Transportation: No Lack of Food: Never True Current Housing: I Have Housing Concerned About Future Housing: No Difficulty Paying Gas/Electric Bills: No Difficulty Paying for Meds: No Currently Unemployed: No Education: Trade/Vocational Certificate Difficulty w/ Childcare or Family Care: No Gender identity (if verbalized by the patient): Female Comments At the time of my signature, I reviewed and agree with the nursing past medical, surgical, social, and family history. There is no relevant family history pertinent to the patient complaint. Exam Narrative: GENERAL: This is a well-nourished, well-developed adult, in no apparent distress. They are non ill-appearing, nontoxic appearing. HEAD: normocephalic, atraumatic. EYES: Sclera clear/white. Conjunctiva normal. Vision is grossly intact. Extraocular movements intact. Pupils PERRLA EARS: External ears normal, auditory canals clear and without drainage, TMs normal without perforation. Hearing grossly intact. NOSE: External nose normal with no obvious nasal discharge, nasal turbinates erythematous., no rhinorrhea. THROAT: Mucous membranes moist, posterior pharynx erythematous. Uvula midline. Postnasal drip present. NECK: Neck supple, non-tender without lymphadenopathy, masses or thyromegaly. CARDIOVASCULAR: Regular rate and rhythm without murmurs, gallops, or rubs. RESPIRATORY: Clear to auscultation. Breath sounds equal bilaterally. No wheezes, rales, or rhonchi. SKIN: warm, Dry, intact with no suspicious lesions or rash, good texture and turgor. NEURO: awake, alert, and oriented to person, place and time. There were no obvious focal neurologic abnormalities. Cranial nerve 2-12 grossly intact. EXTREMITIES: No joint tenderness, effusion, or edema noted. BACK: Nontender without deformity. No CVA tenderness. PSYCH: Normal affect. Patient goes on tangents that her fluid with the conversation. No flight of ideas. No bizarre behavior. Normal judgment. Patient dressed well and appropriate. Course Course Level of Care: Express Care Visit Vital Signs Vital signs: Vital Signs Temperature 98.2 F 11/14/25 15:35 Pulse Rate 86 11/14/25 15:35 Respiratory Rate 20 11/14/25 15:35 Blood Pressure 175/89 H 11/14/25 15:35 Pulse Oximetry 99 11/14/25 15:35 Oxygen Delivery Room Air 11/14/25 15:35 Temperature 98.2 F 11/14/25 15:35 Pulse Rate 86 11/14/25 15:35 Respiratory Rate 20 11/14/25 15:35 Blood Pressure 175/89 H 11/14/25 15:35 Pulse Oximetry 99 11/14/25 15:35 Oxygen Delivery Room Air 11/14/25 15:35 [facility] Narrative Medical decision making narrative: Patient's blood pressure elevated today, previous number blood pressure medication no longer on it. Patient has a follow-up with her PCP tomorrow. She is having no symptoms of hypertensive crisis. Advised patient to follow-up with PCP tomorrow about her hypertension. The patient's length of symptoms of her upper respiratory symptoms will go ahead and treat her for bacterial sinusitis. Will treat with doxycycline, she has allergy to penicillins. Patient may appear mildly manic will go on Tangents but they seem fluid with conversation, patient's mental status is normal, no SI or HI. Advised follow-up with Psychiatry as needed. Discussed physical exam findings. Advised supportive measures and signs/symptoms to go to the ER. Pt is appropriate for outpt treatment and f/u. Differential Diagnosis Differential Diagnosis: Bipolar disorder, gerri, upper respiratory infection, sinusitis, viral illness, hypertension, elevated blood pressure, hypertensive urgency, hypertensive crisis Medical Records I have reviewed the following patient records and this information was taken into consideration when formulating the assessment and plan.: previous ER visits and previous clinic visits Critical Care Time Critical Care Time Critical Care Time: No Discharge Plan Discharge Clinical Impression: Elevated blood pressure reading with diagnosis of hypertension Sinusitis Qualifiers: Sinusitis location: unspecified location Chronicity: acute Recurrence: non-recurrent Qualified Code(s): J01.90 - Acute sinusitis, unspecified Patient Disposition: Home Condition: Stable Instructions: Antibiotic Form, Sinusitis (ED), Hypertension (ED) Additional Instructions: Take your blood pressure twice a day. Take the antibiotics as directed and complete the course even if you start to feel better. You may use a Neti pot saline rinse 3 times a day with lukewarm distilled water Continue to take Tylenol or Motrin as needed for pain or fevers. Follow instructions on the bottle. Use a humidifier or vaporizer at night. Drink plenty of water. 8-10 glasses per day. Use flonase 2 times per day for 5 days then as needed for congestion. Follow up with Primary provider tomorrow as scheduled Please go to the ER if you develops any difficulty breathing, vision changes, severe headaches, vomiting, chest pain, worsening symptoms, or any other concerns Patient Language: Latvian Prescriptions: New doxycycline monohydrate 100 mg capsule 100 mg PO BID 7 Days Qty: 14 0RF No Action promethazine-DM 6.25-15 mg/5 mL syrup 5 ml PO Q4-6H PRN (Reason: cough) Qty: 118 0RF ondansetron HCl 4 mg tablet 4 mg PO Q8H PRN (Reason: nausea and vomiting) Qty: 7 0RF trazodone 100 mg tablet 50 mg PO QHS tolterodine 4 mg capsule,extended release 24hr 4 mg PO ONCE bupropion HCl [Wellbutrin XL] 150 mg tablet extended release 24 hr 150 mg PO QAM olanzapine 5 mg tablet 5 mg PO DAILY levothyroxine 50 mcg tablet 50 mcg PO DAILY Qty: 90 2RF atorvastatin 10 mg tablet 10 mg PO DAILY Qty: 90 1RF Follow-up/Referrals: Terrance Martínez DO [Primary Care Provider, [facility]] Time of Disposition: 16:16
== END 2025-11-14 16:23 | disposition home or self-care (01) ==
PROVIDERS: PCP Family Medicine
DX: I10 Essential (primary) hypertension (principal); J01.90 Acute sinusitis, unspecified; F41.9 Anxiety disorder, unspecified; Z86.2 Personal history of diseases of the blood and blood-forming organs and certain disorders involving the immune mechanism
CPT/HCPCS: 99213; G0463

== ENCOUNTER 2025-11-15 22:19 | Emergency (ER) | payer MEDICARE, SELFPAY ==
--- NOTE | ~2025-11-15 | XR_ITS ---
XR wrist RT 2V INDICATION: pain COMPARISON: None FINDINGS: Two views of the right wrist demonstrate no acute fracture or dislocation. IMPRESSION: No acute fracture or dislocation. Reviewed, dictated and finalized at location S. OLL AND BENEFITS ASSISTANT
--- NOTE | ~2025-11-15 | XR_ITS ---
XR wrist LT 2V INDICATION: Fall, pain COMPARISON: None FINDINGS: Two views of the [ demonstrate no acute fracture or dislocation. IMPRESSION: No acute fracture or dislocation. Reviewed, dictated and finalized at location S. E CUTTER
--- NOTE | ~2025-11-15 | XR_ITS ---
XR knee RT 3V INDICATION: fall . COMPARISON: None. FINDINGS: Frontal, lateral and oblique views of the right knee demonstrate no acute fracture or dislocation. There is no joint effusion. Enthesophytes are noted at the quadriceps and patellar tendon attachment IMPRESSION: Radiographic examination of the right knee demonstrates no acute fracture or dislocation. Reviewed, dictated and finalized at location S. COORDINATOR IMPRESSION: Radiographic examination of the right knee demonstrates no acute fracture or di slocation.
[2025-11-15 22:28] VITALS: BP 144/95; PULSE 82; RESP 17; TEMP 36.4; O2SAT 100
--- NOTE | 2025-11-15 22:31 | ED_ITS ---
HPI - Fall General Chief Complaint: Fall Stated Complaint: GLF, L KNEE PAIN Time Seen by Provider: 11/15/25 22:23 History of Present Illness HPI Narrative: 60-year-old female with history of bipolar disorder on several medications for this. She presents to the emergency department today after a ground level mechanical fall in her neighbor's driveway. She landed on both of her hands and right knee. She has some abrasions to her right knee and is concerned she may have injured it. She has a previous torn meniscus in the left side but is still ambulatory without any difficulty. She has complained of some pain in her knees and wrists. Only abrasion visualized in the right superior aspect of the knee. Full range of motion and she called EMS from the local police station to get a ride to the hospital. She is otherwise pleasant and not any acute distress. Does have a pleasant demeanor with some slight evidence of hypomania which was noted on multiple previous encounters and she states she is well aware of this and her doctors are currently titrating her medications at a lower dose to help with this. She has no psychiatric complaints at this time and just interested in imaging and some pain control at this time. No systemic symptoms and otherwise in her normal state of health. Related Data Home Medications ?Medication ?Instructions ?Recorded ?Confirmed ?Last Taken ?Type trazodone 100 mg tablet 50 mg PO QHS 11/09/24 Unknown History tolterodine 4 mg capsule,extended 4 mg PO ONCE 5 07/12/25 Unknown History release 24 hr bupropion HCl 150 mg 24 hr tablet, 150 mg PO QAM 07/1207/12/25 Unknown History extended release (Wellbutrin XL) olanzapine 5 mg tablet 5 mg PO DAILY 07/12/2507/12 Unknown History Allergies Allergy/AdvReac Type Severity Reaction Status Date / Time iodine Allergy Mild Swelling Verified 11/14/25 15:42 Penicillins Allergy Mild Vomiting Verified 11/14/25 15:42 Sulfa (Sulfonamide Allergy Mild Rash Verified 11/14/25 15:42 Antibiotics) prednisone AdvReac Intermediate Rash Verified 11/14/25 15:42 shellfish derived AdvReac Swelling Verified 11/14/25 15:42 novacaine Allergy Mild Swelling Uncoded 07/12/25 07:33 Review of Systems Review of Systems: As reviewed above in HPI All systems reviewed & are unremarkable except as noted in HPI and below PMFSH Past Medical History Medical History Bipolar disorder 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 Anxiety Surgical History Surgical History History of tonsillectomy Detached retina 1979 History of hysterectomy 2010 Family History Family History Father Hypertension Heart problem Alcoholism Mother Diabetes mellitus Heart problem Grandparent Cancer Cerebrovascular accident Social History Social History Smoking status: Never smoker Alcohol intake: never Substance use: never Lack of Transportation: No Lack of Food: Never True Current Housing: I Have Housing Concerned About Future Housing: No Difficulty Paying Gas/Electric Bills: No Difficulty Paying for Meds: No Currently Unemployed: No Education: Trade/Vocational Certificate Difficulty w/ Childcare or Family Care: No Gender identity (if verbalized by the patient): Female Exam Narrative: GENERAL: [Well-appearing, well-nourished, and in no acute distress.] HEAD: [Normocephalic, atraumatic.] EYES: [PERRLA and EOMI.] ENT: Nares clear, no rhinorrhea or epistaxis. Mucous membranes moist. NECK: Supple. CHEST: [Clear to auscultation. No respiratory distress.] HEART: [Regular rate and rhythm]. No murmur heard. [Normal peripheral pulses.] ABDOMEN: [Soft, nondistended], [nontender], [No rigidity or guarding] EXTREMITIES: Superficial abrasion to the anterior right knee and pain with palpation of the dorsum of both wrists but no step-offs or deformities. 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 Ambulatory without any difficulty. no malalignment or weakness/skin discoloration. SKIN: Warm, dry, no rash. NEURO: [No focal deficits]. Alert and oriented [x3.] PSYCH: hypomania but pleasant, no depression, no SI/HI or any hallucinations. No pressured speech. some tangential speech but easily redirectable. Course Vital Signs Vital signs: Vital Signs Temperature 36.4 C 11/15/25 22:28 Pulse Rate 82 11/15/25 22:28 Respiratory Rate 17 11/15/25 22:28 Blood Pressure 144/95 H 11/15/25 22:28 Pulse Oximetry 100 11/15/25 22:28 Oxygen Delivery Room Air 11/15/25 22:28 Temperature 36.4 C 11/15/25 22:28 Pulse Rate 82 11/15/25 22:28 Respiratory Rate 17 11/15/25 22:28 Blood Pressure 144/95 H 11/15/25 22:28 Pulse Oximetry 100 11/15/25 22:28 Oxygen Delivery Room Air 11/15/25 22:28 MDM MDM Narrative Medical decision making narrative: 60-year-old female with history of bipolar disorder on several medications for this. She presents to the emergency department today after a ground level mechanical fall in her neighbor's driveway. She landed on both of her hands and right knee. She has some abrasions to her right knee and is concerned she may have injured it. She has a previous torn meniscus in the left side but is still ambulatory without any difficulty. She has complained of some pain in her knees and wrists. Only abrasion visualized in the right superior aspect of the knee. Full range of motion and she called EMS from the local police station to get a ride to the hospital. She is otherwise pleasant and not any acute distress. Does have a pleasant demeanor with some slight evidence of hypomania which was noted on multiple previous encounters and she states she is well aware of this and her doctors are currently titrating her medications at a lower dose to help with this. She has no psychiatric complaints at this time and just interested in imaging and some pain control at this time. No systemic symptoms and otherwise in her normal state of health. Superficial abrasion to the anterior right knee and pain with palpation of the dorsum of both wrists but no step-offs or deformities. 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 Ambulatory without any difficulty. no malalignment or weakness/skin discoloration. patient is hemodynamically stable. Given some pain control medications and x-rays obtained for right knee and bilateral wrist. Safe for discharge upon completion of imaging and workup. Differential Diagnosis Differential Diagnosis: Musculoskeletal contusions. Knee abrasions, wrist abrasions, less likely fracture or dislocation. Imaging Data Attestation: I personally reviewed and interpreted this imaging study as follows: My impression: Impressions Knee X-Ray 11/15/25 22:54 IMPRESSION: Radiographic examination of the right knee demonstrates no acute fracture or dislocation. Wrist X-Ray 11/15/25 22:55 IMPRESSION: No acute fracture or dislocation. Wrist X-Ray 11/15/25 22:58 IMPRESSION: No acute fracture or dislocation. Radiologist's impression: ITS Impressions Knee X-Ray 11/15/25 22:54 IMPRESSION: Radiographic examination of the right knee demonstrates no acute fracture or dislocation. Wrist X-Ray 11/15/25 22:58 IMPRESSION: No acute fracture or dislocation. Discharge Plan Discharge Clinical Impression: Fall from ground level, Contusion of knee, right Patient Disposition: Home Condition: Stable Instructions: Antibiotic Form Additional Instructions: x-ray showed no broken bones or malalignment. Symptoms consistent with mild contusion from fall. recommend you take Tylenol and ibuprofen together every 6- 8 hours for pain control. Return with any emergent concerns otherwise follow-up with regular primary doctors. Patient Language: Danish Prescriptions: No Action promethazine-DM 6.25-15 mg/5 mL syrup 5 ml PO Q4-6H PRN (Reason: cough) Qty: 118 0RF doxycycline monohydrate 100 mg capsule 100 mg PO BID 7 Days Qty: 14 0RF ondansetron HCl 4 mg tablet 4 mg PO Q8H PRN (Reason: nausea and vomiting) Qty: 7 0RF trazodone 100 mg tablet 50 mg PO QHS tolterodine 4 mg capsule,extended release 24hr 4 mg PO ONCE bupropion HCl [Wellbutrin XL] 150 mg tablet extended release 24 hr 150 mg PO QAM olanzapine 5 mg tablet 5 mg PO DAILY levothyroxine 50 mcg tablet 50 mcg PO DAILY Qty: 90 2RF atorvastatin 10 mg tablet 10 mg PO DAILY Qty: 90 1RF Follow-up/Referrals: Terrance Martínez DO [Primary Care Provider, [facility]] Time of Disposition: 23:02
[2025-11-15] MEDS: ACETAMINOPHEN 500 MG TABLET 1000 MG PO (23:23)
[2025-11-15 23:40] VITALS: BP 148/95; PULSE 84; RESP 18; TEMP 36.6; O2SAT 95
== END 2025-11-15 23:41 | disposition home or self-care (01) ==
LOC: ANHED 23:12
PROVIDERS: Emergency Provider Student in an Organized Health Care Education/Training Program; PCP Family Medicine
DX: S80.01XA Contusion of right knee, initial encounter (principal); F31.9 Bipolar disorder, unspecified; F41.9 Anxiety disorder, unspecified; Z90.710 Acquired absence of both cervix and uterus; Z79.899 Other long term (current) drug therapy; W18.30XA Fall on same level, unspecified, initial encounter
CPT/HCPCS: 73100; 73562; 99284; A9270

== ENCOUNTER 2025-11-16 21:27 | Emergency (ER) | payer MEDICARE, SELFPAY ==
--- OUTSIDE RECORDS SUMMARY | 2025-08-23 10:20 | XMS_ITS ---
Author Organization [facility] Address [address] [place] [address] Phone [phone] Care Team Providers Care Veneer Taping Machine Offbearer Name Role Phone Sydnee Flores Primary Care Provider Results Component Value Reference Range Flag Notes [place] (Eskalith(R)), Serum Order date: 08/23/2025 Reviewed date:08/29/2025 09:07:41 AM Interpretation: Performing Lab:[facility], [address] [facility], Phone - [phone], Director - PhDRicharperi Notes/Report: Called/faxed to TERRI GRAY on 08/26/2025 at 05:11 ET for test [place] (Eskalith(R)), Serum [place] (Eskalith(R)), Serum 1.8 0.5-1.2 mmol/L > A [...] 08/23/2025 Reviewed date:08/29/2025 09:07:41 AM Interpretation: Performing Lab:[facility], [address] [facility], Phone - [phone], Director - Juanjo Notes/Report: Called/faxed to TERRI GRAY on 08/26/2025 at 05:11 ET for test [place] (Eskalith(R)), Serum TSH 5.580 0.450-4.500 uIU/mL H T4,Free(Direct) 1.19 0.82-1.77 ng/dL CMP 14 Comprehensive Metabol ic Panel* Order date: 08/23/2025 Reviewed date:08/29/2025 09:07:41 AM Interpretation: Performing Lab:[facility] [place], [address] [facility], Phone - [phone], Director - Juanjo Notes/Report: Called/faxed to TERRI GRAY on 08/26/2025 at 05:11 ET for test [place] (Eskalith(R)), Serum Glucose 94 70-99 mg/dL BUN [...] Bipolar 1 disorder (ICD_10 - F31.9) Active [place] Carbonate ER 300 MG Tablet Extended Release [...] Bipolar 1 disorder (ICD_10 - F31.9) Active [place] Carbonate ER 450 MG Tablet Extended Release [...] Provider Diagnosis 08/23/2025 10:20 AM Office Visit [facility] [address] [address] Sydnee Flores Medication monitoring encounter Z51.81 Assessments [...] medications-30 day stay 2023 mental health 2016 [facility] in 2022 Progress Notes * Joce HEDRICK:1965 ([age] yo F)Acc No.[id number]:08/23/2025 UNLOCKED PROGRESS NOTE Patient: Allen QUICK Provider: DARIN Welch :1965 A ge:59 Y S ex:Female Date:08/23/2025 Address:[facility] Check In:10:11 AM HAND STITCHER Subjective: * Chief Complaints: * 1 . [...] tablet Orally Once a day , Taking [place] Carbonate ER 450 MG Tablet Extended Release 1 tablet at bedtime Orally Once a day , Taking traZODone HCl 50 MG Tablet 1 tablet at bedtime Orally Once a day , Taking Prazosin HCl 2 MG Capsule 1 capsule at bedtime Orally Once a day , Taking [place] Carbonate ER 300 MG Tablet Extended Release [...] * Electronic signature of Sydnee Flores , [id number] on 11/17/2025 at 01:54 AM HAND STITCHER Sign off status: Pending * Provider: DARIN Welch Date: 0 08/23/2025 Generated for Shantelle conrad/Chantel/Nacho on: 01/18/2025 01:54 AM HAND STITCHER
--- OUTSIDE RECORDS SUMMARY | 2025-08-29 08:20 | XMS_ITS ---
Author Organization Formerly [facility], later [facility] Address [address] [place] [address] Phone [phone] Care Team Providers Care Shear Grinder Operator Name Role Phone Mark Sydnee Primary Care Provider REASON FOR VISIT lithium level Medications Medication SIG (Take, Route, Frequency, Duration) Notes Start Date End Date Diagnosis (ICD Code) Status [place] Carbonate ER 300 MG Tablet Extended Release [...] 1 disorder (ICD_10 - F31.9) Active lamoTRIgine 25 MG Tablet 1 tablet Orally daily; Duration: 30 days 5 09/13/20 25 Bipolar 1 disorder (ICD_10 - F31.9) Active lamoTRIgine 100 MG Tablet 1 tablet x 7 days then 0.5 x 7 days. Orally Once a day; Duration: 30 days 09/06/20 Bipolar 1 disorder (ICD_10 - F31.9) Active OLANZapine 5 MG Tablet 1 tablet Orally Once a day; Duration: 30 days Bipolar 1 disorder (ICD_10 - F31.9) Active B12 Not-Taking LORazepam 0.5 MG Tablet 1 tablet at bedtime as needed Orally Once a day Not-Taking Prazosin HCl 2 MG Capsule 1 capsule at bedtime Orally Once a day; Duration: 30 days Nightmares (ICD_10 - F51.5) Active [place] Carbonate ER 450 MG Tablet Extended Release 1 tablet at bedtime Orally Once a day; Duration: 30 days Bipolar 1 disorder (ICD_10 - F31.9) Active traZODone HCl 50 MG Tablet 1 tablet at bedtime Orally Once a day; Duration: 30 days Bipolar 1 disorder (ICD_10 - F31.9) Active hydroCHLOROthiazide 12.5 MG Capsule 1 capsule in the morning Orally Once a day Not-Taking Zofran Not-Taking Colace 100 MG Capsule 1 capsule as needed Orally Once a day Not-Taking Meclizine HCl 25 MG Tablet 1 tablet as needed Orally every 12 hrs Not-Taking Synthroid 50 MCG Tablet 1 tablet in the morning on an empty stomach Orally Once a day Not-Taking Biotin 800 MCG Tablet 1 tablet Orally Once a day Not-Taking Vitamin D3 Not-Taking Womens 50+ Multi Vitamin Not-Taking Vitamin B12 Not-Taking Vitamin C 500 MG Tablet 1 tablet Orally Once a day Not-Taking Levothyroxine Sodium 50 MCG Capsule 1 capsule in the morning on an empty stomach Orally Once a day Active Atorvastatin Calcium 10 MG Tablet 1 tablet Orally Once a day Active Tolterodine Tartrate 2 MG Tablet 1 tablet Orally Twice a day Active Flonase Not-Taking Allergy Relief Not-Takin g Social History Sex Observation Social History Observation Description Sex Observation Female Sexual Orientation Social History Observation Description Sexual Orientation Straight or heterose xual Gender Identity Social History Observation Description Gender Identity Female Encounters Date Time Type Facility Location Provider Diagnosis 08/29/2025 08:20 AM Office Visit [address] [address] Sydnee Flores Plan Of Treatment No Information Medical (General) History Medical History History ICD Code carpal tunnel Surgical History Surgery Date(Month/Year) detached retina 1978 several ovary cyst removals 1984 carpal tunnel 2014 torn meniscus 2019 TOTAL HYSTERECTOMY 12/2010 Hospitalization History Reason Date(Month/Year) weaning off medications-30 day stay 2023 mental health 2016 [facility] in 2022 Progress Notes * Allen HEDRICKDOB:1965 ([age] yo F)Acc No.[id number]:08/29/2025 UNLOCKED PROGRESS NOTE Patient: Allen QUICK Provider: TAYLOR Welch-CHANTAL :1965 A ge:59 Y S ex:Female Date:08/29/2025 Address:[address] [place], [place] [id number] Subjective: * Chief Complaints: * 1 . [place] level. * Screening: * * Medical History: * Medications: T aking Tolterodine Tartrate 2 MG Tablet 1 tablet Orally Twice a day , Taking Levothyroxine Sodium 50 MCG Capsule 1 capsule in the morning on an empty stomach Orally Once a day , Taking Atorvastatin Calcium 10 MG Tablet 1 tablet Orally Once a day , Taking [place] Carbonate ER 450 MG Tablet Extended Release 1 tablet at bedtime Orally Once a day , Taking traZODone HCl 50 MG Tablet 1 tablet at bedtime Orally Once a day , Taking Prazosin HCl 2 MG Capsule 1 capsule at bedtime Orally Once a day , Taking [place] Carbonate ER 300 MG Tablet Extended Release [...] Once a day Objective: * Vitals: Assessment: Plan: * Treatment: * * Electronic signature of Sydnee Flores , [id number] on 11/17/2025 at 01:53 AM POURING CRANE OPERATOR Sign off status: Pending * Provider: JEANNETTE Welch Date: 0 08/29/2025 Generated for Shantelle conrad/Chantel/Nacho on: 01/18/2025 01:53 AM POURING CRANE OPERATOR
--- OUTSIDE RECORDS SUMMARY | 2025-09-06 11:00 | XMS_ITS ---
Author Organization [facility] Address [address] [place] [address] Phone [phone] Care Team Providers Care Criminal Court Judge Name Role Phone Sydnee Flores Primary Care Provider REASON FOR VISIT ZOOM hosp follow up Social History Sex Observation Social History Observation Description Sex Observation Female Sexual Orientation Social History Observation Description Sexual Orientation Straight or heterose xual Gender Identity Social History Observation Description Gender Identity Female Encounters Date Time Type Facility Location Provider Diagnosis 09/06/2025 11:00 AM Office Visit [facility] [address] [place] [address] Sydnee Florse Plan Of Treatment No Information Medical (General) History Medical History History ICD Code carpal tunnel Surgical History Surgery Date(Month/Year) detached retina 1978 several ovary cyst removals 1984 carpal tunnel 2014 torn meniscus 2019 TOTAL HYSTERECTOMY 12/2010 Hospitalization History Reason Date(Month/Year) weaning off medications-30 day stay 2023 mental health 2016 [facility] in 2022 Progress Notes * Joce HEDRICK:1965 ([age] yo F)Acc No.[id number]:09/06/2025 UNLOCKED PROGRESS NOTE Patient: Allen QUICK Provider: DARIN Welch :1965 A ge:59 Y S ex:Female Date:09/06/2025 Address:[address] [place], [place] [id number] Subjective: * Chief Complaints: * 1 . ZOOM hosp follow up. * Screening: * * Medical History: Objective: * Vitals: Assessment: Plan: * Treatment: * * Electronic signature of Sydnee Flores , [id number] on 11/17/2025 at 01:54 AM ASSOCIATE DEAN OF WOMEN Sign off status: Pending * Provider: DARIN Welch Date: 1 Generated for Shantelle conrad/Chantel/Deanitting on: 01/18/2025 01:54 AM ASSOCIATE DEAN OF WOMEN
--- OUTSIDE RECORDS SUMMARY | 2025-09-12 10:20 | XMS_ITS ---
Author Organization [facility] Address [address] [place] [address] Phone [phone] Care Team Providers Care Airport Skilled Maintenance Supervisor Name Role Phone Sydnee Flores Primary Care Provider REASON FOR VISIT LM to R/S - [facility] F/U Social History Sex Observation Social History Observation Description Sex Observation Female Sexual Orientation Social History Observation Description Sexual Orientation Straight or heterose xual Gender Identity Social History Observation Description Gender Identity Female Encounters Date Time Type Facility Location Provider Diagnosis 09/12/2025 10:20 AM Office Visit [facility] [address] [place] [address] Sydnee Flores Plan Of Treatment No Information Medical (General) History Medical History History ICD Code carpal tunnel Surgical History Surgery Date(Month/Year) detached retina 1978 several ovary cyst removals 1984 carpal tunnel 2014 torn meniscus 2019 TOTAL HYSTERECTOMY 12/2010 Hospitalization History Reason Date(Month/Year) weaning off medications-30 day stay 2023 mental health 2016 [facility] in 2022 Progress Notes * Allen HEDRICKDOB:1965 ([age] yo F)Acc No.[id number]:09/12/2025 UNLOCKED PROGRESS NOTE Patient: Allen QUICK Provider: DARIN Welch :1965 A ge:59 Y S ex:Female Date:09/12/2025 Address:[address] [place], [place] [id number] Subjective: * Chief Complaints: * 1 . LM to R/S - [facility] [place] F/U. * Screening: * * Medical History: Objective: * Vitals: Assessment: Plan: * Treatment: * * Electronic signature of Sydnee Flores , [id number] on 11/17/2025 at 01:53 AM FERMENTATION ENGINEER Sign off status: Pending * Provider: DARIN Welch Date: Generated for Shantelle conrad/Chantel/Deanitting on: 01/18/2025 01:53 AM FERMENTATION ENGINEER
--- OUTSIDE RECORDS SUMMARY | 2025-11-09 10:40 | XMS_ITS ---
Author Organization [facility] Address [address] [place] [address] Phone [phone] Care Team Providers Care Laser Cutter Name Role Phone [place] Primary Care Provider Allergies Allergen (clinical drug [...] hypomania client will come into today to merchandise pickup/receiving associate olanzapine and this. 11/09/20 25 Bipolar 1 [...] g Womens 50+ Multi Vitamin Not-Takin g [place] Carbonate 150 MG Capsule 1 capsule x [...] Frequency: Never Section Notes: Social History- location- [facility] Current home- lives with daughter and her [...] Status W/U Status Risk Notes Problem Hypomania ([id number]) Hypomania (F30.8) Added On: 025 Active confirmed Encounters Date Time Type Facility Location Provider Diagnosis 10:40 AM Telehealth Office Visit, Est Pt., Level 3 ([address]) [address] [address] Sydnee Flores Bipolar 1 disorder F31.9 ; [...] instead of returning to bed. Agrees to [facility] referral. Declines Crisis calls. Helped frame pros [...] hypomania client will come into today to merchandise pickup/receiving associate olanzapine and this. OLANZapine 2.5 MG Tablet [...] instead of returning to bed. Agrees to [facility] referral. Declines Crisis calls. Helped frame pros [...] day stay 2023 mental health 2016 [facility] in 2022 Progress Notes * Allen HEDRICKDOB:1965 ([age] yo F)Acc No.[id number]:11/09/2025 UNLOCKED PROGRESS NOTE Patient: Allen QUICK Provider: DARIN Welch :1965 A ge:60 Y S ex:Female Date:11/09/2025 Address:[address], [place] [facility] Check In:10:39 AM CSTCheck O ut:11:13 AM OUTPATIENT INTERVIEWING CLERK Subjective: * Chief Complaints: * 1 . [...] HYSTERECTOMY 12/2010. * Hospitalization/Major Diagno stic Procedure: [facility] 2016, weaning off medications-30 day stay 2023, [facility] [place] 2022. * Family History: F ather: alive, [...] a day? 0 S ocial History- location- [facility] Current home- lives with daughter and her [...] tablet Orally Once a day , Taking [place] Carbonate 150 MG Capsule 1 capsule x [...] and buproprion thanks.. * Preventive Medicine: [email or web address] [place] address [email or web address] daughter Franci Youssef. * Follow Up: 1 Week * * Electronic signature of Sydnee Flores , [id number] on 11/17/2025 at 01:53 AM OUTPATIENT INTERVIEWING CLERK Sign off status: Pending * Provider: Joslyn Flores, ANP- Date: 01/10/2025 Generated for Shantelle conrad/Chantel/eTransmitting on: 01/18/2025 01:53 AM OUTPATIENT INTERVIEWING CLERK History and Physical Notes * HPI (History [...] Discussed lithium and kidney function. Taking atorvastatin. [employer] reviewed as well. , 07/11/25 labs reviewed: Hgn A1C 5.2, CBC WNL, lithium 1.1, lipid panel- all WNL except elevated TRG at 241, CMP with normal liver indices but decreased GFR at 54, Discussed lithium and kidney function. Taking atorvastatin. [employer] reviewed as well. Therapy? Edith Sander , [...]
[2025-11-16 21:33] VITALS: BP 160/82; PULSE 99; RESP 16; TEMP 36.9; O2SAT 94
[2025-11-17 00:23] VITALS: BP 167/96; PULSE 90; RESP 18; TEMP 36.3; O2SAT 99
--- NOTE | 2025-11-17 01:17 | ED.GENADULT ---
HPI - General Adult General Chief complaint: Unspecified Stated complaint: swelling in wrist from injury Time Seen by Provider: 11/17/25 01:23 History of Present Illness HPI narrative: 60-year-old female with history of bipolar depression presenting to the emergency department as she wants medications. Patient states that she has not been able to have a prescription for amlodipine but did not talk to her primary care provider about this. She is worried about her blood pressure being elevated. Her secondary complaint is that she wants something for her pain in her wrists and knees after she fell yesterday. She was seen and examined in the emergency department by myself last night and had no apparent injuries. Was given medications for symptoms and discharged home after imaging were unremarkable. No new falls or new injuries. Patient is well appearing not any distress. She does have a history of bipolar depression and saw her primary doctor for this this morning without any concerns. Did not mention the blood pressure issue. Patient has no symptoms at this time aside from pain. As a PCP she can follow-up with. Ambulatory without any difficulties, not any distress. No other concerns at this time. Related Data Home Medications ?Medication ?Instructions ?Recorded ?Confirmed ?Last Taken ?Type trazodone 100 mg tablet 50 mg PO QHS 11/09/24 11/16/25 Unknown History tolterodine 4 mg capsule,extended 4 mg PO ONCE 12/23/24 11/16/25 Unknown History release 24 hr bupropion HCl 150 mg 24 hr tablet, 150 mg PO QAM 07/12/25 11/16/25 Unknown History extended release (Wellbutrin XL) olanzapine 5 mg tablet 5 mg PO DAILY 07/12/25 11/16/25 Unknown History Allergies Allergy/AdvReac Type Severity Reaction Status Date / Time iodine Allergy Mild Swelling Verified 11/16/25 14:34 Penicillins Allergy Mild Vomiting Verified 11/16/25 14:34 Sulfa (Sulfonamide Allergy Mild Rash Verified 11/16/25 14:34 Antibiotics) prednisone AdvReac Intermediate Rash Verified 11/16/25 14:34 shellfish derived AdvReac Swelling Verified 11/16/25 14:34 novacaine Allergy Mild Swelling Uncoded 11/16/25 14:34 Review of Systems Review of Systems: As reviewed above in HPI All systems reviewed & are unremarkable except as noted in HPI and below PMFSH Past Medical History Medical History Bipolar disorder 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 Anxiety Surgical History Surgical History History of tonsillectomy Detached retina 1979 History of hysterectomy 2011 Family History Family History Father Hypertension Heart problem Alcoholism Mother Diabetes mellitus Heart problem Grandparent Cancer Cerebrovascular accident Social History Social History Smoking status: Never smoker Alcohol intake: never Substance use: never Lack of Transportation: No Lack of Food: Never True Current Housing: I Have Housing Concerned About Future Housing: No Difficulty Paying Gas/Electric Bills: No Difficulty Paying for Meds: No Currently Unemployed: No Education: Trade/Vocational Certificate Difficulty w/ Childcare or Family Care: No Gender identity (if verbalized by the patient): Female Exam Narrative: GENERAL: [Well-appearing, well-nourished, and in no acute distress.] HEAD: [Normocephalic, atraumatic.] EYES: [PERRLA and EOMI.] ENT: Nares clear, no rhinorrhea or epistaxis. Mucous membranes moist. NECK: Supple. CHEST: [Clear to auscultation. No respiratory distress.] HEART: [Regular rate and rhythm]. No murmur heard. [Normal peripheral pulses.] ABDOMEN: [Soft, nondistended], [nontender], [No rigidity or guarding] EXTREMITIES: Normal range of motion. [No edema.] No new apparent injuries. Healing superficial abrasions. SKIN: Warm, dry, no rash. NEURO: [No focal deficits]. Alert and oriented [x3.] PSYCH: Normal mood and affect. No pressured speech. No suicidal, homicidal ideation or any hallucinations. Pleasant to speak with. Course Vital Signs Vital signs: Vital Signs Temperature 36.9 C 11/16/25 21:33 Pulse Rate 99 11/16/25 21:33 Respiratory Rate 16 11/16/25 21:33 Blood Pressure 160/82 H 11/16/25 21:33 Pulse Oximetry 94 11/16/25 21:33 Oxygen Delivery Room Air 11/16/25 21:33 Temperature 36.5 C 11/17/25 01:55 Pulse Rate 86 11/17/25 01:55 Respiratory Rate 17 11/17/25 01:55 Blood Pressure 163/93 H 11/17/25 01:55 Pulse Oximetry 100 11/17/25 01:55 Oxygen Delivery Room Air 11/16/25 21:33 MDM MDM Narrative Medical decision making narrative: 60-year-old female with history of bipolar depression presenting to the emergency department as she wants medications. Patient states that she has not been able to have a prescription for amlodipine but did not talk to her primary care provider about this. She is worried about her blood pressure being elevated. Her secondary complaint is that she wants something for her pain in her wrists and knees after she fell yesterday. She was seen and examined in the emergency department by myself last night and had no apparent injuries. Was given medications for symptoms and discharged home after imaging were unremarkable. No new falls or new injuries. Patient is well appearing not any distress. She does have a history of bipolar depression and saw her primary doctor for this this morning without any concerns. Did not mention the blood pressure issue. Patient has no symptoms at this time aside from pain. As a PCP she can follow-up with. Ambulatory without any difficulties, not any distress. No other concerns at this time. Benign examination. Vitals mildly hypertensive but stable. No tachycardia. No signs of distress or emergency. She was given Excedrin, Toradol and amlodipine for her symptoms. Discharged with a prescription for amlodipine and follow-up instructions with return precautions. Differential Diagnosis Differential Diagnosis: Malingering, homelessness, bipolar disorder, asymptomatic hypertension, medication seeking Medical Records I have reviewed the following patient records and this information was taken into consideration when formulating the assessment and plan.: previous labs, previous ER visits, previous hospitalizations and previous clinic visits Discharge Plan Discharge Clinical Impression: Musculoskeletal pain, Bipolar disorder, Asymptomatic hypertension Patient Disposition: Home Condition: Stable Instructions: Antibiotic Form Additional Instructions: Follow-up with your primary care provider. We have sent a prescription for blood pressure controlling medications. Return with any emergent concerns. Take the pain medicines that your primary doctor as already prescribed for you. Patient Language: Bulgarian Prescriptions: New amlodipine [Norvasc] 5 mg tablet 5 mg PO DAILY Qty: 30 0RF No Action promethazine-DM 6.25-15 mg/5 mL syrup 5 ml PO Q4-6H PRN (Reason: cough) Qty: 118 0RF doxycycline monohydrate 100 mg capsule 100 mg PO BID 7 Days Qty: 14 0RF ondansetron HCl 4 mg tablet 4 mg PO Q8H PRN (Reason: nausea and vomiting) Qty: 7 0RF trazodone 100 mg tablet 50 mg PO QHS tolterodine 4 mg capsule,extended release 24hr 4 mg PO ONCE bupropion HCl [Wellbutrin XL] 150 mg tablet extended release 24 hr 150 mg PO QAM olanzapine 5 mg tablet 5 mg PO DAILY diclofenac potassium 25 mg tablet 25 mg PO BID PRN (Reason: pain) Qty: 14 0RF levothyroxine 50 mcg tablet 50 mcg PO DAILY Qty: 90 2RF atorvastatin 10 mg tablet 10 mg PO DAILY Qty: 90 1RF Follow-up/Referrals: Jessica Sevilla APRN [Primary Care Provider, Family Practice] Time of Disposition: 01:23
[2025-11-17] MEDS: ACETAMINOPHEN/ASPIRIN/CAFFEINE 250-250-65 MG TABLET 1 TABLET PO (01:33)
[2025-11-17] MEDS: KETOROLAC 10 MG TABLET PO (01:33)
[2025-11-17 01:43] VITALS: BP 163/93; PULSE 86; RESP 17; TEMP 36.5; O2SAT 100
--- OUTSIDE RECORDS SUMMARY | 2025-11-17 01:53 | XMS_ITS | Encounter Summary ---
Author Organization [email or web address] Address 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
--- OUTSIDE RECORDS SUMMARY | 2025-11-17 01:53 | XMS_ITS | Patient Health Record ---
Author Organization [facility] Address [address] [place] [address] Phone [phone] Care Team Providers Care Pulmonary Physician Name Role Phone Sydnee Flores Primary Care Provider [phone] Sonya Billings Unavailable [phone] Allergies Allergen (clinical drug ingredient) Drug/Non Drug Allergy documented on EMR Reaction Allergy Type Onset Date Status Shellfish (FN) Shellfish-derived Products rash Drug Allergy Active Results Component Value Reference Range Flag Notes Leith-Hatfield (Eskalith(R)), Serum Order date: 08/26/2025 Reviewed date:09/06/2025 05:09:34 PM Interpretation: Performing Lab:[facility] [place], [address] [facility], Phone - [phone], Director - Juanjo Notes/Report: Leith-Hatfield (Eskalith(R)), Serum 0.9 0.5-1.2 mmol/L A concentration of 0.5-0.8 mmol/L is advised for long-term use; concentrations of up to 1.2 mmol/L may be necessary during acute treatment. Detection Limit = 0.1 <0.1 indicates None Detected Please note The date and/or time of collection was not indicated on the requisition as required by state and federal law. The date of receipt of the specimen was used as the collection date if not supplied. CMP 14 Comprehensive Metabol ic Panel* Order date: 08/23/2025 Reviewed date:08/29/2025 09:07:41 AM Interpretation: Performing Lab:[facility] [place], [address] [facility], Phone - [phone], Director [facility] Notes/Report: Called/faxed to TERRI GRAY on 08/26/2025 at 05:11 ET for test Leith-Hatfield (Eskalith(R)), Serum Glucose 94 70-99 mg/dL BUN [...] 0-40 IU/L ALT (SGPT) 12 0-32 IU/L TSH+Free T4* Order date: 08/23/2025 Reviewed date:08/29/2025 09:07:41 AM Interpretation: Performing Lab:[facility] [place], [address] [facility], Phone - [phone], Director [facility] Notes/Report: Called/faxed to TERRI GRAY on 08/26/2025 at 05:11 ET for test Leith-Hatfield (Eskalith(R)), Serum TSH 5.580 0.450-4.500 uIU/mL H T4,Free(Direct) 1.19 0.82-1.77 ng/dL Leith-Hatfield (Eskalith(R)), Serum Order date: 08/23/2025 Reviewed date:08/29/2025 09:07:41 AM Interpretation: Performing Lab:[facility] [place], [address] [facility], Phone - [phone], Director - Juanjo Notes/Report: Called/faxed to TERRI GRAY on 08/26/2025 at 05:11 ET for test Leith-Hatfield (Eskalith(R)), Serum Leith-Hatfield (Eskalith(R)), Serum 1.8 0.5-1.2 mmol/L > A concentration of 0.5-0.8 mmol/L is advised for long-term use; concentrations of up to 1.2 mmol/L may be necessary during acute treatment. Verified by repeat analysis Detection Limit = 0.1 <0.1 indicates None Detected Patient drug level exceeds published reference range. Evaluate clinically for signs of potential toxicity. CMP 14 Comprehensive Metabol ic Panel* Order date: 07/11/2025 Reviewed date:07/17/2025 11:17:57 AM Interpretation: Performing Lab:[facility] [place], [address] [facility], [place], Phone - [phone], Director - Juanjo Notes/Report: Glucose 105 70-99 mg/dL H BUN 15 8-27 mg/dL Creatinine 1.16 0.57-1.00 mg/dL H eGFR 54 >59 mL/min/1.73 L BUN/Creatinine Ratio 13 12-28 Sodium 140 134-144 mmol/L Potassium 4.3 3.5-5.2 mmol/L Chloride 105 96-106 mmol/L Carbon Dioxide, Total 21 20-29 mmol/L Calcium 9.9 8.7-10.3 mg/dL Protein, Total 6.3 6.0-8.5 g/dL Albumin 4.6 3.9-4.9 g/dL Globulin, Total 1.7 1.5-4.5 g/dL Bilirubin, Total 0.3 0.0-1.2 mg/dL Alkaline Phosphatase 87 44-121 IU/L AST (SGOT) 15 0-40 IU/L ALT (SGPT) 19 0-32 IU/L Lipid Panel* Order date: 07/11/2025 Reviewed date:07/17/2025 11:17:57 AM Interpretation: Performing [facility], Phone - [phone], Director - [facility] Notes/Report: Cholesterol, Total 161 100-199 mg/dL Triglycerides 241 0-149 mg/dL H HDL Cholesterol 47 >39 mg/dL VLDL Cholesterol [place] 39 5-40 mg/dL LDL Chol Calc (NIH) 75 0-99 mg/dL Leith-Hatfield (Eskalith(R)), Serum Order date: 07/11/2025 Reviewed date:07/17/2025 11:17:57 AM Interpretation: Performing Lab:[facility] [place] [address] [facility], Phone - [phone], Director - [facility] Notes/Report: Leith-Hatfield (Eskalith(R)), Serum 1.1 0.5-1.2 mmol/L A concentration of 0.5-0.8 mmol/L is advised for long-term use; concentrations of up to 1.2 mmol/L may be necessary during acute treatment. Detection Limit = 0.1 <0.1 indicates None Detected CBC With Differential/Platel et* Order date: 07/11/2025 Reviewed date:07/17/2025 11:17:57 AM Interpretation: Performing Lab:[facility] [place], [address] [facility], Phone - [phone], Director - [facility] Notes/Report: WBC 7.8 3.4-10.8 x10E3/uL RBC 4.33 3.77-5.28 x10E6/uL Hemoglobin 13.1 11.1-15.9 g/dL Hematocrit 40.8 34.0-46.6 % MCV 94 79-97 fL MCH 30.3 26.6-33.0 pg MCHC 32.1 31.5-35.7 g/dL RDW 13.4 11.7-15.4 % Platelets 199 150-450 x10E3/uL Neutrophils 71 Not Estab. % Lymphs 18 Not Estab. % Monocytes 6 Not Estab. % Eos 3 Not Estab. % Basos 1 Not Estab. % Neutrophils (Absolute) 5.6 1.4-7.0 x10E3/uL Lymphs (Absolute) 1.4 0.7-3.1 x10E3/uL Monocytes(Absolute) 0.5 0.1-0.9 x10E3/uL Eos (Absolute) 0.3 0.0-0.4 x10E3/uL Baso (Absolute) 0.1 0.0-0.2 x10E3/uL Immature Granulocytes 1 Not Estab. % Immature Grans (Abs) 0.1 0.0-0.1 x10E3/uL Hemoglobin A1c* Order date: 07/11/2025 Reviewed date:07/17/2025 11:17:57 AM Interpretation: Performing Lab:[facility] [place], [place], Phone - [phone], Director - [facility] Notes/Report: Hemoglobin A1c 5.2 4.8-5.6 % . Prediabetes: 5.7 - 6.4 Diabetes: >6.4 Glycemic control for adults with diabetes: <7.0 Leith-Hatfield (Eskalith(R)), Serum Order date: 12/27/2024 Reviewed date:12/28/2024 01:47:34 PM Interpretation: Performing Lab:[facility], [address], [place], Phone - [phone], [facility] Notes/Report: Leith-Hatfield (Eskalith(R)), Serum 0.8 0.5-1.2 mmol/L A concentration of 0.5-0.8 mmol/L is advised for long-term use; concentrations of up to 1.2 mmol/L may be necessary during acute treatment. Detection Limit = 0.1 <0.1 indicates None Detected Reason For Referral Referral Date 10/24/2025 Referral Status Open Reason client would benefit from [facility], lives with daughter and now moving to independent apartment and needs extra support Diagnosis 1 Bipolar 1 disorder ( F31.9) Referral Organization [facility] Referring Provider First Name Sydnee Referring Provider Last Name Mark Referring Provider Speciality Psychiatry Referred Provider Specialty Die Finisher ForgingHearing Healthcare Practitioner Notes Kp Saucedo 03:15:47 PM > Sales Consultant left voicemail with call back information. Sales Consultant will follow up.Lewis McKenna L 10/28/2025 03:01:06 PM > Sales Consultant left voicemail with call back information. Sales Consultant will follow up., Kp Saucedo 11/04/2025 03:39:39 PM > Sales Consultant left voicemail with call back information. Sales Consultant will follow up with number ending in [phone]. Referral Priority Routine Medications Medication SIG (Take, Route, Frequency, Duration) Notes Start Date End Date Diagnosis (ICD Code) Status Colace 100 MG Capsule 1 capsule as needed Orally Once a day Not-Takin g Leith-Hatfield Carbonate 150 MG Capsule 1 capsule x 14 days then stop Orally daily; Duration: 14 days 09/26/20 25 Bipolar 1 disorder (ICD_10 - F31.9) Active Zofran Not-Takin g Prazosin HCl 2 MG Capsule 1 capsule at bedtime Orally Once a day; Duration: 30 days increased trazodone and buproprion thanks. Nightmares (ICD_10 - F51.5) Active Flonase Not-Takin g Synthroid 50 MCG Tablet 1 tablet in the morning on an empty stomach Orally Once a day Not-Takin g Levothyroxine Sodium 50 MCG Capsule 1 capsule in the morning on an empty stomach Orally Once a day Active Meclizine HCl 25 MG Tablet 1 tablet as needed Orally every 12 hrs Not-Takin g Atorvastatin Calcium 10 MG Tablet 1 tablet Orally Once a day Active hydroCHLOROthiazide 12.5 MG Capsule 1 capsule in the morning Orally Once a day Not-Takin g Vitamin B12 Not-Takin g LORazepam 0.5 MG Tablet 1 tablet at bedtime as needed Orally Once a day Not-Takin g Vitamin C 500 MG Tablet 1 tablet Orally Once a day Not-Takin g traZODone HCl 100 MG Tablet 1 tablet at bedtime Orally Once a day; Duration: 30 days increased trazodone and buproprion thanks. Bipolar 1 disorder (ICD_10 - F31.9) Active Allergy Relief Not-Takin g B12 Not-Takin g OLANZapine 5 MG Tablet 1 tablet at bedtime Orally Once a day; Duration: 30 days increased trazodone and buproprion thanks. Bipolar 1 disorder (ICD_10 - F31.9) Active buPROPion HCl ER (XL) 150 MG Tablet Extended Release 24 Hour 1 tablet in the morning Orally Once a day; Duration: 30 day(s) decreasing the bupropion due to hypomania client will come into today to grape picker olanzapine and this. 11/09/20 25 Bipolar 1 disorder (ICD_10 - F31.9) Active Biotin 800 MCG Tablet 1 tablet Orally Once a day Not-Takin g Tolterodine Tartrate 2 MG Tablet 1 tablet Orally Twice a day Active Vitamin D3 Not-Takin g OLANZapine 2.5 MG Tablet 1 tablet in the morning Orally Once a day; Duration: 30 days 11/09/20 25 Bipolar 1 disorder (ICD_10 - F31.9) Active Womens 50+ Multi Vitamin Not-Takin g Social History Tobacco Use: Social History Observation Description Date Details (start date - stop date) Never Smoker NA - NA Sex Observation Social History Observation Description Sex Observation Female Sexual Orientation Social History Observation Description Sexual Orientation Straight or heterose xual Gender Identity Social History Observation Description Gender Identity Female SDOH Assessments Date Tool Assessment Assessment LOINC Value Assessment Notes Goals Interventions 08/18/20 24 PRAPARE (LOINC: 98314-0) Total Score: 5 Date Completed/Upda giacomo: 08/18/20 24 What is your current housing situation? 08069-0 I have housing (SX75124-7) Are you worried about losing your housing? 09910-0 No (LA32-8) What is your current work situation? 68928-1 Otherwise unemployed but not seeking work (ex. student, retired, disabled, unpaid primary resident care aide) (HJ04493-8) In the past year, have you or any family members you live with been unable to get any of the following when it was really needed? Check all that apply 37181-4 Medicine or any health care (medical, dental, mental health or vision) (QW99609-0) Struggling with the decreased dose of her medications. Client is stating that she is feeling more stressed, depressed, her sleep is affected, and that she is not adjusting well to the decrease in her medication. Has lack of transportation kept you from medical appointments, meetings, work or from getting things needed for daily living? 91853-0 No (LA32-8) How often do you see or talk to people that you care about and feel close to? (For example: talking to friends on the phone, visiting friends or family, going to yazidi or club meetings) 25225-6 1 or 2 times a week (EX29267-9) client and her daughter state that Allen has been much more withdrawn. Prasanna spends a lot of time in her room alone. Concerns are being expressed by the client and the client's daughter. How stressed are you? Stress is when someone feels tense, nervous, anxious, or can\t sleep at night because their mind is troubled 77247-8 A little bit (LM08415-0) In the past year have you spent more than 2 nights in a row in a residential, usp, jail center, or juvenile correctional facility? 04857-3 No (LA32-8) Do you feel physically and emotionally safe where you currently live? 60219-0 Yes (LA33-6) In the past year, have you been afraid of your partner or ex-partner? 02126-6 No (LA32-8) Are you a refugee? No What country are you from? [place] PRAPARE Score: 5 Social History Miscellaneous Social Info Question Answer Notes Method of learning: Preferred method of learning: Disc ussion,Demonstration Primary Social History Social Info Question Answer [...] No Alcohol Use Alcohol Use Frequency: Never Tobacco Use: Social Info Question Answer Notes Tobacco Control (Standard) Tobacco use: Nonsmoker Section Notes: Social History- location- [facility] Current home- lives with daughter and [...] Problem Status W/U Status Risk Notes Problem Depression (770315119) Depression (F32.9) Added On: 025 Active confirmed Problem Bipolar 1 disorder (922721618) Bipolar 1 disorder (F31.9) Added On: 024 Onset Date: 07/14/2024 Active confirmed Problem Overweight (239195450) Over weight (E66.3) Added On: 025 Active confirmed Problem Nightmares (128439417) Nightmares (F51.5) Added On: 024 Active confirmed Problem Hypomania (311858849) Hypomania (F30.8) Added On: 025 Active confirmed Vital Signs Vital Sign Value Notes Appt Date Heart Rate 92 /min 10/24/2025 Temperature 97.8 degrees Fahrenheit 07/01 Respiratory Rate 16 /min 10/24/2025 Blood pressure diastolic 68 mm Hg Oximetry 98 % 09/26/2025 Height 67 in 10/24/2025 Blood pressure systolic 126 mm Hg 10/02 Weight 183.0 lbs 10/24/2025 BMI 28.66 kg/m2 10/24/2025 Encounters Date Time Type Facility Location Provider Diagnosis 12/27/19 10:40 AM Office Visit [address] [address] Sonya Billings Bipolar 1 disorder F31.9 07/11/20 25 09:00 AM Office Visit [address] [address] Sydnee Flores Medication monitoring encounter Z51.81 08/23/20 25 10:20 AM Office Visit [address] [address] Sydnee Horus Medication monitoring encounter Z51.81 08/29/20 25 08:20 AM Office Visit [address] [address] Sydnee Flores 11/09/20 10:40 AM Telehealth Office Visit, Est Pt., Level 3 (29270) [address] [address] Sydnee Mark Bipolar 1 disorder F31.9 ; Nightmares F51.5 ; Over weight E66.3 and Hypomania F30.8 12/08/19 25 03:00 PM Telehealth Office Visit, Est Pt., Level 3 (07328) [place] [phone] Nomiria Billings Bipolar 1 disorder F31.9 ; Nightmares F51.5 and Non-tobacco user Z78.9 01/05/20 25 09:00 AM [place] ([address]) [place] [phone] Nomiria Billings Nutritional counseling Z71.3 ; Bipolar 1 disorder F31.9 ; Nightmares F51.5 and Non-tobacco user Z78.9 02/02/20 25 01:00 PM Telehealth Office Visit, Est Pt., Level 4 (76263) [place] [phone] Nomiria Billings Bipolar 1 disorder F31.9 ; Nightmares F51.5 and Non-tobacco user Z78.9 03/03/20 25 11:40 AM DOC PT HAS ACTIV DX AIDA/KISHA D/O (G9717) [address] [address] Kyria Billings Bipolar 1 disorder F31.9 ; Nightmares F51.5 and Non-tobacco user Z78.9 03/30/20 11:40 AM BODY MASS INDEX DOCD (3008F) [address] [address] Kyria Billings Bipolar 1 disorder F31.9 ; Nightmares F51.5 ; Non-tobacco user Z78.9 and Over weight E66.3 04/26/20 25 11:40 AM Telehealth Office Visit, Est Pt., Level 4 (65110) [address] [address] Kyria Billings Bipolar 1 disorder F31.9 ; Nightmares F51.5 ; Non-tobacco user Z78.9 and Over weight E66.3 05/04/20 25 01:20 PM BODY MASS INDEX DOCD (3008F) [address] [address] Sonya Billings Bipolar 1 disorder F31.9 ; Nightmares F51.5 ; Non-tobacco user Z78.9 and Over weight E66.3 05/18/20 25 01:00 PM BODY MASS INDEX DOCD (3008F) [address] [address] Sonya Billings Bipolar 1 disorder F31.9 ; Nightmares F51.5 ; Non-tobacco user Z78.9 and Over weight E66.3 06/20/20 25 01:00 PM Office Visit, Est Pt., Level 3 (59472) [address] [address] Sydnee Mark Bipolar 1 disorder F31.9 ; Nightmares F51.5 ; Non-tobacco user Z78.9 ; Over weight E66.3 ; Medication monitoring encounter Z51.81 and Depression F32.9 07/18/20 25 11:20 AM Office Visit, Est Pt., Level 3 (08973) [address] [address] Sydnee Mark Bipolar 1 disorder F31.9 ; Nightmares F51.5 ; Non-tobacco user Z78.9 ; Over weight E66.3 and Depression F32.9 08/22/20 25 11:40 AM PHONE E/M BY PHYS 5-10 MIN (55382) [address] [address] Sydnee [place] Bipolar 1 disorder F31.9 ; Nightmares F51.5 ; Non-tobacco user Z78.9 ; Over weight E66.3 ; Depression F32.9 and Medication monitoring encounter Z51.81 09/26/20 25 10:20 AM Office Visit, Est Pt., Level 3 (93592) [address] [address] Sydnee Mark Bipolar 1 disorder F31.9 and Nightmares F51.5 10/24/20 25 09:00 AM Office Visit, Est Pt., Level 3 (75629) [facility] [address] [place] [address] Sydnee [place] Bipolar 1 disorder F31.9 ; Nightmares F51.5 and Over weight E66.3 12/08/19 25 10:27 AM Telephone Encounter [facility] [address] [place] [address] Kyria Billings 12/27/19 25 09:18 AM Telephone Encounter [facility] [address] [place] [address] Kyria Billings 04/08/20 25 12:15 PM Telephone Encounter [address] [address] Kyria Billings 04/14/20 25 10:46 AM Telephone Encounter [address] [address] Kyria Billings 04/27/20 25 08:43 AM Telephone Encounter [facility] [address] [place] [address] Kyria Billings 05/02/20 25 04:05 PM Telephone Encounter [address] [address] Kyria Billings 05/23/20 25 09:59 AM Telephone Encounter [facility] [address] [place] [address] Kyria Billings 06/20/20 25 08:43 PM Telephone Encounter [facility] [address] [place] [address] Sydnee [place] 06/27/20 25 08:45 AM Telephone Encounter [address] [address] Sydnee Mark 08/03/20 25 01:00 PM Telephone Encounter [address] [address] Sydnee Mark 08/22/20 01:04 PM Telephone Encounter [facility] [address] [place] [address] Sydnee [place] 08/22/20 08:12 PM Telephone Encounter [facility] [address] [place] [address] Sydnee [place] 08/26/20 03:45 AM Telephone Encounter [facility] [address] [place] [address] Sydnee [place] 08/30/20 25 03:05 PM Telephone Encounter [address] [place] [address] Sydnee Mark Bipolar 1 disorder F31.9 and Nightmares F51.5 08/31/20 03:02 PM Telephone Encounter [address] [address] Sydnee [place] 09/15/20 11:00 AM Telephone Encounter [address] [place] [address] Sydnee Mark 09/26/20 10:01 AM Telephone Encounter [place] [address] [place] [address] Sydnee Mark 10/28/20 07:28 AM Telephone Encounter [address] [place] [address] Sydnee Mark 11/02/20 04:07 PM Telephone Encounter [facility] [address] [address] Sydnee [place] 11/11/20 09:06 AM Telephone Encounter [facility] [address] [address] Sydnee [place] Assessments Encounter Date Diagnosis (ICD Code) Assessment Notes Treatment Notes Section Notes 09/26/2025 Bipolar 1 disorder (ICD-10 - F31.9) stopped lamotrigine stopping lithium 150 mg x 14 days then stop. 10/24/2025 Bipolar 1 disorder (ICD-10 - F31.9) increased bupropion. DIscussed that meds are only part of the solution. Worked to create a plan instead of returning to bed. Agrees to [facility] referral. Declines Crisis calls. Helped frame pros and cons of moving to her own place and other options for living space. I guess I could move somethings on Friday and start to organize a little bit. 11/09/2025 Bipolar 1 disorder (ICD-10 - F31.9) decreased bupropion.Added olanzapine 2.5 mg Scheduled follow up for 11/15/25. WIll receive daily crisis call until next appt to encourage med use and assess for continued safety. DIscussed that meds are only part of the solution. Worked to create a plan instead of returning to bed. Agrees to [facility] referral. Declines Crisis calls. Helped frame pros and cons of moving to her own place and other options for living space. I guess I could move somethings on Friday and start to organize a little bit. 05/04/2025 Bipolar 1 disorder (ICD-10 - F31.9) 05/18/2025 Bipolar 1 disorder (ICD-10 - F31.9) 06/20/2025 Bipolar 1 disorder (ICD-10 - F31.9) Client using 3 mood stabilzers and would like to simplify her medications. C/O of lingering depression and states she has never found a good combination 07/18/2025 Bipolar 1 disorder (ICD-10 - F31.9) Client using 3 mood stabilzers and would like to simplify her medications.REviewed Invaluable today. We will address depression first and then revisit mood stabilizers. 08/22/2025 Bipolar 1 disorder (ICD-10 - F31.9) Client using 3 mood stabilzers and would like to simplify her medications.REviewed Invaluable today; client is an ultrarapid metabolizer of olanzapine and lamotrigine. Plan is to reduce lamotrigine to stop: 100mg x 7 days then 50 mg x 7 days then 25 mg X 7 days then stop. SHe has decreased GFR and lithium is a concern for ongoing kidney function. Needs lithium level to assess if increase in tremor/confusion is related. 08/30/2025 Bipolar 1 disorder (ICD-10 - F31.9) 12/27/2024 Bipolar 1 disorder (ICD-10 - F31.9) 02/01/2025 Bipolar 1 disorder (ICD-10 - F31.9) 03/03/2025 Bipolar 1 disorder (ICD-10 - F31.9) 03/30/2025 Bipolar 1 disorder (ICD-10 - F31.9) 04/26/2025 Bipolar 1 disorder (ICD-10 - F31.9) 12/08/2024 Bipolar 1 disorder (ICD-10 - F31.9) 07/11/2025 Medication monitoring encounter (ICD-10 - Z51.81) 08/23/2025 Medication monitoring encounter (ICD-10 - Z51.81) 08/22/2025 Nightmares (ICD-10 - F51.5) SGA SE- Discussed risks, benefits and side effects. Discussed possible weight gain leading to lipid and glucose changes, involuntary movements, anticholinergic affects and rare CV events, NMS, Seizure. Leith-Hatfield Discussed risk, benefits, side effects and need for lab monitoring- client finds this acceptable and agrees to trial. Discussed need to avoid NSAIDS and prevent . Discussed warning signs of toxicity: coarse tremor, ataxia, diarrhea, vomiting, sedation. Encouraged water intake and avoid dehydration. Goal Dosage Range: - Gerri: recommended 1.0-1.5 mEq/L Depression: recommended 0.6-1.0 mEq/L - Maintenance: recommended 0.7-1.0 mEq/L Client may self-administer their own medications. Call for sooner apt if medication has negative effect or client not able to tolerate. Call 911 or go to the closest emergency room right away if you feel like you want to hurt yourself or others. Go to the closest emergency room or call if you have a sudden change in mood or behavior. Confirmed knowledge of [facility] hotline [phone] for clients 20 and under and [facility] line [phone] and awareness of 458. Discussed benefits, side effects and risks including rare but life threatening skin rash. Discussed signs of rash, instructed to stop meds and call if any rash appears. Discussed need to slowly titrate up medication. Discussed need to call for instruction is 4 or more days of lamotrigine dose is missed. 06/20/2025 Nightmares (ICD-10 - F51.5) SGA SE- Discussed risks, benefits and side effects. Discussed possible weight gain leading to lipid and glucose changes, involuntary movements, anticholinergic affects and rare CV events, NMS, Seizure. Leith-Hatfield Discussed risk, benefits, side effects and need for lab monitoring- client finds this acceptable and agrees to trial. Discussed need to avoid NSAIDS and prevent . Discussed warning signs of toxicity: coarse tremor, ataxia, diarrhea, vomiting, sedation. Encouraged water intake and avoid dehydration. Goal Dosage Range: - Gerri: recommended 1.0-1.5 mEq/L Depression: recommended 0.6-1.0 mEq/L - Maintenance: recommended 0.7-1.0 mEq/L Client may self-administer their own medications. Call for sooner apt if medication has negative effect or client not able to tolerate. Call 911 or go to the closest emergency room right away if you feel like you want to hurt yourself or others. Go to the closest emergency room or call if you have a sudden change in mood or behavior. Confirmed knowledge of [facility] hotline [phone] for clients 20 and under and [place] [facility] line [phone] and awareness of [phone]. Discussed benefits, side effects and risks including rare but life threatening skin rash. Discussed signs of rash, instructed to stop meds and call if any rash appears. Discussed need to slowly titrate up medication. Discussed need to call for instruction is 4 or more days of lamotrigine dose is missed. 04/26/2025 Nightmares (ICD-10 - F51.5) Today's visit: Patient is a 59-year-old female who presents for a psychiatric follow-up in office and is being seen by herself. Previously seen 03/30/25 and during this appt was continued on current medications. Previous PHQ-9 score of 9, today is 9. Continues to report some improvement in depression sx but episodes still occurring. She is agreeable to increasing Lamotrigine to 200 mg for mood stabilization. She is concerned about her weight/weight gain. Since starting/continuing treatment through [facility] July 2024 she has gained approximately 22 lbs. She has had multiple other failed medications to include Depakote and Latuda. She would benefit from switching to Lybalvi which may help with weight control; pt is agreeable. Is not currenlty taking any opioids. Unable to complete AIMS due to nature of appt, denies any irregular muscle movements; would benefit from an in person appointment. Does not report any recent manic type sx. Lab work ordered previously, she is encouraged to obtain. No acute safety concerns at the time of this appt, she is agreeable to treatment plan and was provided an opportunity to ask questions. May self-administer medications or be administered own oral medications per [facility] protocols. Provided informed consent with understanding of side effects, adverse effects, risks and benefits as well as alternative treatments as previously discussed and with the above recommended medications & other aspects of the treatment program. Agrees to return sooner if symptoms worsen or suicidal or homicidal ideations occur. 01/05/2025 Nutritional counseling (ICD-10 - Z71.3) 04/26/2025 Non-tobacco user (ICD-10 - Z78.9) 05/04/2025 Nightmares (ICD-10 - F51.5) Today's visit: Patient is a 59-year-old female who presents for a psychiatric follow-up in office and is being seen by herself. Previously seen 04/26/25 and during this appt was transitioned from olanzapine to Lybalvi for weight concerns. 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 Reports notable improvement in depression and moods with increased doses of lamotrigine, currently taking 150 mg and starting 200 mg soon. D/t weight concerns, will decrease olanzapine to 10 mg x 7 days then 5 mg and f/u in 2 weeks to assess any changes in mood sx before potentially discontinuing or trialing another antipsychotic if warranted for mood control. Reports possible s/e of dizziness, will continue to monitor. No other reported s/e from medication. Plans to obtain lab work before next appt. AIMS is unremarkable. No acute safety concerns at the time of this appt, she is agreeable to treatment plan and was provided an opportunity to ask questions. May self-administer medications or be administered own oral medications per [facility] protocols. Provided informed consent with understanding of side effects, adverse effects, risks and benefits as well as alternative treatments as previously discussed and with the above recommended medications & other aspects of the treatment program. Agrees to return sooner if symptoms worsen or suicidal or homicidal ideations occur. 05/18/2025 Nightmares (ICD-10 - F51.5) Today's visit: Patient is a 59-year-old female who presents for a psychiatric follow-up in office and is being seen with her daughter Franci. Previously seen 2 weeks ago and during this appt was decreased on olanzapine to 5 mg d/t weight gain and continued on lamotrigine titration to 200 mg. Reports control of manic symptoms on medication but continues to have depressive episodes. Discussed with pt for her to reconsider trialing Vraylar or Caplyta over olanzapine. Further discussed potentially switching back to Depakote over lithium as she reports stability on this medication in the past. If depression continues to occur with lamotrigine, recommend discontinuing. No acute safety concerns the time of this appt, he is agreeable to treatment plan and was provided an opportunity to ask questions. May self-administer medications or be administered own oral medications per [facility] protocols. Provided informed consent with understanding of side effects, adverse effects, risks and benefits as well as alternative treatments as previously discussed and with the above recommended medications & other aspects of the treatment program. Agrees to return sooner if symptoms worsen or suicidal or homicidal ideations occur. 06/20/2025 Non-tobacco user (ICD-10 - Z78.9) 08/22/2025 Non-tobacco user (ICD-10 - Z78.9) 02/01/2025 Nightmares (ICD-10 - F51.5) Today's visit: Patient is a 59-year-old female who presents for a psychiatric follow-up over [facility] and is accompanied by her daughter Franci. [...] or be administered own oral medications per [facility] protocols. Provided informed consent with understanding of side effects, adverse effects, risks and benefits as well as alternative treatments as previously discussed and with the above recommended medications & other aspects of the treatment program. Agrees to return sooner if symptoms worsen or suicidal or homicidal ideations occur. 03/03/2025 Nightmares (ICD-10 - F51.5) Today's visit: [...] or be administered own oral medications per [facility] protocols. Provided informed consent with understanding of side effects, adverse effects, risks and benefits as well as alternative treatments as previously discussed and with the above recommended medications & other aspects of the treatment program. Agrees to return sooner if symptoms worsen or suicidal or homicidal ideations occur. 07/18/2025 Nightmares (ICD-10 - F51.5) SGA SE- Discussed risks, benefits and side effects. Discussed possible weight gain leading to lipid and glucose changes, involuntary movements, anticholinergic affects and rare CV events, NMS, Seizure. Leith-Hatfield Discussed risk, benefits, side effects and need for lab monitoring- client finds this acceptable and agrees to trial. Discussed need to avoid NSAIDS and prevent . Discussed warning signs of toxicity: coarse tremor, ataxia, diarrhea, vomiting, sedation. Encouraged water intake and avoid dehydration. Goal Dosage Range: - Gerri: recommended 1.0-1.5 mEq/L Depression: recommended 0.6-1.0 mEq/L - Maintenance: recommended 0.7-1.0 mEq/L Client may self-administer their own medications. Call for sooner apt if medication has negative effect or client not able to tolerate. Call 911 or go to the closest emergency room right away if you feel like you want to hurt yourself or others. Go to the closest emergency room or call if you have a sudden change in mood or behavior. Confirmed knowledge of [facility] hotline [phone] for clients 20 and under and [facility] Crisis line [phone] and awareness of 988. Discussed benefits, side effects and risks including rare but life threatening skin rash. Discussed signs of rash, instructed to stop meds and call if any rash appears. Discussed need to slowly titrate up medication. Discussed need to call for instruction is 4 or more days of lamotrigine dose is missed. 12/08/2024 Nightmares (ICD-10 - F51.5) Today's visit: Patient is a 59-year-old female who presents for a psychiatric follow-up over [facility] and is located in [place], accompanied by her daughter Franci. Previously seen [...] or be administered own oral medications per [facility] protocols. Provided informed consent with understanding of side effects, adverse effects, risks and benefits as well as alternative treatments as previously discussed and with the above recommended medications & other aspects of the treatment program. Agrees to return sooner if symptoms worsen or suicidal or homicidal ideations occur. 08/30/2025 Nightmares (ICD-10 - F51.5) 09/26/2025 Nightmares (ICD-10 - F51.5) 10/24/2025 Nightmares (ICD-10 - F51.5) 11/09/2025 Nightmares (ICD-10 - F51.5) 03/30/2025 Nightmares (ICD-10 - F51.5) Today's visit: Patient is a 59-year-old female who presents for a psychiatric follow-up in office and is being seen by herself. Previously seen 03/02/25 and during this appt was continued on current medications. Previous PHQ-9 score of 14, today is 9. Patient reporting some improvement in her depression with the increase of lamotrigine and wishes to continue taking. Reports increased blurry visiion; has prescribed glasses she is not wearing - discussed could be a s/e of lamotrigine. Will continue current lamotrigine at 150 mg dose at this time. Reports some hand tremors which are mild during appt, AIMS is unremarakble. Discussed hand tremors likely s/e from lithium. Discussed her weight gain, presented option to swithc antipychotic or transition to Lybalvi alternatively - pt does not wish to do so at this time. Does not report any recent manic type sx. No acute safety concerns at the time of this appt, she is agreeable to treatment plan and was provided an opportunity to ask questions. May self-administer medications or be administered own oral medications per [facility] protocols. Provided informed consent with understanding of side effects, adverse effects, risks and benefits as well as alternative treatments as previously discussed and with the above recommended medications & other aspects of the treatment program. Agrees to return sooner if symptoms worsen or suicidal or homicidal ideations occur. 01/05/2025 Bipolar 1 disorder (ICD-10 - F31.9) 04/26/2025 Over weight (ICD-10 - E66.3) 06/20/2025 Over weight (ICD-10 - E66.3) 08/22/2025 Over weight (ICD-10 - E66.3) 10/24/2025 Over weight (ICD-10 - E66.3) 11/09/2025 Over weight (ICD-10 - E66.3) 01/05/2025 Nightmares (ICD-10 - F51.5) Today's visit: Patient is a 59-year-old female who presents for a psychiatric follow-up in office and is accompanied by her daughter Franci. Previously seen on 12/08/23 and during this appt was increased on Leith-Hatfield with lab work ordered for monitoring. Previous [...] or be administered own oral medications per [facility] protocols. Provided informed consent with understanding of side effects, adverse effects, risks and benefits as well as alternative treatments as previously discussed and with the above recommended medications & other aspects of the treatment program. Agrees to return sooner if symptoms worsen or suicidal or homicidal ideations occur. 05/04/2025 Non-tobacco user (ICD-10 - Z78.9) 05/18/2025 Non-tobacco user (ICD-10 - Z78.9) 12/08/2024 Non-tobacco user (ICD-10 - Z78.9) 02/01/2025 Non-tobacco user (ICD-10 - Z78.9) 03/03/2025 Non-tobacco user (ICD-10 - Z78.9) 03/30/2025 Non-tobacco user (ICD-10 - Z78.9) 07/18/2025 Non-tobacco user (ICD-10 - Z78.9) 11/09/2025 Hypomania (ICD-10 - F30.8) 08/22/2025 Depression (ICD-10 - F32.9) decreased wellbutrin today due to increased confusion/tremor with dose raised 01/05/2025 Non-tobacco user (ICD-10 - Z78.9) 07/18/2025 Over weight (ICD-10 - E66.3) 05/04/2025 Over weight (ICD-10 - E66.3) 05/18/2025 Over weight (ICD-10 - E66.3) 03/30/2025 Over weight (ICD-10 - E66.3) 06/20/2025 Medication monitoring encounter (ICD-10 - Z51.81) 08/22/2025 Medication monitoring encounter (ICD-10 - Z51.81) lithium level and CMP. Will return tomorrow as staff was at lunch and did not draw lab. 06/20/2025 Depression (ICD-10 - F32.9) 07/18/2025 Depression (ICD-10 - F32.9) increased wellbutrin today 10/24/2025 Other Provided PSOP i nfo; asked to consider some termination clerk goals for herself. Maybe walk my dog everyday? Helped create a daily plan. Plan Of Treatment No Information Insurance Providers Payer Name Payer Address Payer Phone Subscriber Number Group Number Insured Name Patient Relationship to Insured Coverage Start Date Coverage End Date [employer] ADV [address] [address] [place] [phone] [id number] Allen Hedrick Self - patient is the insured 4 Medical (General) History Medical History History ICD Code carpal tunnel Surgical History Surgery Date(Month/Year) detached retina 1978 several ovary cyst removals 1984 carpal tunnel 2014 torn meniscus 2019 TOTAL HYSTERECTOMY 12/2010 Hospitalization History Reason Date(Month/Year) weaning off medications-30 day [facility]
--- OUTSIDE RECORDS SUMMARY | 2025-11-17 01:54 | XMS_ITS | Clinical Summary ---
Author Organization [facility] Address [address] [place] [address] Care Team Providers Care Pension Consultant Name Role Phone None, Provider MD Primary Care Provider Unavaila ble Allergies Active Allergy Reactions Criticality Noted Date Comments Erythromycin Rash Low 08/30/2025 Penicillins Rash Low 08/30/2025 Red Dye #40 (Allura Red) Rash Low 08/30/2025 Shellfish Protein-Containing Drug Products Rash Low 08/30/2025 Medications vitamin C (ASCORBIC ACID) 500 MG tablet Take 1 tablet (500 mg total) by mouth daily. Active atorvastatin (LIPITOR) 10 MG tablet Take 1 tablet (10 mg total) by mouth daily. Active buPROPion XL (WELLBUTRIN XL) 150 MG 24 hr tablet Take 1 tablet (150 mg total) by mouth every morning. 08/14/2025 Active docusate sodium (COLACE) 100 MG capsule Take 1 capsule (100 mg total) by mouth daily as needed for Constipation . Active Levothyroxine Sodium 50 MCG Cap Take 50 mcg by mouth daily. Active lithium CR (LITHOBID) 300 MG tablet Take 1 tablet (300 mg total) by mouth nightly. TDD: 750 mg Active lithium CR (LITHOBID) 450 MG tablet Take 1 tablet (450 mg total) by mouth nightly. TDD: 750 mg Active OLANZapine (ZYPREXA) 5 MG tablet Take 1 tablet (5 mg total) by mouth nightly at bedtime. Active prazosin (MINIPRESS) 2 MG capsule Take 1 capsule (2 mg total) by mouth nightly at bedtime. Active tolterodine LA (DETROL LA) 4 MG 24 hr capsule Take 1 capsule (4 mg total) by mouth daily. 06/15/2025 Active traZODone (DESYREL) 50 MG tablet Take 1 tablet (50 mg total) by mouth nightly at bedtime. Active Active Problems Problem Noted Date Diagnosed Date Orthostatic hypotension 08/30/2025 Encounters Date Type Department Care Team Description 08/30/2025 6:04 PM CDT - 08/31/2025 12:08 PM CDT Hospital Encounter [facility] [place] [address] Darrel Meadows MD Elayyan, Ibrahim B, MD Islam, MD Augustus Fall; Diarrhea; Dizziness; Hallucinations Discharge Disposition: Home or Self Care (Routine Discharge) 08/30/2025 Travel from Last 3 Months Social History Tobacco Use Types Packs/Day Years Used Date Smoking Tobacco: Never Smokeless Tobacco: Never Tobacco Cessation:Counseling Given: Not Answered Alcohol Use Standard Drinks/Week Comments Not Currently 0 (1 standard drink = 0.6 oz pur e alcohol) Comments No Sex and Gender Information Value Date Recorded Sex Assigned at Female 08/30/2025 5:26 PM CDT Legal Sex Female 7:24 PM CDT Gender Identity Not on file Sexual Orientation Not on file Last Filed Vital Signs Vital Sign Reading Time Taken Comments Blood Pressure 129/86 08/31/2025 9:55 AM CDT Pulse 97 08/31/2025 9:50 AM CDT Temperature 36.6 C (97.9 F) 08/30/2025 4:45 PM CDT Respiratory Rate 18 08/31/2025 9:55 AM CDT Oxygen Saturation 97% 08/31/2025 9:50 AM CDT Inhaled Oxygen Concentration - - Weight 85.5 kg (188 lb 7.9 oz) 08/30/2025 4:45 P M CDT Height 167.6 cm (5' 6) 08/30/2025 4:45 PM CDT Body Mass Index 30.42 08/30/2025 4:45 PM CDT Plan of Treatment Health Maintenance Due Date Last Done Comments Colorectal Cancer Screening Colonoscopy (10 Years) 1965 Annual Physical 1966 Hepatitis C 1981 Pneumococcal Vaccine: 50+ Years (2 of 2 - PCV) 10/09/2021 10/09/2020 COVID-19 Vaccine ( season) 2025 09/10/2024, 09/22/2023, 06/26/2022, Additional history exists Influenza Adult (#1) 2025 11/09/2024, 09/22/2023, 09/21/2022, Additional history exists Mammogram Screening 09/10/2026 09/10/2024, 06/29/2022, 06/27/2021, Additional history exists DTaP, Tdap and Td Vaccines (3 - Td or Tdap) 09/25/2031 09/25/2021, 04/01/2016 RSV Immunization or 60+ Years (1 - 1-dose 75+ series) 2038 Zoster Vaccines Completed 11/22/2019, 09/10/2019 Hepatitis A Vaccines Aged Out No long er eligible based on patient's age to complete this topic Meningococcal B Vaccine Aged Out No l onger eligible based on patient's age to complete this topic Meningococcal Vaccine Aged Out No vi yaquelin eligible based on patient's age to complete this topic RSV Immunizations Under 20 Months Aged Out No longer eligible based on patient's age to complete this topic Procedures Procedure Name Priority Date/Time Associated Diagnosis Comments HC COMPREHENSIVE METABOLIC PANEL STAT 08/31/2025 6:18 AM CDT HC CBC AUTO W/AUTO DIFF STAT 08/31/2025 6:18 AM CDT HC TROPONIN QN STAT 08/31/2025 2:41 AM CDT XR HIP KENY 2V+PELVIS STAT 08/31/2025 12:33 AM CDT XR CHEST PORTABLE STAT 08/31/2025 12: 27 AM CDT RESPIRATORY PCR PANEL 2 STAT 08/31/2025 12:15 AM CDT ECG 12-LEAD Routine 08/31/2025 12:04 AM CDT HC URINALYSIS AUTO W/O MICRO STAT 08/30/2025 11:[address] HEAD WO CON STAT 08/30/2025 10:08 PM CDT PRO-BRAIN NATRIURETIC PEPTIDE Routine 08/30/2025 6:10 PM CDT PROCALCITONIN (PCT) Routine 08/30/2025 6 :10 PM CDT HC CREATINE KINASE (CPK) TOTAL Routine 08/30/2025 6:10 PM CDT HC T4 FREE STAT 08/30/2025 4:44 PM CDT HC LITHIUM STAT 08/30/2025 4:44 PM CDT HC MAGNESIUM STAT 08/30/2025 4:44 PM CDT TSH W/REFLEX STAT 08/30/2025 4:44 PM CDT HC COMPREHENSIVE METABOLIC PANEL STAT 08/30/2025 4:44 PM CDT HC CBC AUTO W/AUTO DIFF STAT 08/30/2025 4:44 PM CDT from Last 3 Months Results * (ABNORMAL) COMPREHENSIVE METABOLIC PANEL (08/31/2025 6:18 AM CDT) Only the most recent of2 resultswithin the time period is included. GLUCOSE 104(H) 70 - 99 MG/DL 08/31/2025 6:59 AM CDT [facility] BUN 10 7 - 18 MG/DL 08/31/2025 6:59 AM CDT [facility] CREATININE S/P/B 1.06(H) 0.55 - 1.02 MG/DL 08/31/2025 6:59 AM CDT [facility] SODIUM S/P/B 142 136 - 145 MMOL/L 08/31/2025 6:59 AM CDT [facility] POTASSIUM S/P/B 3.4(L) 3.5 - 5.1 MMOL/L 08/31/2025 6:59 AM CDT [facility] CHLORIDE S/P/B 110 97 - 115 MMOL/L 08/31/2025 6:59 AM CDT [facility] CO2 26.1 21 - 32 MMOL/L 08/31/2025 6:59 AM CDT [facility] CALCIUM S/P/B 9.1 8.5 - 10.1 MG/DL 08/31/2025 6:59 AM CDT [facility] BILIRUBIN TOTAL S/P/B 0.5 0.2 - 1.2 MG/DL 08/31/2025 6:59 AM CDT [facility] Comment: THIS ASSAY IS NOT RECOMMENDED FOR PATIENTS UNDERGOING TREATMENT WITH ELTROMBOPAG DUE TO THE POTENTIAL FOR FALSELY ELEVATED RESULTS. TOTAL PROTEIN S/P/B 6.3(L) 6.4 - 8.2 G/DL 08/31/2025 6:59 AM CDT [facility] ALBUMIN S/P/B 3.7 3.4 - 5.0 G/DL 08/31/2025 6:59 AM CDT [facility] AST 7(L) 15 - 37 U/L 08/31/2025 6:59 AM CDT [facility] ALT 20 14 - 55 U/L 08/31/2025 6:59 AM CDT [facility] ALKALINE PHOSPHATASE S/P/B 95 50 - 136 U/L 08/31/2025 6:59 AM CDT [facility] ANION GAP 5.9 2 - 10 MMOL/L 08/31/2025 6:59 AM CDT [facility] BUN CREATININE RATIO 9.4 6 - 26 08/31/2025 6:59 AM CDT [facility] A/G RATIO 1.4 1.0 - 2.0 RATIO 08/31/2025 6:59 AM CDT [facility] GFR ESTIMATE 60(L) >90 ML/MIN/1.7 3 M2 08/31/2025 6:59 AM CDT [facility] Comment: NOTE: eGFR is not calculated for patients <18 years of age or gender unknown. This is an estimated GFR calculation using the new CKD EPI creatinine equation without race and so does not require a correction factor for race. This estimated GFR should not be used for calculating drug doses. 08/31/2025 6:18 AM CDT Kristine Mehta DRY KILN OPERATOR LABORATORY Final Resul t [facility] [address] [place] [id number], * (ABNORMAL) CBC W/DIFF AUTOMATED (08/31/2025 6:18 AM CDT) Only the most recent of2 resultswithin the time period is included. WBC 7.90 4.5 - 11.0 x10'3/uL 08/31/2025 6:56 AM CDT [facility] RBC 4.21 4.20 - 5.40 x10'6/uL 08/31/2025 6:56 AM CDT [facility] HGB 12.7 12.0 - 16.0 G/DL 08/31/2025 6:56 AM CDT [facility] HCT 37.8(L) 38.0 - 48.0 % 08/31/2025 6:56 AM CDT [facility] MCV 89.8 81.0 - 99.0 FL 08/31/2025 6:56 AM CDT [facility] MCH 30.2 27.0 - 31.0 PG 08/31/2025 6:56 AM CDT [facility] MCHC 33.6 32.0 - 36.0 G/DL 08/31/2025 6:56 AM CDT [facility] RDW 12.6 11.5 - 14.5 % 08/31/2025 6:56 AM CDT [facility] PLT 191 130 - 400 x10'3/uL 08/31/2025 6:56 AM CDT [facility] MPV 9.7 9.3 - 12.2 FL 08/31/2025 6:56 AM CDT [facility] DIFFERENTIAL TYPE AUTOMATED DIFFERENTIAL 08/31/2025 6:56 AM CDT [facility] NEUTROPHILS % 68.8 % 08/31/2025 6:56 AM CDT [facility] LYMPHOCYTES % 20.3 % 08/31/2025 6:56 AM CDT [facility] MONOCYTES % 6.6 % 08/31/2025 6:56 AM CDT [facility] EOSINOPHILS 3.2 % 08/31/2025 6:56 AM CDT [facility] BASOPHILS 0.6 % 08/31/2025 6:56 AM CDT [facility] IMMATURE GRANS % 0.5 % 08/31/20 6:56 AM CDT [facility] ABS. NEUTROPHILS 5.44 1.80 - 7.70 x10'3/uL 08/31/2025 6:56 AM CDT [facility] ABS. LYMPHOCYTES 1.60 1.00 - 4.80 x10'3/uL 08/31/2025 6:56 AM CDT [facility] ABS. MONOCYTES 0.52 0.24 - 0.86 x10'3/uL 08/31/2025 6:56 AM CDT [facility] ABS. EOSINOPHILS 0.25 0.04 - 0.36 x10'3/uL 08/31/2025 6:56 AM CDT [facility] ABS. BASOPHILS 0.05 0.01 - 0.08 x10'3/uL 08/31/2025 6:56 AM CDT [facility] ABS. IMMATURE GRANULOCYTES 0.04 0.00 - 0.49 x10'3/uL 08/31/2025 6:56 AM CDT [facility] 08/31/2025 6:18 AM CDT Kristine Mehta APRN LABORATORY Final Resul t Performing Organization Address City/[facility]/ZIP Co de Phone Number [facility] [address] [place] [id number], [place] [phone] * TROPONIN, QUANT (08/31/2025 2:41 AM CDT) TROPONIN I HIGH SENSITIVITY 4 <54 ng/L 08/31/2025 3:15 AM CDT [facility] Comment: HIGH DOSES OF BIOTIN, TROPONIN-SPECIFIC AUTOANTIBODIES, AND ANTIBODY THERAPY CONTAINING HAMA MAY INTERFERE WITH THIS TEST RESULT. CORRELATION TO CLINICAL HISTORY AND PRESENTATION RECOMMENDED. 08/31/2025 2:41 AM CDT us Kristine Mehta APRN LABORATORY Final Resul t [facility] [address] [place] [address], [place] [phone] * XR HIP KENY 2V+PELVIS (08/31/2025 12:33 AM CDT) Anatomical Region Laterality Modality Hip, Pelvis Radiographic Sendy ging 08/31/2025 12:3 6 AM CDT Impressions 08/31/2025 12:38 AM CDT IMPRESSION: 1. No radiographic evidence is seen to suggest acute fracture or malalignment of the bones of the pelvis or either hip. 2. Transitional lumbosacral anatomy, which can be a source of low back pain. Referred By: Interpreted By: Elder Nair DO, 08/31/2025 12:36 AM Narrative 08/31/2025 12:38 AM CDT [address] [address] Examination: XR HIP KENY 2V+PELVIS Exam time: 08/31/2025 12:14 AM Clinical history: Pain after fall. Comparison: None. Technique: AP view of the pelvis with additional AP and frog-leg lateral views of each hip. Findings: The lower sacrum and coccyx are partially obscured due to overlying anatomy. No evidence is seen to suggest disruption of the pelvic brim. No radiographic evidence is seen to suggest acute fracture or malalignment of the bones of the pelvis. A transitional lumbosacral segment is noted which can be a source of low back pain. No radiographic evidence is seen to suggest acute fracture or malalignment of the bones of the right hip. No radiographic evidence is seen to suggest acute fracture or malalignment of the bones of the left hip. Procedure Note Elder Nair DO - 08/31/[address] [address] Examination: XR HIP KENY 2V+PELVIS Exam time: 08/31/2025 12:14 AM Clinical history: Pain after fall. Comparison: None. Technique: AP view of the pelvis with additional AP and frog-leg lateralviews of each hip. Findings: The lower sacrum and coccyx are partially obscured due to overlyinganatomy. No evidence is seen to suggest disruption of the pelvic brim.No radiographic evidence is seen to suggest acute fracture or malalignmentof the bones of the pelvis. A transitional lumbosacral segment is notedwhich can be a source of low back pain. No radiographic evidence is seen to suggest acute fracture or malalignmentof the bones of the right hip. No radiographic evidence is seen to suggest acute fracture or malalignmentof the bones of the left hip. IMPRESSION: 1. No radiographic evidence is seen to suggest acute fracture ormalalignment of the bones of the pelvis or either hip. 2. Transitional lumbosacral anatomy, which can be a source of low backpain. Referred By: Interpreted By: Elder Nair DO, 08/31/2025 12:36 AM us Kristine Mehta DRY KILN OPERATOR GENERAL IMAGING Final Resul t * XR CHEST PORTABLE (08/31/2025 12:27 AM CDT) Anatomical Region Laterality Modality Chest Radiographic Sendy ging 08/31/2025 12:2 5 AM CDT Impressions 08/31/2025 12:28 AM CDT IMPRESSION:===== 1. NO ACUTE CARDIOPULMONARY FINDINGS. Referred By: Interpreted By: Ramo Martinez MD, 08/31/2025 12:25 AM Narrative 08/31/2025 12:28 AM CDT [address] [address] EXAMINATION: Chest X-Ray 1 View EXAM DATE/TIME: 08/30/2025 11:21 PM REASON FOR EXAM: Leukocytosis. Increasing falls and dizziness with slurred speech for one week. Patient recently decreased her lithium with toxic with him level of 1.8 mEq/L. COMPARISON: None. TECHNIQUE: Single upright frontal projection view of the chest was obtained. FINDINGS: There is no focal infiltrate or consolidative change. Heart size is within normal limits for technique. Pulmonary vasculature is within normal limits for technique. There is no large pleural effusion or pneumothorax. ===== Procedure Note Ramo Martinez MD - 08/31/2025 [facility] [address], [place] [address] EXAMINATION: Chest X-Ray 1 View EXAM DATE/TIME: 08/30/2025 11:21 PM REASON FOR EXAM: Leukocytosis. Increasing falls and dizziness with slurred speech for one week. Patientrecently decreased her lithium with toxic with him level of 1.8 mEq/L. COMPARISON: None. TECHNIQUE: Single upright frontal projection view of the chest wasobtained. FINDINGS: There is no focal infiltrate or consolidative change. Heart sizeis within normal limits for technique. Pulmonary vasculature is withinnormal limits for technique. There is no large pleural effusion orpneumothorax. ===== IMPRESSION:===== 1. NO ACUTE CARDIOPULMONARY FINDINGS. Referred By: Interpreted By: Ramo Martinez MD, 08/31/2025 12:25 AM Kristine Mehta DRY KILN OPERATOR GENERAL IMAGING Final Resul t * RESPIRATORY PCR PANEL 2 (08/31/2025 12:15 AM CDT) ADENOVIRUS PCR (RESP) NOT DETECTED NOT DETECTED 08/31/2025 1:22 AM CDT [facility] CORONAVIRUS 229E PCR (RESP) NOT DETECTED NOT DETECTED 08/31/2025 1:22 AM CDT [facility] CORONAVIRUS HKU1 PCR (RESP) NOT DETECTED NOT DETECTED 08/31/2025 1:22 AM CDT [facility] CORONAVIRUS NL63 PCR (RESP) NOT DETECTED NOT DETECTED 08/31/2025 1:22 AM CDT [facility] CORONAVIRUS OC43 PCR (RESP) NOT DETECTED NOT DETECTED 08/31/2025 1:22 AM CDT [facility] METAPNEUMOVIRUS PCR (RESP) NOT DETECTED NOT DETECTED 08/31/2025 1:22 AM CDT [facility] RHINOVIRUS/ENTEROV IRUS PCR (RESP) NOT DETECTED NOT DETECTED 08/31/2025 1:22 AM CDT [facility] INFLUENZA A PCR (RESP) NOT DETECTED NOT DETECTED 08/31/2025 1:22 AM CDT [facility] INFLUENZA B PCR (RESP) NOT DETECTED NOT DETECTED 08/31/2025 1:22 AM CDT [facility] PARAINFLUENZA 1 PCR (RESP) NOT DETECTED NOT DETECTED 08/31/2025 1:22 AM CDT [facility] PARAINFLUENZA 2 PCR (RESP) NOT DETECTED NOT DETECTED 08/31/2025 1:22 AM CDT [facility] PARAINFLUENZA 3 PCR (RESP) NOT DETECTED NOT DETECTED 08/31/2025 1:22 AM CDT [facility] PARAINFLUENZA 4 PCR (RESP) NOT DETECTED NOT DETECTED 08/31/2025 1:22 AM CDT [facility] RSV PCR (RESP) NOT DETECTED NOT DETECTED 08/31/2025 1:22 AM CDT [facility] B PARAPERTUSIS PCR (RESP) NOT DETECTED NOT DETECTED 08/31/2025 1:22 AM CDT [facility] BORDETELLA PERTUSSIS PCR (RESP) NOT DETECTED NOT DETECTED 08/31/2025 1:22 AM CDT [facility] CHLAMYDOPHILA PNEUMONIAE PCR (RESP) NOT DETECTED NOT DETECTED 08/31/2025 1:22 AM CDT [facility] MYCOPLASMA PNEUMONIAE PCR (RESP) NOT DETECTED NOT DETECTED 08/31/2025 1:22 AM CDT [facility] CORONAVIRUS SARS COV 2 PCR (RESP) NOT DETECTED NOT DETECTED 08/31/2025 1:22 AM CDT [facility] NASOPHARYNGEAL SWAB / Unknown 08/31/2025 12:15 AM CDT us Kristine Mehta DRY KILN OPERATOR MICROBIOLOGY - GENERAL ORDE IDANIAANDREA Final Result [facility] [address] [place] [address], [place] [phone] * ECG 12 lead (08/31/2025 12:04 AM CDT) 08/31/2025 12:0 4 AM CDT Narrative [facility] - 08/31/2025 10:35 AM CDT [address] Test Date: 2025-08-31 Pat Name: ALLEN HEDRICK Department: 41 Room: [place] [address] Gender: Female Director Of Perioperative Services: [id number] : 1965 Requested By: AUGUSTUS FRITZ Order Number: [id number] Reading MD: Mary Ann Null Measurements Intervals [place] Rate: 71 P: 24 VT: 288 QRS: -25 QRSD: 97 T: 91 QT: 403 QTc: 439 Interpretive Statements SINUS RHYTHM WITH FIRST DEGREE AV BLOCK BORDERLINE LEFT AXIS DEVIATION [QRS AXIS < -20] INCOMPLETE RIGHT BUNDLE BRANCH BLOCK [90+ ms QRS DURATION, TERMINAL R IN V1/V2, 40+ ms S IN I/aVL/V4/V5/V6] NONSPECIFIC ST & T-WAVE ABNORMALITY No previous ECG available for comparison Procedure Note Mary Ann Null MD - 08/31/[address] Test Date: 2025-08-31 Pat Name: ALLEN HEDRICK Department: 41 Room: [place] [address] Gender: Female Director Of Perioperative Services: [id number] : 1965 Requested By: AUGUSTUS FRITZ Order Number: [id number] Reading MD: Mary Ann Null Measurements Intervals [place] Rate: 71 P: 24 VT: 288 QRS: -25 QRSD: 97 T: 91 QT: 403 QTc: 439 Interpretive Statements SINUS RHYTHM WITH FIRST DEGREE AV BLOCK BORDERLINE LEFT AXIS DEVIATION [QRS AXIS < -20] INCOMPLETE RIGHT BUNDLE BRANCH BLOCK [90+ ms QRS DURATION, TERMINAL R IN V1/V2, 40+ ms S IN I/aVL/V4/V5/V6] NONSPECIFIC ST & T-WAVE ABNORMALITY No previous ECG available for comparison us Augustus Fritz MD ECG ORDERABLES Final Result [facility] RAD * (ABNORMAL) URINALYSIS (08/30/2025 11:18 PM CDT) SPECIMEN TYPE URINE 08/30/2025 11:25 PM CDT [facility] COLOR (U) COLORLESS 08/30/2025 11:36 PM CDT [facility] TRANSPARENCY CLEAR 08/30/2025 11:36 PM CDT [facility] SPECIFIC GRAVITY (U) 1.006 1.001 - 1.030 08/30/2025 11:36 PM CDT [facility] U PH 7.0 5.0 - 9.0 08/30/2025 11:36 PM CDT [facility] LEUKOCYTES (U) NEGATIVE NEGATIVE 08/30/2025 11:36 PM CDT [facility] NITRITES NEGATIVE NEGATIVE 08/30/2025 11:36 PM CDT [facility] PROTEIN RANDOM (U) NEGATIVE <30 MG/DL 08/30/2025 11:36 PM CDT [facility] GLUCOSE (U) NORMAL NORMAL MG/DL 08/30/2025 11:36 PM CDT [facility] KETONES MG/DL (U) TRACE(A) NEGATIVE MG/DL 08/30/2025 11:36 PM CDT [facility] UROBILINOGEN NORMAL NORMAL MG/DL 08/30/2025 11:36 PM CDT [facility] BILIRUBIN (U) NEGATIVE NEGATIVE MG/DL 08/30/2025 11:36 PM CDT [facility] BLOOD (U) NEGATIVE NEGATIVE 08/30/2025 11:36 PM CDT [facility] 08/30/2025 11:1 8 PM CDT us Darrel Meadows MD URINE ORDERABLES Final Result [facility] [address] [place] [address], [place] [phone] * CT HEAD WO CON (08/30/2025 10:08 PM CDT) Anatomical Region Laterality Modality Head Computed Tomogra phy 08/30/2025 10:2 8 PM CDT Impressions 08/30/2025 10:34 PM CDT IMPRESSION: No evidence is seen to suggest acute intracranial hemorrhage, mass effect, or midline shift. Referred By: Interpreted By: Elder Nair DO, 08/30/2025 10:28 PM Narrative 08/30/2025 10:34 PM CDT [facility] [address], [place] [address] EXAMINATION: CT HEAD WO CON EXAM DATE: 08/30/2025 9:57 PM CLINICAL HISTORY: Dizziness and falls. COMPARISON: None. TECHNIQUE: Axial unenhanced CT of the head was performed. Coronal and sagittal reformatted images were obtained and reviewed. A radiation dose lowering technique was used for this procedure, which may include, but is not limited to, dose reduction technique, automated exposure control, the use of iterative reconstruction, ALARA (As Low As Reasonably Achievable) techniques, and Image Gently techniques. FINDINGS: No evidence is seen to suggest discrete extra-axial fluid collection. Basal cisterns are grossly patent. No evidence is seen to suggest acute intracranial hemorrhage. There is no mass effect or midline shift. The ventricles are appropriate in size and configuration. No evidence is seen to suggest depressed calvarial fracture. The included paranasal sinuses and mastoid air cells are clear. The orbits demonstrate no gross abnormality. Procedure Note Elder Nair DO - 08/30/[address] [address] EXAMINATION: CT HEAD WO CON EXAM DATE: 08/30/2025 9:57 PM CLINICAL HISTORY: Dizziness and falls. COMPARISON: None. TECHNIQUE: Axial unenhanced CT of the head was performed. Coronal andsagittal reformatted images were obtained and reviewed. A radiation doselowering technique was used for this procedure, which may include, but isnot limited to, dose reduction technique, automated exposure control, theuse of iterative reconstruction, ALARA (As Low As Reasonably Achievable)techniques, and Image Gently techniques. FINDINGS: No evidence is seen to suggest discrete extra-axial fluid collection.Basal cisterns are grossly patent. No evidence is seen to suggest acuteintracranial hemorrhage. There is no mass effect or midline shift. Theventricles are appropriate in size and configuration. No evidence is seento suggest depressed calvarial fracture. The included paranasal sinusesand mastoid air cells are clear. The orbits demonstrate no grossabnormality. IMPRESSION: No evidence is seen to suggest acute intracranial hemorrhage, mass effect,or midline shift. Referred By: Interpreted By: Elder Nair DO, 08/30/2025 10:28 PM us Darrel Meadows MD CT Final Result * PROCALCITONIN (PCT) (08/30/2025 6:10 PM CDT) PROCALCITONIN <0.05 0.00 - 0.49 NG/ML 08/31/2025 12:35 AM CDT [facility] 08/30/2025 6:10 PM CDT us Kristine Mehta DRY KILN OPERATOR LABORATORY Final Resul t Performing Organization Address City/[facility] Co de Phone Number [facility] [address] [place] [address], [place] [phone] * PRO-BRAIN NATRIURETIC PEPTIDE (08/30/2025 6:10 PM CDT) PRO-B TYPE NATRIURETIC PEPTIDE 30 <125 PG/ML 08/31/2025 12:00 AM CDT [facility] Comment: CUT POINTS ESTABLISHED BY [employer] ON NT PROBNP (ICON) STUDY (2006). AGE INDEPENDENT: <300 PG/ML HAS A 99% NEGATIVE PREDICTIVE VALUE FOR EXCLUDING ACUTE CHF <50 YEARS: >450 PG/ML IS CONSISTENT WITH ACUTE CHF 50-75 YEARS: >900 PG/ML IS CONSISTENT WITH ACUTE CHF >75 YEARS: >1800 PG/ML IS CONSISTENT WITH ACUTE CHF IN PATIENTS WITH RENAL INSUFFICIENCY (GFR <60), >1200 PG/ML YIELDS A DIAGNOSTIC SENSITIVITY AND SPECIFICITY OF 89% AND 72% FOR ACUTE CHF. 08/30/2025 6:10 PM CDT us Kristine Mehta DRY KILN OPERATOR LABORATORY Final Resul t Performing Organization Address City/[facility]/ZIP Co de Phone Number [facility] [address] [place] [address], [place] [phone] * CK (CPK) (08/30/2025 6:10 PM CDT) CPK 30 21 - 215 U/L 08/31/2025 12:00 AM CDT [facility] 08/30/2025 6:10 PM CDT Kristine Mehta APRN LABORATORY Final Resul t Performing Organization Address City/[facility]/ZIP Co de Phone Number [facility] [address] [place] [id number], [place] [phone] * (ABNORMAL) TSH W/REFLEX (08/30/2025 4:44 PM CDT) TSH 5.190(H) 0.358 - 3.74 uIU/ML 08/30/2025 7:21 PM CDT [facility] Comment: HIGH DOSES OF BIOTIN MAY INTERFERE WITH THIS TEST RESULT. CORRELATION TO CLINICAL HISTORY AND PRESENTATION RECOMMENDED. 08/30/2025 4:44 PM CDT Davi Moreno PA-C LABORATORY Final Resul t Performing Organization Address City/[facility] Co de Phone Number [facility] [address] [place] [id number], [place] [phone] * THYROXINE, FREE (FT4) (08/30/2025 4:44 PM CDT) FREE T4 1.10 0.76 - 1.46 NG/DL 08/30/2025 7:37 PM CDT [facility] 08/30/2025 4:44 PM CDT us Davi Moreno PA-C LABORATORY Final Resul t Performing Organization Address City/[facility]/ZIP Co de Phone Number [facility] [address] [place] [address], [place] [phone] * MAGNESIUM (08/30/2025 4:44 PM CDT) MAGNESIUM 2.1 1.8 - 2.4 MG/DL 08/30/2025 7:21 PM CDT [facility] 08/30/2025 4:44 PM CDT Davi Moreno PA-C LABORATORY Final Resul t Performing Organization Address City/[facility] Co de Phone Number [facility] [address] [place] [address], [place] [phone] * LITHIUM (08/30/2025 4:44 PM CDT) LITHIUM 1.0 0.6 - 1.2 MMOL/L 08/30/2025 7:04 PM CDT [facility] Comment: Therapeutic Range: 0.6-1.2 MMOL/L POTENTIALLY TOXIC: >1.5 MMOL/L LAST DOSE UNKNOWN LAST DOSE 08/30/2025 7:04 PM CDT [facility] 08/30/2025 4:44 PM CDT Davi Moreno PA-C LABORATORY Final Resul t Performing Organization Address [facility] de Phone Number [facility] [address] [place] [address], [place] [phone] from Last 3 Months Insurance [facility] MEDICARE Advance Directives * Full Code (Latest Code Status on File) Date Activated Date Inactivated Comments 08/31/2025 6:19 AM 08/31/2025 2:24 PM Care Teams Pension Consultant Relationship Specialty Start Date End Date None, Provider, MD PCP - General UNKNOWN PHYSICIAN SPECIALTY 08/30/25
--- OUTSIDE RECORDS SUMMARY | 2025-11-17 01:54 | XMS_ITS | Clinical Summary ---
Author Organization [employer] [place] Address [address] [place] [address] Care Team Providers Care Customs Agent Name Role Phone Evan Arroyo DO Primary Care Provider [phone]- [phone] Allergies Active Allergy Reactions Criticality Noted Date [...] 1 07/09/2024 10:37 AM CDT 4 Active hydroCHLOROthiaz genoveva 12.5 mg tablet Starting 07/10/24, Take 1 Tablet (12.5 mg) by mouth daily. 30 Tablet 1 07/09/2024 10:37 AM CDT 4 Active Additional Information Patient not taking.Reported on 09/19/2025 lithium carbonate 450 mg Controlled Release tablet Take 2 Tablets (900 mg) by mouth daily at bedtime. 60 Tablet 1 07/09/2024 10:37 AM CDT 4 Active LORazepam (ATIVAN) 0.5 mg tabletIndication s:Bipolar affective disorder, currently manic, moderate (CMS/HCC) Take 1 Tablet (0.5 mg) by mouth 2 times daily. 60 Tablet 1 07/09/2024 10:37 AM CDT 4 Active Additional Information Patient not taking.Reported on 09/19/2025 OLANZapine (ZyPREXA ZYDIS) 10 mg Tablet, Rapid Dissolve Take 1 Tablet (10 mg) by mouth daily at bedtime. 30 Tablet 1 07/09/2024 10:37 AM CDT 4 Active Additional Information Patient not taking.Reported on 09/19/2025 OLANZapine (ZyPREXA ZYDIS) 5 mg Tablet, Rapid Dissolve Starting 07/10/24, Take 1 Tablet (5 mg) by mouth daily. 30 Tablet 1 07/09/2024 10:37 AM CDT 4 Active Additional Information Patient not taking.Reported on 09/19/2025 ondansetron (ZOFRAN ODT) 4 mg Tablet, Rapid Dissolve Dissolve 1 Tablet (4 mg) tablet on top of tongue, then swallow with saliva every 8 hours as needed for Nausea/Vomiting . 60 Tablet 1 07/09/2024 10:37 AM CDT 4 Active Additional Information Patient not taking.Reported on 09/19/2025 prazosin (MINIPRESS) 1 mg capsule Take 1 Capsule (1 mg) by mouth daily at bedtime. 30 Capsule 1 07/09/2024 10:37 AM CDT 4 Active Additional Information Patient not taking.Reported on 09/19/2025 estradioL (CLIMARA) 0.025 mg/24 hr patchIndications :Hot flashes due to menopause Apply 1 Patch to skin as directed every 7 days. 4 Patch 11 4 Active Additional Information Patient not taking.Reported on 09/19/2025 traZODone (DESYREL) 100 mg tablet Take 1 Tablet (100 mg) by mouth daily at bedtime. 30 Tablet 1 4 Active Additional Information Patient taking differently: 50 mgOral DAILY AT BEDTIME, Reported on 09/19/2025 buPROPion HCL (WELLBUTRIN XL) 150 mg Extended Release 24 hour tablet Take 150 mg by mouth. Active tolterodine (DETROL LA) 4 mg Extended Release 24 hour capsuleIndicatio ns:Mixed incontinence urge and stress TAKE 1 CAPSULE BY MOUTH EVERY DAY 30 Capsule 11 5 Active Active Problems Problem Noted Date Diagnosed [...] Aug 2017 w/ med changes. Psych in [facility]. Last Assessment & Plan: Controlled. Continue meds and Psych follow-ups. Encounters Date Type Department Care Team Description 11/15/2025 External Device Data [facility] ABSTRACTION Provider, Abstract 10/18/2025 External Device Data ST[facility] ABSTRACTION Provider, Abstract 10/18/2025 External Device Data ST[facility] ABSTRACTION Provider, Abstract 10/13/2025 [facility]YN [address] [facility] [address] [address] [facility] [address] [place] [address] Sudhir Henderson MD Mixed incontinence urge and stress 10/04/2025 External Device Data ST[facility] ABSTRACTION Provider, Abstract 09/28/2025 External Device Data ST[facility] ABSTRACTION Provider, Abstract 09/28/2025 External Device Data ST[facility] ABSTRACTION Provider, Abstract 09/27/2025 8:20 AM CDT - 09/27/2025 11:59 PM CDT Hospital Encounter [facility] [address] [place] [address] Sudhir Henderson MD Discharge Disposition: Home or Self Care 09/19/2025 12:50 PM CDT Office Visit [facility] OBGYN [address] [place] [address] Sudhir Henderson MD Encounter for routine adult health examination without abnormal findings (Primary Dx); Breast cancer screening by mammogram 09/15/2025 Orders Only [facility] OBGYN [address] [place] [address] Brandee Aceves RN Mixed incontinence urge and stress 09/11/2025 Refill [facility] OBGYN [address] [place] [address] Sudhir Henderson MD Mixed incontinence urge and stress 09/06/2025 External Device Data STL ABSTRACTION Provider, Abstract [...] drink = 0.6 oz pur e alcohol) [facility] Utilities Answer Date Recorded In the past 12 months has e electric, gas, oil, or water company threatened to shut off services in your [...] answer 06/17/2024 How often do you attend [facility] or hinduism services? Patient unable to answer 06/17/2024 Do you belong to any clubs o r organizations such as yarsanism groups, unions, fraternal or athletic groups, or [...] answer 06/17/2024 Housing Stability Answer Date Recorded Unable to Pay for Housing in the Last Year Not o n file 06/17/2024 Number of Times Moved in the Last Year Not on fi le 06/17/2024 At any time in the past 12 m [facility], were you homeless or living in a half-way (including now)? Patient unable to answer 06/17/2024 Feeling Safe Answer Date Recorded Are you in a relationship wi th someone who hurts you emotionally and/or physically? 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 Gender Identity Not on file Sexual Orientation Not on file Last Filed Vital Signs Vital Sign Reading Time Taken Comments Blood Pressure 136/78 09/19/2025 12:47 PM CDT Pulse 78 07/09/2024 7:25 AM CDT Temperature 36 C (96.8 F) 07/09/2024 7:25 AM CDT Respiratory Rate 18 07/09/2024 7:25 AM CDT Oxygen Saturation 100% 07/09/2024 7:25 AM CDT Inhaled Oxygen Concentration - - Weight 85.7 kg (189 lb) 09/19/2025 12:47 PM CDT Height 170.2 cm (5' 7) 09/19/2025 12:47 PM CDT Body Mass Index 29.6 09/19/2025 12:47 PM CDT Plan of Treatment Health Maintenance [...] ZOSTER VACCINE (2 of 2) 11/05/2019 09/10/2019 DIABETES HBA1C Q 6 MONTHS 12/18/2024 06/17/2024 LDL CHOLESTEROL ANNUAL 06/17/2025 4, 06/05/2017, 04/03/2017 INFLUENZA VACCINE (#1) 2025 09/10/2019, 2016 COVID-19 Vaccine (6 - 2024-2 6 season) 2025 09/22/2023, 06/26/2022, 10/19/2021, Additional history exists BREAST CANCER SCREENING 09/27/2026 09/27/20 25, 09/10/2024, 06/29/2022, Additional history exists RSV VACCINE (60+ or ) (1 - 1-dose 75+ series) 2038 Procedures Procedure Name Priority Date/Time Associated Diagnosis Comments MAMMO 3D JIMENA SCREEN BILAT W OR WO CAD Routine 09/27/2025 8:57 AM CDT Breast cancer screening by mammogram CERV/VAG CYTO AGE BASED SCREEN PAP Routine 09/19/2025 1:08 PM CDT Encounter for routine adult health examination without abnormal findings LIPID PANEL Routine 06/17/2024 8:46 PM CDT HEMOGLOBIN A1C Routine 06/17/2024 8:46 PM CDT from Last 3 Months or Most Recently Relevant to Health Maintenance Results * MAMMO 3D JIMENA SCREEN BILAT W OR WO CAD (09/27/2025 8:57 AM CDT) Anatomical Region Laterality Modality Breast Bilateral Mammography 09/27/2025 8:57 AM CDT Impressions 09/27/2025 9:43 AM CDT IMPRESSION: No mammographic evidence of malignancy. RECOMMENDATIONS: Routine screening mammogram in one year. DICTATION LOCATION: [facility] Narrative 09/27/2025 9:43 AM CDT MAMMO 3D JIMENA SCREEN BILAT W OR WO CAD DATE: 09/27/2025 8:57 AM HISTORY: Routine screening. TECHNIQUE: Full-field digital craniocaudal and mediolateral oblique projections of both breasts were obtained. Low-dose full-field digital breast tomosynthesis examination was performed with 3D acquisitions. Examination is read in conjunction with computer aided detection. COMPARISON: Prior mammograms dating back to 09/25/2018. BREAST COMPOSITION: The breasts are heterogeneously dense, which may obscure small masses. FINDINGS: No suspicious mass, suspicious microcalcifications, or architectural distortion in either breast is identified. Since the prior study, there has been no significant interval change. The computer aided diagnosis detects no significant abnormality. OVERALL FINAL ASSESSMENT: BI-RADS CATEGORY 1: Negative. us Sudhir Henderson MD MAMMO ORDERABLES Final Result * CERV/VAG CYTO AGE BASED SCREEN PAP (09/19/2025 1:08 PM CDT) COMMENT (PAP): [facility] Comment: This order for age-based cervical cancer and STI screening follows ACOG guidelines(PB 168, 140, DDS969). See individual assays for performing site location. CLINICAL INFORMATION [facility] Comment:None given LAST MENSTRUAL PERIOD [facility] Comment:NONE GIVEN PREV PAP: [facility] Comment:NONE GIVEN PREV BX: [facility] Comment:NONE GIVEN SOURCE [facility] Comment:Vagina ADEQUACY: [facility] Comment:SATISFACTORY FOR MARRY LUATION PAP INTERP [facility] Comment: Cytology Results: Negative for intraepithelial lesion or malignancy. COMMENT (PAP TEST) [facility] Comment: This Pap test has been evaluated with the ThinPrep(R) Imaging System. TERRA COTTA ROOFER HELPER: Michael Be[facility] Comment: SXS, CT(ASCP) CT screening location: [facility] in [place], [address] [place] [address] [address], [place] [address] Nurse Quality: QEU CONN MD, CLIA: [id number] REVIEW TERRA COTTA ROOFER HELPER: [facility] Comment: FXL, CT(ASCP) CT screening location: [facility] in [place], [address] [place] [address] [address], [place] [address] Nurse Quality: QUE CONN MD, CLIA: [id number] EXPLANATORY NOTE [facility] Comment: EXPLANATORY NOTE: The Pap is a [...] information. HPV E6/E7 Not Detected Not Detected [facility] Comment: Methodology: Scheduling Analyst-Mediated Amplification This assay detects E6/E7 viral messenger RNA (mRNA) from 14 high-risk HPV types (16,18,31,33,35,39,45,51,52,56,58,59,66,68). Cervical sources are required for HPV testing. If a vaginal source from a patient who has had a total hysterectomy with removal of cervix was submitted, please contact the testing laboratory for alternative testing options. For additional information, please refer to http://education.Meridium/faq/UWD477d2 (This link if provided for information/ educational purposes only.) Test Performed at: [address] [address] [facility] Z20 Genital SPECIMEN FROM VAGINA / Unknown 09/19/2025 1:08 PM CDT 09/20/2025 3:31 PM CDT Sudhir Henderson MD PATHOLOGY/CYTOLOGY ORDERABLES Final Result [facility] [phone] [address] * HEMOGLOBIN A1C (06/17/2024 8:46 PM CDT) HEMOGLOBIN A1C 5.2 <=5.6 % 06/17/2024 9:55 PM CDT [facility] EST. AVG GLUCOSE, A1C 103 mg/dL 06/17/2024 9:55 PM CDT [facility] Blood Venipuncture / Unknown 06/17/2024 8:46 PM CDT 06/17/2024 9:11 PM CDT [facility] - 06/17/2024 9:55 PM CDT HGB A1C INTERPRETATION NORMAL: <5.7% PRE-DIABETES: 5.7 - 6.4% DIABETES: 6.5% OR GREATER us Monika Meng MD CHEMISTRY ORDERABLES Final Resul t [facility] CLIA# [id number] [address] [place] [address] * (ABNORMAL) LIPID PANEL (06/17/2024 8:46 PM CDT) CHOLESTEROL 186 <200 mg/dL 06/17/2024 9:57 PM CDT [facility] TRIGLYCERIDE 252(H) <150 mg/dL 06/17/2024 9:57 PM CDT [facility] HDL 48 40 - 59 mg/dL 06/17/2024 9:57 PM CDT [facility] LDL CALCULATED 88 <100 mg/dL 06/17/2024 9:57 PM CDT [facility] NON-HDL CHOLESTEROL 138(H) <130 mg/dL 06/17/2024 9:57 PM CDT [facility] Blood Venipuncture / Unknown 06/17/2024 8:46 PM CDT 06/17/2024 9:20 PM CDT [facility] - 06/17/2024 9:57 PM CDT TOTAL CHOLESTEROL [...] Meng MD CHEMISTRY ORDERABLES Final Resul t [facility] CLIA# [id number] [address] [place] [address] from Last 3 Months or Most Recently Relevant to Health Maintenance Insurance [employer] [facility] [employer] Medicare Part D Advance Directives For more information, please contact: [phone] * Full Code (Latest Code Status on File) Date Activated Date Inactivated Comments 06/17/2024 10:34 AM 07/09/2024 4:56 PM Care Teams Customs Agent Relationship Specialty Start Date End Date Evan Arroyo DO [address] [place] [id number] PCP - General Family Practice 06/27/21
--- OUTSIDE RECORDS SUMMARY | 2025-11-17 01:54 | XMS_ITS | Encounter Summary ---
Author Organization [employer] Address [address] [place] [address] Care Team Providers Care Corporate Communications Specialist Name Role Phone Cruz Evan Ayo ROB Primary Care Provider +1- [phone] Encounter Details Date Type Department Care Team (Late st Contact Info) Description 11/15/2025 External Device Data [facility] ABSTRACTION Provider, Abstract NO ADDRESS ON FILE Social History Tobacco Use Types Packs/Day Years Used Date Smoking Tobacco: Never Smokeless Tobacco: Never Alcohol Use Standard Drinks/Week Comments No 0 (1 standard drink = 0.6 oz pur e alcohol) [facility] Utilities Answer Date Recorded In the past 12 months has e [employer], gas, oil, or water [employer] threatened to shut off services in your [...] answer 06/17/2024 How often do you attend chur ch or congregational services? Patient unable to answer 06/17/2024 Do you belong to any clubs o r organizations such as advent groups, unions, fraternal or athletic groups, or [...] time in the past 12 m [facility], were you homeless or living in a jail (including now)? 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
[2025-11-17 01:55] VITALS: BP 163/93; PULSE 86; RESP 17; TEMP 36.5; O2SAT 100
== END 2025-11-17 01:56 | disposition home or self-care (01) ==
LOC: ANHED 11-17 01:52
PROVIDERS: Emergency Provider Student in an Organized Health Care Education/Training Program; PCP Nurse Practitioner Family
DX: S69.92XD Unspecified injury of left wrist, hand and finger(s), subsequent encounter (principal); S69.91XD Unspecified injury of right wrist, hand and finger(s), subsequent encounter; S89.92XD Unspecified injury of left lower leg, subsequent encounter; S89.91XD Unspecified injury of right lower leg, subsequent encounter; I10 Essential (primary) hypertension; F31.9 Bipolar disorder, unspecified; F41.9 Anxiety disorder, unspecified; Z90.710 Acquired absence of both cervix and uterus; W19.XXXD Unspecified fall, subsequent encounter
CPT/HCPCS: 99283; A9270

== ENCOUNTER 2025-11-21 15:47 | Emergency (ER) | payer MEDICARE, SELFPAY ==
[2025-11-21 15:50] VITALS: BP 165/94; PULSE 79; RESP 20; TEMP 36.5; O2SAT 100
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
== END 2025-11-21 16:42 | disposition short-term general hospital (02) ==
LOC: EXPCOLL 15:49
PROVIDERS: Emergency Provider Nurse Practitioner; PCP Nurse Practitioner Family
DX: R07.89 Other chest pain (principal); F31.9 Bipolar disorder, unspecified; F41.9 Anxiety disorder, unspecified; Z86.2 Personal history of diseases of the blood and blood-forming organs and certain disorders involving the immune mechanism
CPT/HCPCS: 99215; G0463

== ENCOUNTER 2025-11-21 16:56 | Emergency (ER) | payer MEDICARE, SELFPAY ==
--- OUTSIDE RECORDS SUMMARY | 2025-08-23 10:20 | XMS_ITS ---
Author Organization [facility] Address [address] [place] [address] Phone [phone] Care Team Providers Care Resident Services Director Name Role Phone Sydnee Flores Primary Care Provider Results Component Value Reference Range Flag Notes [place] (Eskalith(R)), Serum Order date: 08/23/2025 Reviewed date:08/29/2025 09:07:41 AM Interpretation: Performing Lab:[facility], [address] [facility], Phone - [phone], Director - PhDRicharperi Notes/Report: Called/faxed to TERRI GRAY on 08/26/2025 at 05:11 ET for test [place] (Eskalith(R)), Serum [place] (Eskalith(R)), Serum 1.8 0.5-1.2 mmol/L > A concentration of 0.5-0.8 mmol/L is advised for long-term use; concentrations of up to 1.2 mmol/L may be necessary during acute treatment. Verified by repeat analysis Detection Limit = 0.1 <0.1 indicates None Detected Patient drug level exceeds published reference range. Evaluate clinically for signs of potential toxicity. TSH+Free T4* Order date: 08/23/2025 Reviewed date:08/29/2025 09:07:41 AM Interpretation: Performing Lab:[facility], [address] [facility], Phone - [phone], Director - Juanjo Notes/Report: Called/faxed to TERRI GRAY on 08/26/2025 at 05:11 ET for test [place] (Eskalith(R)), Serum TSH 5.580 0.450-4.500 uIU/mL H T4,Free(Direct) 1.19 0.82-1.77 ng/dL CMP 14 Comprehensive Metabol ic Panel* Order date: 08/23/2025 Reviewed date:08/29/2025 09:07:41 AM Interpretation: Performing Lab:[facility], [address] [facility], Phone - [phone], Director - Juanjo Notes/Report: Called/faxed to TERRI GRAY on 08/26/2025 at 05:11 ET for test [place] (Eskalith(R)), Serum Glucose 94 70-99 mg/dL BUN 13 8-27 mg/dL Creatinine 1.37 0.57-1.00 mg/dL H eGFR 44 >59 mL/min/1.73 L BUN/Creatinine Ratio 9 12-28 L Sodium 137 134-144 mmol/L Potassium 4.1 3.5-5.2 mmol/L Chloride 101 96-106 mmol/L Carbon Dioxide, Total 19 20-29 mmol/L L Calcium 10.2 8.7-10.3 mg/dL Protein, Total 6.7 6.0-8.5 g/dL Albumin 4.7 3.9-4.9 g/dL Globulin, Total 2.0 1.5-4.5 g/dL Bilirubin, Total 0.3 0.0-1.2 mg/dL Alkaline Phosphatase 83 49-135 IU/L P lease note reference interval change AST (SGOT) 16 0-40 IU/L ALT (SGPT) 12 0-32 IU/L REASON FOR VISIT labs Medications Medication SIG (Take, Route, Frequency, Duration) Notes Start Date End Date Diagnosis (ICD Code) Status lamoTRIgine 25 MG Tablet 1 tablet Orally daily; Duration: 30 days 5 09/13/20 25 Bipolar 1 disorder (ICD_10 - F31.9) Active lamoTRIgine 100 MG Tablet 1 tablet x 7 days then 0.5 x 7 days. Orally Once a day; Duration: 30 days 5 09/06/20 25 Bipolar 1 disorder (ICD_10 - F31.9) Active [place] Carbonate ER 300 MG Tablet Extended Release 1 tablet with 450 mg (for 750 mg total) at bedtime Orally Once a day; Duration: 30 days Bipolar 1 disorder (ICD_10 - F31.9) Active buPROPion HCl ER (XL) 150 MG Tablet Extended Release 24 Hour 1 tablet in the morning Orally Once a day; Duration: 30 day(s) 5 Bipolar 1 disorder (ICD_10 - F31.9) Active OLANZapine 5 MG Tablet 1 tablet Orally Once a day; Duration: 30 days Bipolar 1 disorder (ICD_10 - F31.9) Active Prazosin HCl 2 MG Capsule 1 capsule at bedtime Orally Once a day; Duration: 30 days Nightmares (ICD_10 - F51.5) Active traZODone HCl 50 MG Tablet 1 tablet at bedtime Orally Once a day; Duration: 30 days Bipolar 1 disorder (ICD_10 - F31.9) Active [place] Carbonate ER 450 MG Tablet Extended Release 1 tablet at bedtime Orally Once a day; Duration: 30 days Bipolar 1 disorder (ICD_10 - F31.9) Active LORazepam 0.5 MG Tablet 1 tablet at bedtime as needed Orally Once a day Not-Taking B12 Not-Taking Synthroid 50 MCG Tablet 1 tablet in the morning on an empty stomach Orally Once a day Not-Taking Zofran Not-Taking Colace 100 MG Capsule 1 capsule as needed Orally Once a day Not-Taking hydroCHLOROthiazide 12.5 MG Capsule 1 capsule in the morning Orally Once a day Not-Taking Meclizine HCl 25 MG Tablet 1 tablet as needed Orally every 12 hrs Not-Taking Vitamin C 500 MG Tablet 1 tablet Orally Once a day Not-Taking Vitamin B12 Not-Taking Vitamin D3 Not-Taking Biotin 800 MCG Tablet 1 tablet Orally Once a day Not-Taking Womens 50+ Multi Vitamin Not-Taking Flonase Not-Taking Atorvastatin Calcium 10 MG Tablet 1 tablet Orally Once a day Active Allergy Relief Not-Takin g Levothyroxine Sodium 50 MCG Capsule 1 capsule in the morning on an empty stomach Orally Once a day Active Tolterodine Tartrate 2 MG Tablet 1 tablet Orally Twice a day Active Social History Sex Observation Social History Observation Description Sex Observation Female Sexual Orientation Social History Observation Description Sexual Orientation Straight or heterose xual Gender Identity Social History Observation Description Gender Identity Female Encounters Date Time Type Facility Location Provider Diagnosis 08/23/2025 10:20 AM Office Visit [facility] [address] [address] Sydnee Flores Medication monitoring encounter Z51.81 Assessments Encounter Date Diagnosis (ICD Code) Assessment Notes Treat ment Notes Section Notes 08/23/2025 Medication monitorin g encounter (ICD-10 - Z51.81) Plan Of Treatment No Information Medical (General) History Medical History History ICD Code carpal tunnel Surgical History Surgery Date(Month/Year) detached retina 1978 several ovary cyst removals 1983 carpal tunnel 2013 torn meniscus 2018 TOTAL HYSTERECTOMY 12/2010 Hospitalization History Reason Date(Month/Year) weaning off medications-30 day stay 2023 mental health 2016 [facility] in 2022 Progress Notes * Joce HEDRICK:1965 ([age] yo F)Acc No.[id number]:08/23/2025 UNLOCKED PROGRESS NOTE Patient: Allen QUICK Provider: DARIN Welch :1965 A ge:59 Y S ex:Female Date:08/23/2025 Address:[facility] Check In:10:11 AM TILE FINISHER Subjective: * Chief Complaints: * 1 . Labs. * Screening: * * Medical History: * Medications: T aking Tolterodine Tartrate 2 MG Tablet 1 tablet Orally Twice a day , Taking Levothyroxine Sodium 50 MCG Capsule 1 capsule in the morning on an empty stomach Orally Once a day , Taking Atorvastatin Calcium 10 MG Tablet 1 tablet Orally Once a day , Taking [place] Carbonate ER 450 MG Tablet Extended Release 1 tablet at bedtime Orally Once a day , Taking traZODone HCl 50 MG Tablet 1 tablet at bedtime Orally Once a day , Taking Prazosin HCl 2 MG Capsule 1 capsule at bedtime Orally Once a day , Taking [place] Carbonate ER 300 MG Tablet Extended Release 1 tablet with 450 mg (for 750 mg total) at bedtime Orally Once a day , Taking lamoTRIgine 100 MG Tablet 1 tablet x 7 days then 0.5 x 7 days. Orally Once a day , stop date 09/06/2025, Taking OLANZapine 5 MG Tablet 1 tablet Orally Once a day , Taking buPROPion HCl ER (XL) 150 MG Tablet Extended Release 24 Hour 1 tablet in the morning Orally Once a day , Taking lamoTRIgine 25 MG Tablet 1 tablet Orally daily , stop date 09/13/2025, Not- Taking Flonase , Not-Taking Allergy Relief , Not-Taking Biotin 800 MCG Tablet 1 tablet Orally Once a day , Not-Taking Vitamin B12 , Not-Taking Vitamin C 500 MG Tablet 1 tablet Orally Once a day , Not-Taking Vitamin D3 , Not-Taking Womens 50+ Multi Vitamin , Not-Taking Colace 100 MG Capsule 1 capsule as needed Orally Once a day , Not-Taking Meclizine HCl 25 MG Tablet 1 tablet as needed Orally every 12 hrs , Not-Taking hydroCHLOROthiazide 12.5 MG Capsule 1 capsule in the morning Orally Once a day , Not-Taking Zofran , Not-Taking Synthroid 50 MCG Tablet 1 tablet in the morning on an empty stomach Orally Once a day , Not-Taking B12 , Not-Taking LORazepam 0.5 MG Tablet 1 tablet at bedtime as needed Orally Once a day Objective: * Vitals: Assessment: * Assessment: 1. M edication monitoring encounter - Z51.81 Plan: * Treatment: * * Electronic signature of Sydnee Flores , [id number] on 11/21/2025 at 05:24 PM TILE FINISHER Sign off status: Pending * Provider: DARIN Welch Date: 0 08/23/2025 Generated for Shantelle conrad/Chantel/Nacho on: 01/22/2025 05:24 PM TILE FINISHER
--- OUTSIDE RECORDS SUMMARY | 2025-08-29 08:20 | XMS_ITS ---
Author Organization [facility] Address [address] [place] [address] Phone [phone] Care Team Providers Care Change Management Lead Name Role Phone Mark Sydnee Primary Care Provider [phone] REASON FOR VISIT lithium level Medications Medication SIG (Take, Route, Frequency, Duration) Notes Start Date End Date Diagnosis (ICD Code) Status [place] Carbonate ER 300 MG Tablet Extended Release [...] 30 days Nightmares (ICD_10 - F51.5) Active [place] Carbonate ER 450 MG Tablet Extended Release [...] Provider Diagnosis 08/29/2025 08:20 AM Office Visit [address] [address] Sydnee Flores Plan Of Treatment No Information Medical (General) History Medical History History ICD Code carpal tunnel Surgical History Surgery Date(Month/Year) detached retina 1978 several ovary cyst removals 1984 carpal tunnel 2014 torn meniscus 2019 TOTAL HYSTERECTOMY 12/2010 Hospitalization History Reason Date(Month/Year) weaning off medications-30 day stay 2023 mental health 2016 [facility] in 2022 Progress Notes * Allen HEDRICKDOB:1965 ([age] yo F)Acc No.[id number]:08/29/2025 UNLOCKED PROGRESS NOTE Patient: Allen QUICK Provider: TAYLOR Welch-CHANTAL :1965 A ge:59 Y S ex:Female Date:08/29/2025 Address:[address] [place], [place] [id number] Subjective: * Chief Complaints: * 1 . [place] level. * Screening: * * Medical History: * Medications: T aking Tolterodine Tartrate 2 MG Tablet 1 tablet Orally Twice a day , Taking Levothyroxine Sodium 50 MCG Capsule 1 capsule in the morning on an empty stomach Orally Once a day , Taking Atorvastatin Calcium 10 MG Tablet 1 tablet Orally Once a day , Taking [place] Carbonate ER 450 MG Tablet Extended Release 1 tablet at bedtime Orally Once a day , Taking traZODone HCl 50 MG Tablet 1 tablet at bedtime Orally Once a day , Taking Prazosin HCl 2 MG Capsule 1 capsule at bedtime Orally Once a day , Taking [place] Carbonate ER 300 MG Tablet Extended Release [...] * Electronic signature of Sydnee Flores , [id number] on 11/21/2025 at 05:24 PM JOURNALISM PROFESSOR Sign off status: Pending * Provider: JEANNETTE Welch Date: 0 08/29/2025 Generated for Shantelle conrad/Chantel/Nacho on: 01/22/2025 05:24 PM JOURNALISM PROFESSOR
--- OUTSIDE RECORDS SUMMARY | 2025-09-06 11:00 | XMS_ITS ---
Author Organization [facility] Address [address] [place] [address] Phone [phone] Care Team Providers Care Change Control Specialist Name Role Phone Sydnee Flores Primary Care Provider REASON FOR VISIT [facility] hosp follow up Social History Sex Observation Social History Observation Description Sex Observation Female Sexual Orientation Social History Observation Description Sexual Orientation Straight or heterose xual Gender Identity Social History Observation Description Gender Identity Female Encounters Date Time Type Facility Location Provider Diagnosis 09/06/2025 11:00 AM Office Visit [facility] [address] [place] [address] Sydnee Flores Plan Of Treatment No Information Medical (General) History Medical History History ICD Code carpal tunnel Surgical History Surgery Date(Month/Year) detached retina 1978 several ovary cyst removals 1984 carpal tunnel 2014 torn meniscus 2019 TOTAL HYSTERECTOMY 12/2010 Hospitalization History Reason Date(Month/Year) weaning off medications-30 day stay 2023 mental health 2016 [facility] in 2022 Progress Notes * Joce HEDRICK:1965 ([age] yo F)Acc No.[id number]:09/06/2025 UNLOCKED PROGRESS NOTE Patient: Allen QUICK Provider: DARIN Welch :1965 A ge:59 Y S ex:Female Date:09/06/2025 Address:[address] [place], [place] [id number] Subjective: * Chief Complaints: * 1 . [facility]OOM hosp follow up. * Screening: * * Medical History: Objective: * Vitals: Assessment: Plan: * Treatment: * * Electronic signature of Sydnee Flores , [id number] on 11/21/2025 at 05:24 PM SPECIALTY MOLDER Sign off status: Pending * Provider: DARIN Welch Date: 1 Generated for Shantelle conrad/Chantel/Nacho on: 01/22/2025 05:24 PM SPECIALTY MOLDER
--- OUTSIDE RECORDS SUMMARY | 2025-09-12 10:20 | XMS_ITS ---
Author Organization Formerly [facility] Address [address] [place] [address] Phone [phone] Care Team Providers Care Size Changer Name Role Phone Sydnee Flores Primary Care Provider REASON FOR VISIT LM to R/S - [facility] F/U Social History Sex Observation Social History Observation Description Sex Observation Female Sexual Orientation Social History Observation Description Sexual Orientation Straight or heterose xual Gender Identity Social History Observation Description Gender Identity Female Encounters Date Time Type Facility Location Provider Diagnosis 09/12/2025 10:20 AM Office Visit [facility] [address] [place] [address] Sydnee Flores Plan Of Treatment No Information Medical (General) History Medical History History ICD Code carpal tunnel Surgical History Surgery Date(Month/Year) detached retina 1978 several ovary cyst removals 1984 carpal tunnel 2014 torn meniscus 2019 TOTAL HYSTERECTOMY 12/2010 Hospitalization History Reason Date(Month/Year) weaning off medications-30 day stay 2023 mental health 2016 [facility] in 2022 Progress Notes * Allen HEDRICKDOB:1965 ([age] yo F)Acc No.[id number]:09/12/2025 UNLOCKED PROGRESS NOTE Patient: Allen QUICK Provider: DARIN Welch :1965 A ge:59 Y S ex:Female Date:09/12/2025 Address:[address] [place], [place] [id number] Subjective: * Chief Complaints: * 1 . LM to R/S - [facility] [place] F/U. * Screening: * * Medical History: Objective: * Vitals: Assessment: Plan: * Treatment: * * Electronic signature of Sydnee Flores , [id number] on 11/21/2025 at 05:23 PM INSURANCE PRODUCER Sign off status: Pending * Provider: DARIN Welch Date: Generated for Shantelle conrad/Chantel/Nacho on: 01/22/2025 05:23 PM INSURANCE PRODUCER
--- OUTSIDE RECORDS SUMMARY | 2025-11-09 10:40 | XMS_ITS ---
Author Organization [facility] Address [address] [place] [address] Phone [phone] Care Team Providers Care Head Chopper Name Role Phone [place] Primary Care Provider [phone] Allergies Allergen (clinical drug ingredient) Drug/Non Drug Allergy documented on EMR Reaction Allergy Type Onset Date Status Shellfish (FN) Shellfish-derived Products rash Drug Allergy Active REASON FOR VISIT 3 week fu Medications Medication SIG (Take, Route, Frequency, Duration) Notes Start Date End Date Diagnosis (ICD Code) Status Levothyroxine Sodium 50 MCG Capsule 1 capsule in the morning on an empty stomach Orally Once a day Active Atorvastatin Calcium 10 MG Tablet 1 tablet Orally Once a day Active traZODone HCl 100 MG Tablet 1 tablet at bedtime Orally Once a day; Duration: 30 days increased trazodone and buproprion thanks. Bipolar 1 disorder (ICD_10 - F31.9) Active OLANZapine 5 MG Tablet 1 tablet at bedtime Orally Once a day; Duration: 30 days increased trazodone and buproprion thanks. Bipolar 1 disorder (ICD_10 - F31.9) Active Tolterodine Tartrate 2 MG Tablet 1 tablet Orally Twice a day Active Prazosin HCl 2 MG Capsule 1 capsule at bedtime Orally Once a day; Duration: 30 days increased trazodone and buproprion thanks. 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 11/09/20 25 Bipolar 1 disorder (ICD_10 - F31.9) Active OLANZapine 2.5 MG Tablet 1 tablet in the morning Orally Once a day; Duration: 30 days 11/09/20 25 Bipolar 1 disorder (ICD_10 - F31.9) Active Colace 100 MG Capsule 1 capsule as needed Orally Once a day Not-Takin g Zofran Not-Takin g Synthroid 50 MCG Tablet 1 tablet in the morning on an empty stomach Orally Once a day Not-Takin g Meclizine HCl 25 MG Tablet 1 tablet as needed Orally every 12 hrs Not-Takin g hydroCHLOROthiazide 12.5 MG Capsule 1 capsule in the morning Orally Once a day Not-Takin g Vitamin B12 Not-Takin g Vitamin C 500 MG Tablet 1 tablet Orally Once a day Not-Takin g Biotin 800 MCG Tablet 1 tablet Orally Once a day Not-Takin g Vitamin D3 Not-Takin g Womens 50+ Multi Vitamin Not-Takin g [place] Carbonate 150 MG Capsule 1 capsule x 14 days then stop Orally daily; Duration: 14 days 09/26/20 25 Bipolar 1 disorder (ICD_10 - F31.9) Active Flonase Not-Takin g Allergy Relief Not-Takin g Social History Sex Observation Social History Observation Description Sex Observation Female Sexual Orientation Social History Observation Description Sexual Orientation Straight or heterose xual Gender Identity Social History Observation Description Gender Identity Female Social History Primary Social History Social Info Question Answer Notes Living Arrangement Living Arrangement: Independent [place] ing Is this a supportive environment? Yes Single Question Alcohol Screening How ma ny times in the past year have you had (4 for women, or 5 for men) or more drinks in a day? 0 Employment Status Employment Status: Unemployed Illicit Substance Usage Illicit Substance Usage: No Alcohol Use Alcohol Use Frequency: Never Section Notes: Social History- location- [facility] Current home- lives with daughter and her famly. daughter asked her to move out by August. Describe childhood- happy and healthy. Abuse/Trauma-2010 hystectomy, daughter , Education- HS diploma Occupation- SSDI, and 401K Hobbies/Interests- shopping, Spiritual Affiliation- ibeleive in God Who lives at home? daughter and granddaughter. son in law Siblings? Children? one daughter Franci whom she lives iwth , lost daughter Aury at 18, Legal History- denies Substance Use-No substances since 07/24. ETOH use prior and during gerri episodes. Problems Problem Type SNOMED Code ICD Code Dates Problem Status W/U Status Risk Notes Problem Hypomania (707485951) Hypomania (F30.8) Added On: 025 Active confirmed Encounters Date Time Type Facility Location Provider Diagnosis 10:40 AM Telehealth Office Visit, Est Pt., Level 3 (509[address]) [address] [address] Sydnee Flores Bipolar 1 disorder F31.9 ; Nightmares F51.5 ; Over weight E66.3 and Hypomania F30.8 Assessments Encounter Date Diagnosis (ICD Code) Assessment Notes Treat ment Notes Section Notes 11/09/2025 Bipolar 1 disorder (ICD-10 - F31.9) decreased bupropion.Added olanzapine 2.5 mg Scheduled follow up for 11/15/25. WIll receive daily crisis call until next appt to encourage med use and assess for continued safety. DIscussed that meds are only part of the solution. Worked to create a plan instead of returning to bed. Agrees to [facility] referral. Declines Crisis calls. Helped frame pros and cons of moving to her own place and other options for living space. I guess I could move somethings on Friday and start to organize a little bit. 11/09/2025 Nightmares (ICD-10 - F51.5) 11/09/2025 Over weight (ICD-10 - E66.3) 11/09/2025 Hypomania (ICD-10 - F30.8) Plan Of Treatment Medication Medication Name Sig Start Date Stop Date Notes traZODone HCl 100 MG Tablet 1 tablet at bedtime Orally Once a day; Duration: 30 days increased trazodone and buproprion thanks. OLANZapine 5 MG Tablet 1 tablet at bedti me Orally Once a day; Duration: 30 days increased trazodone and buproprion thanks. Prazosin HCl 2 MG Capsule 1 capsule at bedtime Orally Once a day; Duration: 30 days increased trazodone and buproprion thanks. 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 OLANZapine 2.5 MG Tablet 1 tablet in the morning Orally Once a day; Duration: 30 days 11/09/2025 Treatment Notes Assessment Notes Bipolar 1 disorder decreased bupropion.Added olanzapine 2.5 mg Scheduled follow up for 11/15/25. WIll receive daily crisis call until next appt to encourage med use and assess for continued safety. DIscussed that meds are only part of the solution. Worked to create a plan instead of returning to bed. Agrees to [facility] referral. Declines Crisis calls. Helped frame pros and cons of moving to her own place and other options for living space. I guess I could move somethings on Friday and start to organize a little bit. Next Appt Details Follow Up: 1 Week, Reason: Medical (General) History Medical History History ICD Code carpal tunnel Surgical History Surgery Date(Month/Year) detached retina 1978 several ovary cyst removals 1983 carpal tunnel 2014 torn meniscus 2019 TOTAL HYSTERECTOMY 12/2010 Hospitalization History Reason Date(Month/Year) weaning off medications-30 day stay 2023 mental health 2016 [facility] in 2022 Progress Notes * Allen HEDRICKDOB:1965 ([age] yo F)Acc No.[id number]:11/09/2025 UNLOCKED PROGRESS NOTE Patient: Allen QUICK Provider: DARIN Welch :1965 A ge:60 Y S ex:Female Date:11/09/2025 Address:[address], [place] [facility] Check In:10:39 AM CSTCheck O ut:11:13 AM BALL HOLDER Subjective: * Chief Complaints: * 1 . 3 week fu. * HPI: P sych F/U: Patient presents for psychiatric follow-up visit. Subjective report: Joslyn matias follows up for bipolar disorder ,. Changes since last visit?: A polly states she slept two hours last night and Franci daughter reports poor sleep since starting the trazodone 100 mg and increasing. buproprion 300. . Effectiveness of medications: Y es, patient reports they are effective. Medication Adherence: R eports taking medications as prescribed . Sleep: h ad to increase the trazaodone to 100mg . .? Appetite A ppropriate appetite. Depression (10 = most depressed) n ow avoiding ADL's and staying in bed. . Anxiety (10 = most anxious) D enies. Anger/Irritability (10 is highest): 0 /10. Suicidal ideation: D enies suicidal ideation. , Denies suicidal ideation.. Homicidal ideation: D enies homicidal ideation. , Denies homicidal ideation.. Hallucinations D enies hallucinations , Denies hallucinations. Medical concerns or hospitalizations? labs reviewed: Hgn A1C 5.2, CBC WNL, lithium 1.1, lipid panel- all WNL exceptelevated TRG at 241, CMP with normal liver indices but decreasedGFR at 54, Discussed lithium and kidney function. Taking atorvastatin. GEnesight reviewed as well. , 07/11/25 labs reviewed: Hgn A1C 5.2, CBC WNL, lithium 1.1, lipid panel- all WNL exceptelevated TRG at 241, CMP with normal liver indices but decreasedGFR at 54, Discussed lithium and kidney function. Taking atorvastatin. GEnesight reviewed as well. . Therapy? R ebecca Sander, No engagement since 05/25. , Edith Sander, No engagement since 05/25. . * Screening: * * Medical History: C arpal tunnel. * Surgical History: d etached retina 1978, several ovary cyst removals 1983, carpal tunnel 2013, torn meniscus 2018, TOTAL HYSTERECTOMY 12/2010. * Hospitalization/Major Diagno stic Procedure: [facility] 2016, weaning off medications-30 day stay 2023, [facility] [place] 2022. * Family History: F ather: alive, healthy. M other: alive, healthy. 4 daughter(s) - healthy. . 3 of her children have . One daughter is alive and healthy Grandchildren are healthy. * Social History: P rimary Social History: L iving Arrangement L iving Arrangement: I ndependent Living I s this a supportive environment? Y es Alcohol Use A lcohol Use Frequency: N ever Illicit Substance Usage I llicit Substance Usage: N o Employment Status E mployment Status: U nemployed Single Question Alcohol Screening H ow many times in the past year have you had (4 for women, or 5 for men) or more drinks in a day? 0 S ocial History- location- [facility] Current home- lives with daughter and her famly. daughter asked her to move out by August. Describe childhood- happy and healthy. Abuse/Trauma-2010 hystectomy, daughter , Education- HS diploma Occupation- SSDI, and 401K Hobbies/Interests- shopping, Spiritual Affiliation- ibeleive in God Who lives at home? daughter and granddaughter. son in law Siblings? Children? one daughter Franci whom she lives iwth , lost daughter Aury at 18, Legal History- denies Substance Use-No substances since 07/24. ETOH use prior and during gerri episodes. * Medications: T aking Prazosin HCl 2 MG Capsule 1 capsule at bedtime Orally Once a day , Notes to Pharmacist: increased trazodone and buproprion thanks., Taking traZODone HCl 100 MG Tablet 1 tablet at bedtime Orally Once a day , Notes to Pharmacist: increased trazodone and buproprion thanks., Taking OLANZapine 5 MG Tablet 1 tablet at bedtime Orally Once a day , Notes to Pharmacist: increased trazodone and buproprion thanks., Taking Tolterodine Tartrate 2 MG Tablet 1 tablet Orally Twice a day , Taking Levothyroxine Sodium 50 MCG Capsule 1 capsule in the morning on an empty stomach Orally Once a day , Taking Atorvastatin Calcium 10 MG Tablet 1 tablet Orally Once a day , Taking Shokan Carbonate 150 MG Capsule 1 capsule x 14 days then stop Orally daily , Not-Taking Flonase , Not-Taking Allergy Relief , Not-Taking [...] bedtime as needed Orally Once a day * Allergies: S hellfish-derived Products: rash - Allergy. Objective: * Vitals: * Examination: M ental Status Exam: SENSORIUM AND COGNITION A lert , Oriented to Person , Oriented to Place , Oriented to Time , Oriented to Situation. ATTENTION AND CONCENTRATION N o deficits. APPEARANCE A ppropriate, Neatly dressed and groomed, Appears stated age. ATTITUDE AND BEHAVIOR C ooperative , Receptive. AFFECT B road/Full , Congruent with reported mood. MOOD , Euphoric. SPEECH QUANTITY A ppropriate. SPEECH QUALITY S pontaneous , Fluent , Appropriate volume.? THOUGHT PROCESS C oherent and goal directed. THOUGHT CONTENT A ppropriate - WNL , Congruent with affect , No evidence of delusional content , No reports paranoia. SUICIDAL IDEATION D enies suicidal ideation , Denies self-harm activities. HOMICIDAL IDEATION D enies homicidal ideation. HALLUCINATIONS D enies auditory hallucinations , Denies visual hallucinations. INSIGHT F air. JUDGMENT F air. FUND OF KNOWLEDGE F air. ABILITY TO PARTICIPATE IN TREATMENT M oderate. WILLINGNESS TO PARTICIPATE IN TREATMENT M oderate. ? C QM Exceptions: Cervical Cancer Screening not performed [place] H istory of Hysterectomy - No Residual Cervix [place]: H istory of hysterectomy Assessment: * Assessment: 1. B ipolar 1 disorder - F31.9 (Primary) 2 . N ightmares - F51.5 3 . H ypomania - F30.8 4 . O demetrius weight - E66.3 Plan: * Treatment: 2. N ightmares Refill Prazosin HCl Capsule, 2 MG, 1 capsule at bedtime, Orally, Once a day, 30 days, 30, Refills 1, Notes to Pharmacist: increased trazodone and buproprion thanks.. * Preventive Medicine: kaleb [place] address [email or web address] daughter Franci Youssef. * Follow Up: 1 Week * * Electronic signature of Sydnee Flores , [id number] on 11/21/2025 at 05:23 PM BALL HOLDER Sign off status: Pending * Provider: Joslyn Flores, ANP- Date: 01/10/2025 Generated for Shantelle conrad/Chantel/eTransmitting on: 01/22/2025 05:23 PM BALL HOLDER History and Physical Notes * HPI (History of Present Illness) Category c/o Denies Symptom Duration Details Notes Catego ry Notes Psych F/U Changes since last visit?: Allen states she slept two hours last night and Franci daughter reports poor sleep since starting the trazodone 100 mg and increasing. buproprion 300. Patient presents for psychiatric follow-up visit. Effectiveness of medications: Yes, patient reports they are effective Medication Adherence: Rep orts taking medications as prescribed Sleep: had to increas e the trazaodone to 100mg . Appetite Appropriate ap petite Depression (10 = most depressed) now avoiding ADL's and staying in bed. Anxiety (10 = most anxious) Denies Anger/Irritability (10 is highest): 0/10 Suicidal ideation: Denies suicidal ideation. , Denies suicidal ideation. Homicidal ideation: Denie s homicidal ideation. , Denies homicidal ideation. Hallucinations Denies mateus lucinations , Denies hallucinations Medical concerns or hospitalizations ? 07/11/25 labs reviewed: Hgn A1C 5.2, CBC WNL, lithium 1.1, lipid panel- all WNL except elevated TRG at 241, CMP with normal liver indices but decreased GFR at 54, Discussed lithium and kidney function. Taking atorvastatin. Basha reviewed as well. , 07/11/25 labs reviewed: Hgn A1C 5.2, CBC WNL, lithium 1.1, lipid panel- all WNL except elevated TRG at 241, CMP with normal liver indices but decreased GFR at 54, Discussed lithium and kidney function. Taking atorvastatin. Basha reviewed as well. Therapy? Edith Sander , No engagement since 05/25. , Edith Sander, No engagement since 05/25. Subjective report: Allen follows up for bipolar disorder , Examination Category Field Details Notes Category Notes CQM Exceptions Cervical Cancer Screening not performed Reason: History of Hysterectomy - No Residual Cervix Reason:: History of hysterectomy Mental Status Exam SENSORIUM AND COGNITION Alert , Oriented to Person , Oriented to Place , Oriented to Time , Oriented to Situation ATTENTION AND CONCENTRATION No deficits APPEARANCE Appropriate, Neatly dressed and groomed, Appears stated age ATTITUDE AND BEHAVIOR Cooperative , Rece ptive AFFECT Broad/Full , Congrue nt with reported mood MOOD , Euphoric SPEECH QUANTITY Appropriate SPEECH QUALITY Spontaneous , Fluent , Appropriate volume THOUGHT PROCESS Coherent and goal di rected THOUGHT CONTENT Appropriate - WNL , Congruent with affect , No evidence of delusional content , No reports paranoia SUICIDAL IDEATION Denies suicidal idea tion , Denies self-harm activities HOMICIDAL IDEATION Denies homicidal genoveva ation HALLUCINATIONS Denies auditory boswell ucinations , Denies visual hallucinations INSIGHT Fair JUDGMENT Fair FUND OF KNOWLEDGE Fair ABILITY TO PARTICIPATE IN TREATMENT Mode rate WILLINGNESS TO PARTICIPATE IN TREATMENT Moderate
--- OUTSIDE RECORDS SUMMARY | 2025-11-15 11:40 | XMS_ITS ---
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 Name Role Phone Sydnee Flores Primary Care Provider [phone] REASON FOR VISIT 1 week f/u Social History Sex Observation Social History Observation Description Sex Observation Female Sexual Orientation Social History Observation Description Sexual Orientation Straight or heterose xual Gender Identity Social History Observation Description Gender Identity Female Encounters Date Time Type Facility Location Provider Diagnosis 11/15/2025 11:40 AM Office Visit [facility] [address] [place] [address] Sydnee Flores Plan Of Treatment No Information Medical (General) History Medical History History ICD Code carpal tunnel Surgical History Surgery Date(Month/Year) detached retina 1978 several ovary cyst removals 1984 carpal tunnel 2014 torn meniscus 2019 TOTAL HYSTERECTOMY 12/2010 Hospitalization History Reason Date(Month/Year) weaning off medications-30 day stay 2023 mental health 2016 [facility] in 2022 Progress Notes * Joce HEDRICK:1965 ([age] yo F)Acc No.[id number]:11/15/2025 UNLOCKED PROGRESS NOTE Patient: Allen QUICK Provider: DARIN Welch :1965 A ge:60 Y S ex:Female Date:11/15/2025 Address:[address] [place], [place] [id number] Subjective: * Chief Complaints: * 1 . 1 week f/u. * Screening: * * Medical History: Objective: * Vitals: Assessment: Plan: * Treatment: * * Electronic signature of Sydnee Flores , [id number] on 11/21/2025 at 05:23 PM SCHOOL PSYCHOLOGIST ASSISTANT Sign off status: Pending * Provider: DARIN Welch Date: 1 01/16/2025 Generated for Shantelle conrad/Chantel/Nacho on: 01/22/2025 05:23 PM SCHOOL PSYCHOLOGIST ASSISTANT
--- NOTE | 2025-11-21 16:30 | ECG_ITS ---
Test Date: 2025-11-21 16:33:13 Measurements Intervals [place] Rate: 74 P: 27 [place]: 202 QRS: -15 QRSD: 87 T: 14 QT: 402 QTc: 448 Interpretive Statements SINUS RHYTHM POSSIBLE RIGHT VENTRICULAR CONDUCTION DELAY DELAYED PRECORDIAL R/S TRANSITION BORDERLINE ST-T WAVE ABNORMALITY- ANT/INF LEADS BASELINE ARTIFACT- II, III, AVR, AVL, AVF, V3 BORDERLINE ECG No previous ECG available for comparison Electronically Signed On 11-22-2025 07:04:55 ATHLETE MARKETING AGENT by Devendra Clark D.O.
[2025-11-21 17:19] VITALS: BP 153/98; PULSE 80; RESP 16; TEMP 36.1; O2SAT 100
--- OUTSIDE RECORDS SUMMARY | 2025-11-21 17:24 | XMS_ITS | Clinical Summary ---
Author Organization [facility] Address Formerly [facility] [place] [address] Care Team Providers Care Shooting Gallery Operator Name Role Phone None, Provider MD Primary Care Provider Unavaila ble Allergies Active Allergy Reactions Criticality Noted Date Comments Erythromycin Rash Low 08/30/2025 Iodine Hives,Swelling High 04/21/2020 rash Penicillins Rash Low 08/30/2025 Prednisone Rash High 06/04/2023 Red Dye #40 (Allura Red) Rash Low 08/30/2025 Shellfish Protein-Containing Drug Products Rash Low 08/30/2025 Sulfa Antibiotics Hives,Rash,Vomiting High 0 voimting Medications vitamin C (ASCORBIC ACID) 500 MG [...] Encounters Date Type Department Care Team Description 11/19/2025 2:56 AM MANAGER AREA - 11/19/2025 6:46 AM MANAGER AREA Emergency [facility] [place] [address] Hector Patel MD,PHD Dizziness Discharge Disposition: Home or Self Care (Routine Discharge) 11/19/2025 Travel 08/30/2025 6:04 PM CDT - 08/31/2025 12:08 PM CDT Hospital Encounter [facility] [place] [address] Darrel Meadows MD Elayyan, MD Phuc Garduno Maaroof, MD Fall; Diarrhea; Dizziness; Hallucinations Discharge Disposition: Home [...] Sign Reading Time Taken Comments Blood Pressure 131/79 11/19/2025 3:02 AM MANAGER AREA Pulse 90 11/19/2025 3:02 AM MANAGER AREA Temperature 36.7 C (98 F) 11/19/2025 3:02 AM MANAGER AREA Respiratory Rate 18 11/19/2025 3:02 AM MANAGER AREA Oxygen Saturation 96% 11/19/2025 3:02 AM MANAGER AREA Inhaled Oxygen Concentration - - Weight 89.1 kg (196 lb 6.9 oz) 11/19/2025 3:02 A M MANAGER AREA Height 167.6 cm (5' 6) 11/19/2025 3:02 AM MANAGER AREA Body Mass Index 31.7 11/19/2025 3:02 AM MANAGER AREA Plan of Treatment Health Maintenance Due Date Last Done Comments Colorectal Cancer Screening Colonoscopy (10 Years) 1965 Annual Physical 1966 Hepatitis C 1981 Pneumococcal Vaccine: 50+ Years (2 of 2 - PCV) 10/09/2021 10/09/2020 COVID-19 Vaccine ( - season) 2025 09/10/2024, 09/22/2023, 06/26/2022, Additional history exists Influenza Adult (#1) 2025 11/09/2024, 09/22/2023, 09/21/2022, Additional history exists Mammogram Screening 09/27/2027 09/27/2025, 09/10/2024, 06/29/2022, Additional history exists DTaP, Tdap and Td [...] Procedure Name Priority Date/Time Associated Diagnosis Comments CT HEAD WO CON STAT 11/19/2025 4:30 AM MANAGER AREA ECG 12-LEAD STAT 11/19/2025 3:37 AM MANAGER AREA PHOSPHORUS, INORGANIC PHOSPHATE STAT 11/19/2025 3:29 AM MANAGER AREA THYROXINE, FREE (FT4) STAT 11/19/2025 3:29 AM MANAGER AREA THYROID STIM HORMONE TSH STAT 11/19/2025 3:29 AM MANAGER AREA SALICYLATE STAT 11/19/2025 3:29 AM MANAGER AREA ACETAMINOPHEN STAT 11/19/2025 3:29 AM MANAGER AREA ETHANOL STAT 11/19/2025 3:29 AM MANAGER AREA LITHIUM STAT 11/19/2025 3:29 AM MANAGER AREA MAGNESIUM STAT 11/19/2025 3:29 AM MANAGER AREA COMPREHENSIVE METABOLIC PANEL STAT 11/19/2025 3:29 AM MANAGER AREA HC CBC AUTO W/AUTO DIFF STAT 11/19/2025 3:29 AM MANAGER AREA HC COMPREHENSIVE METABOLIC PANEL STAT 08/31/2025 6:18 [...] CDT from Last 3 Months Results * CT HEAD WO CON (11/19/2025 4:30 AM MANAGER AREA) Only the most recent of2 resultswithin the time period is included. Anatomical Region Laterality Modality Head Computed Tomogra phy 11/19/2025 4:32 AM MANAGER AREA Impressions 11/19/2025 4:33 AM MANAGER AREA IMPRESSION: ===== 1. No acute intracranial abnormalities. 2. Minimal atrophy and small vessel ischemic disease. Referred By: Interpreted By: Jewel Whittaker MD, 11/19/2025 4:32 AM Narrative 11/19/2025 4:33 AM MANAGER AREA [address] [address] EXAMINATION: CT of the head EXAM DATE/TIME: 11/19/2025 4:08 AM REASON FOR EXAM: head injury Head injury, dizziness, confusion, nausea COMPARISON: Head CT 08/30/2025 TECHNIQUE: Axial CT images of the brain are obtained from skull base through vertex without the use of IV contrast agent. A dose lowering technique was used for this procedure, which may include, but is not limited to, dose reduction technique, automated exposure control, iterative reconstruction, ALARA (As Low As Reasonably Achievable), or Image Gently techniques. FINDINGS: No acute hemorrhage or large territory infarct. Ventricles are minimally enlarged with prominent sulci bilaterally indicated mild symmetric parenchymal volume loss. There are minimal areas of scattered hypodensities in the periventricular deep white matter which are nonspecific but likely secondary to mild small vessel ischemic disease. There are no extra-axial fluid collections. There is no mass, mass effect, or midline shift. There is no depressed skull fracture. Visualized paranasal sinuses and mastoid air cells are clear. Visualized orbital contents are unremarkable. ===== Procedure Note Jewel Whittaker MD - 11/19/[address] [address] EXAMINATION: CT of the head EXAM DATE/TIME: 11/19/2025 4:08 AM REASON FOR EXAM: head injury Head injury, dizziness, confusion, nausea COMPARISON: Head CT 08/30/2025 TECHNIQUE: Axial CT images of the brain are obtained from skull basethrough vertex without the use of IV contrast agent. A dose loweringtechnique was used for this procedure, which may include, but is notlimited to, dose reduction technique, automated exposure control,iterative reconstruction, ALARA (As Low As Reasonably Achievable), orImage Gently techniques. FINDINGS: No acute hemorrhage or large territory infarct. Ventricles areminimally enlarged with prominent sulci bilaterally indicated mildsymmetric parenchymal volume loss. There are minimal areas of scatteredhypodensities in the periventricular deep white matter which arenonspecific but likely secondary to mild small vessel ischemic disease.There are no extra-axial fluid collections. There is no mass, masseffect, or midline shift. There is no depressed skull fracture.Visualized paranasal sinuses and mastoid air cells are clear. Visualizedorbital contents are unremarkable. ===== IMPRESSION: ===== 1. No acute intracranial abnormalities. 2. Minimal atrophy and small vessel ischemic disease. Referred By: Interpreted By: Jewel Whittaker MD, 11/19/2025 4:32 AM us Hector Patel MD,PHD CT Final Resu lt * ECG 12 lead (11/19/2025 3:37 AM MANAGER AREA) Only the most recent of2 resultswithin the time period is included. ECG QT 394 [facility] ECG QTC 487 [facility] 11/19/2025 3:37 AM MANAGER AREA Narrative [facility] - 11/19/2025 7:29 PM MANAGER AREA [facility] [address] Test Date: 2025-11-19 Pat Name: ALLEN HEDRICK Department: 41 Room: [place] [address] Gender: Female Drive Thru Order Taker: Gayla : 1965 Requested By: HECTOR PATEL Order Number: [id number] Reading MD: Jayy Correa Measurements Intervals [place] Rate: 91 P: 28 FL: 206 QRS: -2 QRSD: 88 T: 34 QT: 394 QTc: 487 Interpretive Statements SINUS RHYTHM LOW QRS VOLTAGE IN PRECORDIAL LEADS [QRS DEFLECTION < 1.0 mV IN CHEST LEADS] POSSIBLE RIGHT VENTRICULAR CONDUCTION DELAY [RSR (QR) IN V1/V2] Compared to ECG 08/31/2025 00:04:11 NO SIGNIFICANT CHANGE No ischemic changes Preliminary EKG Interpretation by Hector Patel MD GER AREA Procedure Note Jayy Correa MD - 11/19/2025 [facility] [place] [facility] Test Date: 2025-11-19 Pat Name: ALLEN HEDRICK Department: 41 Room: [id number] Gender: Female Drive Thru Order Taker: Gayla : 1965 Requested By: HECTOR PATEL Order Number: [id number] Reading MD: Jayy Correa Measurements Intervals [place] Rate: 91 P: 28 FL: 206 QRS: -2 QRSD: 88 T: 34 QT: 394 QTc: 487 Interpretive Statements SINUS RHYTHM LOW QRS VOLTAGE IN PRECORDIAL LEADS [QRS DEFLECTION < 1.0 mV IN CHESTLEADS] POSSIBLE RIGHT VENTRICULAR CONDUCTION DELAY [RSR (QR) IN V1/V2] Compared to ECG 08/31/2025 00:04:11 NO SIGNIFICANT CHANGE No ischemic changes Preliminary EKG Interpretation by Hector Patel MD GER AREA us Hector Patel MD,PHD ECG ORDERABLES Final Resu lt Performing Organization Address [facility]/ZIP Co de Phone Number [facility] ([facility] * THYROXINE, FREE (FT4) (11/19/2025 3:29 AM MANAGER AREA) FREE T4 1.23 0.76 - 1.46 NG/DL 11/19/2025 4:35 AM MANAGER AREA [facility] BLOOD VENOUS BLOOD SPECIMEN / Unknown 11/19/2025 3:29 AM MANAGER AREA us Hector Patel MD,PHD LABORATORY Final Resu lt [facility] [address] [place] [address], [place] [phone] * THYROID STIM HORMONE TSH (11/19/2025 3:29 AM MANAGER AREA) TSH 2.650 0.358 - 3.74 uIU/ML 11/19/2025 4:35 AM MANAGER AREA [facility] Comment: HIGH DOSES OF BIOTIN MAY INTERFERE WITH THIS TEST RESULT. CORRELATION TO CLINICAL HISTORY AND PRESENTATION RECOMMENDED. BLOOD VENOUS BLOOD SPECIMEN / Unknown 11/19/2025 3:29 AM MANAGER AREA us Hector Patel MD,PHD LABORATORY Final Resu lt [facility] [address] [place] [address], * (ABNORMAL) SALICYLATE (11/19/2025 3:29 AM MANAGER AREA) SALICYLATES <1.7(L) 2.8 - 20.0 MG/DL 11/19/2025 5:03 AM MANAGER AREA [facility] Comment: THERAPEUTIC: 2.8-20.0 Toxic Level: >=30 BLOOD VENOUS BLOOD SPECIMEN / Unknown 11/19/2025 3:29 AM MANAGER AREA us Hector Patel MD,PHD LABORATORY Final Resu Performing Organization Address City/[facility]/ZIP Co de Phone Number [facility] [address] [place] [address], * PHOSPHORUS, INORGANIC PHOSPHATE (11/19/2025 3:29 AM MANAGER AREA) PHOSPHORUS 3.5 2.5 - 4.9 MG/DL 11/19/2025 4:35 AM MANAGER AREA [facility] BLOOD VENOUS BLOOD SPECIMEN / Unknown 11/19/2025 3:29 AM MANAGER AREA us Hector Patel MD,PHD LABORATORY Final Resu [facility] [address] [place] [address], * MAGNESIUM (11/19/2025 3:29 AM MANAGER AREA) MAGNESIUM 2.0 1.8 - 2.4 MG/DL 11/19/2025 4:35 AM MANAGER AREA [facility] BLOOD VENOUS BLOOD SPECIMEN / Unknown 11/19/2025 3:29 AM MANAGER AREA Hector Patel MD,PHD LABORATORY Final Resu lt Performing Organization Address [facility] de Phone Number [facility] [address] [place] [address], * (ABNORMAL) LITHIUM (11/19/2025 3:29 AM MANAGER AREA) LITHIUM <0.2(L) 0.6 - 1.2 MMOL/L 11/19/2025 4:49 AM MANAGER AREA [facility] Comment: Therapeutic Range: 0.6-1.2 MMOL/L POTENTIALLY TOXIC: >1.5 MMOL/L LAST DOSE UNKNOWN LAST DOSE 11/19/2025 5:10 AM MANAGER AREA [facility] BLOOD VENOUS BLOOD SPECIMEN / Unknown 11/19/2025 3:29 AM MANAGER AREA Hector Patel MD,PHD LABORATORY Final Resu lt Performing Organization Address [facility] Co de Phone Number [facility] [address] [place] [address], [place] [phone] * ETHANOL (11/19/2025 3:29 AM MANAGER AREA) ALCOHOL S/P/B <0.003 <0.003 G/DL 11/19/2025 4:35 AM MANAGER AREA [facility] BLOOD VENOUS BLOOD SPECIMEN / Unknown 11/19/2025 3:29 AM MANAGER AREA us Hector Patel MD,PHD LABORATORY Final Resu lt [facility] [address] [place] [address], * (ABNORMAL) COMPREHENSIVE METABOLIC PANEL (11/19/2025 3:29 AM MANAGER AREA) [facility] GLUCOSE 135(H) 70 - 99 MG/DL 11/19/2025 4:35 AM [facility] BUN 23(H) 7 - 18 MG/DL 11/19/2025 4:35 AM [facility] CREATININE S/P/B 0.87 0.55 - 1.02 MG/DL 11/19/2025 4:35 AM [facility] SODIUM S/P/B 140 136 - 145 MMOL/L 11/19/2025 4:35 AM [facility] POTASSIUM S/P/B 3.4(L) 3.5 - 5.1 MMOL/L 11/19/2025 4:35 AM [facility] CHLORIDE S/P/B 108 97 - 115 MMOL/L 11/19/2025 4:35 AM [facility] CO2 24.4 21 - 32 MMOL/L 11/19/2025 4:35 AM [facility] CALCIUM S/P/B 8.8 8.5 - 10.1 MG/DL 11/19/2025 4:35 AM [facility] BILIRUBIN TOTAL S/P/B 0.6 0.2 - 1.2 MG/DL 11/19/2025 4:35 AM [facility] Comment: THIS ASSAY IS NOT RECOMMENDED FOR PATIENTS UNDERGOING TREATMENT WITH ELTROMBOPAG DUE TO THE POTENTIAL FOR FALSELY ELEVATED RESULTS. TOTAL PROTEIN S/P/B 6.1(L) 6.4 - 8.2 G/DL 11/19/2025 4:35 AM [facility] ALBUMIN S/P/B 3.6 3.4 - 5.0 G/DL 11/19/2025 4:35 AM [facility] AST 29 15 - 37 U/L 11/19/2025 4:35 AM [facility] ALT 35 14 - 55 U/L 11/19/2025 4:35 AM [facility] ALKALINE PHOSPHATASE S/P/B 78 50 - 136 U/L 11/19/2025 4:35 AM [facility] ANION GAP 7.6 2 - 10 MMOL/L 11/19/2025 4:35 AM [facility] BUN CREATININE RATIO 26.4(H) 6 - 26 11/19/2025 4:35 AM [facility] A/G RATIO 1.4 1.0 - 2.0 RATIO 11/19/2025 4:35 AM [facility] GFR ESTIMATE 75(L) >90 ML/MIN/1.7 3 M2 11/19/2025 4:35 AM [facility] Comment: NOTE: eGFR is not calculated for patients <18 years of age or gender unknown. This is an estimated GFR calculation using the new CKD EPI creatinine equation without race and so does not require a correction factor for race. This estimated GFR should not be used for calculating drug doses. BLOOD VENOUS BLOOD SPECIMEN / Unknown 11/19/2025 3:29 AM MANAGER AREA us Hector Patel MD,PHD LABORATORY Final Resu lt [facility] [address] [place] [address], [place] [phone] * (ABNORMAL) CBC W/DIFF AUTOMATED (11/19/2025 3:29 AM MANAGER AREA) [facility] WBC 8.96 4.5 - 11.0 x10'3/uL 11/19/2025 4:11 AM [facility] RBC 3.80(L) 4.20 - 5.40 x10'6/uL 11/19/2025 4:11 AM [facility] HGB 11.3(L) 12.0 - 16.0 G/DL 11/19/2025 4:11 AM [facility] HCT 33.6(L) 38.0 - 48.0 % 11/19/2025 4:11 AM [facility] MCV 88.4 81.0 - 99.0 FL 11/19/2025 4:11 AM [facility] MCH 29.7 27.0 - 31.0 PG 11/19/2025 4:11 AM [facility] MCHC 33.6 32.0 - 36.0 G/DL 11/19/2025 4:11 AM [facility] RDW 13.0 11.5 - 14.5 % 11/19/2025 4:11 AM [facility] PLT 193 130 - 400 x10'3/uL 11/19/2025 4:11 AM [facility] MPV 10.5 9.3 - 12.2 FL 11/19/2025 4:11 AM [facility] DIFFERENTIAL TYPE AUTOMATED DIFFERENTIAL 11/19/2025 4:23 AM [facility] NEUTROPHILS % 80.2 % 11/19/2025 4:23 AM [facility] LYMPHOCYTES % 11.4 % 11/19/2025 4:23 AM [facility] MONOCYTES % 5.4 % 11/19/2025 4:23 AM [facility] EOSINOPHILS 2.3 % 11/19/2025 4:23 AM [facility] BASOPHILS 0.4 % 11/19/2025 4:23 AM [facility] IMMATURE GRANS % 0.3 % 11/19/20 4:23 AM [facility] ABS. NEUTROPHILS 7.18 1.80 - 7.70 x10'3/uL 11/19/2025 4:23 AM [facility] ABS. LYMPHOCYTES 1.02 1.00 - 4.80 x10'3/uL 11/19/2025 4:23 AM [facility] ABS. MONOCYTES 0.48 0.24 - 0.86 x10'3/uL 11/19/2025 4:23 AM [facility] ABS. EOSINOPHILS 0.21 0.04 - 0.36 x10'3/uL 11/19/2025 4:23 AM [facility] ABS. BASOPHILS 0.04 0.01 - 0.08 x10'3/uL 11/19/2025 4:23 AM [facility] ABS. IMMATURE GRANULOCYTES 0.03 0.00 - 0.49 x10'3/uL 11/19/2025 4:23 AM [facility] RBC MORPHOLOGY SLIDE REVIEWED 2024 4:23 AM [facility] POIKLO 1+ 11/19/2025 4:23 AM [facility] MALLORY JOLLY BODIES 1+ 11/19/2025 4:23 AM [facility] PLT EST. ADEQUATE 11/19/2025 4:23 AM [facility] BLOOD VENOUS BLOOD SPECIMEN / Unknown 11/19/2025 3:29 AM MANAGER AREA us Hector Patel MD,PHD LABORATORY Final Resu lt Performing Organization Address City/[facility]/ZIP Co de Phone Number [facility] [address] [place] [address], [place] [phone] * (ABNORMAL) ACETAMINOPHEN (11/19/2025 3:29 AM MANAGER AREA) Pathologist [facility] ACETAMINOPHEN S/P/B <2.0(L) 10.0 - 30.0 MCG/ML 11/19/2025 4:35 AM MANAGER AREA [facility] Comment: THERAPEUTIC: 10-30 TOXIC: >200 BLOOD VENOUS BLOOD SPECIMEN / Unknown 11/19/2025 3:29 AM MANAGER AREA Hector Patel MD,PHD LABORATORY Final Resu Performing Organization Address [facility] Co de Phone Number [facility] [address] [place] [address], [place] [phone] * (ABNORMAL) COMPREHENSIVE METABOLIC PANEL (08/31/2025 6:18 AM CDT) Only the most recent of2 resultswithin the time period is included. Pathologist [facility] GLUCOSE 104(H) 70 - 99 MG/DL 08/31/2025 6:59 AM CDT [facility] BUN 10 7 - 18 MG/DL 08/31/2025 6:59 AM CDT [facility] CREATININE S/P/B 1.06(H) 0.55 - 1.02 MG/DL 08/31/2025 6:59 AM CDT [facility] SODIUM S/P/B 142 136 - 145 MMOL/L 08/31/2025 6:59 AM CDT [facility] POTASSIUM S/P/B 3.4(L) 3.5 - 5.1 MMOL/L 08/31/2025 6:59 AM CDT [facility] CHLORIDE S/P/B 110 97 - 115 MMOL/L 08/31/2025 6:59 AM CDT [facility] CO2 26.1 21 - 32 MMOL/L 08/31/2025 6:59 AM CDT [facility] CALCIUM S/P/B 9.1 8.5 - 10.1 MG/DL 08/31/2025 6:59 AM CDT [facility] BILIRUBIN TOTAL S/P/B 0.5 0.2 - 1.2 MG/DL 08/31/2025 6:59 AM T [facility] Comment: THIS ASSAY IS NOT RECOMMENDED FOR PATIENTS UNDERGOING TREATMENT WITH ELTROMBOPAG DUE TO THE POTENTIAL FOR FALSELY ELEVATED RESULTS. TOTAL PROTEIN S/P/B 6.3(L) 6.4 - 8.2 G/DL 08/31/2025 6:59 AM T [facility] ALBUMIN S/P/B 3.7 3.4 - 5.0 G/DL 08/31/2025 6:59 AM T [facility] AST 7(L) 15 - 37 U/L 08/31/2025 6:59 AM T [facility] ALT 20 14 - 55 U/L 08/31/2025 6:59 AM T [facility] ALKALINE PHOSPHATASE S/P/B 95 50 - 136 U/L 08/31/2025 6:59 AM T [facility] ANION GAP 5.9 2 - 10 MMOL/L 08/31/2025 6:59 AM T [facility] BUN CREATININE RATIO 9.4 6 - 26 08/31/2025 6:59 AM T [facility] A/G RATIO 1.4 1.0 - 2.0 RATIO 08/31/2025 6:59 AM CDT [facility] GFR ESTIMATE 60(L) >90 ML/MIN/1.7 3 M2 08/31/2025 6:59 AM CDT [facility] Comment: NOTE: eGFR is not calculated for patients <18 years of age or gender unknown. This is an estimated GFR calculation using the new CKD EPI creatinine equation without race and so does not require a correction factor for race. This estimated GFR should not be used for calculating drug doses. 08/31/2025 6:18 AM CDT Kristine Angulo Tyson HAND FORMER LABORATORY Final Resul t [facility] [address] [place] [address], * (ABNORMAL) CBC W/DIFF AUTOMATED (08/31/2025 6:18 AM CDT) Only the most recent of2 resultswithin the time period is included. WBC 7.90 4.5 - 11.0 x10'3/uL 08/31/2025 6:56 AM CDT [facility] RBC 4.21 4.20 - 5.40 x10'6/uL 08/31/2025 6:56 AM CDT [facility] HGB 12.7 12.0 - 16.0 G/DL 08/31/2025 6:56 AM CDT [facility] HCT 37.8(L) 38.0 - 48.0 % 08/31/2025 6:56 AM CDT [facility] MCV 89.8 81.0 - 99.0 FL 08/31/2025 6:56 AM CDT [facility] MCH 30.2 27.0 - 31.0 PG 08/31/2025 6:56 AM CDT [facility] MCHC 33.6 32.0 - 36.0 G/DL 08/31/2025 6:56 AM CDT [facility] RDW 12.6 11.5 - 14.5 % 08/31/2025 6:56 AM CDT [facility] PLT 191 130 - 400 x10'3/uL 08/31/2025 6:56 AM CDT [facility] MPV 9.7 9.3 - 12.2 FL 08/31/2025 6:56 AM CDT [facility] DIFFERENTIAL TYPE AUTOMATED DIFFERENTIAL 08/31/2025 6:56 AM CDT [facility] NEUTROPHILS % 68.8 % 08/31/2025 6:56 AM CDT [facility] LYMPHOCYTES % 20.3 % 08/31/2025 6:56 AM CDT [facility] MONOCYTES % 6.6 % 08/31/2025 6:56 AM CDT [facility] EOSINOPHILS 3.2 % 08/31/2025 6:56 AM CDT [facility] BASOPHILS 0.6 % 08/31/2025 6:56 AM CDT [facility] IMMATURE GRANS % 0.5 % 08/31/20 6:56 AM CDT [facility] ABS. NEUTROPHILS 5.44 1.80 - 7.70 x10'3/uL 08/31/2025 6:56 AM CDT [facility] ABS. LYMPHOCYTES 1.60 1.00 - 4.80 x10'3/uL 08/31/2025 6:56 AM CDT [facility] ABS. MONOCYTES 0.52 0.24 - 0.86 x10'3/uL 08/31/2025 6:56 AM CDT [facility] ABS. EOSINOPHILS 0.25 0.04 - 0.36 x10'3/uL 08/31/2025 6:56 AM CDT [facility] ABS. BASOPHILS 0.05 0.01 - 0.08 x10'3/uL 08/31/2025 6:56 AM CDT [facility] ABS. IMMATURE GRANULOCYTES 0.04 0.00 - 0.49 x10'3/uL 08/31/2025 6:56 AM CDT [facility] 08/31/2025 6:18 AM CDT Kristine Mehta [facility] LABORATORY Final Resul t Performing Organization Address [facility] Co de Phone Number [facility] [address] [place] [address], [place] [phone] * TROPONIN, QUANT (08/31/2025 2:41 AM CDT) TROPONIN I HIGH SENSITIVITY 4 <54 ng/L 08/31/2025 3:15 AM CDT [facility] Comment: HIGH DOSES OF BIOTIN, TROPONIN-SPECIFIC AUTOANTIBODIES, AND ANTIBODY THERAPY CONTAINING HAMA MAY INTERFERE WITH THIS TEST RESULT. CORRELATION TO CLINICAL HISTORY AND PRESENTATION RECOMMENDED. 08/31/2025 2:41 AM CDT Kristine Angulo Tyson [facility]MER LABORATORY Final Resul t Performing Organization Address [facility] Co de Phone Number [facility] [address] [place] [address], [place] [phone] * XR HIP KNEY 2V+PELVIS (08/31/2025 12:33 AM CDT) Anatomical Region [...] 12:36 AM Narrative 08/31/2025 12:38 AM CDT [address] [address] Examination: XR HIP KENY 2V+PELVIS Exam time: [...] Procedure Note Elder Nair DO - 08/31/[address] [address] Examination: XR HIP KENY 2V+PELVIS Exam time: [...] By: Elder Nair DO, 08/31/2025 12:36 AM Kristine Mehta [facility] Final Resul t * XR CHEST PORTABLE (08/31/2025 12:27 AM CDT) Anatomical Region Laterality Modality Chest Radiographic Sendy ging 08/31/2025 12:2 5 AM CDT Impressions 08/31/2025 12:28 AM CDT IMPRESSION:===== 1. NO ACUTE CARDIOPULMONARY FINDINGS. Referred By: Interpreted By: Ramo Martinez MD, 08/31/2025 12:25 AM Narrative 08/31/2025 12:28 AM CDT [place] [id number] EXAMINATION: Chest X-Ray 1 View EXAM DATE/TIME: [...] Procedure Note Ramo Martinez MD - 08/31/2025 [place] [id number] EXAMINATION: Chest X-Ray 1 View EXAM DATE/TIME: [...] Martinez MD, 08/31/2025 12:25 AM Kristine Mehta [facility] Final Resul t * RESPIRATORY PCR PANEL 2 (08/31/2025 12:15 AM CDT) ADENOVIRUS PCR (RESP) NOT DETECTED NOT DETECTED 08/31/2025 1:22 AM CDT [facility] CORONAVIRUS 229E PCR (RESP) NOT DETECTED NOT DETECTED 08/31/2025 1:22 AM CDT [facility] CORONAVIRUS HKU1 PCR (RESP) NOT DETECTED NOT DETECTED 08/31/2025 1:22 AM CDT [facility] CORONAVIRUS NL63 PCR (RESP) NOT DETECTED NOT DETECTED 08/31/2025 1:22 AM CDT [facility] CORONAVIRUS OC43 PCR (RESP) NOT DETECTED NOT DETECTED 08/31/2025 1:22 AM CDT [facility] METAPNEUMOVIRUS PCR (RESP) NOT DETECTED NOT DETECTED 08/31/2025 1:22 AM CDT [facility] RHINOVIRUS/ENTEROV IRUS PCR (RESP) NOT DETECTED NOT DETECTED 08/31/2025 1:22 AM CDT [facility] INFLUENZA A PCR (RESP) NOT DETECTED NOT DETECTED 08/31/2025 1:22 AM CDT [facility] INFLUENZA B PCR (RESP) NOT DETECTED NOT DETECTED 08/31/2025 1:22 AM CDT [facility] PARAINFLUENZA 1 PCR (RESP) NOT DETECTED NOT DETECTED 08/31/2025 1:22 AM CDT [facility] PARAINFLUENZA 2 PCR (RESP) NOT DETECTED NOT DETECTED 08/31/2025 1:22 AM CDT [facility] PARAINFLUENZA 3 PCR (RESP) NOT DETECTED NOT DETECTED 08/31/2025 1:22 AM CDT [facility] PARAINFLUENZA 4 PCR (RESP) NOT DETECTED NOT DETECTED 08/31/2025 1:22 AM CDT [facility] RSV PCR (RESP) NOT DETECTED NOT DETECTED 08/31/2025 1:22 AM CDT [facility] B PARAPERTUSIS PCR (RESP) NOT DETECTED NOT DETECTED 08/31/2025 1:22 AM CDT [facility] BORDETELLA PERTUSSIS PCR (RESP) NOT DETECTED NOT DETECTED 08/31/2025 1:22 AM CDT [facility] CHLAMYDOPHILA PNEUMONIAE PCR (RESP) NOT DETECTED NOT DETECTED 08/31/2025 1:22 AM CDT [facility] MYCOPLASMA PNEUMONIAE PCR (RESP) NOT DETECTED NOT DETECTED 08/31/2025 1:22 AM CDT [facility] CORONAVIRUS SARS COV 2 PCR (RESP) NOT DETECTED NOT DETECTED 08/31/2025 1:22 AM CDT [facility] NASOPHARYNGEAL SWAB / Unknown 08/31/2025 12:15 AM CDT us Kristine Mehta HAND FORMER MICROBIOLOGY - GENERAL ANGELA GRULLON Final Result [facility] [address] [place] [address], [place] [phone] * (ABNORMAL) URINALYSIS (08/30/2025 11:18 PM CDT) SPECIMEN TYPE URINE 08/30/2025 11:25 PM CDT [facility] COLOR (U) COLORLESS 08/30/2025 11:36 PM CDT [facility] TRANSPARENCY CLEAR 08/30/2025 11:36 PM CDT [facility] SPECIFIC GRAVITY (U) 1.006 1.001 - 1.030 08/30/2025 11:36 PM CDT [facility] U PH 7.0 5.0 - 9.0 08/30/2025 11:36 PM CDT [facility] LEUKOCYTES (U) NEGATIVE NEGATIVE 08/30/2025 11:36 PM CDT [facility] NITRITES NEGATIVE NEGATIVE 08/30/2025 11:36 PM CDT [facility] PROTEIN RANDOM (U) NEGATIVE <30 MG/DL 08/30/2025 11:36 PM CDT [facility] GLUCOSE (U) NORMAL NORMAL MG/DL 08/30/2025 11:36 PM CDT [facility] KETONES MG/DL (U) TRACE(A) NEGATIVE MG/DL 08/30/2025 11:36 PM CDT [facility] UROBILINOGEN NORMAL NORMAL MG/DL 08/30/2025 11:36 PM CDT [facility] BILIRUBIN (U) NEGATIVE NEGATIVE MG/DL 08/30/2025 11:36 PM CDT [facility] BLOOD (U) NEGATIVE NEGATIVE 08/30/2025 11:36 PM CDT [facility] 08/30/2025 11:1 8 PM CDT us Darrel Meadows MD URINE ORDERABLES Final Result Performing Organization Address City/[facility]/ZIP Co de Phone Number [facility] [address] [place] [address], [place] [phone] * PROCALCITONIN (PCT) (08/30/2025 6:10 PM CDT) PROCALCITONIN <0.05 0.00 - 0.49 NG/ML 08/31/2025 12:35 AM CDT [facility] 08/30/2025 6:10 PM CDT us Kristine Mehta APRN LABORATORY Final Resul t Performing Organization Address [facility] Co de Phone Number [facility] [address] [place] [address], [place] [phone] * PRO-BRAIN NATRIURETIC PEPTIDE (08/30/2025 6:10 PM CDT) PRO-B TYPE NATRIURETIC PEPTIDE 30 <125 PG/ML 08/31/2025 12:00 AM CDT [facility] Comment: CUT POINTS ESTABLISHED BY [...] ACUTE CHF. 08/30/2025 6:10 PM CDT us Crystal M Brown HAND FORMER LABORATORY Final Resul t Performing Organization Address City/[facility] Co de Phone Number [facility] [address] [place] [address], * CK (CPK) (08/30/2025 6:10 PM CDT) CPK 30 21 - 215 U/L 08/31/2025 12:00 AM CDT [facility] 08/30/2025 6:10 PM CDT Kristine Mehta APRN LABORATORY Final Resul t Performing Organization Address [facility] Co de Phone Number [facility] [address] [place] [address], * (ABNORMAL) TSH W/REFLEX (08/30/2025 4:44 PM CDT) TSH 5.190(H) 0.358 - 3.74 uIU/ML 08/30/2025 7:21 PM CDT [facility] Comment: HIGH DOSES OF BIOTIN MAY INTERFERE WITH THIS TEST RESULT. CORRELATION TO CLINICAL HISTORY AND PRESENTATION RECOMMENDED. 08/30/2025 4:44 PM CDT Davi Moreno PA-C LABORATORY Final Resul t Performing Organization Address City/[facility] Co de Phone Number [facility] [address] [place] [address], [place] [phone] * THYROXINE, FREE (FT4) (08/30/2025 4:44 PM CDT) FREE T4 1.10 0.76 - 1.46 NG/DL 08/30/2025 7:37 PM CDT [facility] 08/30/2025 4:44 PM CDT Davi Moreno PA-C LABORATORY Final Resul t [facility] [address] [place] [address], [place] [phone] * MAGNESIUM (08/30/2025 4:44 PM CDT) MAGNESIUM 2.1 1.8 - 2.4 MG/DL 08/30/2025 7:21 PM CDT [facility] 08/30/2025 4:44 PM CDT Davi Moreno PA-C LABORATORY Final Resul t Performing Organization Address [facility] de Phone Number [facility] [address] [place] [address], [place] [phone] * LITHIUM (08/30/2025 4:44 PM CDT) LITHIUM 1.0 0.6 - 1.2 MMOL/L 08/30/2025 7:04 PM CDT [facility] Comment: Therapeutic Range: 0.6-1.2 MMOL/L POTENTIALLY TOXIC: >1.5 MMOL/L LAST DOSE UNKNOWN LAST DOSE 08/30/2025 7:04 PM CDT [facility] 08/30/2025 4:44 PM CDT us Davi Moreno PA-C LABORATORY Final Resul t Performing Organization Address [facility] Co de Phone Number [facility] [address] [place] [address], [place] [phone] from Last 3 Months Insurance [facility]A MEDICARE Member Subscriber Plan / Payer (Ef fective 2024-Present) Name:Allen Hedrick Relation to Subscriber:Self Name:Allen Hedrick Payer ID:[id number] (NA) Type:Not on file Address: [place] [phone] [facility] COMMERCIAL PAYER Advance Directives * Full Code (Latest Code Status on File) Date Activated Date Inactivated Comments 08/31/2025 6:19 AM 08/31/2025 2:24 PM Care Teams Shooting Gallery Operator Relationship Specialty Start Date End Date None, Provider, PCP - General UNKNOWN PHYSICIAN SPECIALTY 08/30/25
--- OUTSIDE RECORDS SUMMARY | 2025-11-21 17:24 | XMS_ITS | Patient Health Record ---
Author Organization [facility] Address [address] [place] [address] Phone [phone] Care Team Providers Care Monitoring Tech Name Role Phone Sydnee Flores Primary Care Provider Sonya Billings Unavailable [phone] Allergies Allergen (clinical drug ingredient) Drug/Non Drug Allergy documented on EMR Reaction Allergy Type Onset Date Status Shellfish (FN) Shellfish-derived Products rash Drug Allergy Active Results Component Value Reference Range Flag Notes [place] (Eskalith(R)), Serum Order date: 08/23/2025 Reviewed date:08/29/2025 09:07:41 AM Interpretation: Performing Lab:[facility] [place], [address] [facility], Phone - [phone], Director - Juanjo Notes/Report: Called/faxed to TERIR GRAY on 08/26/2025 at 05:11 ET for test [place] (Eskalith(R)), Serum [place] (Eskalith(R)), Serum 1.8 0.5-1.2 mmol/L > A [...] 08/23/2025 Reviewed date:08/29/2025 09:07:41 AM Interpretation: Performing Lab:[facility] [place], [address] [facility], Phone - [phone], Director - Psychiatric Notes/Report: Called/faxed to TERRI GRAY on 08/26/2025 at 05:11 ET for test [place] (Eskalith(R)), Serum TSH 5.580 0.450-4.500 uIU/mL H T4,Free(Direct) 1.19 0.82-1.77 ng/dL CMP 14 Comprehensive Metabol ic Panel* Order date: 08/23/2025 Reviewed date:08/29/2025 09:07:41 AM Interpretation: Performing Lab:[facility] [place], [address] [facility], [place], Phone - [phone], Director [facility] Notes/Report: Called/faxed to TERRI GRAY on 08/26/2025 at 05:11 ET for test [place] (Eskalith(R)), Serum Glucose 94 70-99 mg/dL BUN [...] 0-40 IU/L ALT (SGPT) 12 0-32 IU/L [place] (Eskalith(R)), Serum Order date: 08/26/2025 Reviewed date:09/06/2025 05:09:34 PM Interpretation: Performing Lab:[facility] [place], [address] [facility], Phone - [phone], Director - [facility] Notes/Report: [place] (Eskalith(R)), Serum 0.9 0.5-1.2 mmol/L A concentration [...] 07/11/2025 Reviewed date:07/17/2025 11:17:57 AM Interpretation: Performing Lab:[facility] [place], [address] [facility], Phone - [phone], Director [facility] Notes/Report: Glucose 105 70-99 mg/dL H BUN [...] 07/11/2025 Reviewed date:07/17/2025 11:17:57 AM Interpretation: [facility]forming [facility], Phone - [phone], Director - [facility] Notes/Report: Cholesterol, Total 161 100-199 mg/dL Triglycerides 241 0-149 mg/dL H HDL Cholesterol 47 >39 mg/dL VLDL Cholesterol [place] 39 5-40 mg/dL LDL Chol Calc (NIH) 75 0-99 mg/dL [place] (Eskalith(R)), Serum Order date: 07/11/2025 Reviewed date:07/17/2025 11:17:57 AM Interpretation: Performing Lab:[facility] [place] [address] [facility], Phone - [phone], Director - [facility] Notes/Report: [place] (Eskalith(R)), Serum 1.1 0.5-1.2 mmol/L A concentration of 0.5-0.8 mmol/L is advised for long-term use; concentrations of up to 1.2 mmol/L may be necessary during acute treatment. Detection Limit = 0.1 <0.1 indicates None Detected CBC With Differential/Platel et* Order date: 07/11/2025 Reviewed date:07/17/2025 11:17:57 AM Interpretation: Performing Lab:[facility] [place], [address] [facility], Phone - [phone], Director - [facility] Notes/Report: WBC 7.8 3.4-10.8 x10E3/uL RBC [...] 07/11/2025 Reviewed date:07/17/2025 11:17:57 AM Interpretation: Performing Lab:[facility] [place], [place], Phone - [phone], Director - [facility] Notes/Report: Hemoglobin A1c 5.2 4.8-5.6 % . Prediabetes: 5.7 - 6.4 Diabetes: >6.4 Glycemic control for adults with diabetes: <7.0 [place] (Eskalith(R)), Serum Order date: 12/27/2024 Reviewed date:12/28/2024 01:47:34 PM Interpretation: Performing Lab:[facility], [address], [place], Phone - [phone], Director - [facility] Notes/Report: [place] (Eskalith(R)), Serum 0.8 0.5-1.2 mmol/L A concentration [...] Bipolar 1 disorder ( F31.9) Referral Organization [facility] Referring Provider First Name Sydnee Referring Provider Last Name Mark Referring Provider Speciality Psychiatry Referred Provider Specialty Psychosocial Rehabilitation CounselorFront Attendant Notes Kp Saucedo 03:15:47 PM > Parts Picker left voicemail with call back information. Parts Picker will follow up.Lewis McKenna L 10/28/2025 03:01:06 PM > Parts Picker left voicemail with call back information. Parts Picker will follow up., Kp Saucedo 11/04/2025 03:39:39 PM > Parts Picker left voicemail with call back information. Parts Picker will follow up with number ending in [phone]. Referral Priority Routine Medications Medication SIG (Take, Route, Frequency, Duration) Notes Start Date End Date Diagnosis (ICD Code) Status Colace 100 MG Capsule 1 capsule as needed Orally Once a day Not-Takin g [place] Carbonate 150 MG Capsule 1 capsule x [...] hypomania client will come into today to brain picker olanzapine and this. 11/09/20 25 Bipolar [...] Notes Goals Interventions 08/18/20 24 PRAPARE (LOINC: 41039-0) Total Score: 5 Date Completed/Upda giacomo: 08/18/20 24 What is your current housing situation? 42359-1 I have housing (KD27964-2) Are you worried about losing your housing? 07775-1 No (LA32-8) What is your current work situation? 69663-6 Otherwise unemployed but not seeking work (ex. 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 Check all that apply 63947-7 Medicine or any health care (medical, dental, mental health or vision) (XI60847-2) Struggling with the decreased dose of her medications. Client is stating that she is feeling more stressed, depressed, her sleep is affected, and that she is not adjusting well to the decrease in her medication. Has lack of transportation kept you from medical appointments, meetings, work or from getting things needed for daily living? 57578-5 No (LA32-8) How often do you see or talk to people that you care about and feel close to? (For example: talking to friends on the phone, visiting friends or family, going to denominational or club meetings) 81162-1 1 or 2 times a week (KJ90116-4) client and her daughter state that Allen has been much more withdrawn. Prasanna spends a lot of time in her room alone. Concerns are being expressed by the client and the client's daughter. How stressed are you? Stress is when someone feels tense, nervous, anxious, or can\t sleep at night because their mind is troubled 67403-1 A little bit (AW17503-9) In the past year have you spent more than 2 nights in a row in a detention, alf, half-way center, or juvenile correctional facility? 50242-5 No (LA32-8) Do you feel physically and emotionally safe where you currently live? 37788-5 Yes (LA33-6) In the past year, have you been afraid of your partner or ex-partner? 26154-3 No (LA32-8) Are you a refugee? No [...] use: Nonsmoker Section Notes: Social History- location- [facility] Current home- lives with daughter and her [...] Status W/U Status Risk Notes Problem Depression (415819992) Depression (F32.9) Added On: 025 Active confirmed Problem Bipolar 1 disorder (381103750) Bipolar 1 disorder (F31.9) Added On: 024 Onset Date: 07/14/2024 Active confirmed Problem Overweight (193165326) Over weight (E66.3) Added On: 025 Active confirmed Problem Nightmares (358601434) Nightmares (F51.5) Added On: 024 Active confirmed Problem Hypomania (292040589) Hypomania (F30.8) Added On: 025 Active confirmed [...] Provider Diagnosis 12/27/19 10:40 AM Office Visit [address] [address] Sonya Billings Bipolar 1 disorder F31.9 07/11/20 25 09:00 AM Office Visit [address] [address] Sydnee Flores Medication monitoring encounter Z51.81 08/23/20 25 10:20 AM Office Visit [address] [address] Sydnee Horus Medication monitoring encounter Z51.81 08/29/20 25 08:20 AM Office Visit [address] [address] Sydnee Flores 11/09/20 10:40 AM Telehealth Office Visit, Est Pt., Level 3 (06573) [address] [address] Sydnee Mark Bipolar 1 disorder F31.9 ; Nightmares F51.5 ; Over weight E66.3 and Hypomania F30.8 12/08/19 25 03:00 PM Telehealth Office Visit, Est Pt., Level 3 (51583) [place] [id number] Nomiria Billings Bipolar 1 disorder F31.9 ; Nightmares F51.5 and Non-tobacco user Z78.9 01/05/20 25 09:00 AM MEDICAL [place]UTR[place], [place] ([address]) [place] [id number] Nomiria Billings Nutritional counseling Z71.3 ; Bipolar 1 disorder F31.9 ; Nightmares F51.5 and Non-tobacco user Z78.9 02/02/20 25 01:00 PM Telehealth Office Visit, Est Pt., Level 4 (42054) [place] [id number] Nomiria Billings Bipolar 1 disorder F31.9 ; Nightmares F51.5 and Non-tobacco user Z78.9 03/03/20 25 11:40 AM DOC PT HAS ACTIV DX AIDA/KISHA D/O (G9717) [address] [address] Kyria Billings Bipolar 1 disorder F31.9 ; Nightmares F51.5 and Non-tobacco user Z78.9 03/30/20 11:40 AM BODY MASS INDEX DOCD (3008F) [address] [address] Kyria Billings Bipolar 1 disorder F31.9 ; Nightmares F51.5 ; Non-tobacco user Z78.9 and Over weight E66.3 04/26/20 25 11:40 AM Telehealth Office Visit, Est Pt., Level 4 (30633) [address] [address] Kyria Billings Bipolar 1 disorder F31.9 ; Nightmares F51.5 ; Non-tobacco user Z78.9 and Over weight E66.3 05/04/20 25 01:20 PM BODY MASS INDEX DOCD (3008F) [address] [address] Sonya Billings Bipolar 1 disorder F31.9 ; Nightmares F51.5 ; Non-tobacco user Z78.9 and Over weight E66.3 05/18/20 25 01:00 PM BODY MASS INDEX DOCD (3008F) [address] [address] Sonya Billings Bipolar 1 disorder F31.9 ; Nightmares F51.5 ; Non-tobacco user Z78.9 and Over weight E66.3 06/20/20 25 01:00 PM Office Visit, Est Pt., Level 3 (94490) [address] [address] Sydnee Mark Bipolar 1 disorder F31.9 ; Nightmares F51.5 ; Non-tobacco user Z78.9 ; Over weight E66.3 ; Medication monitoring encounter Z51.81 and Depression F32.9 07/18/20 25 11:20 AM Office Visit, Est Pt., Level 3 (09970) [address] [address] Sydnee Mark Bipolar 1 disorder F31.9 ; Nightmares F51.5 ; Non-tobacco user Z78.9 ; Over weight E66.3 and Depression F32.9 08/22/20 25 11:40 AM PHONE E/M BY PHYS 5-10 MIN (60289) [address] [address] Sydnee [place] Bipolar 1 disorder F31.9 ; Nightmares F51.5 ; Non-tobacco user Z78.9 ; Over weight E66.3 ; Depression F32.9 and Medication monitoring encounter Z51.81 09/26/20 25 10:20 AM Office Visit, Est Pt., Level 3 (38334) [address] [address] Sydnee Mark Bipolar 1 disorder F31.9 and Nightmares F51.5 10/24/20 25 09:00 AM Office Visit, Est Pt., Level 3 (03563) Counts Include [address] [facility] [address] [place] [address] Sydnee [place] Bipolar 1 disorder F31.9 ; Nightmares F51.5 and Over weight E66.3 12/08/19 25 10:27 AM Telephone Encounter Counts Include [address] [facility] [address] [place] [address] Kyria Billings 12/27/19 25 09:18 AM Telephone Encounter Counts Include [address] [facility] [address] [place] [address] Kyria Billings 04/08/20 25 12:15 PM Telephone Encounter [address] [address] Kyria Billings 04/14/20 25 10:46 AM Telephone Encounter [address] [address] Kyria Billings 04/27/20 25 08:43 AM Telephone Encounter Counts Include [address] [facility] [address] [place] [address] Kyria Billings 05/02/20 25 04:05 PM Telephone Encounter [address] [address] Kyria Billings 05/23/20 25 09:59 AM Telephone Encounter Counts Include [address] [facility] [address] [place] [address] Kyria Billings 06/20/20 25 08:43 PM Telephone Encounter Counts Include [address] [facility] [address] [place] [address] Sydnee [place] 06/27/20 25 08:45 AM Telephone Encounter [address] [address] Sydnee Mark 08/03/20 25 01:00 PM Telephone Encounter [address] [address] Sydnee Mark 08/22/20 01:04 PM Telephone Encounter Counts Include [address] [facility] [address] [place] [address] Sydnee [place] 08/22/20 08:12 PM Telephone Encounter Counts Include [address] [facility] [address] [place] [address] Syndee [place] 08/26/20 03:45 AM Telephone Encounter [facility] [address] [place] [address] Sydnee [place] 08/30/20 25 03:05 PM Telephone Encounter [address] [place] [address] Sydnee Mark Bipolar 1 disorder F31.9 and Nightmares F51.5 08/31/20 03:02 PM Telephone Encounter [address] [address] Sydnee [place] 09/15/20 11:00 AM Telephone Encounter [address] [place] [address] Sydnee Mark 09/26/20 10:01 AM Telephone Encounter [place] [address] [place] [address] Sydnee Mark 10/28/20 07:28 AM Telephone Encounter [address] [place] [address] Sydnee Mark 11/02/20 04:07 PM Telephone Encounter Counts Include [address] [facility] [address] [address] Sydnee [place] 11/11/20 09:06 AM Telephone Encounter Counts Include [address] [facility] [address] [address] Sydnee [place] Assessments Encounter Date Diagnosis (ICD Code) Assessment Notes Treatment Notes Section Notes 09/26/2025 Bipolar 1 disorder (ICD-10 - F31.9) stopped lamotrigine stopping lithium 150 mg x 14 days then stop. 10/24/2025 Bipolar 1 disorder (ICD-10 - F31.9) increased bupropion. DIscussed that meds are only part of the solution. Worked to create a plan instead of returning to bed. Agrees to [facility] referral. Declines Crisis calls. Helped frame pros [...] and would like to simplify her medications.REviewed [employer] today. We will address depression first and then revisit mood stabilizers. 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 [place] Discussed risk, benefits, side effects and need [...] in mood or behavior. Confirmed knowledge of [facility] hotline [phone] for clients 20 and under and [facility] line [phone] and awareness of 688. Discussed benefits, side effects and risks including [...] affects and rare CV events, NMS, Seizure. [place] Discussed risk, benefits, side effects and need [...] in mood or behavior. Confirmed knowledge of [facility] hotline [phone] for clients 20 and under and [facility] line [phone] and awareness of 988. Discussed benefits, side [...] her weight/weight gain. Since starting/continuing treatment through [facility] July 2024 she has gained approximately 22 [...] or be administered own oral medications per [facility] protocols. Provided informed consent with understanding of [...] Lybalvi for weight concerns. Not able to brain picker d/t high cost. Reports notable improvement [...] or be administered own oral medications per [facility] protocols. Provided informed consent with understanding of [...] or be administered own oral medications per [facility] protocols. Provided informed consent with understanding of [...] [facility] and is accompanied by her daughter [...] or be administered own oral medications per [facility] protocols. Provided informed consent with understanding of [...] or be administered own oral medications per [facility] protocols. Provided informed consent with understanding of [...] affects and rare CV events, NMS, Seizure. [place] Discussed risk, benefits, side effects and need [...] in mood or behavior. Confirmed knowledge of [facility] hotline [phone] for clients 20 and under and [facility] line [phone] and awareness of 988. Discussed benefits, side [...] who presents for a psychiatric follow-up over [facility] and is located in [place], accompanied by her daughter Franci. Previously seen [...] or be administered own oral medications per [facility] protocols. Provided informed consent with understanding of [...] or be administered own oral medications per [facility] protocols. Provided informed consent with understanding of [...] and during this appt was increased on [place] with lab work ordered for monitoring. Previous [...] or be administered own oral medications per [facility] protocols. Provided informed consent with understanding of [...] PSOP i nfo; asked to consider some continuous churn buttermaker goals for herself. Maybe walk my dog everyday? Helped create a daily plan. Plan Of Treatment No Information Insurance Providers Payer Name Payer Address Payer Phone Subscriber Number Group Number Insured Name Patient Relationship to Insured Coverage Start Date Coverage End Date [employer] MEDICARE ADV [address] [address] [place] [address] [id number] Allen Hedrick Self - patient is the insured 4 Medical (General) History Medical History History ICD Code carpal tunnel Surgical History Surgery Date(Month/Year) detached retina 1978 several ovary cyst removals 1984 carpal tunnel 2014 torn meniscus 2019 TOTAL HYSTERECTOMY 12/2010 Hospitalization History Reason Date(Month/Year) weaning off medications-30 day [facility]
--- OUTSIDE RECORDS SUMMARY | 2025-11-21 17:24 | XMS_ITS | Encounter Summary ---
Author Organization [employer] Address 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
--- OUTSIDE RECORDS SUMMARY | 2025-11-21 17:24 | XMS_ITS | Clinical Summary ---
Author Organization [employer] Address [address] [place] [address] Care Team Providers Care Photographer Apprentice Lithographic Name Role Phone Evan Arroyo DO Primary Care Provider [phone]- [phone] Allergies Active Allergy Reactions Criticality Noted Date [...] Aug 2017 w/ med changes. Psych in [facility]. Last Assessment & Plan: Controlled. Continue meds and Psych follow-ups. Encounters Date Type Department Care Team Description 11/15/2025 External Device Data [facility] ABSTRACTION Provider, Abstract 10/18/2025 External Device Data [facility] ABSTRACTION Provider, Abstract 10/18/2025 External Device Data [facility]STRACTION Provider, Abstract 10/13/2025 [facility] OBGYN [address] [facility] [address] [address] [facility] [address] [place] [address] Sudhir Henderson MD Mixed incontinence urge and stress 10/04/2025 External Device Data [facility] ABSTRACTION Provider, Abstract 09/28/2025 External Device Data [facility] ABSTRACTION Provider, Abstract 09/28/2025 External Device Data [facility] ABSTRACTION Provider, Abstract 09/27/2025 8:20 AM CDT - 09/27/2025 11:59 PM CDT Hospital Encounter [facility] [address] [place] [address] Sudhir Henderson MD Discharge Disposition: Home or Self Care 09/19/2025 12:50 PM CDT Office Visit [facility] OBGYN [address] [address] [place] [address] Sudhir Henderson MD Encounter for routine adult health examination without abnormal findings (Primary Dx); Breast cancer screening by mammogram 09/15/2025 Orders Only [facility] OBGYN [address] [place] [address] Brandee Aceves RN Mixed incontinence urge and stress 09/11/2025 Refill [facility] OBGYN [address] [place] [address] Sudhir Henderson MD Mixed incontinence urge and [...] drink = 0.6 oz pur e alcohol) [facility] Utilities Answer Date Recorded In the [...] answer 06/17/2024 How often do you attend [facility] or jehovah's witness services? Patient unable to answer 06/17/2024 Do you belong to any clubs o r organizations such as zoroastrianism groups, unions, fraternal or athletic groups, or [...] any time in the past 12 [facility], were you homeless or living in a correction (including now)? 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 DICTATION LOCATION: [facility] Narrative 09/27/2025 9:43 AM CDT MAMMO 3D [...] PAP (09/19/2025 1:08 PM CDT) COMMENT (PAP): [facility] Comment: This order for age-based cervical cancer and STI screening follows ACOG guidelines(PB 168, 140, IAE093). See individual assays for performing site location. CLINICAL INFORMATION [facility] [place] Comment:None given LAST MENSTRUAL PERIOD [facility] Comment:NONE GIVEN PREV PAP: [facility] Comment:NONE GIVEN PREV BX: [facility] Comment:NONE GIVEN SOURCE [facility] Comment:Vagina ADEQUACY: [facility] Comment:SATISFACTORY FOR MARRY LUATION PAP INTERP [facility] Comment: Cytology Results: Negative for intraepithelial lesion or malignancy. COMMENT (PAP TEST) [facility] Comment: This Pap test has been evaluated with the ThinPrep(R) Imaging System. ELIGIBILITY COUNSELOR: Michael Be[facility] Comment: SXS, CT(ASCP) CT screening location: [facility] in [place], [address] [place] [address] [address], [place] [address] Geophysicist: QUE CONN MD, CLIA: [id number] REVIEW ELIGIBILITY COUNSELOR: [facility] Comment: FXL, CT(ASCP) CT screening location: [facility] in [place], [address] [place] [address] [address], [place] [address] Geophysicist: QUE CONN MD, CLIA: [id number] EXPLANATORY NOTE Que [facility] Comment: EXPLANATORY NOTE: The Pap is [...] HPV E6/E7 Not Detected Not Detected [facility] Comment: Methodology: Wearing Apparel Folder-Mediated Amplification This assay detects E6/E7 viral messenger RNA (mRNA) from 14 high-risk HPV types (16,18,31,33,35,39,45,51,52,56,58,59,66,68). Cervical sources are required for HPV testing. If a vaginal source from a patient who has had a total hysterectomy with removal of cervix was submitted, please contact the testing laboratory for alternative testing options. For additional information, please refer to http://education.ROCKI/faq/BOI079j9 (This link if provided for information/ educational purposes only.) Test Performed at: [address] [address] [facility] Z20 Genital SPECIMEN FROM VAGINA / Unknown 09/19/2025 1:08 PM CDT 09/20/2025 3:31 PM CDT Sudhir Henderson MD PATHOLOGY/CYTOLOGY ORDERABLES Final Result [facility] [phone] [address] * HEMOGLOBIN A1C (06/17/2024 8:46 PM CDT) HEMOGLOBIN A1C 5.2 <=5.6 % 06/17/2024 9:55 PM CDT [facility] EST. AVG GLUCOSE, A1C 103 mg/dL 06/17/2024 9:55 PM CDT [facility] Blood Venipuncture / Unknown 06/17/2024 8:46 PM CDT 06/17/2024 9:11 PM CDT [facility] - 06/17/2024 9:55 PM CDT HGB A1C INTERPRETATION NORMAL: <5.7% PRE-DIABETES: 5.7 - 6.4% DIABETES: 6.5% OR GREATER us Moinka Meng MD CHEMISTRY ORDERABLES Final Resul t [facility] CLIA# [id number] [address] [place] [address] * (ABNORMAL) LIPID PANEL (06/17/2024 8:46 PM CDT) CHOLESTEROL 186 <200 mg/dL 06/17/2024 9:57 PM CDT [facility] TRIGLYCERIDE 252(H) <150 mg/dL 06/17/2024 9:57 PM CDT [facility] HDL 48 40 - 59 mg/dL 06/17/2024 9:57 PM CDT [facility] LDL CALCULATED 88 <100 mg/dL 06/17/2024 9:57 PM CDT [facility] NON-HDL CHOLESTEROL 138(H) <130 mg/dL 06/17/2024 9:57 PM CDT [facility] Blood Venipuncture / Unknown 06/17/2024 8:46 PM CDT 06/17/2024 9:20 PM CDT [facility] - 06/17/2024 9:57 PM CDT TOTAL [...] Meng MD CHEMISTRY ORDERABLES Final Resul t [facility] CLIA# [id number] [place] [address] from Last 3 Months or Most Recently Relevant to Health Maintenance Insurance [employer] [facility] [employer] Medicare Part D Advance Directives For more information, please contact: [phone] * Full Code (Latest Code Status on File) Date Activated Date Inactivated Comments 06/17/2024 10:34 AM 07/09/2024 4:56 PM Care Teams Photographer Apprentice Lithographic Relationship Specialty Start Date End Date Evan Arroyo DO [address] [place] [id number] PCP - General Family Practice 06/27/21
--- OUTSIDE RECORDS SUMMARY | 2025-11-21 18:31 | XMS_ITS | Encounter Summary ---
Author Organization [employer] Address 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
--- OUTSIDE RECORDS SUMMARY | 2025-11-21 18:32 | XMS_ITS | Clinical Summary ---
Author Organization [employer] Address [address] [place] [address] Care Team Providers Care Bibliographic Services Specialist Name Role Phone Evan Arroyo DO Primary Care Provider +1- [phone] Allergies Active Allergy Reactions Criticality Noted Date [...] Aug 2017 w/ med changes. Psych in [facility]. Last Assessment & Plan: Controlled. Continue meds and Psych follow-ups. Encounters Date Type Department Care Team Description 11/15/2025 External Device Data [facility] ABSTRACTION Provider, Abstract 10/18/2025 External Device Data [facility] ABSTRACTION Provider, Abstract 10/18/2025 External Device Data [facility] ABSTRACTION Provider, Abstract 10/13/2025 [facility] OBGYN [address] [facility] [address] [address] [facility] [address] [place] [address] Sudhir Henderson MD Mixed incontinence urge and stress 10/04/2025 External Device Data [facility] ABSTRACTION Provider, Abstract 09/28/2025 External Device Data [facility] ABSTRACTION Provider, Abstract 09/28/2025 External Device Data [facility] ABSTRACTION Provider, Abstract 09/27/2025 8:20 AM CDT - 09/27/2025 11:59 PM CDT Hospital Encounter [facility] [address] [place] [address] Sudhir Henderson MD Discharge Disposition: Home or Self Care 09/19/2025 12:50 PM CDT Office Visit [facility] OBGYN [address] [address] [address] [place] [address] Sudhir Henderson MD Encounter for routine adult health examination without abnormal findings (Primary Dx); Breast cancer screening by mammogram 09/15/2025 Orders Only [facility] OBGYN [address] [place] [address] Brandee Aceves RN Mixed incontinence urge and stress 09/11/2025 Refill [facility] OBGYN [address] [place] [address] Sudhir Henderson MD Mixed incontinence urge and [...] drink = 0.6 oz pur e alcohol) [facility] Utilities Answer Date Recorded In the [...] answer 06/17/2024 How often do you attend [facility] or [facility] services? Patient unable to answer 06/17/2024 Do [...] were you homeless or living in a longterm (including now)? 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 DICTATION LOCATION: [facility] Narrative 09/27/2025 9:43 AM CDT MAMMO 3D [...] PAP (09/19/2025 1:08 PM CDT) COMMENT (PAP): [facility] Comment: This order for age-based cervical cancer and STI screening follows ACOG guidelines(PB 168, 140, FKI284). See individual assays for performing site location. CLINICAL INFORMATION [facility] Comment:None given LAST MENSTRUAL PERIOD [facility] Comment:NONE GIVEN PREV PAP: [facility] Comment:NONE GIVEN PREV BX: [facility] Comment:NONE GIVEN SOURCE [facility] Comment:Vagina ADEQUACY: [facility] Comment:SATISFACTORY FOR MARRY LUATION PAP INTERP [facility] Comment: Cytology Results: Negative for intraepithelial lesion or malignancy. COMMENT (PAP TEST) [facility] Comment: This Pap test has been evaluated with the ThinPrep(R) Imaging System. CUSTOMER EXPERIENCE SPECIALIST: Michael Bejarano- [facility] Comment: SXS, CT(ASCP) CT screening location: [facility] in [place], [address] [place] [address] [address], [place] [address] Machine Shorthand Reporter: QUE CONN MD, CLIA: [id number] REVIEW CUSTOMER EXPERIENCE SPECIALIST: [facility] Comment: FXL, CT(ASCP) CT screening location: [facility] in [place], [address] [place] [address] [address], [place] [address] Machine Shorthand Reporter: QUE CONN MD, CLIA: [id number] EXPLANATORY NOTE Que [facility] Comment: EXPLANATORY NOTE: The Pap is [...] HPV E6/E7 Not Detected Not Detected [facility] Comment: Methodology: Fieldwork Coordinator-Mediated Amplification This assay detects E6/E7 viral messenger RNA (mRNA) from 14 high-risk HPV types (16,18,31,33,35,39,45,51,52,56,58,59,66,68). Cervical sources are required for HPV testing. If a vaginal source from a patient who has had a total hysterectomy with removal of cervix was submitted, please contact the testing laboratory for alternative testing options. For additional information, please refer to http://education.Gutenberg Technology/faq/QVV230t8 (This link if provided for information/ educational purposes only.) Test Performed at: [address] [address] [facility] Z20 Genital SPECIMEN FROM VAGINA / Unknown 09/19/2025 1:08 PM CDT 09/20/2025 3:31 PM CDT Sudhir Henderson MD PATHOLOGY/CYTOLOGY ORDERABLES Final Result [facility] [phone] [address] * HEMOGLOBIN A1C (06/17/2024 8:46 PM CDT) HEMOGLOBIN A1C 5.2 <=5.6 % 06/17/2024 9:55 PM CDT [facility] EST. AVG GLUCOSE, A1C 103 mg/dL 06/17/2024 9:55 PM CDT [facility] Blood Venipuncture / Unknown 06/17/2024 8:46 PM CDT 06/17/2024 9:11 PM CDT [facility] - 06/17/2024 9:55 PM CDT HGB A1C INTERPRETATION NORMAL: <5.7% PRE-DIABETES: 5.7 - 6.4% DIABETES: 6.5% OR GREATER us Monika Meng MD CHEMISTRY ORDERABLES Final Resul t [facility] CLIA# [id number] [address] [place] [address] * (ABNORMAL) LIPID PANEL (06/17/2024 8:46 PM CDT) CHOLESTEROL 186 <200 mg/dL 06/17/2024 9:57 PM CDT [facility] TRIGLYCERIDE 252(H) <150 mg/dL 06/17/2024 9:57 PM CDT [facility] HDL 48 40 - 59 mg/dL 06/17/2024 9:57 PM CDT [facility] LDL CALCULATED 88 <100 mg/dL 06/17/2024 9:57 PM CDT [facility] NON-HDL CHOLESTEROL 138(H) <130 mg/dL 06/17/2024 9:57 PM CDT [facility] Blood Venipuncture / Unknown 06/17/2024 8:46 [...] Meng MD CHEMISTRY ORDERABLES Final Resul t [facility] CLIA# [id number] [address] [place] [address] from Last 3 Months or Most Recently Relevant to Health Maintenance Insurance [employer] [facility] [employer] Medicare Part D Advance Directives For more information, please contact: [phone] * Full Code (Latest Code Status on File) Date Activated Date Inactivated Comments 06/17/2024 10:34 AM 07/09/2024 4:56 PM Care Teams Bibliographic Services Specialist Relationship Specialty Start Date End Date Evan Arroyo DO [address] [place] [id number] PCP - General Family Practice 06/27/21
--- OUTSIDE RECORDS SUMMARY | 2025-11-21 18:33 | XMS_ITS | Clinical Summary ---
Author Organization [facility] Address [facility] [place] [address] Care Team Providers Care Aquatic Performer Name Role Phone None, Provider MD Primary [...] Department Care Team Description 11/19/2025 2:56 AM CELL GENETICIST - 11/19/2025 6:46 AM CELL GENETICIST Emergency [facility] [place] [address] Hector Patel MD,PHD Dizziness Discharge Disposition: Home or Self Care (Routine Discharge) 11/19/2025 Travel 08/30/2025 6:04 PM CDT - 08/31/2025 12:08 PM CDT Hospital Encounter [facility] [place] [address] Darrel Meadows MD Elayyan, MD Phuc Garduno [...] Comments Blood Pressure 131/79 11/19/2025 3:02 AM CELL GENETICIST Pulse 90 11/19/2025 3:02 AM CELL GENETICIST Temperature 36.7 C (98 F) 11/19/2025 3:02 AM CELL GENETICIST Respiratory Rate 18 11/19/2025 3:02 AM CELL GENETICIST Oxygen Saturation 96% 11/19/2025 3:02 AM CELL GENETICIST Inhaled Oxygen Concentration - - Weight 89.1 kg (196 lb 6.9 oz) 11/19/2025 3:02 A M CELL GENETICIST Height 167.6 cm (5' 6) 11/19/2025 3:02 AM CELL GENETICIST Body Mass Index 31.7 11/19/2025 3:02 AM CELL GENETICIST Plan of Treatment Health Maintenance Due Date [...] HEAD WO CON STAT 11/19/2025 4:30 AM CELL GENETICIST ECG 12-LEAD STAT 11/19/2025 3:37 AM CELL GENETICIST PHOSPHORUS, INORGANIC PHOSPHATE STAT 11/19/2025 3:29 AM CELL GENETICIST THYROXINE, FREE (FT4) STAT 11/19/2025 3:29 AM CELL GENETICIST THYROID STIM HORMONE TSH STAT 11/19/2025 3:29 AM CELL GENETICIST SALICYLATE STAT 11/19/2025 3:29 AM CELL GENETICIST ACETAMINOPHEN STAT 11/19/2025 3:29 AM CELL GENETICIST ETHANOL STAT 11/19/2025 3:29 AM CELL GENETICIST LITHIUM STAT 11/19/2025 3:29 AM CELL GENETICIST MAGNESIUM STAT 11/19/2025 3:29 AM CELL GENETICIST COMPREHENSIVE METABOLIC PANEL STAT 11/19/2025 3:29 AM CELL GENETICIST HC CBC AUTO W/AUTO DIFF STAT 11/19/2025 3:29 AM CELL GENETICIST HC COMPREHENSIVE METABOLIC PANEL STAT 08/31/2025 6:18 [...] CT HEAD WO CON (11/19/2025 4:30 AM CELL GENETICIST) Only the most recent of2 resultswithin the time period is included. Anatomical Region Laterality Modality Head Computed Tomogra phy 11/19/2025 4:32 AM CELL GENETICIST Impressions 11/19/2025 4:33 AM CELL GENETICIST IMPRESSION: ===== 1. No acute intracranial abnormalities. 2. Minimal atrophy and small vessel ischemic disease. Referred By: Interpreted By: Jewel Whittaker MD, 11/19/2025 4:32 AM Narrative 11/19/2025 4:33 AM CELL GENETICIST [address] [address] EXAMINATION: CT of the head EXAM DATE/TIME: [...] Procedure Note Jewel Whittaker MD - 11/19/[address] [address] EXAMINATION: CT of the head EXAM DATE/TIME: [...] * ECG 12 lead (11/19/2025 3:37 AM CELL GENETICIST) Only the most recent of2 resultswithin the time period is included. ECG QT 394 [facility] ECG QTC 487 [facility] 11/19/2025 3:37 AM CELL GENETICIST Narrative [facility] - 11/19/2025 7:29 PM CELL GENETICIST [facility] [address] Test Date: 2025-11-19 Pat Name: ALLEN HEDRICK Department: 41 Room: [place] [address] Gender: Female Clay Temperer: Gayla : 1965 Requested By: HECTOR PATEL Order Number: [id number] Reading MD: Jayy Correa Measurements Intervals [place] Rate: 91 P: 28 DC: 206 QRS: -2 QRSD: 88 T: 34 QT: 394 QTc: 487 Interpretive Statements SINUS RHYTHM LOW QRS VOLTAGE IN PRECORDIAL LEADS [QRS DEFLECTION < 1.0 mV IN CHEST LEADS] POSSIBLE RIGHT VENTRICULAR CONDUCTION DELAY [RSR (QR) IN V1/V2] Compared to ECG 08/31/2025 00:04:11 NO SIGNIFICANT CHANGE No ischemic changes Preliminary EKG Interpretation by Hector Patel MD GENETICIST Procedure Note Jayy Correa MD - 11/19/2025 [facility] [address] [facility] Test Date: 2025-11-19 Pat Name: ALLEN HEDRICK Department: 41 Room: [id number] Gender: Female Clay Temperer: Gayla : 1965 Requested By: HECTOR PATEL Order Number: [id number] Reading MD: Jayy Correa Measurements Intervals [place] Rate: 91 P: 28 DC: 206 QRS: -2 QRSD: 88 T: 34 QT: 394 QTc: 487 Interpretive Statements SINUS RHYTHM LOW QRS VOLTAGE IN PRECORDIAL LEADS [QRS DEFLECTION < 1.0 mV IN CHESTLEADS] POSSIBLE RIGHT VENTRICULAR CONDUCTION DELAY [RSR (QR) IN V1/V2] Compared to ECG 08/31/2025 00:04:11 NO SIGNIFICANT CHANGE No ischemic changes Preliminary EKG Interpretation by Hector Patel MD GENETICIST us Hector Patel MD,PHD ECG ORDERABLES Final Resu lt Performing Organization Address [facility]/ZIP Co de Phone Number [facility] * THYROXINE, FREE (FT4) (11/19/2025 3:29 AM CELL GENETICIST) FREE T4 1.23 0.76 - 1.46 NG/DL 11/19/2025 4:35 AM CELL GENETICIST [facility] BLOOD VENOUS BLOOD SPECIMEN / Unknown 11/19/2025 3:29 AM CELL GENETICIST us Hector Patel MD,PHD LABORATORY Final Resu lt [facility] [address] [place] [id number], [place] [phone] * THYROID STIM HORMONE TSH (11/19/2025 3:29 AM CELL GENETICIST) TSH 2.650 0.358 - 3.74 uIU/ML 11/19/2025 4:35 AM CELL GENETICIST [facility] Comment: HIGH DOSES OF BIOTIN MAY INTERFERE WITH THIS TEST RESULT. CORRELATION TO CLINICAL HISTORY AND PRESENTATION RECOMMENDED. BLOOD VENOUS BLOOD SPECIMEN / Unknown 11/19/2025 3:29 AM CELL GENETICIST us Hector Patel MD,PHD LABORATORY Final Resu lt [facility] [address] [place] [address], * (ABNORMAL) SALICYLATE (11/19/2025 3:29 AM CELL GENETICIST) SALICYLATES <1.7(L) 2.8 - 20.0 MG/DL 11/19/2025 5:03 AM CELL GENETICIST [facility] Comment: THERAPEUTIC: 2.8-20.0 Toxic Level: >=30 BLOOD VENOUS BLOOD SPECIMEN / Unknown 11/19/2025 3:29 AM CELL GENETICIST us Hector Patel MD,PHD LABORATORY Final Resu Performing Organization Address City/[facility]/ZIP Co de Phone Number [facility] [address] [place] [address], * PHOSPHORUS, INORGANIC PHOSPHATE (11/19/2025 3:29 AM CELL GENETICIST) PHOSPHORUS 3.5 2.5 - 4.9 MG/DL 11/19/2025 4:35 AM CELL GENETICIST [facility] BLOOD VENOUS BLOOD SPECIMEN / Unknown 11/19/2025 3:29 AM CELL GENETICIST us Hector Patel MD,PHD LABORATORY Final Resu [facility] [address] [place] [address], * MAGNESIUM (11/19/2025 3:29 AM CELL GENETICIST) MAGNESIUM 2.0 1.8 - 2.4 MG/DL 11/19/2025 4:35 AM CELL GENETICIST [facility] BLOOD VENOUS BLOOD SPECIMEN / Unknown 11/19/2025 3:29 AM CELL GENETICIST Hector Patel MD,PHD LABORATORY Final Resu lt Performing Organization Address [facility] de Phone Number [facility] [address] [place] [address], * (ABNORMAL) LITHIUM (11/19/2025 3:29 AM CELL GENETICIST) LITHIUM <0.2(L) 0.6 - 1.2 MMOL/L 11/19/2025 4:49 AM CELL GENETICIST [facility] Comment: Therapeutic Range: 0.6-1.2 MMOL/L POTENTIALLY TOXIC: >1.5 MMOL/L LAST DOSE UNKNOWN LAST DOSE 11/19/2025 5:10 AM CELL GENETICIST [facility] BLOOD VENOUS BLOOD SPECIMEN / Unknown 11/19/2025 3:29 AM CELL GENETICIST Hector Patel MD,PHD LABORATORY Final Resu lt Performing Organization Address [facility] Co de Phone Number [facility] [address] [place] [address], [place] [phone] * ETHANOL (11/19/2025 3:29 AM CELL GENETICIST) ALCOHOL S/P/B <0.003 <0.003 G/DL 11/19/2025 4:35 AM CELL GENETICIST [facility] BLOOD VENOUS BLOOD SPECIMEN / Unknown 11/19/2025 3:29 AM CELL GENETICIST us Hector Patel MD,PHD LABORATORY Final Resu lt [facility] [address] [place] [address], * (ABNORMAL) COMPREHENSIVE METABOLIC PANEL (11/19/2025 3:29 AM CELL GENETICIST) [facility] GLUCOSE 135(H) 70 - 99 MG/DL 11/19/2025 4:[address] [facility] BUN 23(H) 7 - 18 MG/DL 11/19/2025 4:[address] [facility] CREATININE S/P/B 0.87 0.55 - 1.02 MG/DL 11/19/2025 4:[address] [facility] SODIUM S/P/B 140 136 - 145 MMOL/L 11/19/2025 4:[address] [facility] POTASSIUM S/P/B 3.4(L) 3.5 - 5.1 MMOL/L 11/19/2025 4:[address] [facility] CHLORIDE S/P/B 108 97 - 115 MMOL/L 11/19/2025 4:[address] [facility] CO2 24.4 21 - 32 MMOL/L 11/19/2025 4:[address] [facility] CALCIUM S/P/B 8.8 8.5 - 10.1 MG/DL 11/19/2025 4:[address] [facility] BILIRUBIN TOTAL S/P/B 0.6 0.2 - 1.2 MG/DL 11/19/2025 4:[address] [facility] Comment: THIS ASSAY IS NOT RECOMMENDED FOR PATIENTS UNDERGOING TREATMENT WITH ELTROMBOPAG DUE TO THE POTENTIAL FOR FALSELY ELEVATED RESULTS. TOTAL PROTEIN S/P/B 6.1(L) 6.4 - 8.2 G/DL 11/19/2025 4:[address] [facility] ALBUMIN S/P/B 3.6 3.4 - 5.0 G/DL 11/19/2025 4:[address] [facility] AST 29 15 - 37 U/L 11/19/2025 4:[address] [facility] ALT 35 14 - 55 U/L 11/19/2025 4:[address] [facility] ALKALINE PHOSPHATASE S/P/B 78 50 - 136 U/L 11/19/2025 4:[address] [facility] ANION GAP 7.6 2 - 10 MMOL/L 11/19/2025 4:[address] [facility] BUN CREATININE RATIO 26.4(H) 6 - 26 11/19/2025 4:[address] [facility] A/G RATIO 1.4 1.0 - 2.0 RATIO 11/19/2025 4:[address] [facility] GFR ESTIMATE 75(L) >90 ML/MIN/1.7 3 M2 11/19/2025 4:[address] [facility] Comment: NOTE: eGFR is not calculated for patients <18 years of age or gender unknown. This is an estimated GFR calculation using the new CKD EPI creatinine equation without race and so does not require a correction factor for race. This estimated GFR should not be used for calculating drug doses. BLOOD VENOUS BLOOD SPECIMEN / Unknown 11/19/2025 3:29 AM CELL GENETICIST us Hector Patel MD,PHD LABORATORY Final Resu lt [facility] [address] [place] [address], [place] [phone] * (ABNORMAL) CBC W/DIFF AUTOMATED (11/19/2025 3:29 AM CELL GENETICIST) [facility] WBC 8.96 4.5 - 11.0 x10'3/uL 11/19/2025 4:[address] [facility] RBC 3.80(L) 4.20 - 5.40 x10'6/uL 11/19/2025 4:[address] [facility] HGB 11.3(L) 12.0 - 16.0 G/DL 11/19/2025 4:[address] [facility] HCT 33.6(L) 38.0 - 48.0 % 11/19/2025 4:[address] [facility] MCV 88.4 81.0 - 99.0 FL 11/19/2025 4:[address] [facility] MCH 29.7 27.0 - 31.0 PG 11/19/2025 4:[address] [facility] MCHC 33.6 32.0 - 36.0 G/DL 11/19/2025 4:[address] [facility] RDW 13.0 11.5 - 14.5 % 11/19/2025 4:[address] [facility] PLT 193 130 - 400 x10'3/uL 11/19/2025 4:[address] [facility] MPV 10.5 9.3 - 12.2 FL 11/19/2025 4:[address] [facility] DIFFERENTIAL TYPE AUTOMATED DIFFERENTIAL 11/19/2025 4:[address] [facility] NEUTROPHILS % 80.2 % 11/19/2025 4:[address] [facility] LYMPHOCYTES % 11.4 % 11/19/2025 4:[address] [facility] MONOCYTES % 5.4 % 11/19/2025 4:[address] [facility] EOSINOPHILS 2.3 % 11/19/2025 4:[address] [facility] BASOPHILS 0.4 % 11/19/2025 4:[address] [facility] IMMATURE GRANS % 0.3 % 11/19/20 4:[address] [facility] ABS. NEUTROPHILS 7.18 1.80 - 7.70 x10'3/uL 11/19/2025 4:[address] [facility] ABS. LYMPHOCYTES 1.02 1.00 - 4.80 x10'3/uL 11/19/2025 4:[address] [facility] ABS. MONOCYTES 0.48 0.24 - 0.86 x10'3/uL 11/19/2025 4:[address] [facility] ABS. EOSINOPHILS 0.21 0.04 - 0.36 x10'3/uL 11/19/2025 4:[address] [facility] ABS. BASOPHILS 0.04 0.01 - 0.08 x10'3/uL 11/19/2025 4:[address] [facility] ABS. IMMATURE GRANULOCYTES 0.03 0.00 - 0.49 x10'3/uL 11/19/2025 4:[address] [facility] RBC MORPHOLOGY SLIDE REVIEWED 2024 4:[address] [facility] POIKLO 1+ 11/19/2025 4:[address] [facility] MALLORY JOLLY BODIES 1+ 11/19/2025 4:[address] [facility] PLT EST. ADEQUATE 11/19/2025 4:[address] [facility] BLOOD VENOUS BLOOD SPECIMEN / Unknown 11/19/2025 3:29 AM CELL GENETICIST us Hector Patel MD,PHD LABORATORY Final Resu lt Performing Organization Address City/[facility]/ZIP Co de Phone Number [facility] [address] [place] [address], [place] [phone] * (ABNORMAL) ACETAMINOPHEN (11/19/2025 3:29 AM CELL GENETICIST) Pathologist [facility] ACETAMINOPHEN S/P/B <2.0(L) 10.0 - 30.0 MCG/ML 11/19/2025 4:35 AM CELL GENETICIST [facility] Comment: THERAPEUTIC: 10-30 TOXIC: >200 BLOOD VENOUS BLOOD SPECIMEN / Unknown 11/19/2025 3:29 AM CELL GENETICIST Hector Patel MD,PHD LABORATORY Final Resu Performing Organization Address [facility] Co de Phone Number [facility] [address] [place] [address], [place] [phone] * (ABNORMAL) COMPREHENSIVE METABOLIC PANEL (08/31/2025 6:18 AM CDT) Only the most recent of2 resultswithin the time period is included. Pathologist [facility] GLUCOSE 104(H) 70 - 99 MG/DL 08/31/2025 6:59 AM CDT [facility] BUN 10 7 - 18 MG/DL 08/31/2025 6:59 AM CDT [facility] CREATININE S/P/B 1.06(H) 0.55 - 1.02 MG/DL 08/31/2025 6:59 AM CDT [facility] SODIUM S/P/B 142 136 - 145 MMOL/L 08/31/2025 6:59 AM CDT [facility] POTASSIUM S/P/B 3.4(L) 3.5 - 5.1 MMOL/L 08/31/2025 6:59 AM CDT [facility] CHLORIDE S/P/B 110 97 - 115 MMOL/L 08/31/2025 6:59 AM CDT [facility] CO2 26.1 21 - 32 MMOL/L 08/31/2025 6:59 AM CDT [facility] CALCIUM S/P/B 9.1 8.5 - 10.1 MG/DL 08/31/2025 6:59 AM CDT [facility] BILIRUBIN TOTAL S/P/B 0.5 0.2 - 1.2 MG/DL 08/31/2025 6:59 AM T [facility] Comment: THIS ASSAY IS NOT RECOMMENDED FOR PATIENTS UNDERGOING TREATMENT WITH ELTROMBOPAG DUE TO THE POTENTIAL FOR FALSELY ELEVATED RESULTS. TOTAL PROTEIN S/P/B 6.3(L) 6.4 - 8.2 G/DL 08/31/2025 6:59 AM T [facility] ALBUMIN S/P/B 3.7 3.4 - 5.0 G/DL 08/31/2025 6:59 AM T [facility] AST 7(L) 15 - 37 U/L 08/31/2025 6:59 AM T [facility] ALT 20 14 - 55 U/L 08/31/2025 6:59 AM T [facility] ALKALINE PHOSPHATASE S/P/B 95 50 - 136 U/L 08/31/2025 6:59 AM T [facility] ANION GAP 5.9 2 - 10 MMOL/L 08/31/2025 6:59 AM T [facility] BUN CREATININE RATIO 9.4 6 - 26 08/31/2025 6:59 AM T [facility] A/G RATIO 1.4 1.0 - 2.0 RATIO 08/31/2025 6:59 AM CDT [facility] GFR ESTIMATE 60(L) >90 ML/MIN/1.7 3 M2 08/31/2025 6:59 AM CDT [facility] Comment: NOTE: eGFR is not calculated for patients <18 years of age or gender unknown. This is an estimated GFR calculation using the new CKD EPI creatinine equation without race and so does not require a correction factor for race. This estimated GFR should not be used for calculating drug doses. 08/31/2025 6:18 AM CDT Kristine Angulo Tyson DIETARY AIDE TEACHER LABORATORY Final Resul t [facility] [address] [place] [address], * (ABNORMAL) CBC W/DIFF AUTOMATED (08/31/2025 6:18 AM CDT) Only the most recent of2 resultswithin the time period is included. WBC 7.90 4.5 - 11.0 x10'3/uL 08/31/2025 6:56 AM CDT [facility] RBC 4.21 4.20 - 5.40 x10'6/uL 08/31/2025 6:56 AM CDT [facility] HGB 12.7 12.0 - 16.0 G/DL 08/31/2025 6:56 AM CDT [facility] HCT 37.8(L) 38.0 - 48.0 % 08/31/2025 6:56 AM CDT [facility] MCV 89.8 81.0 - 99.0 FL 08/31/2025 6:56 AM CDT [facility] MCH 30.2 27.0 - 31.0 PG 08/31/2025 6:56 AM CDT [facility] MCHC 33.6 32.0 - 36.0 G/DL 08/31/2025 6:56 AM CDT [facility] RDW 12.6 11.5 - 14.5 % 08/31/2025 6:56 AM CDT [facility] PLT 191 130 - 400 x10'3/uL 08/31/2025 6:56 AM CDT [facility] MPV 9.7 9.3 - 12.2 FL 08/31/2025 6:56 AM CDT [facility] DIFFERENTIAL TYPE AUTOMATED DIFFERENTIAL 08/31/2025 6:56 AM CDT [facility] NEUTROPHILS % 68.8 % 08/31/2025 6:56 AM CDT [facility] LYMPHOCYTES % 20.3 % 08/31/2025 6:56 AM CDT [facility] MONOCYTES % 6.6 % 08/31/2025 6:56 AM CDT [facility] EOSINOPHILS 3.2 % 08/31/2025 6:56 AM CDT [facility] BASOPHILS 0.6 % 08/31/2025 6:56 AM CDT [facility] IMMATURE GRANS % 0.5 % 08/31/20 6:56 AM CDT [facility] ABS. NEUTROPHILS 5.44 1.80 - 7.70 x10'3/uL 08/31/2025 6:56 AM CDT [facility] ABS. LYMPHOCYTES 1.60 1.00 - 4.80 x10'3/uL 08/31/2025 6:56 AM CDT [facility] ABS. MONOCYTES 0.52 0.24 - 0.86 x10'3/uL 08/31/2025 6:56 AM CDT [facility] ABS. EOSINOPHILS 0.25 0.04 - 0.36 x10'3/uL 08/31/2025 6:56 AM CDT [facility] ABS. BASOPHILS 0.05 0.01 - 0.08 x10'3/uL 08/31/2025 6:56 AM CDT [facility] ABS. IMMATURE GRANULOCYTES 0.04 0.00 - 0.49 x10'3/uL 08/31/2025 6:56 AM CDT [facility] 08/31/2025 6:18 AM CDT Kristine Mehta DIETARY AIDE TEACHER LABORATORY Final Resul t Performing Organization Address [facility] Co de Phone Number [facility] [address] [place] [address], [place] [phone] * TROPONIN, QUANT (08/31/2025 2:41 AM CDT) TROPONIN I HIGH SENSITIVITY 4 <54 ng/L 08/31/2025 3:15 AM CDT [facility] Comment: HIGH DOSES OF BIOTIN, TROPONIN-SPECIFIC AUTOANTIBODIES, AND ANTIBODY THERAPY CONTAINING HAMA MAY INTERFERE WITH THIS TEST RESULT. CORRELATION TO CLINICAL HISTORY AND PRESENTATION RECOMMENDED. 08/31/2025 2:41 AM CDT Kristine Angulo Tyson DIETARY AIDE TEACHER LABORATORY Final Resul t Performing Organization Address [facility] Co de Phone Number [facility] [address] [place] [address], [place] [phone] * XR HIP KENY 2V+PELVIS (08/31/2025 12:33 [...] 12:36 AM Narrative 08/31/2025 12:38 AM CDT [address] [address] Examination: XR HIP KENY 2V+PELVIS Exam time: [...] Procedure Note Elder Nair DO - 08/31/[address] [address] Examination: XR HIP KENY 2V+PELVIS Exam time: [...] Nair DO, 08/31/2025 12:36 AM Kristine Mehta DIETARY AIDE TEACHER GENERAL IMAGING Final Resul t * XR CHEST PORTABLE (08/31/2025 12:27 AM CDT) Anatomical Region Laterality Modality Chest Radiographic Sendy ging 08/31/2025 12:2 5 AM CDT Impressions 08/31/2025 12:28 AM CDT IMPRESSION:===== 1. NO ACUTE CARDIOPULMONARY FINDINGS. Referred By: Interpreted By: Ramo Martinez MD, 08/31/2025 12:25 AM Narrative 08/31/2025 12:28 AM CDT [place] [id number] EXAMINATION: Chest X-Ray 1 View EXAM DATE/TIME: [...] Procedure Note Ramo Martinez MD - 08/31/2025 [place] [id number] EXAMINATION: Chest X-Ray 1 View EXAM DATE/TIME: [...] Martinez MD, 08/31/2025 12:25 AM Kristine Mehta DIETARY AIDE TEACHER GENERAL IMAGING Final Resul t * RESPIRATORY PCR PANEL 2 (08/31/2025 12:15 AM CDT) ADENOVIRUS PCR (RESP) NOT DETECTED NOT DETECTED 08/31/2025 1:22 AM CDT [facility] CORONAVIRUS 229E PCR (RESP) NOT DETECTED NOT DETECTED 08/31/2025 1:22 AM CDT [facility] CORONAVIRUS HKU1 PCR (RESP) NOT DETECTED NOT DETECTED 08/31/2025 1:22 AM CDT [facility] CORONAVIRUS NL63 PCR (RESP) NOT DETECTED NOT DETECTED 08/31/2025 1:22 AM CDT [facility] CORONAVIRUS OC43 PCR (RESP) NOT DETECTED NOT DETECTED 08/31/2025 1:22 AM CDT [facility] METAPNEUMOVIRUS PCR (RESP) NOT DETECTED NOT DETECTED 08/31/2025 1:22 AM CDT [facility] RHINOVIRUS/ENTEROV IRUS PCR (RESP) NOT DETECTED NOT DETECTED 08/31/2025 1:22 AM CDT [facility] INFLUENZA A PCR (RESP) NOT DETECTED NOT DETECTED 08/31/2025 1:22 AM CDT [facility] INFLUENZA B PCR (RESP) NOT DETECTED NOT DETECTED 08/31/2025 1:22 AM CDT [facility] PARAINFLUENZA 1 PCR (RESP) NOT DETECTED NOT DETECTED 08/31/2025 1:22 AM CDT [facility] PARAINFLUENZA 2 PCR (RESP) NOT DETECTED NOT DETECTED 08/31/2025 1:22 AM CDT [facility] PARAINFLUENZA 3 PCR (RESP) NOT DETECTED NOT DETECTED 08/31/2025 1:22 AM CDT [facility] PARAINFLUENZA 4 PCR (RESP) NOT DETECTED NOT DETECTED 08/31/2025 1:22 AM CDT [facility] RSV PCR (RESP) NOT DETECTED NOT DETECTED 08/31/2025 1:22 AM CDT [facility] B PARAPERTUSIS PCR (RESP) NOT DETECTED NOT DETECTED 08/31/2025 1:22 AM CDT [facility] BORDETELLA PERTUSSIS PCR (RESP) NOT DETECTED NOT DETECTED 08/31/2025 1:22 AM CDT [facility] CHLAMYDOPHILA PNEUMONIAE PCR (RESP) NOT DETECTED NOT DETECTED 08/31/2025 1:22 AM CDT [facility] MYCOPLASMA PNEUMONIAE PCR (RESP) NOT DETECTED NOT DETECTED 08/31/2025 1:22 AM CDT [facility] CORONAVIRUS SARS COV 2 PCR (RESP) NOT DETECTED NOT DETECTED 08/31/2025 1:22 AM CDT [facility] NASOPHARYNGEAL SWAB / Unknown 08/31/2025 12:15 AM CDT us Kristine Mehta DIETARY AIDE TEACHER MICROBIOLOGY - GENERAL ANGELA GRULLON Final Result [facility] [address] [place] [address], [place] [phone] * (ABNORMAL) URINALYSIS (08/30/2025 11:18 PM CDT) SPECIMEN TYPE URINE 08/30/2025 11:25 PM CDT [facility] COLOR (U) COLORLESS 08/30/2025 11:36 PM CDT [facility] TRANSPARENCY CLEAR 08/30/2025 11:36 PM CDT [facility] SPECIFIC GRAVITY (U) 1.006 1.001 - 1.030 08/30/2025 11:36 PM CDT [facility] U PH 7.0 5.0 - 9.0 08/30/2025 11:36 PM CDT [facility] LEUKOCYTES (U) NEGATIVE NEGATIVE 08/30/2025 11:36 PM CDT [facility] NITRITES NEGATIVE NEGATIVE 08/30/2025 11:36 PM CDT [facility] PROTEIN RANDOM (U) NEGATIVE <30 MG/DL 08/30/2025 11:36 PM CDT [facility] GLUCOSE (U) NORMAL NORMAL MG/DL 08/30/2025 11:36 PM CDT [facility] KETONES MG/DL (U) TRACE(A) NEGATIVE MG/DL 08/30/2025 11:36 PM CDT [facility] UROBILINOGEN NORMAL NORMAL MG/DL 08/30/2025 11:36 PM CDT [facility] BILIRUBIN (U) NEGATIVE NEGATIVE MG/DL 08/30/2025 11:36 PM CDT [facility] BLOOD (U) NEGATIVE NEGATIVE 08/30/2025 11:36 PM CDT [facility] 08/30/2025 11:1 8 PM CDT us Darrel Meadows MD URINE ORDERABLES Final Result Performing Organization Address City/[facility]/ZIP Co de Phone Number [facility] [address] [place] [address], [place] [phone] * PROCALCITONIN (PCT) (08/30/2025 6:10 PM CDT) PROCALCITONIN <0.05 0.00 - 0.49 NG/ML 08/31/2025 12:35 AM CDT [facility] 08/30/2025 6:10 PM CDT us Kristine Mehta APRN LABORATORY Final Resul t Performing Organization Address [facility] Co de Phone Number [facility] [address] [place] [address], [place] [phone] * PRO-BRAIN NATRIURETIC PEPTIDE (08/30/2025 6:10 PM CDT) PRO-B TYPE NATRIURETIC PEPTIDE 30 <125 PG/ML 08/31/2025 12:00 AM CDT [facility] Comment: CUT POINTS ESTABLISHED BY [...] 6:10 PM CDT us Crystal M Brown DIETARY AIDE TEACHER LABORATORY Final Resul t Performing Organization Address [facility] Co de Phone Number [facility] [address] [place] [address], * CK (CPK) (08/30/2025 6:10 PM CDT) CPK 30 21 - 215 U/L 08/31/2025 12:00 AM CDT [facility] 08/30/2025 6:10 PM CDT Kristine Mehta APRN LABORATORY Final Resul t Performing Organization Address [facility] Co de Phone Number [facility] [address] [place] [address], * (ABNORMAL) TSH W/REFLEX (08/30/2025 4:44 PM CDT) TSH 5.190(H) 0.358 - 3.74 uIU/ML 08/30/2025 7:21 PM CDT [facility] Comment: HIGH DOSES OF BIOTIN MAY INTERFERE WITH THIS TEST RESULT. CORRELATION TO CLINICAL HISTORY AND PRESENTATION RECOMMENDED. 08/30/2025 4:44 PM CDT Davi Moreno PA-C LABORATORY Final Resul t Performing Organization Address [facility] Co de Phone Number [facility] [address] [place] [address], [place] [phone] * THYROXINE, FREE (FT4) (08/30/2025 4:44 PM CDT) FREE T4 1.10 0.76 - 1.46 NG/DL 08/30/2025 7:37 PM CDT [facility] 08/30/2025 4:44 PM CDT Davi Moreno PA-C LABORATORY Final Resul t [facility] [address] [place] [address], [place] [phone] * MAGNESIUM (08/30/2025 4:44 PM CDT) MAGNESIUM 2.1 1.8 - 2.4 MG/DL 08/30/2025 7:21 PM CDT [facility] 08/30/2025 4:44 PM CDT Davi Moreno PA-C LABORATORY Final Resul t Performing Organization Address [facility] de Phone Number [facility] [address] [place] [address], [place] [phone] * LITHIUM (08/30/2025 4:44 PM CDT) LITHIUM 1.0 0.6 - 1.2 MMOL/L 08/30/2025 7:04 PM CDT [facility] Comment: Therapeutic Range: 0.6-1.2 MMOL/L POTENTIALLY TOXIC: >1.5 MMOL/L LAST DOSE UNKNOWN LAST DOSE 08/30/2025 7:04 PM CDT [facility] 08/30/2025 4:44 PM CDT us Davi Moreno PA-C LABORATORY Final Resul t Performing Organization Address [facility] Co de Phone Number [facility] [address] [place] [id number], [place] [phone] from Last 3 Months Insurance [facility] Member Subscriber Plan / Payer (Ef fective 2024-Present) Name:Allen Hedrick Relation to Subscriber:Self Name:Allen Hedrick Payer ID:[id number] (NA) Type:Not on file Address: [place] [id number] [facility] [employer] PA[employer]ER Advance Directives * Full Code (Latest Code Status on File) Date Activated Date Inactivated Comments 08/31/2025 6:19 AM 08/31/2025 2:24 PM Care Teams Aquatic Performer Relationship Specialty Start Date End Date None, Provider, PCP - General UNKNOWN PHYSICIAN SPECIALTY 08/30/25
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
[2025-11-21 19:26] LABS: Hematocrit 37.7 % (37.0-47.0); Hemoglobin 12.8 g/dL (12.0-15.0); Immature Granulocyte Percent A 0.6 % (0-0.5); Lymphocytes Absolute Auto 1.64 K/mm3 (0.9-3.2); Mean Corpuscular HGB Conc 34.0 g/dl (32-36); Mean Corpuscular Hemoglobin 29.9 pg (26-34); Mean Corpuscular Volume 88.1 fl (80-100); Nucleated Red Blood Cells Absolute Auto 0.000 K/mm3 (0.0-0.012); Nucleated Red Blood Cells Perc 0.0 % (0.0-0.2); Platelet Count Result 243 k/mm3 (150-375); Red Blood Count 4.28 M/mm3 (4.2-5.4); White Blood Count 6.8 K/mm3 (4.5-10.0)
[2025-11-21 19:35] LABS: Salicylate < 1.0 mg/dL (2-20)
[2025-11-21 19:36] LABS: Acetaminophen < 10 ug/mL (10-30)
[2025-11-21 19:36] LABS: Add Urine Microscopic? NO; Appearance Urine Clear (Clear); Glucose Urine UA Negative (Negative); Leukocyte Esterase Ur Negative LEU/UL (Negative); Nitrate Urine Negative (Negative); Specific Grav Ur 1.002 (1.001-1.035)
[2025-11-21 19:37] LABS: Alanine Aminotransferase 28 U/L (6-35); Albumin Level 4.4 g/dL (3.5-5.1); Alkaline Phosphatase 71 U/L (38-126); Anion Gap 8 mmol/L (4-12); Aspartate Amino Transferase 38 U/L (14-36); Bilirubin,Total 0.6 mg/dL (0.2-1.3); Blood Urea Nitrogen 16 mg/dL (7-17); Calcium 9.3 mg/dL (8.4-10.2); Carbon Dioxide 25 mmol/L (22-30); Chloride 104 mmol/L (98-107); Estimated CRCL calculation 79 ml/min; Estimated Glomerular Filt Rate > 60; Glucose 110 mg/dL (65-110); Potassium 3.7 mmol/L (3.4-5.0); Sodium 137 mmol/L (137-145); Total Protein 7.1 g/dL (6.3-8.2)
[2025-11-21 19:45] LABS: Cannabinoid Screen Urine Negative (Negative)
[2025-11-21 20:00] LABS: Influenza A QL RT-PCR Negative (Negative); Influenza B QL RT-PCR Negative (Negative); RSV RNA, RT-PCR Negative (Negative); SARS-CoV-2 RNA PCR Negative (Negative)
[2025-11-21] MEDS: LORazepam INJ (*CRX) 2 MG/ML VIAL 1 MG IM (20:09)
[2025-11-21 20:12] LABS: Thyroid Stimulating Hormone 4.970 uIU/mL (0.465-4.680)
[2025-11-21] MEDS: ACETAMINOPHEN 500 MG TABLET 1000 MG PO (20:18)
[2025-11-21 20:36] VITALS: BP 186/103; PULSE 76; RESP 19; TEMP 36.4; O2SAT 99
--- NOTE | 2025-11-21 20:37 | PC.NURSE ---
1 mg IM Ativan given in left deltoid to pt in attempt to decrease pt agitation.
--- NOTE | 2025-11-21 20:52 | ED.GENADULT ---
HPI - General Adult General Chief complaint: Anxiety Stated complaint: concern for manic episode from express care Time Seen by Provider: 11/21/25 18:18 History of Present Illness HPI narrative: 60-year-old female presenting via EMS from after displaying aggressive behavior which was concerning for the patient's safety. Patient presents with an elevated and irritable mood stating she has not slept in two days. She is displaying significant pressured speech that is occasionally tangential and racing thoughts. Denies SI/HI and hallucinations. Related Data Home Medications ?Medication ?Instructions ?Recorded ?Confirmed ?Last Taken ?Type trazodone 100 mg tablet 50 mg PO QHS 11/09/24 11/16/25 Unknown History tolterodine 4 mg capsule,extended 4 mg PO ONCE 12/23/24 11/16/25 Unknown History release 24 hr bupropion HCl 150 mg 24 hr tablet, 150 mg PO QAM 07/12/25 11/16/25 Unknown History extended release (Wellbutrin XL) olanzapine 5 mg tablet 5 mg PO DAILY 07/12/25 11/16/25 Unknown History prazosin 2 mg capsule mg 11/21/25 Unknown History Allergies Allergy/AdvReac Type Severity Reaction Status Date / Time iodine Allergy Mild Swelling Verified 11/21/25 16:16 Penicillins Allergy Mild Vomiting Verified 11/21/25 16:16 Sulfa (Sulfonamide Allergy Mild Rash Verified 11/21/25 16:16 Antibiotics) prednisone AdvReac Intermediate Rash Verified 11/21/25 16:16 shellfish derived AdvReac Swelling Verified 11/21/25 16:16 novacaine Allergy Mild Swelling Uncoded 11/16/25 14:34 Review of Systems Review of Systems: All systems reviewed & are unremarkable except as noted in HPI and below PMFSH Past Medical History Medical History Bipolar disorder 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 Anxiety Surgical History Surgical History History of tonsillectomy Detached retina 1979 History of hysterectomy 2010 Family History Family History Father Hypertension Heart problem Alcoholism Mother Diabetes mellitus Heart problem Grandparent Cancer Cerebrovascular accident Social History Social History (Reviewed 12/22/25 @ 17:26 by LESLIE Aragon Smoking status: Never smoker Alcohol intake: never Substance use: never Lack of Transportation: No Lack of Food: Never True Current Housing: I Have Housing Concerned About Future Housing: No Difficulty Paying Gas/Electric Bills: No Difficulty Paying for Meds: No Currently Unemployed: No Education: Trade/Vocational Certificate Difficulty w/ Childcare or Family Care: No Gender identity (if verbalized by the patient): Female Exam Narrative: GENERAL: Disheveled, hyperactive HEAD: Normocephalic, atraumatic. EYES: PERRLA and EOMI. ENT: Nares clear, no rhinorrhea or epistaxis. Mucous membranes moist. Oropharynx without tonsillar hypertrophy exudate or other lesions. Bilateral TMs pearly combs non-bulging NECK: Supple. No adenopathy or masses. No carotid bruits or JVD CHEST: Clear to auscultation. No respiratory distress. No wheezes rales or rhonchi HEART: Regular rate and rhythm. No murmur heard. Normal peripheral pulses. ABDOMEN: Soft, nontender, nondistended, normal active bowel sounds. EXTREMITIES: Normal range of motion. No edema. SKIN: Warm, dry, no rash. NEURO: No focal deficits. Alert and oriented x3. PSYCH: Normal mood and affect Behavior: agitated and restless Speech: Pressured and tangential at times Mood: Anxious and irritable Thought process: Flight of ideas and racing thoughts Thought content: possible delusions Insight/judgement: impaired Attention/concentration: distractable Course Vital Signs Vital signs: Vital Signs Temperature 97 F L 11/21/25 17:19 Pulse Rate 80 11/21/25 17:19 Respiratory Rate 16 11/21/25 17:19 Blood Pressure 153/98 H 11/21/25 17:19 Pulse Oximetry 100 11/21/25 17:19 Oxygen Delivery Room Air 11/21/25 17:19 Temperature 97.6 F 11/21/25 20:36 Pulse Rate 76 11/21/25 20:36 Respiratory Rate 19 11/21/25 20:36 Blood Pressure 186/103 H 11/21/25 20:36 Pulse Oximetry 99 11/21/25 20:36 Oxygen Delivery Room Air 11/21/25 17:19 MDM MDM Narrative Medical decision making narrative: 60-year-old female presenting via EMS from after displaying aggressive behavior which was concerning for the patient's safety. Patient presents with an elevated and irritable mood stating she has not slept in two days. She is displaying significant pressured speech that is occasionally tangential and racing thoughts. Denies SI/HI and hallucinations. Patient exhibiting acute manic episode with severe functional impairment and risky behaviors. Administered 1 mg Ativan which has calmed the patient down allowing her to sleep. Recommend inpatient admission and stabilization as symptoms are severe enough to impair social and occupational functioning and pose a risk to self or others. She is medically cleared for inpatient treatment. Crisis agrees with admission. Stable pending transfer at this time. Differential Diagnosis Differential Diagnosis: Differential diagnostic considerations for mental health disturbances include substance abuse, drug overdose, self-inflicted injuries, substance withdrawal, electrolyte disturbances, endocrinologic disturbances, infection, social stressors, schizophrenia, bipolar disorder, depression, acute anxiety, suicidal ideation, medication noncompliance. Medical Records I have reviewed the following patient records and this information was taken into consideration when formulating the assessment and plan.: previous labs and previous hospitalizations Lab Data MDM Lab Attestation statement: I personally reviewed the patient's lab results. 11/21/25 19:13 11/21/25 19:13 Labs: Lab Results 11/21/25 11/21/25 Range/Units 19:13 19:17 WBC 6.8 (4.5-10.0) K/mm3 RBC 4.28 (4.2-5.4) M/mm3 Hgb 12.8 (12.0-15.0) g/dL Hct 37.7 (37.0-47.0) % MCV 88.1 (80-100) fl MCH 29.9 (26-34) pg MCHC 34.0 (32-36) g/dl RDW 12.5 (11.5-14.5) % Plt Count 243 (150-375) k/mm3 MPV 8.8 (7.4-10.4) fl Immature Gran % (Auto) 0.6 H (0-0.5) % Neut % (Auto) 64.5 (45.5-73.1) % Lymph % (Auto) 24.3 (18.3-44.2) % [place] % (Auto) 5.8 (2.6-8.5) % Eos % (Auto) 4.1 (0-4.4) % Baso % (Auto) 0.7 (0.2-1.2) % Lymph # (Auto) 1.64 (0.9-3.2) K/mm3 [place] # (Auto) 0.4 (0.1-0.6) K/mm3 Eos # (Auto) 0.3 (0-0.3) K/mm3 Baso # (Auto) 0.1 (0.0-0.1) K/mm3 Abs Immat Gran (auto) 0.04 H (0.00-0.031) K/mm3 Absolute Neuts (auto) 4.4 (1.3-6.7) K/mm3 Absolute Nucleated RBC 0.000 (0.0-0.012) K/mm3 Nucleated RBC % 0.0 (0.0-0.2) % Sodium 137 (137-145) mmol/L Potassium 3.7 (3.4-5.0) mmol/L Chloride 104 (98-107) mmol/L Carbon Dioxide 25 (22-30) mmol/L Anion Gap 8 (4-12) mmol/L BUN 16 (7-17) mg/dL Creatinine 0.70 (0.7-1.0) mg/dL Estim Creat Clear Calc 79 ml/min Estimated GFR > 60 (59 - ) Glucose 110 (65-110) mg/dL Calcium 9.3 (8.4-10.2) mg/dL Total Bilirubin 0.6 (0.2-1.3) mg/dL AST 38 H (14-36) U/L ALT 28 (6-35) U/L Alkaline Phosphatase 71 (38-126) U/L Total Protein 7.1 (6.3-8.2) g/dL Albumin 4.4 (3.5-5.1) g/dL TSH 4.970 H (0.465-4.680) uIU/mL Urine Color Yellow (Yellow) Urine Appearance Clear (Clear) Urine pH 7.5 (5.0-9.0) Ur Specific [place] 1.002 (1.001-1.035) Urine Protein Negative (Negative) mg/dL Urine Glucose (UA) Negative (Negative) mg/dL Urine Ketones Negative (Negative) mg/dL Ur Blood (Man) Negative (Negative) Urine Nitrate Negative (Negative) Urine Bilirubin Negative (Negative) Urine Urobilinogen 0.2 (<2.0) mg/dL Leukocyte Esterase Rfl Negative (Negative) ALINA/UL Salicylates < 1.0 L (2-20) mg/dL Urine Opiates Screen Negative (Negative) Urine Methadone Screen Negative (Negative) Acetaminophen < 10 L (10-30) ug/mL Ur Barbiturates Screen Negative (Negative) Ur Phencyclidine Scrn Negative (Negative) Ur Amphetamine Screen Negative (Negative) U Benzodiazepines Scrn Negative (Negative) Urine Cocaine Screen Negative (Negative) U Cannabinoids Screen Negative (Negative) Ethyl Alcohol < 10 (<10) mg/dL Influenza A (RT-PCR) Negative (Negative) Influenza B (RT-PCR) Negative (Negative) RSV (RT-PCR) Negative (Negative) SARS-CoV-2 RNA (RT-PCR) Negative (Negative) Discharge Plan Discharge Clinical Impression: Bipolar disorder, Delmi Patient Disposition: Psychiatric Hosp Condition: Stable Patient Language: Turkmen Prescriptions: No Action doxycycline monohydrate 100 mg capsule 100 mg PO BID 7 Days Qty: 14 0RF prazosin 2 mg capsule trazodone 100 mg tablet 50 mg PO QHS tolterodine 4 mg capsule,extended release 24hr 4 mg PO ONCE bupropion HCl [Wellbutrin XL] 150 mg tablet extended release 24 hr 150 mg PO QAM olanzapine 5 mg tablet 5 mg PO DAILY amlodipine [Norvasc] 5 mg tablet 5 mg PO DAILY Qty: 30 0RF levothyroxine 50 mcg tablet 50 mcg PO DAILY Qty: 90 2RF atorvastatin 10 mg tablet 10 mg PO DAILY Qty: 90 1RF celecoxib 200 mg capsule 200 mg PO BID PRN (Reason: pain) Qty: 14 0RF Follow-up/Referrals: Jessica Sevilla, [place] [Primary Care Provider, Family Practice]
--- NOTE | 2025-11-21 23:02 | PC.NURSE ---
This RN received report from Maryjane SUAZO. pt awaiting placement.
--- NOTE | 2025-11-22 00:08 | PC.NURSE ---
This RN spoke with Deysi from [place] and gave report. Deysi states that she will need pt's vitals rechecked and a [place] level and to call her back when those are resulted at [phone].
[2025-11-22 00:40] VITALS: BP 126/78; PULSE 78; RESP 18; TEMP 37; O2SAT 100
[2025-11-22 00:58] LABS: Lithium < 0.2 mmol/L (0.6-1.2)
--- NOTE | 2025-11-22 01:08 | PC.NURSE ---
This RN spoke to Deysi from [place] and gave updated vitals on pt and [place] level. This RN was told that she will call the Doctor and call back with acceptance.
--- NOTE | 2025-11-22 01:23 | ECG_ITS ---
Test Date: 2025-11-22 01:29:05 Measurements Intervals [place] Rate: 74 P: 37 NH: 204 QRS: -28 QRSD: 90 T: 41 QT: 425 QTc: 474 Interpretive Statements SINUS RHYTHM INCOMPLETE RIGHT BUNDLE BRANCH BLOCK BORDERLINE T WAVE ABNORMALITY- ANTERIOR LEADS BORDERLINE ECG COMPARED WITH PRIOR ECG 11-21-25 16:33 NO SIGNIFICANT CHANGE Electronically Signed On 11-22-2025 07:05:34 DEBURRING AND TOOLING MACHINE OPERATOR by Devendra Clark D.O.
--- NOTE | 2025-11-22 02:31 | PC.NURSE ---
This RN spoke to Deysi @0115 from [facility] and was told that we need an EKG on pt before arrival. This RN faxed EKG to [facility] and called to let them know and received no answer.
--- NOTE | 2025-11-22 03:38 | PC.NURSE ---
Pt was taken for a shower, hair combed and braided, and given food and water. pt is now resting on stretcher in [facility].
[2025-11-22 08:01] VITALS: BP 158/86; PULSE 75; RESP 20; TEMP 36.6; O2SAT 95
[2025-11-22] MEDS: LORazepam (*CRX) 1 MG TABLET PO (09:04)
[2025-11-22] MEDS: ACETAMINOPHEN 500 MG TABLET 1000 MG PO (09:04)
== END 2025-11-22 09:26 ==
PROVIDERS: PCP Nurse Practitioner Family
DX: F31.9 Bipolar disorder, unspecified (principal); Z79.899 Other long term (current) drug therapy; Z20.822 Contact with and (suspected) exposure to COVID-19
CPT/HCPCS: 36415; 80053; 80143; 80178; 80179; 80307; 81003; 82077; 84443; 85025; 87637; 93005; 96372; 99285; A9270; J2060